=== PATIENT | male | born 1950 | race Two or more races ===

== ENCOUNTER 2017-01-19 00:02 | Emergency (ER) | payer MEDICARE, MEDICAID ==
[~2017-01-19] VITALS: Ht 172.7 cm; Wt 70.3 kg
[~2017-01-19 00:02] MED LIST: ALBUTEROL SULF8.5 GM INH; BUSPIRONE HCL5 M1 ORAL; CALCIUM500 M3 PO; CLONAZEPAM2 M1 PO; COLACE100 MG ORAL; IBUPROFEN200 MG ORAL; KLONOPIN0.5 MG ORAL; NORCO 5-325 TA1 EACH ORAL; PREDNISONE20 MG ORAL; PROAIR HFA8.5 GM INH; SIMVASTATIN10 MG PO; SIMVASTATIN5 MG ORAL; TEGRETOL200 MG PO; ZITHROMAX250 MG ORAL
--- NOTE | 2017-01-19 00:09 | Emergency Room Report ---
History of Present Illness General Chief Complaint: Laceration Source: Patient, Medical Record Present Illness HPI This is a 66-year-old male with a history of seizure and unsteady gait. Patient presents with a fall and head injury. He said he try to walk and tripped and fell backward. He sustained an abrasion/laceration to the scalp. Onset laceration to the forearm. This occurred about 4 hours ago. Pain is 8/ 10. Diffuse in nature. No loss of consciousness. Not on any anticoagulations. Nothing made it better. Nothing made it worse. 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 Hx Cerebrovascular Accident: Yes - 2009 Hx Seizures: Yes Review of Systems Eye: Denies: eye pain, blurred vision ENT: Denies: ear pain, nose congestion, throat swelling Respiratory: Denies: cough, shortness of breath Cardiovascular: Denies: chest pain, palpitations Gastrointestinal: Denies: abdominal pain, diarrhea, nausea, vomiting Musculoskeletal: Denies: back pain, joint pain Skin: Denies: rash Neurological: Denies: headache, numbness Endocrine: Denies: increased thirst, increased urine Hematologic/Lymphatic: Denies: easy bruising All Other Systems: negative except mentioned in HPI Physical Exam Vital Signs Date Time Temp Pulse Resp B/P (MAP) Pulse Ox O2 Delivery O2 Flow Rate FiO2 01/18/17 23:51 93 20 113/72 91 Room Air vitals normal. Repeat oxygenation is 95% room air Sp02 EP Interpretation: reviewed, normal General Appearance: well appearing, no apparent distress, alert Head: normocephalic, other - Abrasion to the occiput. No laceration. Eyes: bilateral eye PERRL, bilateral eye EOMI ENT: hearing grossly normal, normal pharynx Neck: full range of motion, supple, no meningismus Respiratory: chest non-tender, lungs clear, normal breath sounds Cardiovascular #1: regular rate, rhythm, no murmur Gastrointestinal: normal bowel sounds, non tender, no mass, no organomegaly, no bruit, non-distended Musculoskeletal: back normal, normal range of motion, other - Small skin avulsion to right forearm. Nothing to suture. Full range of motion. Neurovascularly intact. Psychiatric: mood/affect normal Skin: warm/dry Medical Decision Making Diagnostic Impression: Primary Impression: Head injury, acute Qualified Codes: S09.90XA - Unspecified injury of head, initial encounter Additional Impression: Avulsion of skin of forearm Qualified Codes: S51.801A - Unspecified open wound of right forearm, initial encounter ER Course Patient with a fall and minor skin injury. No fracture or bleed. [facility]/MRI/US Diagnostic Results CT/MRI/US Diagnostic Results : Imaging Test Ordered: CT head Impression read by radiologist. Negative. Last Vital Signs Date Time Temp Pulse Resp B/P (MAP) Pulse Ox O2 Delivery O2 Flow Rate FiO2 01/18/17 23:51 93 20 113/72 91 Room Air Status: improved Disposition: [facility] Condition: Stable Patient Instructions: Nonsutured Laceration Care Additional Instructions: Keep wound clean. Followup with your Dr. in 7 days. Return if symptom worsen. VILMA BURKS M.D. Jan 19, 2017 00:09
[2017-01-19 00:20] VITALS: BP 125/77
[2017-01-19 01:00] VITALS: BP 125/77
--- NOTE | 2017-01-19 09:26 | Diagnostic Imaging Report ---
Indication: TRAUMA, pain, status post fall, laceration on posterior head Technique: spiral acquisitions obtained through the brain. Angled axial and coronal 5 x 5 mm slices were reconstructed. No IV contrast utilized. Radiation dose was minimized using automated exposure control Total dose length product 1439 mGycm. CTDIvol(s) 70 mGy Comparison: none FINDINGS: No acute hemorrhage or edema. No mass effect or midline shift. There is age-related enlargement of the ventricles and extra axial CSF spaces. There is periventricular deep white matter ischemic change. Normal jimenez-white differentiation. Visualized orbits are unremarkable. Visualized sinuses are unremarkable. Intact calvarium. There is right high parietal scalp soft tissue swelling. The mastoids are clear. IMPRESSION: Chronic and age-related changes. Negative for acute intracranial bleed or mass effect Right high parietal scalp soft tissue swelling This agrees with the preliminary interpretation provided overnight by [facility] teleradiology service. The CT scanner at [facility] is accredited by the [employer] and the scans are performed using protocols designed to limit radiation exposure to as low as reasonably achievable to attain images of sufficient resolution adequate for diagnostic evaluation
== END 2017-01-19 01:01 ==
LOC: EDBD 00:02 → EMR 00:05
DX: S09.90XA Unspecified injury of head, initial encounter (principal); S51.801A Unspecified open wound of right forearm, initial encounter; W01.0XXA Fall on same level from slipping, tripping and stumbling without subsequent striking against object, initial encounter; Y93.9 Activity, unspecified; Y92.9 Unspecified place or not applicable; J44.9 Chronic obstructive pulmonary disease, unspecified; Z85.9 Personal history of malignant neoplasm, unspecified; K21.9 Gastro-esophageal reflux disease without esophagitis; F41.9 Anxiety disorder, unspecified; Z86.73 Personal history of transient ischemic attack (TIA), and cerebral infarction without residual deficits
CPT/HCPCS: 70450; 99284

== ENCOUNTER 2018-03-07 04:46 | Inpatient (IN) | payer MEDICARE, OTHER ==
[~2018-03-07] VITALS: Ht 170.2 cm; Wt 68.7 kg
[2018-03-07] VITALS (7 sets, daily range): BP systolic 101–135; BP diastolic 56–87
[2018-03-07] MEDS ORDERED: PREDNISONE20 MG ORAL (04:58)
--- NOTE | 2018-03-07 04:59 | Emergency Room Report ---
History of Present Illness General Chief Complaint: Dyspnea/Respdistress Source: EMS (Shahid Cordova M.D.) Present Illness HPI 67 WM c/o sob tonight. He has "asthma" and uses inhalers prn, last prednisone he thinks was November, no history of intubation. With this episode no fever, no chest pain, no leg pain/swelling, no recent travel. Just sob, and he has used his inhaler several times without relief. 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 Hx Cerebrovascular Accident: Yes - 2009 Hx Seizures: Yes (Shahid Cordova M.D.) Review of Systems Constitutional: Reports: see HPI Eye: Reports: no symptoms ENT: Reports: no symptoms Respiratory: Reports: shortness of breath, wheezing, HANKS Cardiovascular: Reports: no symptoms Gastrointestinal: Reports: no symptoms Genitourinary: Reports: no symptoms Musculoskeletal: Reports: no symptoms Skin: Reports: no symptoms Psychiatric: Reports: no symptoms Neurological: Reports: no symptoms Endocrine: Reports: no symptoms Hematologic/Lymphatic: Reports: no symptoms Allergic: Reports: no symptoms All Other Systems: negative except mentioned in HPI (Shahid Cordova M.D.) Physical Exam Vital Signs Date Time Temp Pulse Resp B/P (MAP) Pulse Ox O2 Delivery O2 Flow Rate FiO2 03/07/18 04:37 98.4 98 24 160/102 97 Non-Rebreather Sp02 EP Interpretation: reviewed, abnormal General Appearance: alert, GCS 15, moderate distress Head: normocephalic, atraumatic Eyes: bilateral eye normal inspection, bilateral eye PERRL, bilateral eye EOMI ENT: normal ENT inspection, hearing grossly normal, normal pharynx, no angioedema, normal voice, moist mucus membranes Neck: normal inspection, full range of motion, supple, no meningismus, no bony tend Respiratory: no rhonchi, respiratory distress - moderate; I:E 1:3, accessory muscle use, wheezing - prolonged I:E 1:3 Cardiovascular #1: normal inspection, regular rate, rhythm, no edema Gastrointestinal: normal inspection, normal bowel sounds, non tender, soft, no mass, non-distended Musculoskeletal: gait/station normal, normal range of motion Neurologic: normal inspection, alert, oriented x3, responsive, motor strength/ tone normal Psychiatric: normal inspection, judgement/insight normal, memory normal Suicide Risk Assessment: Suicidal Ideation: No Had intent to initiate attempt: No Pt's plan for suicide attempt: No Has means to complete attempt: No Skin: normal inspection, normal color, no rash, warm/dry (Shahid Cordova M.D.) Medical Decision Making Behavioral: Depression (Shahid Cordova M.D.) Diagnostic Impression: Primary Impression: Asthma with status asthmaticus Qualified Codes: J45.52 - Severe persistent asthma with status asthmaticus ER Course moderate resp distress on presentation however there is good air exchange and I think this patient will improve considerably over the next several hours. I have asked next MD to make final disposition, possible admit. (Shahid Cordova M.D.) ER Course Please see above note. States one of worst attacks. Denies intubation. Patient still dyspneic and with wheezing. Further breathing treatments ordered. Admit tele "status asthmaticus" Labs with eosinphilia. Tox + barbs (not seen on med recon) Trop neg. Patient changed into gown. With minimal exertion, in resp distress. Desaturation and worse bronchospasm. Albuterol repeat. Magnesium low. Mag IV ordered. If not better, consider BIPAP. Improved after mag and tx. No resp distress. O2 sat 91% on RA. Admit Telemetry Dr. Medina. Laboratory Tests Test 03/07/18 05:00 03/07/18 06:00 03/07/18 15:45 White Blood Count 6.4 K/UL (4.8-10.8) Red Blood Count 5.07 M/UL (4.70-6.10) Hemoglobin 15.2 G/DL (14.2-18.0) Hematocrit 44.8 % (42.0-52.0) Mean Corpuscular Volume 88 FL (80-99) Mean Corpuscular Hemoglobin 29.9 PG (27.0-31.0) Mean Corpuscular Hemoglobin Concent 33.9 G/DL (32.0-36.0) Red Cell Distribution Width 11.5 % (11.6-14.8) L Platelet Count 164 K/UL (150-450) Mean Platelet Volume 7.2 FL (6.5-10.1) Neutrophils (%) (Auto) 60.1 % (45.0-75.0) Lymphocytes (%) (Auto) 17.8 % (20.0-45.0) L Monocytes (%) (Auto) 10.2 % (1.0-10.0) H Eosinophils (%) (Auto) 10.1 % (0.0-3.0) H Basophils (%) (Auto) 1.8 % (0.0-2.0) Prothrombin Time 10.5 SEC (9.30-11.50) Prothrombin Time INR 1.0 (0.9-1.1) Sodium Level 142 MMOL/L (136-145) 141 MMOL/L (136-145) Potassium Level 3.8 MMOL/L (3.5-5.1) 3.9 MMOL/L (3.5-5.1) Chloride Level 108 MMOL/L (98-107) H 108 MMOL/L (98-107) H Carbon Dioxide Level 27 MMOL/L (21-32) 22 MMOL/L (21-32) Anion Gap 7 mmol/L (5-15) 11 mmol/L (5-15) Blood Urea Nitrogen 17 mg/dL (7-18) 16 mg/dL (7-18) Creatinine 0.9 MG/DL (0.55-1.30) 1.1 MG/DL (0.55-1.30) Estimate Glomerular Filtration Rate > 60 mL/min (>60) > 60 mL/min (>60) Glucose Level 117 MG/DL (74-106) H 118 MG/DL (74-106) H Calcium Level 8.8 MG/DL (8.5-10.1) 8.7 MG/DL (8.5-10.1) Magnesium Level 1.7 MG/DL (1.8-2.4) L 2.2 MG/DL (1.8-2.4) Total Bilirubin 0.2 MG/DL (0.2-1.0) 0.2 MG/DL (0.2-1.0) Aspartate Amino Transferase (AST) 20 U/L (15-37) 16 U/L (15-37) Alanine Aminotransferase (ALT) 19 U/L (12-78) 18 U/L (12-78) Alkaline Phosphatase 97 U/L (46-116) 90 U/L (46-116) Troponin I 0.000 ng/mL (0.000-0.056) 0.000 ng/mL (0.000-0.056) Pro-B-Type Natriuretic Peptide 266 pg/mL (0-125) H Total Protein 7.3 G/DL (6.4-8.2) 6.9 G/DL (6.4-8.2) Albumin 3.8 G/DL (3.4-5.0) 3.4 G/DL (3.4-5.0) Globulin 3.5 g/dL 3.5 g/dL Albumin/Globulin Ratio 1.1 (1.0-2.7) 1.0 (1.0-2.7) Urine Color Yellow Urine Appearance Clear Urine pH 5 (4.5-8.0) Urine Specific Cantril 1.025 (1.005-1.035) Urine Protein 1+ (NEGATIVE) H Urine Glucose (UA) Negative (NEGATIVE) Urine Ketones 1+ (NEGATIVE) H Urine Blood Negative (NEGATIVE) Urine Nitrite Negative (NEGATIVE) Urine Bilirubin Negative (NEGATIVE) Urine Urobilinogen Normal MG/DL (0.0-1.0) Urine Leukocyte Esterase Negative (NEGATIVE) Urine RBC 0 /HPF (0 - 0) Urine WBC 0-2 /HPF (0 - 0) Urine Squamous Epithelial Cells Occasional /LPF Urine Bacteria Occasional /HPF (NONE) Urine Mucus Many /LPF (NONE/OCC) H Urine Opiates Screen Negative (NEGATIVE) Urine Barbiturates Screen Positive (NEGATIVE) H Phencyclidine (PCP) Screen Negative (NEGATIVE) Urine Amphetamines Screen Negative (NEGATIVE) Urine Benzodiazepines Screen Negative (NEGATIVE) Urine Cocaine Screen Negative (NEGATIVE) Urine Marijuana (THC) Screen Negative (NEGATIVE) Phosphorus Level 2.0 MG/DL (2.5-4.9) L (Blake Rollins MD) EKG Diagnostic Results EKG Time: 05:36 Rate: tachycardiac Rhythm: NSR ST Segments: no acute changes Other Impression sinus tachy 103, no elevation/depression (Shahid Cordova M.D.) Rhythm Strip Diag. Results Rhythm Strip Time: 05:36 EP Interpretation: yes Rate: sinus 108 (Shahid Cordova M.D.) EP Interpretation: yes Rhythm: NSR, no PVC's, no ectopy, other (Blake Rollins MD) Chest X-Ray Diagnostic Results Chest X-Ray Diagnostic Results : Chest X-Ray Ordered: Yes Indication: Shortness of Breath EP Interpretation: Yes Interpretation: no consolidation, no effusion, other - copd (Shahid Cordova M.D.) Chest X-Ray Diagnostic Results : Electronically Signed by: Blake Rollins MD - agree with reading by Dr. Cordova (Blake Rollins MD) Last Vital Signs Date Time Temp Pulse Resp B/P (MAP) Pulse Ox O2 Delivery O2 Flow Rate FiO2 03/07/18 04:37 98.4 98 24 160/102 97 Non-Rebreather Status: worsened (Shahid Cordova M.D.) Last Vital Signs Date Time Temp Pulse Resp B/P (MAP) Pulse Ox O2 Delivery O2 Flow Rate FiO2 03/07/18 19:55 75 20 96 Room Air 21 03/07/18 16:00 97.0 103/57 (72) 03/07/18 10:32 2.0 Status: improved (Blake Rollins MD) Disposition: ADMITTED INPATIENT Condition: Serious Scripts Trimethoprim/Sulfamethoxazole (Bactrim Ds Tablet) 1 Each Tablet 1 TAB ORAL TWICE A DAY for 4 Days, TAB Prov: Michele Umaña MD 03/10/18 Theophylline (THEODUR*) 100 Mg Tab.er.12h 100 MG ORAL EVERY 12 HOURS for 30 Days, TAB Prov: Michele Umaña MD 03/10/18 Methylprednisolone (Methylprednisolone*) 4MG Dspk 4 MG ORAL DIRECTED for 6 Days, #21 EA 0 Refills Day 1: Two tablets before breakfast, one after lunch, one after dinner, and two at bedtime. If started late in the day, take all six tablets at once or divide into two or three doses, unless otherwise directed by prescriber. Day 2: One tablet before breakfast, one after lunch, one after dinner, and two at bedtime Day 3: One tablet before breakfast, one after lunch, one after dinner, and one at bedtime Day 4: One tablet before breakfast, one after lunch, and one at bedtime Day 5: One tablet before breakfast and one at bedtime Day 6: One tablet before breakfast Prov: Michele Umaña MD 03/10/18 Patient Instructions: Chronic Obstructive Pulmonary Disease Exacerbation Shahid Cordova M.D. Mar 07, 2018 04:59 Blake Rollins MD Mar 07, 2018 06:28
[2018-03-07] MEDS ORDERED: Solu-MEDROL 125mg Inj IVP ONE (05:00)
[2018-03-07] MEDS ORDERED: Albuterol/Ipratropium 3ml neb HHN ONE (05:00)
[2018-03-07 05:30] LABS: BASOPHILS % (AUTO) 1.8 % (0.0-2.0); EOSINOPHILS % (AUTO) 10.1 % (0.0-3.0); HEMATOCRIT 44.8 % (42.0-52.0); HEMOGLOBIN 15.2 G/DL (14.2-18.0); LYMPHOCYTES % (AUTO) 17.8 % (20.0-45.0); MEAN CORPUSCULAR VOLUME 88 FL (80-99); MONOCYTES % (AUTO) 10.2 % (1.0-10.0); NEUTROPHILS % (AUTO) 60.1 % (45.0-75.0); PLATELET COUNT 164 K/UL (150-450); RED BLOOD COUNT 5.07 M/UL (4.70-6.10); RED CELL DISTRIBUTION WIDTH 11.5 % (11.6-14.8); WHITE BLOOD COUNT 6.4 K/UL (4.8-10.8)
--- NOTE | 2018-03-07 06:15 | Diagnostic Imaging Report ---
EXAM: XR Chest, 1 View CLINICAL HISTORY: CP TECHNIQUE: Frontal view of the chest. COMPARISON: No prior studies available. FINDINGS: Normal heart size. Suspect some chronic interstitial changes. No consolidation, overt edema or other acute cardiopulmonary process. IMPRESSION: No acute cardiopulmonary process
[2018-03-07 06:29] LABS: ALANINE AMINOTRANSFERASE 19 U/L (12-78); ALBUMIN 3.8 G/DL (3.4-5.0); ALBUMIN/GLOBULIN RATIO 1.1 (1.0-2.7); ALKALINE PHOSPHATASE 97 U/L (46-116); ANION GAP 7 mmol/L (5-15); ASPARTATE AMINO TRANSFERASE 20 U/L (15-37); BILIRUBIN,TOTAL 0.2 MG/DL (0.2-1.0); BLOOD UREA NITROGEN 17 mg/dL (7-18); CALCIUM 8.8 MG/DL (8.5-10.1); CARBON DIOXIDE 27 MMOL/L (21-32); CHLORIDE 108 MMOL/L (98-107); CREATININE 0.9 MG/DL (0.55-1.30); POTASSIUM 3.8 MMOL/L (3.5-5.1); SODIUM 142 MMOL/L (136-145)
[2018-03-07 06:30] LABS: APPEARANCE,URINE CLEAR; BILIRUBIN, URINE NEGATIVE (NEGATIVE); GLUCOSE, URINE (UA) NEGATIVE (NEGATIVE); KETONES,URINE 1+ (NEGATIVE); LEUKOCYTE ESTERASE ,URINE NEGATIVE (NEGATIVE); NITRITE,URINE NEGATIVE (NEGATIVE); PH,URINE 5 (4.5-8.0); PROTEIN,URINE 1+ (NEGATIVE); UROBILINOGEN,URINE NORMAL MG/DL (0.0-1.0)
[2018-03-07] MEDS: Albuterol ud Inhalation HHN SCH ×8 (06:38→09:18)
[2018-03-07 06:49] LABS: COLOR,URINE YELLOW
[2018-03-07] MEDS ORDERED: LORazepam 0.5mg tab ORAL PRN (12:00)
[2018-03-07] MEDS ORDERED: carBAMazepine 200mg tab ORAL SCH (13:00)
[2018-03-07] MEDS: Solu-MEDROL 125mg Inj IVP SCH ×2 (13:18→22:13)
[2018-03-07] MEDS: cefTRIAXone 1 GM in D5W 55 ML IVPB SCH (13:19)
[2018-03-07] MEDS: Norco 5mg/325mg tab ORAL PRN ×2 (13:51→22:15)
[2018-03-07] MEDS: Albuterol/Ipratropium 3ml neb HHN SCH ×2 (14:51→19:43)
--- NOTE | 2018-03-07 15:06 | History & Physical ---
History and Physical History & Physicial Dictated for Int Med-dr Medina no. [id number]. Ryan Mckenzie MD Mar 07, 2018 15:06
[2018-03-07] MEDS: NovoLOG Insulin Flexpen SUBQ SCH ×2 (16:21→20:36)
[2018-03-07 16:34] LABS: ALANINE AMINOTRANSFERASE 18 U/L (12-78); ALBUMIN 3.4 G/DL (3.4-5.0); ALKALINE PHOSPHATASE 90 U/L (46-116); ANION GAP 11 mmol/L (5-15); ASPARTATE AMINO TRANSFERASE 16 U/L (15-37); BILIRUBIN,TOTAL 0.2 MG/DL (0.2-1.0); BLOOD UREA NITROGEN 16 mg/dL (7-18); CALCIUM 8.7 MG/DL (8.5-10.1); CARBON DIOXIDE 22 MMOL/L (21-32); CHLORIDE 108 MMOL/L (98-107); CREATININE 1.1 MG/DL (0.55-1.30); POTASSIUM 3.9 MMOL/L (3.5-5.1); SODIUM 141 MMOL/L (136-145)
[2018-03-07] MEDS: BusPIRone 10mg Tab ORAL SCH (17:26)
[2018-03-07] MEDS: Docusate 100mg cap ORAL SCH (17:27)
[2018-03-07] MEDS: Heparin 5000 units/ml inj SUBQ SCH (20:34)
[2018-03-08] VITALS (7 sets, daily range): BP systolic 99–139; BP diastolic 53–81
[2018-03-08] MEDS: Albuterol/Ipratropium 3ml neb HHN PRN ×3 (00:03→10:27)
--- NOTE | 2018-03-08 02:00 | History and Physical Report ---
DATE OF ADMISSION: 03/07/2018 CHIEF COMPLAINT: The patient is a 67-year-old male who presents with chief complaint of shortness of breath and cough. HISTORY OF PRESENT ILLNESS: The patient has a history of asthma. The patient was admitted to the [facility] recently. The patient was discharged to [facility]. The patient states he began to experience shortness of breath on 03/04/2018. The patient states this is increased over the past 3 days. The patient became extremely short of breath today 03/07/2018. A pulse ox at oxygen saturation dropped to 80. The patient was transported to [facility] for dyspnea. The patient was admitted for acute exacerbation of asthma. REVIEW OF SYSTEMS: CONSTITUTIONAL: The patient denies weight loss or gain. The patient denies fevers or chills. HEENT: The patient denies ear or throat pain. The patient denies headache. CARDIOVASCULAR: The patient denies palpitations or chest pain. CHEST: The patient complains of wheezing and shortness of breath as above. The patient complains of nonproductive cough. ABDOMEN: The patient denies nausea, vomiting, diarrhea, or constipation. GENITOURINARY: The patient denies dysuria or increased frequency of urination. NEUROMUSCULAR: The patient denies seizures or generalized weakness. PAST MEDICAL HISTORY: Significant for, 1. Asthma. 2. Ataxia. 3. Posttraumatic stress disorder. 4. Prostate cancer. PAST SURGICAL HISTORY: The patient denies. CURRENT MEDICATIONS: 1. Albuterol nebulized q.4 h. p.r.n. 2. Calcium carbonate 1 tablet p.o. twice daily. 3. Vitamin D 1000 units 2 tablets p.o. daily. 4. Depakote 250 mg 2 tablets p.o. at bedtime. 5. Gabapentin 300 mg p.o. 3 times daily.` 6. Haldol 2 mg p.o. q.8 h. 7. DuoNeb nebulized hours as needed I had. 8. Leuprolide 22.5 mg injected every 3 months. 9. Melatonin 3 mg p.o. at bedtime. 10. Primidone 50 mg 2 tablets p.o. twice daily. 11. Sertraline 150 mg p.o. daily. ALLERGIES: No known drug allergies. SOCIAL HISTORY: The patient is . The patient denies tobacco or alcohol use. PHYSICAL EXAMINATION: VITAL SIGNS: Temperature 98.0, respirations 18, pulse 107, and blood pressure 118/58. GENERAL: The patient is a well-developed and well-nourished white male, in no apparent distress. HEENT: Eyes, pupils equal and responsive to light and accommodation. Extraocular movements are intact. NECK: Supple without lymphadenopathy. CHEST: Diffuse wheezes in bilateral lung baker. Otherwise, without rales. CARDIOVASCULAR: Regular rhythm and rate. S1, S2 normal without murmurs, rubs, or gallops. ABDOMEN: Soft, nontender, nondistended. Positive bowel sounds. No evidence of hepatosplenomegaly. Currently, no rebound or guarding noted. EXTREMITIES: Negative for clubbing, cyanosis, or edema. RECTAL/GENITAL: Refused. NEUROLOGIC: Cranial nerves II through XII are grossly intact without focal deficits. Motor strength is 5/5 bilaterally. Deep tendon reflexes are 2+ plantar. LABORATORY STUDIES: WBC 6.4, hemoglobin 15.2, hematocrit 44.8, and platelets 164,000. Sodium 142, potassium 3.8, chloride 108, CO2 27. BUN 17, creatinine 0.9. Glucose 117. Troponin 0.0. BNP elevated to 166. Chest x-ray was reported as no acute disease. ASSESSMENT: This is a 67-year-old male. 1. Dyspnea. 2. Cough. 3. Acute asthma exacerbation. 4. Hypoxia. 5. Prostate cancer. 6. Bipolar depression. TREATMENT: 1. Dyspnea/exacerbation of asthma. A pulmonary consultation with Dr. Michele Umaña. The patient has been started empirically on DuoNeb nebulized q.8 h. routine. The patient has also been started on intravenous Solu-Medrol. The patient has been started on ceftriaxone intravenously. We will follow recommendation of Pulmonary. 2. Prostate cancer. Continue loperamide as above. 3. Bipolar depression. Continue Depakote as above. Ryan Mckenzie M.D. DR: PRESTON JOB#: [id number] CC:
[2018-03-08] MEDS: Solu-MEDROL 125mg Inj IVP SCH ×2 (05:38→20:21)
[2018-03-08] MEDS: NovoLOG Insulin Flexpen SUBQ SCH ×4 (06:10→20:15)
[2018-03-08] MEDS: Albuterol/Ipratropium 3ml neb HHN SCH ×4 (07:14→23:32)
[2018-03-08] MEDS ORDERED: Tums 500mg ORAL SCH (09:00)
[2018-03-08] MEDS: BusPIRone 10mg Tab ORAL SCH (09:23)
[2018-03-08] MEDS: Docusate 100mg cap ORAL SCH ×2 (09:23→17:51)
[2018-03-08] MEDS: Heparin 5000 units/ml inj SUBQ SCH ×2 (09:32→20:26)
[2018-03-08] MEDS: cefTRIAXone 1 GM in D5W 55 ML IVPB SCH (09:59)
[2018-03-08 11:23] LABS: HEMATOCRIT 36.2 % (42.0-52.0); HEMOGLOBIN 12.8 G/DL (14.2-18.0); MEAN CORPUSCULAR VOLUME 89 FL (80-99); PLATELET COUNT 127 K/UL (150-450); RED BLOOD COUNT 4.06 M/UL (4.70-6.10); RED CELL DISTRIBUTION WIDTH 11.7 % (11.6-14.8); WHITE BLOOD COUNT 8.3 K/UL (4.8-10.8)
--- NOTE | 2018-03-08 11:41 | Consultation ---
History of Present Illness General Date patient seen: Mar 08, 2018 Chief Complaint: Dyspnea/Respdistress Present Illness HPI 67 WM c/o sob tonight. He has "asthma" and uses inhalers prn, last prednisone he thinks was November, no history of intubation. With this episode no fever, no chest pain, no leg pain/swelling, no recent travel. Just sob, and he has used his inhaler several times without relief. Allergies: Coded Allergies: NO KNOWN ALLERGIES (Verified Allergy, Unknown, 03/07/18) Medication History Scheduled Albuterol Sulfate* (Albuterol Sulfate Mdi*), 2 PUFF INH Q4H Albuterol Sulfate* (Proair Hfa*), 1 PUFF INH Q6H, (Reported) Azithromycin* (Zithromax*), 250 MG ORAL DAILY Buspirone Hcl* (Buspirone Hcl*), 5 MG ORAL TWICE A DAY, (Reported) Carbamazepine (Tegretol*), 500 MG PO TID, (Reported) Clonazepam (Clonazepam), 2 MG PO BID, (Reported) Clonazepam* (Klonopin*), 0.5 MG ORAL Q6H, (Reported) Docusate Sodium* (Colace*), 100 MG ORAL TWICE A DAY Ibuprofen (Ibuprofen*), 200 MG ORAL FOUR TIMES A DAY, (Reported) Prednisone* (Prednisone*), 60 MG ORAL DAILY Simvastatin (Zocor), 10 MG PO QHS, (Reported) Simvastatin (Zocor), 5 MG ORAL BEDTIME, (Reported) Scheduled PRN Hydrocodone Bit/Acetaminophen 5-325* ([place] 5-325*), 1 TAB ORAL Q6H PRN for For Pain Miscellaneous Medications Calcium Carbonate (Calcium), 500 MG PO, (Reported) Discontinued Medications Prednisone* (Prednisone*), 40 MG ORAL DAILY Discontinued Reason: MD discontinued med Patient History Healthcare decision maker Resuscitation status Advanced Directive on File Past Medical/Surgical History Past Medical/Surgical History: (1) Hypercholesterolemia (2) Depression (3) Anxiety Review of Systems Constitutional: Reports: no symptoms Eye: Reports: no symptoms Respiratory: Reports: shortness of breath, wheezing Physical Exam General Appearance: WD/WN, no apparent distress Lines, tubes and drains: peripheral HEENT: normocephalic, atraumatic Neck: non-tender, normal alignment Respiratory/Chest: chest wall non-tender, lungs clear Breasts: no masses Cardiovascular/Chest: normal peripheral pulses Abdomen: normal bowel sounds Genitourinary/Rectal: normal genital exam Extremities: normal range of motion Last 24 Hour Vital Signs Date Time Temp Pulse Resp B/P (MAP) Pulse Ox O2 Delivery O2 Flow Rate FiO2 03/08/18 10:38 68 22 97 Room Air 21 03/08/18 10:27 67 26 94 Room Air 21 03/08/18 09:00 Room Air 03/08/18 08:00 98.2 79 20 115/58 (77) 96 03/08/18 07:39 66 03/08/18 07:25 65 17 98 Room Air 21 03/08/18 07:15 62 16 95 Room Air 21 03/08/18 04:54 73 20 94 Room Air 21 03/08/18 04:44 68 18 90 Room Air 21 03/08/18 04:00 65 03/08/18 04:00 98.4 74 20 115/68 (84) 100 03/08/18 00:15 68 18 97 Room Air 21 03/08/18 00:03 68 18 94 Room Air 21 03/08/18 00:03 36 03/08/18 00:00 67 03/08/18 00:00 98.8 74 21 110/65 (80) 98 03/07/18 21:00 Room Air 03/07/18 20:00 74 03/07/18 20:00 97.9 73 20 109/62 (78) 92 03/07/18 19:55 75 20 96 Room Air 03/07/18 19:43 89 18 Room Air 03/07/18 19:43 89 18 95 Room Air 21 03/07/18 16:00 76 03/07/18 16:00 97.0 76 16 103/57 (72) 93 03/07/18 14:52 88 18 100 Room Air 03/07/18 14:42 36 03/07/18 14:42 80 18 95 Room Air 21 03/07/18 12:00 97.2 97 16 102/61 (75) 91 03/07/18 12:00 89 Intake and Output 03/07/18 03/08/18 19:00 07:00 Intake Total 240 ml Output Total 400 ml Balance 240 ml -400 ml Intake Oral 240 ml Output Urine Total 400 ml # Voids 1 Laboratory Tests Test 03/07/18 15:45 03/08/18 10:38 Sodium Level 141 MMOL/L (136-145) Potassium Level 3.9 MMOL/L (3.5-5.1) Chloride Level 108 MMOL/L (98-107) H Carbon Dioxide Level 22 MMOL/L (21-32) Anion Gap 11 mmol/L (5-15) Blood Urea Nitrogen 16 mg/dL (7-18) Creatinine 1.1 MG/DL (0.55-1.30) Estimat Glomerular Filtration Rate > 60 mL/min (>60) Glucose Level 118 MG/DL (74-106) H Calcium Level 8.7 MG/DL (8.5-10.1) Phosphorus Level 2.0 MG/DL (2.5-4.9) L Magnesium Level 2.2 MG/DL (1.8-2.4) Total Bilirubin 0.2 MG/DL (0.2-1.0) Aspartate Amino Transf (AST/SGOT) 16 U/L (15-37) Alanine Aminotransferase (ALT/SGPT) 18 U/L (12-78) Alkaline Phosphatase 90 U/L (46-116) Troponin I 0.000 ng/mL (0.000-0.056) Total Protein 6.9 G/DL (6.4-8.2) Albumin 3.4 G/DL (3.4-5.0) Globulin 3.5 g/dL Albumin/Globulin Ratio 1.0 (1.0-2.7) White Blood Count 8.3 K/UL (4.8-10.8) Red Blood Count 4.06 M/UL (4.70-6.10) L Hemoglobin 12.8 G/DL (14.2-18.0) L Hematocrit 36.2 % (42.0-52.0) L Mean Corpuscular Volume 89 FL (80-99) Mean Corpuscular Hemoglobin 31.7 PG (27.0-31.0) H Mean Corpuscular Hemoglobin Concent 35.4 G/DL (32.0-36.0) Red Cell Distribution Width 11.7 % (11.6-14.8) Platelet Count 127 K/UL (150-450) L Mean Platelet Volume 6.4 FL (6.5-10.1) L Neutrophils (%) (Auto) % (45.0-75.0) Lymphocytes (%) (Auto) % (20.0-45.0) Monocytes (%) (Auto) % (1.0-10.0) Eosinophils (%) (Auto) % (0.0-3.0) Basophils (%) (Auto) % (0.0-2.0) Neutrophils % (Manual) Pending Lymphocytes % (Manual) Pending Platelet Estimate Pending Platelet Morphology Pending Height (Feet): 5 Height (Inches): 7.00 Weight (Pounds): 150 Medications Current Medications Medications (Trade) Dose Ordered Sig/Jeri Route PRN Reason Start Time Stop Time Status Last Admin Dose Admin Acetaminophen (Tylenol) 650 mg Q6H PRN ORAL Mild Pain/Temp > 100.5 03/07/18 12:00 04/06/18 11:59 Acetaminophen/ Hydrocodone Bitart ([place] 5/325) 1 tab Q6H PRN ORAL Moderate Pain (Pain Scale 4-6) 03/07/18 12:29 03/14/18 12:28 03/07/18 22:15 Albuterol/ Ipratropium (Albuterol/ Ipratropium) 3 ml Q4H PRN HHN Shortness of Breath 03/07/18 12:00 03/12/18 11:59 03/08/18 10:27 Albuterol/ Ipratropium (Albuterol/ Ipratropium) 3 ml Q4HRT HHN 03/08/18 15:00 03/13/18 14:59 Buspirone HCl (Buspar) 5 mg BID ORAL 03/07/18 18:00 04/06/18 17:59 03/08/18 09:23 Calcium Carbonate (Tums) 500 mg DAILY ORAL 03/08/18 09:00 04/07/18 08:59 03/08/18 09:23 Ceftriaxone Sodium 1 gm/ Dextrose 55 ml @ 110 mls/hr DAILY IVPB 03/07/18 13:00 03/14/18 12:59 03/08/18 09:59 Dextrose (Dextrose 50%) 25 ml Q30M PRN IV Hypoglycemia 03/07/18 12:00 04/06/18 11:59 Dextrose (Dextrose 50%) 50 ml Q30M PRN IV Hypoglycemia 03/07/18 12:00 04/06/18 11:59 Docusate Sodium (Colace) 100 mg TWICE A DAY ORAL 03/07/18 18:00 04/06/18 17:59 03/08/18 09:23 Heparin Sodium (Porcine) (Heparin 5000 units/ml) 5,000 units EVERY 12 HOURS SUBQ 03/07/18 21:00 04/06/18 20:59 03/08/18 09:32 Insulin Aspart (NovoLOG) BEFORE MEALS AND HS SUBQ 03/07/18 16:30 04/06/18 16:29 03/08/18 06:10 Lorazepam (Ativan) 0.5 mg Q6H PRN ORAL For Anxiety 03/07/18 12:00 03/14/18 11:59 Methylprednisolone Sodium Succinate (Solu-MEDROL) 80 mg EVERY 8 HOURS IVP 03/07/18 14:00 04/06/18 13:59 03/08/18 05:38 Ondansetron HCl (Zofran) 4 mg Q4H PRN IVP Nausea & Vomiting 03/07/18 12:30 04/06/18 12:29 Assessment/Plan Problem List: (1) Asthma exacerbation ICD Codes: J45.901 - Asthma exacerbation SNOMED: 822756398 (2) Depression ICD Codes: F32.9 - Major depressive disorder, single episode, unspecified SNOMED: 66243487 (3) Anxiety ICD Codes: F41.9 - Anxiety disorder, unspecified SNOMED: 36737963 Assessment/Plan check sputum respiratory treatment IV steroids, with fast taper iv abx Add theophylline dvt prophylaxis Michele Umaña MD Mar 08, 2018 11:41
[2018-03-08] MEDS ORDERED: Promethazine/Codeine 5ml UD ORAL PRN (11:45)
[2018-03-08] MEDS ORDERED: Albuterol ud Inhalation HHN SCH (15:00)
[2018-03-08] MEDS ORDERED: Albuterol/Ipratropium 3ml neb HHN SCH (15:00)
[2018-03-08] MEDS ORDERED: Norco 5mg/325mg tab ORAL PRN (17:00)
[2018-03-08] MEDS ORDERED: LORazepam 0.5mg tab ORAL PRN (17:00)
[2018-03-08] MEDS ORDERED: Albuterol/Ipratropium 3ml neb HHN PRN (17:00)
--- NOTE | 2018-03-08 17:51 | Internal Med Progress Note ---
Subjective Date of Service: Mar 08, 2018 Physician Name Mckenzie,Ryan Attending Physician Christopher Medina MD Current Medications Medications (Trade) Dose Ordered Sig/Jeri Route PRN Reason Start Time Stop Time Status Last Admin Dose Admin Acetaminophen (Tylenol) 650 mg Q6H PRN ORAL Mild Pain/Temp > 100.5 03/08/18 17:00 04/06/18 16:59 Acetaminophen/ Hydrocodone Bitart ([place] 5/325) 1 tab Q6H PRN ORAL Moderate Pain (Pain Scale 4-6) 03/08/18 17:00 03/14/18 16:59 Albuterol/ Ipratropium (Albuterol/ Ipratropium) 3 ml Q4H PRN HHN Shortness of Breath 03/08/18 17:00 03/12/18 16:59 Albuterol/ Ipratropium (Albuterol/ Ipratropium) 3 ml Q4HRT HHN 03/08/18 19:00 03/13/18 14:59 Calcium Carbonate (Tums) 500 mg DAILY ORAL 03/09/18 09:00 04/07/18 08:59 Ceftriaxone Sodium 1 gm/ Dextrose 55 ml @ 110 mls/hr DAILY IVPB 03/09/18 09:00 03/14/18 12:59 Clonazepam (KlonoPIN) 1 mg BEDTIME ORAL 03/08/18 21:00 03/15/18 20:59 Dextrose (Dextrose 50%) 25 ml Q30M PRN IV Hypoglycemia 03/08/18 16:30 04/06/18 11:59 Dextrose (Dextrose 50%) 50 ml Q30M PRN IV Hypoglycemia 03/08/18 16:30 04/06/18 11:59 Docusate Sodium (Colace) 100 mg TWICE A DAY ORAL 03/08/18 18:00 04/06/18 17:59 Fluoxetine HCl (PROzac) 20 mg DAILY ORAL 03/09/18 09:00 04/07/18 11:59 Heparin Sodium (Porcine) (Heparin 5000 units/ml) 5,000 units EVERY 12 HOURS SUBQ 03/08/18 21:00 04/06/18 20:59 Insulin Aspart (NovoLOG) BEFORE MEALS AND HS SUBQ 03/08/18 17:30 04/06/18 17:29 Lorazepam (Ativan) 0.5 mg Q6H PRN ORAL For Anxiety 03/08/18 17:00 03/14/18 16:59 Methylprednisolone Sodium Succinate (Solu-MEDROL) 60 mg EVERY 12 HOURS IVP 03/08/18 21:00 04/06/18 13:59 Ondansetron HCl (Zofran) 4 mg Q4H PRN IVP Nausea & Vomiting 03/08/18 16:30 04/06/18 12:29 Promethazine HCl/ Codeine (Phenergan with Codeine) 5 ml Q4H PRN ORAL For Cough 03/08/18 17:00 04/07/18 16:59 Theophylline (Esteban-Dur) 100 mg EVERY 12 HOURS ORAL 03/08/18 21:00 04/07/18 20:59 Allergies: Coded Allergies: NO KNOWN ALLERGIES (Verified Allergy, Unknown, 03/07/18) ROS Limited/Unobtainable: No Constitutional: Reports: no symptoms HEENT: Reports: no symptoms Cardiovascular: Reports: no symptoms Respiratory: Reports: shortness of breath, wheezing Gastrointestinal/Abdominal: Reports: no symptoms Genitourinary: Reports: no symptoms Neurologic/Psychiatric: Reports: no symptoms Subjective 67 YO M admitted with shortness of breath. Now asthma exacerbation. Cover for Int Aryan-Dr Medina Objective Last Vital Signs Date Time Temp Pulse Resp B/P (MAP) Pulse Ox O2 Delivery O2 Flow Rate FiO2 03/08/18 15:45 98.6 77 21 103/67 (79) 94 03/08/18 15:15 Room Air 21 03/07/18 10:32 2.0 Laboratory Tests Test 03/08/18 10:38 White Blood Count 8.3 K/UL (4.8-10.8) Red Blood Count 4.06 M/UL (4.70-6.10) L Hemoglobin 12.8 G/DL (14.2-18.0) L Hematocrit 36.2 % (42.0-52.0) L Mean Corpuscular Volume 89 FL (80-99) Mean Corpuscular Hemoglobin 31.7 PG (27.0-31.0) H Mean Corpuscular Hemoglobin Concent 35.4 G/DL (32.0-36.0) Red Cell Distribution Width 11.7 % (11.6-14.8) Platelet Count 127 K/UL (150-450) L Mean Platelet Volume 6.4 FL (6.5-10.1) L Neutrophils (%) (Auto) % (45.0-75.0) Lymphocytes (%) (Auto) % (20.0-45.0) Monocytes (%) (Auto) % (1.0-10.0) Eosinophils (%) (Auto) % (0.0-3.0) Basophils (%) (Auto) % (0.0-2.0) Differential Total Cells Counted 100 Neutrophils % (Manual) 89 % (45-75) H Lymphocytes % (Manual) 9 % (20-45) L Monocytes % (Manual) 2 % (1-10) Eosinophils % (Manual) 0 % (0-3) Basophils % (Manual) 0 % (0-2) Band Neutrophils 0 % (0-8) Platelet Estimate Decreased L Platelet Morphology Normal Red Blood Cell Morphology Normal Microbiology Date/Time Source Procedure Growth Status 03/07/18 08:45 Rectum VRE Culture Pending Resulted 03/07/18 08:45 Rectum - Preliminary Resulted Intake and Output 03/07/18 03/08/18 18:59 06:59 Intake Total 240 ml Output Total 400 ml Balance 240 ml -400 ml Intake Oral 240 ml Output Urine Total 400 ml # Voids 1 Objective PHYSICAL EXAMINATION: GENERAL: The patient is a well-developed and well-nourished white male, in no apparent distress. HEENT: Eyes, pupils equal and responsive to light and accommodation. Extraocular movements are intact. NECK: Supple without lymphadenopathy. CHEST: Diffuse wheezes in bilateral lung baker. Otherwise, without rales. CARDIOVASCULAR: Regular rhythm and rate. S1, S2 normal without murmurs, rubs, or gallops. ABDOMEN: Soft, nontender, nondistended. Positive bowel sounds. No evidence of hepatosplenomegaly. Currently, no rebound or guarding noted. EXTREMITIES: Negative for clubbing, cyanosis, or edema. RECTAL/GENITAL: Refused. NEUROLOGIC: Cranial nerves II through XII are grossly intact without focal deficits. Motor strength is 5/5 bilaterally. Deep tendon reflexes are 2+ plantar. Assessment/Plan Problem List: (1) Prostate cancer Assessment & Plan: Undergoing outpatient treatment (2) Bipolar depression (3) URI (upper respiratory infection) (4) Asthma exacerbation Assessment & Plan: see pulmonary note. Continue ceftriaxone, IV solumedrol and nebulizer treatment (5) Asthma with status asthmaticus Status: progressing Ryan Mckenzie MD Mar 08, 2018 17:51
[2018-03-08] MEDS: Theophylline ER 100mg ORAL SCH (20:15)
[2018-03-08] MEDS ORDERED: Theophylline ER 100mg ORAL SCH (21:00)
[2018-03-08] MEDS ORDERED: Solu-MEDROL 125mg Inj IVP SCH (21:00)
--- NOTE | 2018-03-08 21:49 | Consultation ---
History of Present Illness General Date patient seen: Mar 07, 2018 Chief Complaint: Dyspnea/Respdistress Present Illness HPI the pt has anxiety and depressed and anhedonia Allergies: Coded Allergies: NO KNOWN ALLERGIES (Verified Allergy, Unknown, 03/07/18) Medication History Scheduled Albuterol Sulfate* (Albuterol Sulfate Mdi*), 2 PUFF INH Q4H Albuterol Sulfate* (Proair Hfa*), 1 PUFF INH Q6H, (Reported) Azithromycin* (Zithromax*), 250 MG ORAL DAILY Buspirone Hcl* (Buspirone Hcl*), 5 MG ORAL TWICE A DAY, (Reported) Carbamazepine (Tegretol*), 500 MG PO TID, (Reported) Clonazepam (Clonazepam), 2 MG PO BID, (Reported) Clonazepam* (Klonopin*), 0.5 MG ORAL Q6H, (Reported) Docusate Sodium* (Colace*), 100 MG ORAL TWICE A DAY Ibuprofen (Ibuprofen*), 200 MG ORAL FOUR TIMES A DAY, (Reported) Prednisone* (Prednisone*), 60 MG ORAL DAILY Simvastatin (Zocor), 10 MG PO QHS, (Reported) Simvastatin (Zocor), 5 MG ORAL BEDTIME, (Reported) Scheduled PRN Hydrocodone Bit/Acetaminophen 5-325* ([place] 5-325*), 1 TAB ORAL Q6H PRN for For Pain Miscellaneous Medications Calcium Carbonate (Calcium), 500 MG PO, (Reported) Discontinued Medications Prednisone* (Prednisone*), 40 MG ORAL DAILY Discontinued Reason: MD discontinued med Patient History History Provided By: Patient, Medical Record, PMD Healthcare decision maker Resuscitation status Advanced Directive on File Past Medical/Surgical History Past Medical/Surgical History: (1) Prostate cancer (2) Bipolar depression (3) Acute bronchitis (4) URI (upper respiratory infection) (5) Fall (6) Closed rib fracture (7) COPD exacerbation (8) Asthma exacerbation (9) Anxiety (10) Depression (11) Hypercholesterolemia (12) Asthma with status asthmaticus Review of Systems Psychiatric: Reports: prior hx, anxiety, depressed feelings Physical Exam General Appearance: alert Neurologic: oriented x 3, responsive, depressed affect Last 24 Hour Vital Signs Date Time Temp Pulse Resp B/P (MAP) Pulse Ox O2 Delivery O2 Flow Rate FiO2 03/08/18 20:45 97.3 64 19 122/69 (86) 97 03/08/18 20:06 82 18 99 Nasal Cannula 2.0 28 03/08/18 19:54 80 16 99 Nasal Cannula 2.0 28 03/08/18 15:45 98.6 77 21 103/67 (79) 94 03/08/18 15:15 69 16 98 Room Air 21 03/08/18 15:05 70 16 96 Room Air 21 03/08/18 12:00 97.4 69 18 99/53 (68) 94 03/08/18 10:38 68 22 97 Room Air 21 03/08/18 10:27 67 26 94 Room Air 21 03/08/18 09:00 Room Air 03/08/18 08:00 98.2 79 20 115/58 (77) 96 03/08/18 07:39 66 03/08/18 07:25 65 17 98 Room Air 21 03/08/18 07:15 62 16 95 Room Air 21 03/08/18 04:54 73 20 94 Room Air 21 03/08/18 04:44 68 18 90 Room Air 21 03/08/18 04:00 65 03/08/18 04:00 98.4 74 20 115/68 (84) 100 03/08/18 00:15 68 18 97 Room Air 21 03/08/18 00:03 68 18 94 Room Air 21 03/08/18 00:03 36 03/08/18 00:00 67 03/08/18 00:00 98.8 74 21 110/65 (80) 98 Intake and Output 03/07/18 03/08/18 19:00 07:00 Intake Total 240 ml Output Total 400 ml Balance 240 ml -400 ml Intake Oral 240 ml Output Urine Total 400 ml # Voids 1 Laboratory Tests Test 03/08/18 10:38 White Blood Count 8.3 K/UL (4.8-10.8) Red Blood Count 4.06 M/UL (4.70-6.10) L Hemoglobin 12.8 G/DL (14.2-18.0) L Hematocrit 36.2 % (42.0-52.0) L Mean Corpuscular Volume 89 FL (80-99) Mean Corpuscular Hemoglobin 31.7 PG (27.0-31.0) H Mean Corpuscular Hemoglobin Concent 35.4 G/DL (32.0-36.0) Red Cell Distribution Width 11.7 % (11.6-14.8) Platelet Count 127 K/UL (150-450) L Mean Platelet Volume 6.4 FL (6.5-10.1) L Neutrophils (%) (Auto) % (45.0-75.0) Lymphocytes (%) (Auto) % (20.0-45.0) Monocytes (%) (Auto) % (1.0-10.0) Eosinophils (%) (Auto) % (0.0-3.0) Basophils (%) (Auto) % (0.0-2.0) Differential Total Cells Counted 100 Neutrophils % (Manual) 89 % (45-75) H Lymphocytes % (Manual) 9 % (20-45) L Monocytes % (Manual) 2 % (1-10) Eosinophils % (Manual) 0 % (0-3) Basophils % (Manual) 0 % (0-2) Band Neutrophils 0 % (0-8) Platelet Estimate Decreased L Platelet Morphology Normal Red Blood Cell Morphology Normal Height (Feet): 5 Height (Inches): 7.00 Weight (Pounds): 150 Medications Current Medications Medications (Trade) Dose Ordered Sig/Jeri Route PRN Reason Start Time Stop Time Status Last Admin Dose Admin Acetaminophen (Tylenol) 650 mg Q6H PRN ORAL Mild Pain/Temp > 100.5 03/08/18 17:00 04/06/18 16:59 Acetaminophen/ Hydrocodone Bitart ([place] 5/325) 1 tab Q6H PRN ORAL Moderate Pain (Pain Scale 4-6) 03/08/18 17:00 03/14/18 16:59 Albuterol/ Ipratropium (Albuterol/ Ipratropium) 3 ml Q4H PRN HHN Shortness of Breath 03/08/18 17:00 03/12/18 16:59 Albuterol/ Ipratropium (Albuterol/ Ipratropium) 3 ml Q4HRT HHN 03/08/18 19:00 03/13/18 14:59 03/08/18 19:54 Calcium Carbonate (Tums) 500 mg DAILY ORAL 03/09/18 09:00 04/07/18 08:59 Ceftriaxone Sodium 1 gm/ Dextrose 55 ml @ 110 mls/hr DAILY IVPB 03/09/18 09:00 03/14/18 12:59 Clonazepam (KlonoPIN) 1 mg BEDTIME ORAL 03/08/18 21:00 03/15/18 20:59 03/08/18 20:15 Dextrose (Dextrose 50%) 25 ml Q30M PRN IV Hypoglycemia 03/08/18 16:30 04/06/18 11:59 Dextrose (Dextrose 50%) 50 ml Q30M PRN IV Hypoglycemia 03/08/18 16:30 04/06/18 11:59 Docusate Sodium (Colace) 100 mg TWICE A DAY ORAL 03/08/18 18:00 04/06/18 17:59 03/08/18 17:51 Fluoxetine HCl (PROzac) 20 mg DAILY ORAL 03/09/18 09:00 04/07/18 11:59 Heparin Sodium (Porcine) (Heparin 5000 units/ml) 5,000 units EVERY 12 HOURS SUBQ 03/08/18 21:00 04/06/18 20:59 03/08/18 20:26 Insulin Aspart (NovoLOG) BEFORE MEALS AND HS SUBQ 03/08/18 17:30 04/06/18 17:29 Lorazepam (Ativan) 0.5 mg Q6H PRN ORAL For Anxiety 03/08/18 17:00 03/14/18 16:59 Methylprednisolone Sodium Succinate (Solu-MEDROL) 60 mg EVERY 12 HOURS IVP 03/08/18 21:00 04/06/18 13:59 03/08/18 20:21 Ondansetron HCl (Zofran) 4 mg Q4H PRN IVP Nausea & Vomiting 03/08/18 16:30 04/06/18 12:29 Promethazine HCl/ Codeine (Phenergan with Codeine) 5 ml Q4H PRN ORAL For Cough 03/08/18 17:00 04/07/18 16:59 Theophylline (Esteban-Dur) 100 mg EVERY 12 HOURS ORAL 03/08/18 21:00 04/07/18 20:59 03/08/18 20:15 Assessment/Plan Problem List: (1) Depression ICD Codes: F32.9 - Major depressive disorder, single episode, unspecified SNOMED: 02982699 (2) Anxiety ICD Codes: F41.9 - Anxiety disorder, unspecified SNOMED: 46576304 Status: stable Assessment/Plan prozac 20mg qam clonopin 1mg qhs dc Ilene Villalobos MD Mar 08, 2018 21:49
--- NOTE | 2018-03-08 21:49 | Consultation ---
History of Present Illness General Date patient seen: Mar 08, 2018 Chief Complaint: Dyspnea/Respdistress Present Illness HPI 67-year-old male who presents with chief complaint of shortness of breath and cough. the pt is suffering from depression and anxiety . the pt has depressed mood, anhedonia, insomnia, anxiety and decrease appetite Allergies: Coded Allergies: NO KNOWN ALLERGIES (Verified Allergy, Unknown, 03/07/18) Medication History Scheduled Albuterol Sulfate* (Albuterol Sulfate Mdi*), 2 PUFF INH Q4H Albuterol Sulfate* (Proair Hfa*), 1 PUFF INH Q6H, (Reported) Azithromycin* (Zithromax*), 250 MG ORAL DAILY Buspirone Hcl* (Buspirone Hcl*), 5 MG ORAL TWICE A DAY, (Reported) Carbamazepine (Tegretol*), 500 MG PO TID, (Reported) Clonazepam (Clonazepam), 2 MG PO BID, (Reported) Clonazepam* (Klonopin*), 0.5 MG ORAL Q6H, (Reported) Docusate Sodium* (Colace*), 100 MG ORAL TWICE A DAY Ibuprofen (Ibuprofen*), 200 MG ORAL FOUR TIMES A DAY, (Reported) Prednisone* (Prednisone*), 60 MG ORAL DAILY Simvastatin (Zocor), 10 MG PO QHS, (Reported) Simvastatin (Zocor), 5 MG ORAL BEDTIME, (Reported) Scheduled PRN Hydrocodone Bit/Acetaminophen 5-325* ([place] 5-325*), 1 TAB ORAL Q6H PRN for For Pain Miscellaneous Medications Calcium Carbonate (Calcium), 500 MG PO, (Reported) Discontinued Medications Prednisone* (Prednisone*), 40 MG ORAL DAILY Discontinued Reason: MD discontinued med Patient History Limited by: medical condition History Provided By: Patient, Medical Record, PMD Healthcare decision maker Resuscitation status Advanced Directive on File Past Medical/Surgical History Past Medical/Surgical History: (1) Prostate cancer (2) Bipolar depression (3) URI (upper respiratory infection) (4) Fall (5) Closed rib fracture (6) COPD exacerbation (7) Asthma exacerbation (8) Anxiety (9) Depression (10) Hypercholesterolemia (11) Asthma with status asthmaticus Review of Systems Psychiatric: Reports: anxiety, depressed feelings, emotional problems Physical Exam General Appearance: no apparent distress, alert Neurologic: oriented x 3, responsive, depressed affect Last 24 Hour Vital Signs Date Time Temp Pulse Resp B/P (MAP) Pulse Ox O2 Delivery O2 Flow Rate FiO2 03/08/18 20:45 97.3 64 19 122/69 (86) 97 03/08/18 20:06 82 18 99 Nasal Cannula 2.0 28 03/08/18 19:54 80 16 99 Nasal Cannula 2.0 28 03/08/18 15:45 98.6 77 21 103/67 (79) 94 03/08/18 15:15 69 16 98 Room Air 21 03/08/18 15:05 70 16 96 Room Air 21 03/08/18 12:00 97.4 69 18 99/53 (68) 94 03/08/18 10:38 68 22 97 Room Air 21 03/08/18 10:27 67 26 94 Room Air 21 03/08/18 09:00 Room Air 03/08/18 08:00 98.2 79 20 115/58 (77) 96 03/08/18 07:39 66 03/08/18 07:25 65 17 98 Room Air 21 03/08/18 07:15 62 16 95 Room Air 21 03/08/18 04:54 73 20 94 Room Air 21 03/08/18 04:44 68 18 90 Room Air 21 03/08/18 04:00 65 03/08/18 04:00 98.4 74 20 115/68 (84) 100 03/08/18 00:15 68 18 97 Room Air 21 03/08/18 00:03 68 18 94 Room Air 21 03/08/18 00:03 36 03/08/18 00:00 67 03/08/18 00:00 98.8 74 21 110/65 (80) 98 Intake and Output 03/07/18 03/08/18 19:00 07:00 Intake Total 240 ml Output Total 400 ml Balance 240 ml -400 ml Intake Oral 240 ml Output Urine Total 400 ml # Voids 1 Laboratory Tests Test 03/08/18 10:38 White Blood Count 8.3 K/UL (4.8-10.8) Red Blood Count 4.06 M/UL (4.70-6.10) L Hemoglobin 12.8 G/DL (14.2-18.0) L Hematocrit 36.2 % (42.0-52.0) L Mean Corpuscular Volume 89 FL (80-99) Mean Corpuscular Hemoglobin 31.7 PG (27.0-31.0) H Mean Corpuscular Hemoglobin Concent 35.4 G/DL (32.0-36.0) Red Cell Distribution Width 11.7 % (11.6-14.8) Platelet Count 127 K/UL (150-450) L Mean Platelet Volume 6.4 FL (6.5-10.1) L Neutrophils (%) (Auto) % (45.0-75.0) Lymphocytes (%) (Auto) % (20.0-45.0) Monocytes (%) (Auto) % (1.0-10.0) Eosinophils (%) (Auto) % (0.0-3.0) Basophils (%) (Auto) % (0.0-2.0) Differential Total Cells Counted 100 Neutrophils % (Manual) 89 % (45-75) H Lymphocytes % (Manual) 9 % (20-45) L Monocytes % (Manual) 2 % (1-10) Eosinophils % (Manual) 0 % (0-3) Basophils % (Manual) 0 % (0-2) Band Neutrophils 0 % (0-8) Platelet Estimate Decreased L Platelet Morphology Normal Red Blood Cell Morphology Normal Height (Feet): 5 Height (Inches): 7.00 Weight (Pounds): 150 Medications Current Medications Medications (Trade) Dose Ordered Sig/Jeri Route PRN Reason Start Time Stop Time Status Last Admin Dose Admin Acetaminophen (Tylenol) 650 mg Q6H PRN ORAL Mild Pain/Temp > 100.5 03/08/18 17:00 04/06/18 16:59 Acetaminophen/ Hydrocodone Bitart ([place] 5/325) 1 tab Q6H PRN ORAL Moderate Pain (Pain Scale 4-6) 03/08/18 17:00 03/14/18 16:59 Albuterol/ Ipratropium (Albuterol/ Ipratropium) 3 ml Q4H PRN HHN Shortness of Breath 03/08/18 17:00 03/12/18 16:59 Albuterol/ Ipratropium (Albuterol/ Ipratropium) 3 ml Q4HRT HHN 03/08/18 19:00 03/13/18 14:59 03/08/18 19:54 Calcium Carbonate (Tums) 500 mg DAILY ORAL 03/09/18 09:00 04/07/18 08:59 Ceftriaxone Sodium 1 gm/ Dextrose 55 ml @ 110 mls/hr DAILY IVPB 03/09/18 09:00 03/14/18 12:59 Clonazepam (KlonoPIN) 1 mg BEDTIME ORAL 03/08/18 21:00 03/15/18 20:59 03/08/18 20:15 Dextrose (Dextrose 50%) 25 ml Q30M PRN IV Hypoglycemia 03/08/18 16:30 04/06/18 11:59 Dextrose (Dextrose 50%) 50 ml Q30M PRN IV Hypoglycemia 03/08/18 16:30 04/06/18 11:59 Docusate Sodium (Colace) 100 mg TWICE A DAY ORAL 03/08/18 18:00 04/06/18 17:59 03/08/18 17:51 Fluoxetine HCl (PROzac) 20 mg DAILY ORAL 03/09/18 09:00 04/07/18 11:59 Heparin Sodium (Porcine) (Heparin 5000 units/ml) 5,000 units EVERY 12 HOURS SUBQ 03/08/18 21:00 04/06/18 20:59 03/08/18 20:26 Insulin Aspart (NovoLOG) BEFORE MEALS AND HS SUBQ 03/08/18 17:30 04/06/18 17:29 Lorazepam (Ativan) 0.5 mg Q6H PRN ORAL For Anxiety 03/08/18 17:00 03/14/18 16:59 Methylprednisolone Sodium Succinate (Solu-MEDROL) 60 mg EVERY 12 HOURS IVP 03/08/18 21:00 04/06/18 13:59 03/08/18 20:21 Ondansetron HCl (Zofran) 4 mg Q4H PRN IVP Nausea & Vomiting 03/08/18 16:30 04/06/18 12:29 Promethazine HCl/ Codeine (Phenergan with Codeine) 5 ml Q4H PRN ORAL For Cough 03/08/18 17:00 04/07/18 16:59 Theophylline (Esteban-Dur) 100 mg EVERY 12 HOURS ORAL 03/08/18 21:00 04/07/18 20:59 03/08/18 20:15 Assessment/Plan Problem List: (1) Depression ICD Codes: F32.9 - Major depressive disorder, single episode, unspecified SNOMED: 99770904 (2) Anxiety ICD Codes: F41.9 - Anxiety disorder, unspecified SNOMED: 86447320 Assessment/Plan prozac 20mg qam clonopin 1mg qhs dc Ilene Villalobos MD Mar 08, 2018 21:49
[2018-03-09] MEDS: Albuterol/Ipratropium 3ml neb HHN SCH ×6 (03:00→23:55)
[2018-03-09 04:43] VITALS: BP 130/70
[2018-03-09] MEDS: NovoLOG Insulin Flexpen SUBQ SCH ×4 (06:24→21:00)
[2018-03-09 08:00] VITALS: BP 113/58
[2018-03-09] MEDS: Solu-MEDROL 125mg Inj IVP SCH ×2 (08:05→21:00)
[2018-03-09] MEDS: Theophylline ER 100mg ORAL SCH ×2 (08:07→21:42)
[2018-03-09] MEDS: Tums 500mg ORAL SCH (08:08)
[2018-03-09] MEDS: Promethazine/Codeine 5ml UD ORAL PRN ×3 (08:08→19:09)
[2018-03-09] MEDS: Docusate 100mg cap ORAL SCH ×2 (08:08→17:17)
[2018-03-09] MEDS: Heparin 5000 units/ml inj SUBQ SCH ×2 (08:10→21:00)
--- NOTE | 2018-03-09 08:26 | Cardiology Report ---
APPROVED REPORT EKG Measurement Heart [id number] Sinus tachycardia Nonspecific ST abnormality Abnormal ECG
[2018-03-09] MEDS: cefTRIAXone 1 GM in D5W 55 ML IVPB SCH (08:39)
[2018-03-09 09:05] LABS: BASOPHILS % (AUTO) 0.9 % (0.0-2.0); EOSINOPHILS % (AUTO) 2.3 % (0.0-3.0); HEMATOCRIT 37.4 % (42.0-52.0); HEMOGLOBIN 12.8 G/DL (14.2-18.0); LYMPHOCYTES % (AUTO) 18.2 % (20.0-45.0); MEAN CORPUSCULAR VOLUME 88 FL (80-99); MONOCYTES % (AUTO) 6.6 % (1.0-10.0); PLATELET COUNT 121 K/UL (150-450); RED BLOOD COUNT 4.23 M/UL (4.70-6.10); RED CELL DISTRIBUTION WIDTH 11.4 % (11.6-14.8); WHITE BLOOD COUNT 5.5 K/UL (4.8-10.8)
[2018-03-09 09:44] LABS: ANION GAP 8 mmol/L (5-15); BLOOD UREA NITROGEN 15 mg/dL (7-18); CALCIUM 8.5 MG/DL (8.5-10.1); CARBON DIOXIDE 24 MMOL/L (21-32); CHLORIDE 108 MMOL/L (98-107); CREATININE 0.8 MG/DL (0.55-1.30); POTASSIUM 3.6 MMOL/L (3.5-5.1); SODIUM 140 MMOL/L (136-145)
--- NOTE | 2018-03-09 10:00 | Pulmonology Progress Note ---
Assessment/Plan Problems: (1) Acute bronchitis (2) COPD exacerbation (3) Asthma exacerbation (4) Depression (5) Anxiety (6) Bipolar depression Assessment/Plan check sputum respiratory treatment IV steroids, with fast taper iv abx on theophylline psych evaluation appreciated dvt prophylaxis Subjective ROS Limited/Unobtainable: No Interval Events: still coughing a lot Allergies: Coded Allergies: NO KNOWN ALLERGIES (Verified Allergy, Unknown, 03/07/18) Objective Last 24 Hour Vital Signs Date Time Temp Pulse Resp B/P (MAP) Pulse Ox O2 Delivery O2 Flow Rate FiO2 03/09/18 08:54 Room Air 03/09/18 08:00 97.2 55 19 113/58 (76) 96 03/09/18 07:58 67 22 98 Nasal Cannula 3.0 32 03/09/18 07:52 60 18 98 Nasal Cannula 2.0 28 03/09/18 04:43 98.0 62 20 130/70 (90) 94 03/09/18 03:00 Nasal Cannula 2.0 28 03/09/18 03:00 Room Air 21 03/09/18 02:28 67 16 98 Nasal Cannula 2.0 28 03/09/18 02:13 57 16 96 Nasal Cannula 2.0 28 03/08/18 23:58 97.9 69 21 128/72 (90) 96 03/08/18 23:45 63 16 98 Nasal Cannula 2.0 28 03/08/18 23:32 61 16 96 Room Air 21 03/08/18 21:30 Nasal Cannula 3.0 03/08/18 20:45 97.3 64 19 122/69 (86) 97 03/08/18 20:06 82 18 99 Nasal Cannula 2.0 28 03/08/18 19:54 80 16 99 Nasal Cannula 2.0 28 03/08/18 15:45 98.6 77 21 103/67 (79) 94 03/08/18 15:15 69 16 98 Room Air 21 03/08/18 15:05 70 16 96 Room Air 21 03/08/18 12:00 97.4 69 18 99/53 (68) 94 03/08/18 10:38 68 22 97 Room Air 21 03/08/18 10:27 67 26 94 Room Air 21 Intake and Output 03/08/18 03/09/18 19:00 07:00 Intake Total 510 ml 880 ml Balance 510 ml 880 ml Intake Oral 510 ml 880 ml # Voids 4 General Appearance: WD/WN HEENT: normocephalic Respiratory/Chest: chest wall non-tender, crackles/rales - loud Cardiovascular: normal peripheral pulses, normal rate Abdomen: normal bowel sounds, soft, non tender Genitourinary: normal external genitalia Extremities: no clubbing Skin: no rash Microbiology Date/Time Source Procedure Growth Status 03/07/18 08:45 Nasal Nares MRSA Culture - Final NO METHICILLIN RESISTANT STAPH AUREUS... Complete 03/07/18 08:45 Rectum VRE Culture - Final NO VANCOMYCIN RESISTANT ENTEROCOCCUS ... Complete 03/07/18 08:45 Rectum - Final NO CARBAPENEM-RESISTANT ENTEROBACTERI... Complete Laboratory Tests 03/08/18 10:38: White Blood Count 8.3, Red Blood Count 4.06L, Hemoglobin 12.8L, Hematocrit 36.2L , Mean Corpuscular Volume 89, Mean Corpuscular Hemoglobin 31.7H, Mean Corpuscular Hemoglobin Concent 35.4, Red Cell Distribution Width 11.7, Platelet Count 127L, Mean Platelet Volume 6.4L, Neutrophils (%) (Auto) , Lymphocytes (%) (Auto) , Monocytes (%) (Auto) , Eosinophils (%) (Auto) , Basophils (%) (Auto) , Differential Total Cells Counted 100, Neutrophils % (Manual) 89H, Lymphocytes % (Manual) 9L, Monocytes % (Manual) 2, Eosinophils % (Manual) 0, Basophils % ( Manual) 0, Band Neutrophils 0, Platelet Estimate DecreasedL, Platelet Morphology Normal, Red Blood Cell Morphology Normal 03/09/18 08:45: White Blood Count 5.5, Red Blood Count 4.23L, Hemoglobin 12.8L, Hematocrit 37.4L , Mean Corpuscular Volume 88, Mean Corpuscular Hemoglobin 30.2, Mean Corpuscular Hemoglobin Concent 34.1, Red Cell Distribution Width 11.4L, Platelet Count 121L, Mean Platelet Volume 6.3L, Neutrophils (%) (Auto) 72.0, Lymphocytes (%) (Auto) 18.2L, Monocytes (%) (Auto) 6.6, Eosinophils (%) (Auto) 2.3, Basophils (%) (Auto) 0.9, Sodium Level 140, Potassium Level 3.6, Chloride Level 108H, Carbon Dioxide Level 24, Anion Gap 8, Blood Urea Nitrogen 15, Creatinine 0.8, Estimat Glomerular Filtration Rate > 60, Glucose Level 113H, Calcium Level 8.5 Current Medications Medications (Trade) Dose Ordered Sig/Jeri Route PRN Reason Start Time Stop Time Status Last Admin Dose Admin Acetaminophen (Tylenol) 650 mg Q6H PRN ORAL Mild Pain/Temp > 100.5 03/08/18 17:00 04/06/18 16:59 Acetaminophen/ Hydrocodone Bitart ([place] 5/325) 1 tab Q6H PRN ORAL Moderate Pain (Pain Scale 4-6) 03/08/18 17:00 03/14/18 16:59 Albuterol/ Ipratropium (Albuterol/ Ipratropium) 3 ml Q4H PRN HHN Shortness of Breath 03/08/18 17:00 03/12/18 16:59 03/09/18 02:13 Albuterol/ Ipratropium (Albuterol/ Ipratropium) 3 ml Q4HRT HHN 03/08/18 19:00 03/13/18 14:59 03/09/18 07:50 Calcium Carbonate (Tums) 500 mg DAILY ORAL 03/09/18 09:00 04/07/18 08:59 03/09/18 08:08 Ceftriaxone Sodium 1 gm/ Dextrose 55 ml @ 110 mls/hr DAILY IVPB 03/09/18 09:00 03/14/18 12:59 03/09/18 08:39 Clonazepam (KlonoPIN) 1 mg BEDTIME ORAL 03/08/18 21:00 03/15/18 20:59 03/08/18 20:15 Dextrose (Dextrose 50%) 25 ml Q30M PRN IV Hypoglycemia 03/08/18 16:30 04/06/18 11:59 Dextrose (Dextrose 50%) 50 ml Q30M PRN IV Hypoglycemia 03/08/18 16:30 04/06/18 11:59 Docusate Sodium (Colace) 100 mg TWICE A DAY ORAL 03/08/18 18:00 04/06/18 17:59 03/09/18 08:08 Fluoxetine HCl (PROzac) 20 mg DAILY ORAL 03/09/18 09:00 04/07/18 11:59 03/09/18 08:07 Heparin Sodium (Porcine) (Heparin 5000 units/ml) 5,000 units EVERY 12 HOURS SUBQ 03/08/18 21:00 04/06/18 20:59 03/08/18 20:26 Insulin Aspart (NovoLOG) BEFORE MEALS AND HS SUBQ 03/08/18 17:30 04/06/18 17:29 Lorazepam (Ativan) 0.5 mg Q6H PRN ORAL For Anxiety 03/08/18 17:00 03/14/18 16:59 Methylprednisolone Sodium Succinate (Solu-MEDROL) 60 mg EVERY 12 HOURS IVP 03/08/18 21:00 04/06/18 13:59 03/09/18 08:05 Ondansetron HCl (Zofran) 4 mg Q4H PRN IVP Nausea & Vomiting 03/08/18 16:30 04/06/18 12:29 Promethazine HCl/ Codeine (Phenergan with Codeine) 5 ml Q4H PRN ORAL For Cough 03/08/18 17:00 04/07/18 16:59 03/09/18 08:08 Theophylline (Esteban-Dur) 100 mg EVERY 12 HOURS ORAL 03/08/18 21:00 04/07/18 20:59 03/09/18 08:07 Michele Umaña MD Mar 09, 2018 10:00
[2018-03-09 11:49] VITALS: BP 101/60
[2018-03-09] MEDS: Lacri-Lube Opth Oint 3.5gm BOTH EYES PRN ×2 (12:59→17:37)
--- NOTE | 2018-03-09 15:33 | General Progress Note ---
Assessment/Plan Problem List: (1) Depression ICD Codes: F32.9 - Major depressive disorder, single episode, unspecified SNOMED: 20937811 (2) Anxiety ICD Codes: F41.9 - Anxiety disorder, unspecified SNOMED: 12952066 Status: stable, progressing Assessment/Plan prozac 20mg qam clonopin 1mg qhs dc buspar Subjective Date patient seen: Mar 09, 2018 Neurologic/Psychiatric: Reports: anxiety, depressed Allergies: Coded Allergies: NO KNOWN ALLERGIES (Verified Allergy, Unknown, 03/07/18) Objective Last 24 Hour Vital Signs Date Time Temp Pulse Resp B/P (MAP) Pulse Ox O2 Delivery O2 Flow Rate FiO2 03/09/18 11:49 97.3 73 19 101/60 (74) 96 03/09/18 11:10 66 20 98 Nasal Cannula 2.0 28 03/09/18 11:03 64 18 97 Nasal Cannula 2.0 28 03/09/18 08:54 Room Air 03/09/18 08:00 97.2 55 19 113/58 (76) 96 03/09/18 07:58 67 22 98 Nasal Cannula 3.0 32 03/09/18 07:52 60 18 98 Nasal Cannula 2.0 28 03/09/18 04:43 98.0 62 20 130/70 (90) 94 03/09/18 03:00 Nasal Cannula 2.0 28 03/09/18 03:00 Room Air 21 03/09/18 02:28 67 16 98 Nasal Cannula 2.0 28 03/09/18 02:13 57 16 96 Nasal Cannula 2.0 28 03/08/18 23:58 97.9 69 21 128/72 (90) 96 03/08/18 23:45 63 16 98 Nasal Cannula 2.0 28 03/08/18 23:32 61 16 96 Room Air 21 03/08/18 21:30 Nasal Cannula 3.0 03/08/18 20:45 97.3 64 19 122/69 (86) 97 03/08/18 20:06 82 18 99 Nasal Cannula 2.0 28 03/08/18 19:54 80 16 99 Nasal Cannula 2.0 28 03/08/18 15:45 98.6 77 21 103/67 (79) 94 Intake and Output 03/08/18 03/09/18 19:00 07:00 Intake Total 510 ml 880 ml Balance 510 ml 880 ml Intake Oral 510 ml 880 ml # Voids 4 Laboratory Tests 03/09/18 08:45: White Blood Count 5.5, Red Blood Count 4.23L, Hemoglobin 12.8L, Hematocrit 37.4L , Mean Corpuscular Volume 88, Mean Corpuscular Hemoglobin 30.2, Mean Corpuscular Hemoglobin Concent 34.1, Red Cell Distribution Width 11.4L, Platelet Count 121L, Mean Platelet Volume 6.3L, Neutrophils (%) (Auto) 72.0, Lymphocytes (%) (Auto) 18.2L, Monocytes (%) (Auto) 6.6, Eosinophils (%) (Auto) 2.3, Basophils (%) (Auto) 0.9, Sodium Level 140, Potassium Level 3.6, Chloride Level 108H, Carbon Dioxide Level 24, Anion Gap 8, Blood Urea Nitrogen 15, Creatinine 0.8, Estimat Glomerular Filtration Rate > 60, Glucose Level 113H, Calcium Level 8.5, Prostate Specific Antigen 0.67 Height (Feet): 5 Height (Inches): 7.00 Weight (Pounds): 150 General Appearance: no apparent distress, alert Neurologic: oriented x 3, responsive, depressed affect Ilene Davenport MD Mar 09, 2018 15:33
[2018-03-09 16:00] VITALS: BP 110/66
--- NOTE | 2018-03-09 17:28 | Internal Med Progress Note ---
Subjective Date of Service: Mar 09, 2018 Physician Name MagalyRyan Attending Physician Christopher Medina MD Current Medications Medications (Trade) Dose Ordered Sig/Jeri Route PRN Reason Start Time Stop Time Status Last Admin Dose Admin Acetaminophen (Tylenol) 650 mg Q6H PRN ORAL Mild Pain/Temp > 100.5 03/08/18 17:00 04/06/18 16:59 Acetaminophen/ Hydrocodone Bitart ([place] 5/325) 1 tab Q6H PRN ORAL Moderate Pain (Pain Scale 4-6) 03/08/18 17:00 03/14/18 16:59 Albuterol/ Ipratropium (Albuterol/ Ipratropium) 3 ml Q4H PRN HHN Shortness of Breath 03/08/18 17:00 03/12/18 16:59 03/09/18 02:13 Albuterol/ Ipratropium (Albuterol/ Ipratropium) 3 ml Q4HRT HHN 03/08/18 19:00 03/13/18 14:59 03/09/18 16:00 Artificial Tears (Lacri-Lube) 1 applic TIDPRN PRN BOTH EYES Dry Eyes 03/09/18 11:45 04/08/18 11:44 03/09/18 12:59 Calcium Carbonate (Tums) 500 mg DAILY ORAL 03/09/18 09:00 04/07/18 08:59 03/09/18 08:08 Ceftriaxone Sodium 1 gm/ Dextrose 55 ml @ 110 mls/hr DAILY IVPB 03/09/18 09:00 03/14/18 12:59 03/09/18 08:39 Clonazepam (KlonoPIN) 1 mg BEDTIME ORAL 03/08/18 21:00 03/15/18 20:59 03/08/18 20:15 Dextrose (Dextrose 50%) 25 ml Q30M PRN IV Hypoglycemia 03/08/18 16:30 04/06/18 11:59 Dextrose (Dextrose 50%) 50 ml Q30M PRN IV Hypoglycemia 03/08/18 16:30 04/06/18 11:59 Docusate Sodium (Colace) 100 mg TWICE A DAY ORAL 03/08/18 18:00 04/06/18 17:59 03/09/18 17:17 Fluoxetine HCl (PROzac) 20 mg DAILY ORAL 03/09/18 09:00 04/07/18 11:59 03/09/18 08:07 Heparin Sodium (Porcine) (Heparin 5000 units/ml) 5,000 units EVERY 12 HOURS SUBQ 03/08/18 21:00 04/06/18 20:59 03/08/18 20:26 Insulin Aspart (NovoLOG) BEFORE MEALS AND HS SUBQ 03/08/18 17:30 04/06/18 17:29 Lorazepam (Ativan) 0.5 mg Q6H PRN ORAL For Anxiety 03/08/18 17:00 03/14/18 16:59 Methylprednisolone Sodium Succinate (Solu-MEDROL) 60 mg EVERY 12 HOURS IVP 03/08/18 21:00 04/06/18 13:59 03/09/18 08:05 Ondansetron HCl (Zofran) 4 mg Q4H PRN IVP Nausea & Vomiting 03/08/18 16:30 04/06/18 12:29 Promethazine HCl/ Codeine (Phenergan with Codeine) 5 ml Q4H PRN ORAL For Cough 03/08/18 17:00 04/07/18 16:59 03/09/18 12:59 Theophylline (Esteban-Dur) 100 mg EVERY 12 HOURS ORAL 03/08/18 21:00 04/07/18 20:59 03/09/18 08:07 Allergies: Coded Allergies: NO KNOWN ALLERGIES (Verified Allergy, Unknown, 03/07/18) ROS Limited/Unobtainable: No Constitutional: Reports: no symptoms HEENT: Reports: no symptoms Cardiovascular: Reports: no symptoms Respiratory: Reports: cough Gastrointestinal/Abdominal: Reports: no symptoms Genitourinary: Reports: no symptoms Neurologic/Psychiatric: Reports: no symptoms Subjective 67 YO M admitted with shortness of breath. Now asthma exacerbation. Cover for Int Aryan-Dr Medina. Still C/O cough Objective Last Vital Signs Date Time Temp Pulse Resp B/P (MAP) Pulse Ox O2 Delivery O2 Flow Rate FiO2 03/09/18 16:07 64 20 98 Nasal Cannula 2.0 28 03/09/18 16:00 97.5 110/66 (81) Laboratory Tests Test 03/09/18 08:45 White Blood Count 5.5 K/UL (4.8-10.8) Red Blood Count 4.23 M/UL (4.70-6.10) L Hemoglobin 12.8 G/DL (14.2-18.0) L Hematocrit 37.4 % (42.0-52.0) L Mean Corpuscular Volume 88 FL (80-99) Mean Corpuscular Hemoglobin 30.2 PG (27.0-31.0) Mean Corpuscular Hemoglobin Concent 34.1 G/DL (32.0-36.0) Red Cell Distribution Width 11.4 % (11.6-14.8) L Platelet Count 121 K/UL (150-450) L Mean Platelet Volume 6.3 FL (6.5-10.1) L Neutrophils (%) (Auto) 72.0 % (45.0-75.0) Lymphocytes (%) (Auto) 18.2 % (20.0-45.0) L Monocytes (%) (Auto) 6.6 % (1.0-10.0) Eosinophils (%) (Auto) 2.3 % (0.0-3.0) Basophils (%) (Auto) 0.9 % (0.0-2.0) Sodium Level 140 MMOL/L (136-145) Potassium Level 3.6 MMOL/L (3.5-5.1) Chloride Level 108 MMOL/L (98-107) H Carbon Dioxide Level 24 MMOL/L (21-32) Anion Gap 8 mmol/L (5-15) Blood Urea Nitrogen 15 mg/dL (7-18) Creatinine 0.8 MG/DL (0.55-1.30) Estimat Glomerular Filtration Rate > 60 mL/min (>60) Glucose Level 113 MG/DL (74-106) H Calcium Level 8.5 MG/DL (8.5-10.1) Prostate Specific Antigen 0.67 ng/mL (0.13-4.0) Microbiology Date/Time Source Procedure Growth Status 03/07/18 08:45 Nasal Nares MRSA Culture - Final NO METHICILLIN RESISTANT STAPH AUREUS... Complete 03/07/18 08:45 Rectum VRE Culture - Final NO VANCOMYCIN RESISTANT ENTEROCOCCUS ... Complete 03/07/18 08:45 Rectum - Final NO CARBAPENEM-RESISTANT ENTEROBACTERI... Complete Intake and Output 03/08/18 03/09/18 18:59 06:59 Intake Total 510 ml 880 ml Balance 510 ml 880 ml Intake Oral 510 ml 880 ml # Voids 4 Objective PHYSICAL EXAMINATION: GENERAL: The patient is a well-developed and well-nourished white male, in no apparent distress. HEENT: Eyes, pupils equal and responsive to light and accommodation. Extraocular movements are intact. NECK: Supple without lymphadenopathy. CHEST: Diffuse wheezes in bilateral lung baker. Otherwise, without rales. CARDIOVASCULAR: Regular rhythm and rate. S1, S2 normal without murmurs, rubs, or gallops. ABDOMEN: Soft, nontender, nondistended. Positive bowel sounds. No evidence of hepatosplenomegaly. Currently, no rebound or guarding noted. EXTREMITIES: Negative for clubbing, cyanosis, or edema. RECTAL/GENITAL: Refused. NEUROLOGIC: Cranial nerves II through XII are grossly intact without focal deficits. Motor strength is 5/5 bilaterally. Deep tendon reflexes are 2+ plantar. Assessment/Plan Problem List: (1) Prostate cancer Assessment & Plan: Undergoing outpatient treatment (2) Bipolar depression (3) URI (upper respiratory infection) (4) Asthma exacerbation Assessment & Plan: see pulmonary note. Continue ceftriaxone, IV solumedrol and nebulizer treatment (5) Asthma with status asthmaticus Ryan Mckenzie MD Mar 09, 2018 17:28
[2018-03-09 19:00] VITALS: BP 114/66
[2018-03-09 20:24] VITALS: BP 104/66
[2018-03-10 00:20] VITALS: BP 107/69
[2018-03-10] MEDS: Albuterol/Ipratropium 3ml neb HHN SCH ×5 (03:39→19:17)
[2018-03-10 04:34] VITALS: BP 102/68
[2018-03-10] MEDS: NovoLOG Insulin Flexpen SUBQ SCH ×3 (06:30→16:30)
[2018-03-10 08:00] VITALS: BP 93/50
[2018-03-10 08:51] LABS: BASOPHILS % (AUTO) 0.7 % (0.0-2.0); EOSINOPHILS % (AUTO) 0.5 % (0.0-3.0); HEMATOCRIT 40.5 % (42.0-52.0); HEMOGLOBIN 14.3 G/DL (14.2-18.0); LYMPHOCYTES % (AUTO) 13.9 % (20.0-45.0); MEAN CORPUSCULAR VOLUME 88 FL (80-99); MONOCYTES % (AUTO) 5.8 % (1.0-10.0); NEUTROPHILS % (AUTO) 79.2 % (45.0-75.0); PLATELET COUNT 156 K/UL (150-450); RED BLOOD COUNT 4.62 M/UL (4.70-6.10); RED CELL DISTRIBUTION WIDTH 11.3 % (11.6-14.8); WHITE BLOOD COUNT 5.5 K/UL (4.8-10.8)
[2018-03-10] MEDS: Theophylline ER 100mg ORAL SCH (09:26)
[2018-03-10] MEDS: Solu-MEDROL 125mg Inj IVP SCH (09:26)
[2018-03-10] MEDS: Tums 500mg ORAL SCH (09:26)
[2018-03-10] MEDS: cefTRIAXone 1 GM in D5W 55 ML IVPB SCH (09:26)
[2018-03-10] MEDS: Docusate 100mg cap ORAL SCH ×2 (09:26→18:00)
[2018-03-10 09:33] LABS: ALANINE AMINOTRANSFERASE 27 U/L (12-78); ALBUMIN 3.6 G/DL (3.4-5.0); ALKALINE PHOSPHATASE 87 U/L (46-116); ANION GAP 12 mmol/L (5-15); ASPARTATE AMINO TRANSFERASE 17 U/L (15-37); BILIRUBIN,TOTAL 0.1 MG/DL (0.2-1.0); BLOOD UREA NITROGEN 19 mg/dL (7-18); CALCIUM 8.9 MG/DL (8.5-10.1); CARBON DIOXIDE 22 MMOL/L (21-32); CHLORIDE 106 MMOL/L (98-107); CREATININE 1.1 MG/DL (0.55-1.30); PHOSPHORUS 4.3 MG/DL (2.5-4.9); POTASSIUM 3.9 MMOL/L (3.5-5.1); SODIUM 140 MMOL/L (136-145)
[2018-03-10] MEDS: Heparin 5000 units/ml inj SUBQ SCH (09:33)
--- NOTE | 2018-03-10 10:50 | Internal Med Progress Note ---
Subjective Date of Service: Mar 10, 2018 Physician Name MagalyRyan Attending Physician Christopher Medina MD Current Medications Medications (Trade) Dose Ordered Sig/Jeri Route PRN Reason Start Time Stop Time Status Last Admin Dose Admin Acetaminophen (Tylenol) 650 mg Q6H PRN ORAL Mild Pain/Temp > 100.5 03/08/18 17:00 04/06/18 16:59 Acetaminophen/ Hydrocodone Bitart ([place] 5/325) 1 tab Q6H PRN ORAL Moderate Pain (Pain Scale 4-6) 03/08/18 17:00 03/14/18 16:59 Albuterol/ Ipratropium (Albuterol/ Ipratropium) 3 ml Q4H PRN HHN Shortness of Breath 03/08/18 17:00 03/12/18 16:59 03/09/18 02:13 Albuterol/ Ipratropium (Albuterol/ Ipratropium) 3 ml Q4HRT HHN 03/08/18 19:00 03/13/18 14:59 03/10/18 07:08 Artificial Tears (Lacri-Lube) 1 applic TIDPRN PRN BOTH EYES Dry Eyes 03/09/18 11:45 04/08/18 11:44 03/09/18 17:37 Calcium Carbonate (Tums) 500 mg DAILY ORAL 03/09/18 09:00 04/07/18 08:59 03/10/18 09:26 Ceftriaxone Sodium 1 gm/ Dextrose 55 ml @ 110 mls/hr DAILY IVPB 03/09/18 09:00 03/14/18 12:59 03/10/18 09:26 Clonazepam (KlonoPIN) 1 mg BEDTIME ORAL 03/08/18 21:00 03/15/18 20:59 03/09/18 21:42 Dextrose (Dextrose 50%) 25 ml Q30M PRN IV Hypoglycemia 03/08/18 16:30 04/06/18 11:59 Dextrose (Dextrose 50%) 50 ml Q30M PRN IV Hypoglycemia 03/08/18 16:30 04/06/18 11:59 Docusate Sodium (Colace) 100 mg TWICE A DAY ORAL 03/08/18 18:00 04/06/18 17:59 03/10/18 09:26 Fluoxetine HCl (PROzac) 20 mg DAILY ORAL 03/09/18 09:00 04/07/18 11:59 03/10/18 09:26 Heparin Sodium (Porcine) (Heparin 5000 units/ml) 5,000 units EVERY 12 HOURS SUBQ 03/08/18 21:00 04/06/18 20:59 03/10/18 09:33 Insulin Aspart (NovoLOG) BEFORE MEALS AND HS SUBQ 03/08/18 17:30 04/06/18 17:29 Lorazepam (Ativan) 0.5 mg Q6H PRN ORAL For Anxiety 03/08/18 17:00 03/14/18 16:59 Methylprednisolone Sodium Succinate (Solu-MEDROL) 60 mg EVERY 12 HOURS IVP 03/08/18 21:00 04/06/18 13:59 03/10/18 09:26 Ondansetron HCl (Zofran) 4 mg Q4H PRN IVP Nausea & Vomiting 03/08/18 16:30 04/06/18 12:29 Promethazine HCl/ Codeine (Phenergan with Codeine) 5 ml Q4H PRN ORAL For Cough 03/08/18 17:00 04/07/18 16:59 03/09/18 19:09 Theophylline (Esteban-Dur) 100 mg EVERY 12 HOURS ORAL 03/08/18 21:00 04/07/18 20:59 03/10/18 09:26 Allergies: Coded Allergies: NO KNOWN ALLERGIES (Verified Allergy, Unknown, 03/07/18) ROS Limited/Unobtainable: No Constitutional: Reports: no symptoms HEENT: Reports: no symptoms Cardiovascular: Reports: no symptoms Respiratory: Reports: shortness of breath, wheezing Gastrointestinal/Abdominal: Reports: no symptoms Genitourinary: Reports: no symptoms Neurologic/Psychiatric: Reports: no symptoms Subjective 67 YO M admitted with shortness of breath. Now asthma exacerbation. Cover for Int Aryan-Dr Medina. Still C/O cough Objective Last Vital Signs Date Time Temp Pulse Resp B/P (MAP) Pulse Ox O2 Delivery O2 Flow Rate FiO2 03/10/18 09:00 Room Air Room Air Room Air 03/10/18 08:00 97.7 80 19 93/50 (64) 95 03/10/18 07:20 21 03/10/18 00:07 2.0 Laboratory Tests Test 03/10/18 08:25 White Blood Count 5.5 K/UL (4.8-10.8) Red Blood Count 4.62 M/UL (4.70-6.10) L Hemoglobin 14.3 G/DL (14.2-18.0) Hematocrit 40.5 % (42.0-52.0) L Mean Corpuscular Volume 88 FL (80-99) Mean Corpuscular Hemoglobin 30.9 PG (27.0-31.0) Mean Corpuscular Hemoglobin Concent 35.3 G/DL (32.0-36.0) Red Cell Distribution Width 11.3 % (11.6-14.8) L Platelet Count 156 K/UL (150-450) Mean Platelet Volume 6.0 FL (6.5-10.1) L Neutrophils (%) (Auto) 79.2 % (45.0-75.0) H Lymphocytes (%) (Auto) 13.9 % (20.0-45.0) L Monocytes (%) (Auto) 5.8 % (1.0-10.0) Eosinophils (%) (Auto) 0.5 % (0.0-3.0) Basophils (%) (Auto) 0.7 % (0.0-2.0) Sodium Level 140 MMOL/L (136-145) Potassium Level 3.9 MMOL/L (3.5-5.1) Chloride Level 106 MMOL/L (98-107) Carbon Dioxide Level 22 MMOL/L (21-32) Anion Gap 12 mmol/L (5-15) Blood Urea Nitrogen 19 mg/dL (7-18) H Creatinine 1.1 MG/DL (0.55-1.30) Estimat Glomerular Filtration Rate > 60 mL/min (>60) Glucose Level 131 MG/DL (74-106) H Calcium Level 8.9 MG/DL (8.5-10.1) Phosphorus Level 4.3 MG/DL (2.5-4.9) Magnesium Level 2.0 MG/DL (1.8-2.4) Total Bilirubin 0.1 MG/DL (0.2-1.0) L Aspartate Amino Transf (AST/SGOT) 17 U/L (15-37) Alanine Aminotransferase (ALT/SGPT) 27 U/L (12-78) Alkaline Phosphatase 87 U/L (46-116) Total Protein 7.2 G/DL (6.4-8.2) Albumin 3.6 G/DL (3.4-5.0) Globulin 3.6 g/dL Albumin/Globulin Ratio 1.0 (1.0-2.7) Microbiology Date/Time Source Procedure Growth Status 03/09/18 14:11 Sputum Gram Stain Pending Resulted 03/09/18 14:11 Sputum Sputum Culture - Preliminary NO GROWTH Resulted Intake and Output 03/09/18 03/10/18 19:00 07:00 Intake Total 780 ml 840 ml Output Total 700 ml Balance 80 ml 840 ml Intake Oral 780 ml 840 ml Output Urine Total 700 ml # Voids 2 4 Objective PHYSICAL EXAMINATION: GENERAL: The patient is a well-developed and well-nourished white male, in no apparent distress. HEENT: Eyes, pupils equal and responsive to light and accommodation. Extraocular movements are intact. NECK: Supple without lymphadenopathy. CHEST: Diffuse wheezes in bilateral lung baker. Otherwise, without rales. CARDIOVASCULAR: Regular rhythm and rate. S1, S2 normal without murmurs, rubs, or gallops. ABDOMEN: Soft, nontender, nondistended. Positive bowel sounds. No evidence of hepatosplenomegaly. Currently, no rebound or guarding noted. EXTREMITIES: Negative for clubbing, cyanosis, or edema. RECTAL/GENITAL: Refused. NEUROLOGIC: Cranial nerves II through XII are grossly intact without focal deficits. Motor strength is 5/5 bilaterally. Deep tendon reflexes are 2+ plantar. Assessment/Plan Problem List: (1) Prostate cancer Assessment & Plan: Undergoing outpatient treatment (2) Bipolar depression (3) URI (upper respiratory infection) (4) Asthma exacerbation Assessment & Plan: see pulmonary note. Continue ceftriaxone, IV solumedrol and nebulizer treatment (5) Asthma with status asthmaticus Ryan Mckenzie MD Mar 10, 2018 10:50
[2018-03-10 12:00] VITALS: BP 112/70
--- NOTE | 2018-03-10 14:53 | Pulmonology Progress Note ---
Assessment/Plan Problems: (1) Acute bronchitis (2) COPD exacerbation (3) Asthma exacerbation (4) Depression (5) Anxiety (6) Bipolar depression Assessment/Plan respiratory treatment taper steroids iv abx on theophylline psych evaluation appreciated dvt prophylaxis Subjective ROS Limited/Unobtainable: No Constitutional: Reports: no symptoms HEENT: Repors: no symptoms, other Allergies: Coded Allergies: NO KNOWN ALLERGIES (Verified Allergy, Unknown, 03/07/18) Objective Last 24 Hour Vital Signs Date Time Temp Pulse Resp B/P (MAP) Pulse Ox O2 Delivery O2 Flow Rate FiO2 03/10/18 14:42 68 20 95 Room Air 21 03/10/18 12:00 97.6 68 20 112/70 (84) 98 03/10/18 11:08 68 20 97 Room Air 21 03/10/18 10:58 82 24 94 Room Air 21 03/10/18 09:00 Room Air Room Air Room Air 03/10/18 08:00 97.7 80 19 93/50 (64) 95 03/10/18 07:20 78 18 97 Room Air 21 03/10/18 07:09 78 16 97 Room Air 21 03/10/18 04:34 98.1 67 20 102/68 (79) 97 03/10/18 03:39 76 18 96 Room Air 21 03/10/18 00:20 97.6 68 20 107/69 (82) 95 03/10/18 00:07 62 18 98 Nasal Cannula 2.0 28 03/09/18 23:55 64 20 95 Room Air 21 03/09/18 21:00 Room Air 03/09/18 20:24 97.3 72 21 104/66 (79) 93 03/09/18 19:32 72 18 97 Nasal Cannula 2.0 28 03/09/18 19:18 61 20 96 Nasal Cannula 2.0 28 03/09/18 19:00 97.5 88 22 114/66 (82) 100 03/09/18 16:07 64 20 98 Nasal Cannula 2.0 28 03/09/18 16:00 97.5 59 20 110/66 (81) 95 03/09/18 16:00 61 20 96 Room Air 21 Intake and Output 03/09/18 03/10/18 19:00 07:00 Intake Total 780 ml 840 ml Output Total 700 ml Balance 80 ml 840 ml Intake Oral 780 ml 840 ml Output Urine Total 700 ml # Voids 2 4 General Appearance: WD/WN HEENT: normocephalic Respiratory/Chest: chest wall non-tender, lungs clear Cardiovascular: normal peripheral pulses, regular rhythm Abdomen: normal bowel sounds, soft, non tender Genitourinary: normal external genitalia Extremities: no cyanosis Skin: no rash Microbiology Date/Time Source Procedure Growth Status 03/09/18 14:11 Sputum Gram Stain - Final Resulted 03/09/18 14:11 Sputum Sputum Culture - Preliminary NO GROWTH Resulted Laboratory Tests 03/10/18 08:25: White Blood Count 5.5, Red Blood Count 4.62L, Hemoglobin 14.3, Hematocrit 40.5L , Mean Corpuscular Volume 88, Mean Corpuscular Hemoglobin 30.9, Mean Corpuscular Hemoglobin Concent 35.3, Red Cell Distribution Width 11.3L, Platelet Count 156, Mean Platelet Volume 6.0L, Neutrophils (%) (Auto) 79.2H, Lymphocytes (%) (Auto) 13.9L, Monocytes (%) (Auto) 5.8, Eosinophils (%) (Auto) 0.5, Basophils (%) (Auto) 0.7, Sodium Level 140, Potassium Level 3.9, Chloride Level 106, Carbon Dioxide Level 22, Anion Gap 12, Blood Urea Nitrogen 19H, Creatinine 1.1, Estimat Glomerular Filtration Rate > 60, Glucose Level 131H, Calcium Level 8.9, Phosphorus Level 4.3, Magnesium Level 2.0, Total Bilirubin 0.1L, Aspartate Amino Transf (AST/SGOT) 17, Alanine Aminotransferase (ALT/SGPT) 27, Alkaline Phosphatase 87, Total Protein 7.2, Albumin 3.6, Globulin 3.6, Albumin/Globulin Ratio 1.0 Current Medications Medications (Trade) Dose Ordered Sig/Jeri Route PRN Reason Start Time Stop Time Status Last Admin Dose Admin Acetaminophen (Tylenol) 650 mg Q6H PRN ORAL Mild Pain/Temp > 100.5 03/08/18 17:00 04/06/18 16:59 Acetaminophen/ Hydrocodone Bitart ([place] 5/325) 1 tab Q6H PRN ORAL Moderate Pain (Pain Scale 4-6) 03/08/18 17:00 03/14/18 16:59 Albuterol/ Ipratropium (Albuterol/ Ipratropium) 3 ml Q4H PRN HHN Shortness of Breath 03/08/18 17:00 03/12/18 16:59 03/09/18 02:13 Albuterol/ Ipratropium (Albuterol/ Ipratropium) 3 ml Q4HRT HHN 03/08/18 19:00 03/13/18 14:59 03/10/18 14:42 Artificial Tears (Lacri-Lube) 1 applic TIDPRN PRN BOTH EYES Dry Eyes 03/09/18 11:45 04/08/18 11:44 03/09/18 17:37 Calcium Carbonate (Tums) 500 mg DAILY ORAL 03/09/18 09:00 04/07/18 08:59 03/10/18 09:26 Ceftriaxone Sodium 1 gm/ Dextrose 55 ml @ 110 mls/hr DAILY IVPB 03/09/18 09:00 03/14/18 12:59 03/10/18 09:26 Clonazepam (KlonoPIN) 1 mg BEDTIME ORAL 03/08/18 21:00 03/15/18 20:59 03/09/18 21:42 Dextrose (Dextrose 50%) 25 ml Q30M PRN IV Hypoglycemia 03/08/18 16:30 04/06/18 11:59 Dextrose (Dextrose 50%) 50 ml Q30M PRN IV Hypoglycemia 03/08/18 16:30 04/06/18 11:59 Docusate Sodium (Colace) 100 mg TWICE A DAY ORAL 03/08/18 18:00 04/06/18 17:59 03/10/18 09:26 Fluoxetine HCl (PROzac) 20 mg DAILY ORAL 03/09/18 09:00 04/07/18 11:59 03/10/18 09:26 Heparin Sodium (Porcine) (Heparin 5000 units/ml) 5,000 units EVERY 12 HOURS SUBQ 03/08/18 21:00 04/06/18 20:59 03/10/18 09:33 Insulin Aspart (NovoLOG) BEFORE MEALS AND HS SUBQ 03/08/18 17:30 04/06/18 17:29 Lorazepam (Ativan) 0.5 mg Q6H PRN ORAL For Anxiety 03/08/18 17:00 03/14/18 16:59 Methylprednisolone Sodium Succinate (Solu-MEDROL) 60 mg EVERY 12 HOURS IVP 03/08/18 21:00 04/06/18 13:59 03/10/18 09:26 Ondansetron HCl (Zofran) 4 mg Q4H PRN IVP Nausea & Vomiting 03/08/18 16:30 04/06/18 12:29 Promethazine HCl/ Codeine (Phenergan with Codeine) 5 ml Q4H PRN ORAL For Cough 03/08/18 17:00 04/07/18 16:59 03/09/18 19:09 Theophylline (Esteban-Dur) 100 mg EVERY 12 HOURS ORAL 03/08/18 21:00 04/07/18 20:59 03/10/18 09:26 Michele Umaña MD Mar 10, 2018 14:53
[2018-03-10] MEDS ORDERED: MEDROL DOSEPAK4 MG ORAL (14:57)
[2018-03-10] MEDS ORDERED: THEOPHYLLINE A100 MG ORAL (14:57)
[2018-03-10] MEDS ORDERED: BACTRIM-DS1 EA ORAL (14:57)
[2018-03-10 16:00] VITALS: BP 127/70
[2018-03-10 20:10] VITALS: BP 122/75
--- NOTE | 2018-03-11 12:36 | Discharge Summary ---
Discharge Summary Discharge Summary _ DATE OF ADMISSION: 03/07/2018 DATE OF DISCHARGE: 03/10/2018 CONSULTANTS: Dr. Michele Davenport BRIEF HOSPITAL COURSE: Patient is a 67-year-old male, who presented with chief complaint of shortness of breath and cough. Patient has history of asthma. The patient was admitted to [facility] recently and was discharged to [facility]. Patient started to experience shortness of breath on 03/04/2018. Symptoms increased over the past 3 days. He became extremely short of breath and on 03/07/2018, pulse ox drop to 80%. He was using his inhalers without relief. He was then transported to emergency room for evaluation of dyspnea. He has medical history significant for asthma, abduction, posttraumatic stress disorder, and prostate CA. On evaluation at ED, blood pressure was elevated to 160/102, heart rate 98, O2 saturation was 97% on nonrebreather mask. Patient with respiratory distress on presentation, he was started on nebulizer treatment. Blood work was without leukocytosis. Hemoglobin and hematocrit were stable. Troponin was negative. BNP was 266. He had EKG done that showed normal sinus tachycardia, rate of [address] elevation or depression. Chest x-ray showed chronic interstitial changes, no consolidation, no acute cardiopulmonary process. Mentation was low , he was given magnesium IV supplement. He had continued respiratory distress with minimal exertion. Patient desaturated and had worse bronchospasms. He improved after magnesia and albuterol treatment. Patient was then admitted for evaluation of status asthmaticus. He was started on ceftriaxone. He was given respiratory treatment/nebulizer treatment. Theophylline was added. He has history of depression and anxiety. He was given Prozac and Klonopin. Buspar was discontinued. Sputum culture showed growth of normal upper respiratory cindy. Steroids were tapered. He was saturating 100% on room air. He was eventually cleared for discharge home. FINAL DIAGNOSES: Acute bronchitis Acute upper respiratory infection Acute COPD exacerbation Acute asthma exacerbation with status asthmaticus Depression Anxiety Bipolar depression Prostate CA DISPOSITION: Patient was discharged to [facility]. DISCHARGE MEDICATIONS: Refer to Discharge Medication List. I have been assigned to dictate discharge summary on this account, and I was not involved in the patient's management. Cary Orozco NP Mar 11, 2018 12:36
== END 2018-03-10 20:30 | DRG 202 ==
LOC: EDBD 04:46 → EMR 05:55 → EDBEDREQ 06:34 → 2E 06:40 → EDBEDREQ 08:24 → 2E 09:12 → 3E 03-08 15:45
DX: J20.9 Acute bronchitis, unspecified (principal); J45.902 Unspecified asthma with status asthmaticus; J44.1 Chronic obstructive pulmonary disease with (acute) exacerbation; J44.0 Chronic obstructive pulmonary disease with (acute) lower respiratory infection; R27.0 Ataxia, unspecified; F43.10 Post-traumatic stress disorder, unspecified; R09.02 Hypoxemia; F31.9 Bipolar disorder, unspecified; G47.00 Insomnia, unspecified; C61 Malignant neoplasm of prostate; F41.9 Anxiety disorder, unspecified
CPT/HCPCS: 36415; 71045; 80048; 80053; 80307; 81001; 82962; 83735; 83880; 84100; 84153; 84484; 85007; 85025; 85610; 87070; 87081; 87205; 93005; 94640; 94664; 96361; 96365; 96375; 99285; J1815; J7620

== ENCOUNTER 2018-03-12 04:51 | Emergency (ER) | payer MEDICARE, OTHER ==
[~2018-03-12] VITALS: Ht 170.2 cm; Wt 68.0 kg
[~2018-03-12 04:51] MED LIST changes: +BACTRIM-DS1 EA ORAL; +MEDROL DOSEPAK4 MG ORAL; +THEOPHYLLINE A100 MG ORAL
[2018-03-12 04:58] VITALS: BP 122/78
[2018-03-12] MEDS ORDERED: DEPAKOTE250 MG PO (05:01)
[2018-03-12] MEDS ORDERED: GABAPENTIN300 MG ORAL (05:01)
[2018-03-12] MEDS ORDERED: HALOPERIDOL1 MG ORAL (05:01)
[2018-03-12] MEDS ORDERED: DUONEB 0.5-3(2.53 ML HHN (05:01)
[2018-03-12] MEDS ORDERED: VITAMIN D1000 UNI2 PO (05:01)
[2018-03-12] MEDS ORDERED: MELATONIN3 MG ORAL (05:03)
[2018-03-12] MEDS ORDERED: PRIMIDONE50 MG PO (05:03)
[2018-03-12] MEDS ORDERED: ELIGARD22.5 MG SQ (05:03)
[2018-03-12] MEDS ORDERED: SERTRALINE HCL100 MG PO (05:03)
[2018-03-12] MEDS ORDERED: Albuterol ud Inhalation HHN ONE (05:15)
[2018-03-12] MEDS ORDERED: Ipratropium 0.02% Inh Soln 2.5ml UD HHN ONE (05:15)
[2018-03-12] MEDS ORDERED: Levalbuterol Inh UD 1.25mg/0.5ml HHN ONE (06:00)
[2018-03-12] MEDS ORDERED: PREDNISONE20 MG ORAL (06:01)
--- NOTE | 2018-03-12 06:12 | Emergency Room Report ---
History of Present Illness General Chief Complaint: Dyspnea/Respdistress Source: Patient, EMS Present Illness HPI Patient presents by paramedics from nursing facility Complaint was regarding shortness of breath and asthma exacerbation Upon arrival the patient is calm, does not complain of any shortness of breath He reports that he feels better after the breathing treatment by paramedics Denies any chest pain Denies any back or flank pain denies any fevers or chills Patient was recently discharged from the hospital with diagnoses of asthma Allergies: Coded Allergies: NO KNOWN ALLERGIES (Verified Allergy, Unknown, 03/07/18) Patient History Past Medical History: see triage record Pertinent Family History: none Reviewed Nursing Documentation: PMH: Agreed; PSxH: Agreed Nursing Documentation-PMH Hx Cardiac Problems: No - hyperlipidemia Hx Asthma: Yes Hx COPD: Yes Hx Diabetes: Yes Hx Cancer: Yes Hx Gastrointestinal Problems: Yes - dysphagia 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 Hx Cerebrovascular Accident: Yes - 2010 Hx Seizures: Yes Review of Systems All Other Systems: negative except mentioned in HPI Physical Exam Vital Signs Date Time Temp Pulse Resp B/P (MAP) Pulse Ox O2 Delivery O2 Flow Rate FiO2 03/12/18 04:50 98.4 94 18 127/91 99 Nasal Cannula 6.0 03/12/18 05:16 21 Sp02 EP Interpretation: reviewed, normal General Appearance: well appearing, no apparent distress Head: normocephalic, atraumatic Eyes: bilateral eye PERRL, bilateral eye EOMI ENT: hearing grossly normal, normal pharynx, TMs + canals normal, uvula midline Neck: full range of motion, supple, no meningismus, no bony tend Respiratory: no rhonchi, no respiratory distress, no retraction, no accessory muscle use, wheezing - Bilaterally, faint Cardiovascular #1: normal peripheral pulses, regular rate, rhythm, no edema, no gallop, no JVD, no murmur Gastrointestinal: normal bowel sounds, non tender, soft, no mass, no organomegaly, non-distended, no guarding, no hernia, no pulsatile mass, no rebound Musculoskeletal: normal inspection Neurologic: oriented x3, responsive, site planner III-XII nml as tested, motor strength/ tone normal, sensory intact Psychiatric: mood/affect normal Skin: normal color, no rash, warm/dry, palpation normal Lymphatic: normal inspection, no adenopathy Medical Decision Making Diagnostic Impression: Primary Impression: Asthma exacerbation ER Course Upon arrival the patient does not appear to be in any acute respiratory distress Review of medical records also reveals previous history of COPD Patient did receive further breathing treatment here including albuterol And later with Xopenex Patient continues to do well Respirations also improved At this time will have further outpatient care EKG Diagnostic Results Rate: normal Rhythm: NSR ST Segments: no acute changes Rhythm Strip Diag. Results EP Interpretation: yes Rate: 77 Rhythm: NSR, no PVC's, no ectopy Last Vital Signs Date Time Temp Pulse Resp B/P (MAP) Pulse Ox O2 Delivery O2 Flow Rate FiO2 03/12/18 05:48 86 20 20 Room Air 21 03/12/18 04:58 98.3 122/78 6.0 Status: improved Disposition: ER [facility] Condition: Improved Scripts Prednisone* (PREDNISONE*) 20 Mg Tablet 20 MG ORAL BID, #8 TAB Prov: Sharonda Montana DO 03/12/18 Referrals: NON PHYSICIAN (PCP) Patient Instructions: Asthma, Adult, [id number] Additional Instructions: Patient is provided with the discharge instructions notified to follow up with primary doctor in the next 2-3 days otherwise return to the er with any worsening symptoms. Please note that this report is being documented using [employer] technology. This can lead to erroneous entry secondary to incorrect interpretation by the dictating instrument. Sharonda Montana DO Mar 12, 2018 06:12
[2018-03-12 06:27] VITALS: BP 118/76
--- NOTE | 2018-03-13 15:14 | Cardiology Report ---
APPROVED REPORT EKG Measurement Heart [id number] Normal sinus rhythm Normal ECG
== END 2018-03-12 06:27 ==
LOC: EDBD 04:51 → EMR 05:14
DX: J45.901 Unspecified asthma with (acute) exacerbation (principal); J44.9 Chronic obstructive pulmonary disease, unspecified; R06.09 Other forms of dyspnea; E11.9 Type 2 diabetes mellitus without complications; Z86.73 Personal history of transient ischemic attack (TIA), and cerebral infarction without residual deficits
CPT/HCPCS: 93005; 94640; 94664; 99284; J7512; J7644

== ENCOUNTER 2018-06-02 14:54 | Inpatient (IN) | payer MEDICARE, OTHER ==
[~2018-06-02] VITALS: Ht 172.7 cm; Wt 71.9 kg
[~2018-06-02 14:54] MED LIST changes: +DEPAKOTE250 MG PO; +DUONEB 0.5-3(2.53 ML HHN; +ELIGARD22.5 MG SQ; +GABAPENTIN300 MG ORAL; +HALOPERIDOL1 MG ORAL; +MELATONIN3 MG ORAL; +PRIMIDONE50 MG PO; +SERTRALINE HCL100 MG PO; +VITAMIN D1000 UNI2 PO
[2018-06-02 15:10] VITALS: BP 131/96
--- NOTE | 2018-06-02 15:10 | NUR ---
ED Nurse Note: pt brought in by ambulance BLS from [facility] c/o possible UTI. Pt states he does not have any problem with urination, denies urgency, retention, burning sensation or pain. pt urine sample obtained, color light keo and clear, pt AA&ox4, gcs=15, skin warm and dry, resp even and unlabored, -n/v/d, will cont monitor. VSS, pt on clinical research monitor, NSR. blanket provided for comfort, bed lowest position w/ siderail x2, pt advised to notify staff if needed assist.
--- NOTE | 2018-06-02 15:12 | Emergency Room Report ---
History of Present Illness General Chief Complaint: Male Urogenital Problems Source: Patient Present Illness HPI Patient is a 67-year-old male presented after increased difficulty with upper back pain. Patient had prior history of ataxia. He reports having some increased generalized weakness. Patient reports having recently been more agitated at his nursing facility. He reports having increased weakness in his upper extremities and states that he follows with a neurologist once a month. Patient denies any recent trauma.He is patient of Dr. 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 Hx Cerebrovascular Accident: Yes - 2010 Hx Seizures: Yes Review of Systems All Other Systems: negative except mentioned in HPI Physical Exam Vital Signs Date Time Temp Pulse Resp B/P (MAP) Pulse Ox O2 Delivery O2 Flow Rate FiO2 06/02/18 14:50 97.9 82 18 93/63 94 Room Air Sp02 EP Interpretation: reviewed, normal General Appearance: normal inspection, well appearing, no apparent distress, alert, GCS 15 Head: atraumatic ENT: normal ENT inspection, hearing grossly normal, normal voice Neck: normal inspection, full range of motion, supple, no bony tend Respiratory: normal inspection, lungs clear, normal breath sounds, no respiratory distress, no retraction, no wheezing Cardiovascular #1: regular rate, rhythm, no edema Gastrointestinal: normal inspection, normal bowel sounds, non tender, soft, no guarding, no hernia Genitourinary: no CVA tenderness Musculoskeletal: normal inspection, back normal, normal range of motion Neurologic: normal inspection, alert, oriented x3, responsive, speech normal Psychiatric: normal inspection, judgement/insight normal, mood/affect normal Skin: normal inspection, normal color, no rash Medical Decision Making Diagnostic Impression: Primary Impression: Dehydration Additional Impression: Bipolar depression ER Course Patient presented for generalized weakness. Differential diagnosis included was not limited to anemia, urinary tract infection, electrolyte abnormality, hypothyroidism, myocardial infarction, myasthenia gravis, dehydration, among others. Because of complexity of patient's case laboratory testing and imaging studies were ordered. Laboratory testing was notable for some evidence of dehydration. Patient was noted to be somewhat agitated and was given Klonopin for agitation.Patient was noted to have some chronic debilitation and had prior history of prostate cancer. Urine analysis showed no evidence of infection.Dr. Christopher Medina was contacted for inpatient management Labs Test 06/02/18 15:27 06/02/18 15:37 Troponin I 0.009 ng/mL (0.000-0.056) White Blood Count 8.0 K/UL (4.8-10.8) Red Blood Count 4.56 M/UL (4.70-6.10) Hemoglobin 14.3 G/DL (14.2-18.0) Hematocrit 41.7 % (42.0-52.0) Mean Corpuscular Volume 91 FL (80-99) Mean Corpuscular Hemoglobin 31.3 PG (27.0-31.0) Mean Corpuscular Hemoglobin Concent 34.2 G/DL (32.0-36.0) Red Cell Distribution Width 12.1 % (11.6-14.8) Platelet Count 150 K/UL (150-450) Mean Platelet Volume 5.6 FL (6.5-10.1) Neutrophils (%) (Auto) % (45.0-75.0) Lymphocytes (%) (Auto) % (20.0-45.0) Monocytes (%) (Auto) % (1.0-10.0) Eosinophils (%) (Auto) % (0.0-3.0) Basophils (%) (Auto) % (0.0-2.0) Differential Total Cells Counted 100 Neutrophils % (Manual) 92 % (45-75) Lymphocytes % (Manual) 1 % (20-45) Monocytes % (Manual) 1 % (1-10) Eosinophils % (Manual) 0 % (0-3) Basophils % (Manual) 0 % (0-2) Band Neutrophils 6 % (0-8) Platelet Estimate Adequate Platelet Morphology Normal Red Blood Cell Morphology Normal Urine Color Yellow Urine Appearance Clear Urine pH 6 (4.5-8.0) Urine Specific [place] 1.025 (1.005-1.035) Urine Protein Negative (NEGATIVE) Urine Glucose (UA) Negative (NEGATIVE) Urine Ketones Negative (NEGATIVE) Urine Blood Negative (NEGATIVE) Urine Nitrite Negative (NEGATIVE) Urine Bilirubin Negative (NEGATIVE) Urine Urobilinogen Normal MG/DL (0.0-1.0) Urine Leukocyte Esterase Negative (NEGATIVE) Sodium Level 140 MMOL/L (136-145) Potassium Level 4.0 MMOL/L (3.5-5.1) Chloride Level 105 MMOL/L (98-107) Carbon Dioxide Level 23 MMOL/L (21-32) Anion Gap 12 mmol/L (5-15) Blood Urea Nitrogen 28 mg/dL (7-18) Creatinine 1.3 MG/DL (0.55-1.30) Estimat Glomerular Filtration Rate 54.7 mL/min (>60) Glucose Level 134 MG/DL (74-106) Lactic Acid Level 1.20 mmol/L (0.4-2.0) Calcium Level 9.1 MG/DL (8.5-10.1) Total Bilirubin 0.4 MG/DL (0.2-1.0) Aspartate Amino Transf (AST/SGOT) 23 U/L (15-37) Alanine Aminotransferase (ALT/SGPT) 36 U/L (12-78) Alkaline Phosphatase 85 U/L (46-116) Total Creatine Kinase 126 U/L (26-308) Creatine Kinase MB 0.6 NG/ML (0.0-3.6) Creatine Kinase MB Relative Index 0.4 Total Protein 6.3 G/DL (6.4-8.2) Albumin 3.4 G/DL (3.4-5.0) Globulin 2.9 g/dL Albumin/Globulin Ratio 1.2 (1.0-2.7) Last Vital Signs Date Time Temp Pulse Resp B/P (MAP) Pulse Ox O2 Delivery O2 Flow Rate FiO2 06/02/18 14:50 97.9 82 18 93/63 94 Room Air Status: unchanged Disposition: ADMITTED INPATIENT Condition: Serious Igor Brown MD Jun 02, 2018 15:12
[2018-06-02 15:59] LABS: APPEARANCE,URINE CLEAR; BILIRUBIN, URINE NEGATIVE (NEGATIVE); GLUCOSE, URINE (UA) NEGATIVE (NEGATIVE); HEMATOCRIT 41.7 % (42.0-52.0); HEMOGLOBIN 14.3 G/DL (14.2-18.0); KETONES,URINE NEGATIVE (NEGATIVE); LEUKOCYTE ESTERASE ,URINE NEGATIVE (NEGATIVE); MEAN CORPUSCULAR VOLUME 91 FL (80-99); NITRITE,URINE NEGATIVE (NEGATIVE); PH,URINE 6 (4.5-8.0); PLATELET COUNT 150 K/UL (150-450); PROTEIN,URINE NEGATIVE (NEGATIVE); RED BLOOD COUNT 4.56 M/UL (4.70-6.10); RED CELL DISTRIBUTION WIDTH 12.1 % (11.6-14.8); UROBILINOGEN,URINE NORMAL MG/DL (0.0-1.0)
--- NOTE | 2018-06-02 16:00 | NUR ---
ED Nurse Note: correction, pt came from [facility] for psych eval not for uti sx, per snf paperwork, pt came from increase agitation and jittery. pt calm and cooperative at this time. no s/s agitation.
[2018-06-02 16:04] LABS: COLOR,URINE YELLOW
[2018-06-02 16:10] VITALS: BP 118/67
[2018-06-02 16:23] LABS: ANION GAP 12 mmol/L (5-15); BLOOD UREA NITROGEN 28 mg/dL (7-18); CALCIUM 9.1 MG/DL (8.5-10.1); CARBON DIOXIDE 23 MMOL/L (21-32); CHLORIDE 105 MMOL/L (98-107); CREATININE 1.3 MG/DL (0.55-1.30); SODIUM 140 MMOL/L (136-145)
--- NOTE | 2018-06-02 16:23 | Diagnostic Imaging Report ---
Indication: Dyspnea Comparison: 03/07/2018 A single view chest radiograph was obtained. Findings: Cardiomediastinal appearance is within normal limits for age. The lungs are clear. Pulmonary vascularity is appropriate. The diaphragmatic contour is smooth and costophrenic angles are sharp. No pleural effusions are identified. The bones are unremarkable. Impression: No acute findings
[2018-06-02 16:25] LABS: ALANINE AMINOTRANSFERASE 36 U/L (12-78); ALBUMIN 3.4 G/DL (3.4-5.0); ALBUMIN/GLOBULIN RATIO 1.2 (1.0-2.7); ALKALINE PHOSPHATASE 85 U/L (46-116); ASPARTATE AMINO TRANSFERASE 23 U/L (15-37); BILIRUBIN,TOTAL 0.4 MG/DL (0.2-1.0); CKMB 0.6 NG/ML (0.0-3.6); CREATINE KINASE 126 U/L (26-308)
[2018-06-02] MEDS ORDERED: VITAMIN B-12100 MC1 PO (17:44)
[2018-06-02] MEDS ORDERED: FOLIC ACID1 MG ORAL (17:44)
[2018-06-02] MEDS ORDERED: LORAZEPAM0.5 MG ORAL (17:44)
[2018-06-02] MEDS ORDERED: BENZTROPINE ME0.5 MG PO (17:44)
[2018-06-02] MEDS ORDERED: ATORVASTATIN CA20 MG ORAL (17:44)
[2018-06-02] MEDS ORDERED: CARAFATE1 G1 ORAL (17:44)
[2018-06-02] MEDS ORDERED: ASCORBIC ACID500 MG ORAL (17:44)
[2018-06-02] MEDS ORDERED: FERROUS SULFAT325 MG ORAL (17:44)
[2018-06-02] MEDS ORDERED: BUDESONIDE0.5 GM MC (17:44)
[2018-06-02] MEDS ORDERED: LANSOPRAZOLE30 MG ORAL (17:44)
[2018-06-02] MEDS ORDERED: MULTIVITAMINS1 EAC2 ORAL (17:44)
[2018-06-02] MEDS ORDERED: FOSAMAX70 MG ORAL (17:44)
[2018-06-02] MEDS ORDERED: PULMICORT0.5 MG/2 M IH (18:02)
[2018-06-02] MEDS ORDERED: ALBUTEROL2.5 MG/3 M INH (18:02)
[2018-06-02] MEDS ORDERED: DOCUSATE SODIU250 MG ORAL (18:07)
[2018-06-02 18:10] VITALS: BP 118/64
[2018-06-02] MEDS ORDERED: IBUPROFEN600 MG ORAL (18:13)
[2018-06-02] MEDS ORDERED: PREDNISONE20 MG ORAL (18:17)
--- NOTE | 2018-06-02 19:32 | Consultation ---
History of Present Illness General Chief Complaint: General Complaint Present Illness HPI 67-year-old male, who presents with a chief complaint of increased agitation and generalized weakness. the pt has been having low blood pressure. the pt was cooperative with exam stated that he has anger issues. the pt stated that he is very labile and has mood swings. the pt denied si/hi Allergies: Coded Allergies: NO KNOWN ALLERGIES (Verified Allergy, Unknown, 03/07/18) Medication History Scheduled Alendronate Sodium* (Fosamax*), 70 MG ORAL ONCE A WEEK, (Reported) Ascorbic Acid* (Ascorbic Acid*), 500 MG ORAL DAILY, (Reported) Atorvastatin Calcium* (Atorvastatin Calcium*), 10 MG ORAL BEDTIME, (Reported) Benztropine Mesylate* (Cogentin*), 2 MG PO BID, (Reported) Budesonide (Pulmicort), 0.5 MG IH Q12HR, (Reported) Calcium Carbonate (Calcium), 500 MG PO DAILY, (Reported) Clonazepam (Clonazepam), 2 MG PO BID, (Reported) Cyanocobalamin (Vitamin B-12) (Vitamin B-12), 100 MCG PO DAILY, (Reported) Docusate Sodium* (Docusate Sodium*), 250 MG ORAL DAILY, (Reported) Ferrous Sulfate* (Ferrous Sulfate*), 325 MG ORAL DAILY, (Reported) Folic Acid* (Folic Acid*), 1 MG ORAL DAILY, (Reported) Ipratropium/Albuterol Sulfate (DuoNeb 0.5-3(2.5)mg/3ml), 3 ML HHN Q6HR, ( Reported) Lansoprazole* (Lansoprazole*), 30 MG ORAL DAILY, (Reported) Multivitamins* (Multivitamins*), 1 TAB ORAL DAILY, (Reported) Prednisone* (Prednisone*), 25 MG ORAL DAILY, (Reported) Primidone* (Mysoline*), 50 MG PO QHS, (Reported) Sucralfate* (Carafate*), 1 GM ORAL ACBREAKFAST, (Reported) Scheduled PRN Albuterol Sulfate* (Albuterol Sulfate Hhn*), 1.25 MG INH Q6H PRN for Shortness of Breath, (Reported) Hydrocodone Bit/Acetaminophen 5-325* ([place] 5-325*), 1 TAB ORAL Q6H PRN for For Pain Ibuprofen* (Motrin*), 600 MG ORAL Q6H PRN for For Pain, (Reported) Lorazepam* (Lorazepam*), 0.5 MG ORAL Q6HR PRN for Agitation, (Reported) Discontinued Medications Azithromycin* (Zithromax*), 250 MG ORAL DAILY Discontinued Reason: Pt stopped taking med Budesonide, Micronized (Budesonide), 0.5 GM MC, (Reported) Discontinued Reason: Prescription changed Buspirone Hcl* (Buspirone Hcl*), 5 MG ORAL TWICE A DAY, (Reported) Discontinued Reason: Pt stopped taking med Carbamazepine (Tegretol*), 500 MG PO TID, (Reported) Discontinued Reason: Pt stopped taking med Cholecalciferol (Vitamin D3) (Vitamin D), 1,000 UNIT PO, (Reported) Discontinued Reason: Pt stopped taking med Clonazepam* (Klonopin*), 0.5 MG ORAL Q6H, (Reported) Discontinued Reason: Pt stopped taking med Divalproex Sodium* (Depakote*), 250 MG PO Q12HR, (Reported) Discontinued Reason: Pt stopped taking med Docusate Sodium* (Colace*), 100 MG ORAL TWICE A DAY Discontinued Reason: Pt stopped taking med Gabapentin* (Gabapentin*), 300 MG ORAL THREE TIMES A DAY, (Reported) Discontinued Reason: Pt stopped taking med Haloperidol* (Haldol*), 2 MG ORAL EVERY 6 HOURS, (Reported) Discontinued Reason: Pt stopped taking med Ibuprofen (Ibuprofen*), 200 MG ORAL FOUR TIMES A DAY, (Reported) Discontinued Reason: Prescription changed Leuprolide Acetate (Eligard), 22.5 MG SQ, (Reported) Discontinued Reason: Pt stopped taking med Melatonin (Melatonin), 3 MG ORAL BEDTIME PRN for Insomnia, (Reported) Discontinued Reason: Pt stopped taking med Methylprednisolone (Methylprednisolone*), 4 MG ORAL DIRECTED Discontinued Reason: Pt stopped taking med Prednisone* (Prednisone*), 60 MG ORAL DAILY Discontinued Reason: Pt stopped taking med Sertraline Hcl* (Zoloft*), 100 MG PO DAILY, (Reported) Discontinued Reason: Pt stopped taking med Simvastatin (Zocor), 10 MG PO QHS, (Reported) Discontinued Reason: Pt stopped taking med Simvastatin (Zocor), 5 MG ORAL BEDTIME, (Reported) Discontinued Reason: Pt stopped taking med Theophylline (Theodur*), 100 MG ORAL EVERY 12 HOURS Discontinued Reason: Pt stopped taking med Trimethoprim/Sulfamethoxazole (Bactrim Ds Tablet), 1 TAB ORAL TWICE A DAY Discontinued Reason: Pt stopped taking med Patient History Limited by: medical condition History Provided By: Patient, Medical Record, PMD Healthcare decision maker N Resuscitation status Advanced Directive on File Past Medical/Surgical History Past Medical/Surgical History: (1) History of asthma (2) Upper extremity weakness (3) Closed rib fracture (4) COPD exacerbation (5) Asthma exacerbation (6) Anxiety (7) Depression (8) Hypercholesterolemia (9) Acute bronchitis (10) Bipolar depression (11) Psychosis (12) Prostate cancer Review of Systems Psychiatric: Reports: prior hx, anxiety, depressed feelings, emotional problems Physical Exam General Appearance: no apparent distress, alert, overweight Neurologic: oriented x 3, responsive, depressed affect Last 24 Hour Vital Signs Date Time Temp Pulse Resp B/P (MAP) Pulse Ox O2 Delivery O2 Flow Rate FiO2 06/02/18 17:25 67 18 Room Air 06/02/18 16:10 97.9 68 18 118/67 100 Room Air 06/02/18 15:10 67 18 Room Air 06/02/18 15:10 97.9 67 18 131/96 97 Room Air 06/02/18 14:50 97.9 82 18 93/63 94 Room Air Laboratory Tests Test 06/02/18 15:27 06/02/18 15:37 Troponin I 0.009 ng/mL (0.000-0.056) White Blood Count 8.0 K/UL (4.8-10.8) Red Blood Count 4.56 M/UL (4.70-6.10) L Hemoglobin 14.3 G/DL (14.2-18.0) Hematocrit 41.7 % (42.0-52.0) L Mean Corpuscular Volume 91 FL (80-99) Mean Corpuscular Hemoglobin 31.3 PG (27.0-31.0) H Mean Corpuscular Hemoglobin Concent 34.2 G/DL (32.0-36.0) Red Cell Distribution Width 12.1 % (11.6-14.8) Platelet Count 150 K/UL (150-450) Mean Platelet Volume 5.6 FL (6.5-10.1) L Neutrophils (%) (Auto) % (45.0-75.0) Lymphocytes (%) (Auto) % (20.0-45.0) Monocytes (%) (Auto) % (1.0-10.0) Eosinophils (%) (Auto) % (0.0-3.0) Basophils (%) (Auto) % (0.0-2.0) Differential Total Cells Counted 100 Neutrophils % (Manual) 92 % (45-75) H Lymphocytes % (Manual) 1 % (20-45) L Monocytes % (Manual) 1 % (1-10) Eosinophils % (Manual) 0 % (0-3) Basophils % (Manual) 0 % (0-2) Band Neutrophils 6 % (0-8) Platelet Estimate Adequate Platelet Morphology Normal Red Blood Cell Morphology Normal Urine Color Yellow Urine Appearance Clear Urine pH 6 (4.5-8.0) Urine Specific [place] 1.025 (1.005-1.035) Urine Protein Negative (NEGATIVE) Urine Glucose (UA) Negative (NEGATIVE) Urine Ketones Negative (NEGATIVE) Urine Blood Negative (NEGATIVE) Urine Nitrite Negative (NEGATIVE) Urine Bilirubin Negative (NEGATIVE) Urine Urobilinogen Normal MG/DL (0.0-1.0) Urine Leukocyte Esterase Negative (NEGATIVE) Sodium Level 140 MMOL/L (136-145) Potassium Level 4.0 MMOL/L (3.5-5.1) Chloride Level 105 MMOL/L (98-107) Carbon Dioxide Level 23 MMOL/L (21-32) Anion Gap 12 mmol/L (5-15) Blood Urea Nitrogen 28 mg/dL (7-18) H Creatinine 1.3 MG/DL (0.55-1.30) Estimat Glomerular Filtration Rate 54.7 mL/min (>60) Glucose Level 134 MG/DL (74-106) H Lactic Acid Level 1.20 mmol/L (0.4-2.0) Calcium Level 9.1 MG/DL (8.5-10.1) Total Bilirubin 0.4 MG/DL (0.2-1.0) Aspartate Amino Transf (AST/SGOT) 23 U/L (15-37) Alanine Aminotransferase (ALT/SGPT) 36 U/L (12-78) Alkaline Phosphatase 85 U/L (46-116) Total Creatine Kinase 126 U/L (26-308) Creatine Kinase MB 0.6 NG/ML (0.0-3.6) Creatine Kinase MB Relative Index 0.4 Total Protein 6.3 G/DL (6.4-8.2) L Albumin 3.4 G/DL (3.4-5.0) Globulin 2.9 g/dL Albumin/Globulin Ratio 1.2 (1.0-2.7) Height (Feet): 5 Height (Inches): 8.00 Weight (Pounds): 170 Assessment/Plan Problem List: (1) Anxiety ICD Codes: F41.9 - Anxiety disorder, unspecified SNOMED: 27790652 (2) Bipolar depression ICD Codes: F31.30 - Bipolar disorder, current episode depressed, mild or moderate severity, unspecified SNOMED: 54415010 Assessment/Plan depakote 500mg po bid provided moris/Ilene Gonzalez MD Jun 02, 2018 19:32
[2018-06-02] MEDS ORDERED: LORazepam 1mg tab ORAL PRN (19:45)
--- NOTE | 2018-06-02 19:48 | NUR ---
ED Nurse Note: gave report to [place] from [place], pt belonging list all complete.
[2018-06-02 20:00] VITALS: BP 117/74
--- NOTE | 2018-06-02 20:00 | NUR ---
ED Nurse Note: pt transferred to [facility], all belongings sent with pt, no neuro changes, resp even and unlabored, iv intact.
[2018-06-02] MEDS ORDERED: Albuterol ud Inhalation HHN PRN (20:30)
[2018-06-02] MEDS ORDERED: Norco 5mg/325mg tab ORAL PRN (20:30)
--- NOTE | 2018-06-02 20:40 | NUR ---
NURSE NOTES: Received phone report from MILKA Ayon. Received patient via tech. Belongings checked and accounted for. Patient A&Ox4, on room air. IV intact, patent, and saline locked. Patient refusing assessment, especially skin assessment. Sitter at bedside. Bed in lowest position with call light in reach. Received MD orders, will implement.
[2018-06-02] MEDS: Budesonide HHN 0.25mg/2ml ud HHN SCH (21:28)
[2018-06-02] MEDS: Albuterol/Ipratropium 3ml neb HHN SCH (23:50)
[2018-06-03] VITALS: BP 113/67
[2018-06-03 04:00] VITALS: BP 117/60
[2018-06-03] MEDS: Sucralfate 1gm tab ORAL SCH (06:14)
--- NOTE | 2018-06-03 07:33 | NUR ---
NURSE NOTES: Received patient from MILKA Portillo. Patient awake, sitting in bed, in room air, not in respiratory distress. Bed in the lowest position,call light within. Will continue to monitor patient.
--- NOTE | 2018-06-03 07:40 | NUR ---
HAND-OFF: Report given to MILKA Henry and MILKA Dixon.
[2018-06-03] MEDS: Albuterol/Ipratropium 3ml neb HHN SCH ×3 (07:48→20:07)
--- NOTE | 2018-06-03 07:50 | NUR ---
NURSE NOTES: Received patient from [place] RN, patient is up in bed, no distress noted, sitter at bedside, bed is locked and in lowest position, no distress noted, call light within reach, will continue to monitor with Destiny JARQUIN.
[2018-06-03 08:00] VITALS: BP 101/50
[2018-06-03 08:33] LABS: BASOPHILS % (AUTO) 0.5 % (0.0-2.0); EOSINOPHILS % (AUTO) 1.1 % (0.0-3.0); HEMATOCRIT 38.5 % (42.0-52.0); HEMOGLOBIN 13.3 G/DL (14.2-18.0); LYMPHOCYTES % (AUTO) 13.9 % (20.0-45.0); MEAN CORPUSCULAR VOLUME 92 FL (80-99); MONOCYTES % (AUTO) 7.6 % (1.0-10.0); NEUTROPHILS % (AUTO) 76.9 % (45.0-75.0); PLATELET COUNT 140 K/UL (150-450); RED BLOOD COUNT 4.17 M/UL (4.70-6.10); RED CELL DISTRIBUTION WIDTH 12.6 % (11.6-14.8); WHITE BLOOD COUNT 5.7 K/UL (4.8-10.8)
[2018-06-03] MEDS: Docusate 250mg cap ORAL SCH (08:43)
[2018-06-03] MEDS: Vitamin B-12 100mcg tab ORAL SCH (08:44)
[2018-06-03] MEDS: Ascorbic Acid 500mg tab ORAL SCH (08:44)
[2018-06-03] MEDS: Budesonide HHN 0.25mg/2ml ud HHN SCH ×2 (09:00→20:09)
[2018-06-03] MEDS ORDERED: Albuterol ud Inhalation HHN PRN (09:17)
[2018-06-03 09:19] LABS: ALANINE AMINOTRANSFERASE 29 U/L (12-78); ALBUMIN 2.9 G/DL (3.4-5.0); ALBUMIN/GLOBULIN RATIO 1.1 (1.0-2.7); ALKALINE PHOSPHATASE 68 U/L (46-116); ANION GAP 10 mmol/L (5-15); ASPARTATE AMINO TRANSFERASE 18 U/L (15-37); BILIRUBIN,TOTAL 0.5 MG/DL (0.2-1.0); BLOOD UREA NITROGEN 19 mg/dL (7-18); CALCIUM 8.5 MG/DL (8.5-10.1); CARBON DIOXIDE 24 MMOL/L (21-32); CHLORIDE 107 MMOL/L (98-107); CREATININE 0.9 MG/DL (0.55-1.30); PHOSPHORUS 2.9 MG/DL (2.5-4.9); POTASSIUM 3.5 MMOL/L (3.5-5.1); SODIUM 141 MMOL/L (136-145)
[2018-06-03] MEDS: Depakote 500mg tab ORAL SCH ×2 (11:00→21:29)
[2018-06-03 12:00] VITALS: BP 101/63
--- NOTE | 2018-06-03 14:22 | Consultation ---
History of Present Illness General Chief Complaint: General Complaint Present Illness HPI 67-year-old male with hx of Asthma DM, HTN, psychosis presented to ER with CC of upper back pain and generalized weakness. Patient reports having recently been more agitated at his nursing facility. He reports having increased weakness in his upper extremities and states that he follows with a neurologist once a month. Allergies: Coded Allergies: NO KNOWN ALLERGIES (Verified Allergy, Unknown, 03/07/18) Medication History Scheduled Alendronate Sodium* (Fosamax*), 70 MG ORAL ONCE A WEEK, (Reported) Ascorbic Acid* (Ascorbic Acid*), 500 MG ORAL DAILY, (Reported) Atorvastatin Calcium* (Atorvastatin Calcium*), 10 MG ORAL BEDTIME, (Reported) Benztropine Mesylate* (Cogentin*), 2 MG PO BID, (Reported) Budesonide (Pulmicort), 0.5 MG IH Q12HR, (Reported) Calcium Carbonate (Calcium), 500 MG PO DAILY, (Reported) Clonazepam (Clonazepam), 2 MG PO BID, (Reported) Cyanocobalamin (Vitamin B-12) (Vitamin B-12), 100 MCG PO DAILY, (Reported) Docusate Sodium* (Docusate Sodium*), 250 MG ORAL DAILY, (Reported) Ferrous Sulfate* (Ferrous Sulfate*), 325 MG ORAL DAILY, (Reported) Folic Acid* (Folic Acid*), 1 MG ORAL DAILY, (Reported) Ipratropium/Albuterol Sulfate (DuoNeb 0.5-3(2.5)mg/3ml), 3 ML HHN Q6HR, ( Reported) Lansoprazole* (Lansoprazole*), 30 MG ORAL DAILY, (Reported) Multivitamins* (Multivitamins*), 1 TAB ORAL DAILY, (Reported) Prednisone* (Prednisone*), 25 MG ORAL DAILY, (Reported) Primidone* (Mysoline*), 50 MG PO QHS, (Reported) Sucralfate* (Carafate*), 1 GM ORAL ACBREAKFAST, (Reported) Scheduled PRN Albuterol Sulfate* (Albuterol Sulfate Hhn*), 1.25 MG INH Q6H PRN for Shortness of Breath, (Reported) Hydrocodone Bit/Acetaminophen 5-325* ([place] 5-325*), 1 TAB ORAL Q6H PRN for For Pain Ibuprofen* (Motrin*), 600 MG ORAL Q6H PRN for For Pain, (Reported) Lorazepam* (Lorazepam*), 0.5 MG ORAL Q6HR PRN for Agitation, (Reported) Discontinued Medications Azithromycin* (Zithromax*), 250 MG ORAL DAILY Discontinued Reason: Pt stopped taking med Budesonide, Micronized (Budesonide), 0.5 GM MC, (Reported) Discontinued Reason: Prescription changed Buspirone Hcl* (Buspirone Hcl*), 5 MG ORAL TWICE A DAY, (Reported) Discontinued Reason: Pt stopped taking med Carbamazepine (Tegretol*), 500 MG PO TID, (Reported) Discontinued Reason: Pt stopped taking med Cholecalciferol (Vitamin D3) (Vitamin D), 1,000 UNIT PO, (Reported) Discontinued Reason: Pt stopped taking med Clonazepam* (Klonopin*), 0.5 MG ORAL Q6H, (Reported) Discontinued Reason: Pt stopped taking med Divalproex Sodium* (Depakote*), 250 MG PO Q12HR, (Reported) Discontinued Reason: Pt stopped taking med Docusate Sodium* (Colace*), 100 MG ORAL TWICE A DAY Discontinued Reason: Pt stopped taking med Gabapentin* (Gabapentin*), 300 MG ORAL THREE TIMES A DAY, (Reported) Discontinued Reason: Pt stopped taking med Haloperidol* (Haldol*), 2 MG ORAL EVERY 6 HOURS, (Reported) Discontinued Reason: Pt stopped taking med Ibuprofen (Ibuprofen*), 200 MG ORAL FOUR TIMES A DAY, (Reported) Discontinued Reason: Prescription changed Leuprolide Acetate (Eligard), 22.5 MG SQ, (Reported) Discontinued Reason: Pt stopped taking med Melatonin (Melatonin), 3 MG ORAL BEDTIME PRN for Insomnia, (Reported) Discontinued Reason: Pt stopped taking med Methylprednisolone (Methylprednisolone*), 4 MG ORAL DIRECTED Discontinued Reason: Pt stopped taking med Prednisone* (Prednisone*), 60 MG ORAL DAILY Discontinued Reason: Pt stopped taking med Sertraline Hcl* (Zoloft*), 100 MG PO DAILY, (Reported) Discontinued Reason: Pt stopped taking med Simvastatin (Zocor), 10 MG PO QHS, (Reported) Discontinued Reason: Pt stopped taking med Simvastatin (Zocor), 5 MG ORAL BEDTIME, (Reported) Discontinued Reason: Pt stopped taking med Theophylline (Theodur*), 100 MG ORAL EVERY 12 HOURS Discontinued Reason: Pt stopped taking med Trimethoprim/Sulfamethoxazole (Bactrim Ds Tablet), 1 TAB ORAL TWICE A DAY Discontinued Reason: Pt stopped taking med Patient History Healthcare decision maker N Resuscitation status Full Code Advanced Directive on File Past Medical/Surgical History Past Medical/Surgical History: (1) Prostate cancer (2) Psychosis (3) Bipolar depression (4) Depression (5) Anxiety Review of Systems All Other Systems: negative except mentioned in HPI Physical Exam General Appearance: WD/WN Lines, tubes and drains: PICC HEENT: normocephalic, atraumatic Respiratory/Chest: chest wall non-tender, lungs clear Breasts: no masses Cardiovascular/Chest: normal rate Abdomen: normal bowel sounds Last 24 Hour Vital Signs Date Time Temp Pulse Resp B/P (MAP) Pulse Ox O2 Delivery O2 Flow Rate FiO2 06/03/18 13:32 58 20 98 Room Air 21 06/03/18 13:27 59 20 97 Room Air 21 06/03/18 13:27 21 06/03/18 12:00 98.6 57 20 101/63 (76) 95 06/03/18 09:25 Room Air 06/03/18 09:25 Room Air 06/03/18 09:00 Room Air 06/03/18 08:00 97.0 82 20 101/50 (67) 95 06/03/18 08:00 85 16 99 Room Air 21 06/03/18 07:49 21 06/03/18 07:49 66 16 96 Room Air 21 06/03/18 04:00 97.0 65 19 117/60 (79) 98 06/03/18 00:00 97.2 55 19 113/67 (82) 98 06/02/18 23:50 Room Air 21 06/02/18 23:50 Room Air 21 06/02/18 22:35 65 16 Room Air 21 06/02/18 22:34 Room Air 21 06/02/18 22:33 Room Air 21 06/02/18 20:48 Room Air 06/02/18 20:00 97.2 61 19 117/74 (88) 98 06/02/18 20:00 98.0 62 18 112/68 100 Room Air 06/02/18 18:10 97.9 62 18 118/64 100 Room Air 06/02/18 17:25 67 18 Room Air 06/02/18 16:10 97.9 68 18 118/67 100 Room Air 06/02/18 15:10 67 18 Room Air 06/02/18 15:10 97.9 67 18 131/96 97 Room Air 06/02/18 14:50 97.9 82 18 93/63 94 Room Air Intake and Output 06/02/18 06/03/18 19:00 07:00 Intake Total 650 ml Output Total 400 ml Balance -400 ml 650 ml Intake Oral 650 ml Output Urine Total 400 ml # Voids 1 Laboratory Tests Test 06/02/18 15:27 06/02/18 15:37 06/03/18 06:58 Troponin I 0.009 ng/mL (0.000-0.056) White Blood Count 8.0 K/UL (4.8-10.8) 5.7 K/UL (4.8-10.8) Red Blood Count 4.56 M/UL (4.70-6.10) L 4.17 M/UL (4.70-6.10) L Hemoglobin 14.3 G/DL (14.2-18.0) 13.3 G/DL (14.2-18.0) L Hematocrit 41.7 % (42.0-52.0) L 38.5 % (42.0-52.0) L Mean Corpuscular Volume 91 FL (80-99) 92 FL (80-99) Mean Corpuscular Hemoglobin 31.3 PG (27.0-31.0) H 32.0 PG (27.0-31.0) H Mean Corpuscular Hemoglobin Concent 34.2 G/DL (32.0-36.0) 34.6 G/DL (32.0-36.0) Red Cell Distribution Width 12.1 % (11.6-14.8) 12.6 % (11.6-14.8) Platelet Count 150 K/UL (150-450) 140 K/UL (150-450) L Mean Platelet Volume 5.6 FL (6.5-10.1) L 5.9 FL (6.5-10.1) L Neutrophils (%) (Auto) % (45.0-75.0) 76.9 % (45.0-75.0) H Lymphocytes (%) (Auto) % (20.0-45.0) 13.9 % (20.0-45.0) L Monocytes (%) (Auto) % (1.0-10.0) 7.6 % (1.0-10.0) Eosinophils (%) (Auto) % (0.0-3.0) 1.1 % (0.0-3.0) Basophils (%) (Auto) % (0.0-2.0) 0.5 % (0.0-2.0) Differential Total Cells Counted 100 Neutrophils % (Manual) 92 % (45-75) H Lymphocytes % (Manual) 1 % (20-45) L Monocytes % (Manual) 1 % (1-10) Eosinophils % (Manual) 0 % (0-3) Basophils % (Manual) 0 % (0-2) Band Neutrophils 6 % (0-8) Platelet Estimate Adequate Platelet Morphology Normal Red Blood Cell Morphology Normal Urine Color Yellow Urine Appearance Clear Urine pH 6 (4.5-8.0) Urine Specific [place] 1.025 (1.005-1.035) Urine Protein Negative (NEGATIVE) Urine Glucose (UA) Negative (NEGATIVE) Urine Ketones Negative (NEGATIVE) Urine Blood Negative (NEGATIVE) Urine Nitrite Negative (NEGATIVE) Urine Bilirubin Negative (NEGATIVE) Urine Urobilinogen Normal MG/DL (0.0-1.0) Urine Leukocyte Esterase Negative (NEGATIVE) Sodium Level 140 MMOL/L (136-145) 141 MMOL/L (136-145) Potassium Level 4.0 MMOL/L (3.5-5.1) 3.5 MMOL/L (3.5-5.1) Chloride Level 105 MMOL/L (98-107) 107 MMOL/L (98-107) Carbon Dioxide Level 23 MMOL/L (21-32) 24 MMOL/L (21-32) Anion Gap 12 mmol/L (5-15) 10 mmol/L (5-15) Blood Urea Nitrogen 28 mg/dL (7-18) H 19 mg/dL (7-18) H Creatinine 1.3 MG/DL (0.55-1.30) 0.9 MG/DL (0.55-1.30) Estimat Glomerular Filtration Rate 54.7 mL/min (>60) > 60 mL/min (>60) Glucose Level 134 MG/DL (74-106) H 96 MG/DL (74-106) Lactic Acid Level 1.20 mmol/L (0.4-2.0) Calcium Level 9.1 MG/DL (8.5-10.1) 8.5 MG/DL (8.5-10.1) Total Bilirubin 0.4 MG/DL (0.2-1.0) 0.5 MG/DL (0.2-1.0) Aspartate Amino Transf (AST/SGOT) 23 U/L (15-37) 18 U/L (15-37) Alanine Aminotransferase (ALT/SGPT) 36 U/L (12-78) 29 U/L (12-78) Alkaline Phosphatase 85 U/L (46-116) 68 U/L (46-116) Total Creatine Kinase 126 U/L (26-308) Creatine Kinase MB 0.6 NG/ML (0.0-3.6) Creatine Kinase MB Relative Index 0.4 Total Protein 6.3 G/DL (6.4-8.2) L 5.5 G/DL (6.4-8.2) L Albumin 3.4 G/DL (3.4-5.0) 2.9 G/DL (3.4-5.0) L Globulin 2.9 g/dL 2.6 g/dL Albumin/Globulin Ratio 1.2 (1.0-2.7) 1.1 (1.0-2.7) Phosphorus Level 2.9 MG/DL (2.5-4.9) Magnesium Level 2.2 MG/DL (1.8-2.4) Height (Feet): 5 Height (Inches): 8.00 Weight (Pounds): 158 Medications Current Medications Medications (Trade) Dose Ordered Sig/Jeri Route PRN Reason Start Time Stop Time Status Last Admin Dose Admin Acetaminophen (Tylenol) 650 mg Q6H PRN ORAL FEVER 06/02/18 20:30 07/02/18 20:29 Acetaminophen/ Hydrocodone Bitart ([place] [employer] 5/325) 1 tab Q6H PRN ORAL For Severe Pain 06/02/18 23:00 06/09/18 20:29 Albuterol Sulfate (Proventil) 1.25 mg Q6H PRN HHN Shortness of Breath 06/03/18 09:17 2/5/19 09:16 Albuterol/ Ipratropium (Albuterol/ Ipratropium) 3 ml Q6HRT N 06/03/18 13:00 06/08/18 00:00 06/03/18 13:26 Alendronate Sodium (Fosamax) 70 mg ONCE A WEEK ORAL 06/05/18 09:00 07/05/18 08:59 Ascorbic Acid (Vitamin C) 500 mg DAILY ORAL 06/03/18 09:00 07/03/18 08:59 06/03/18 08:44 Atorvastatin Calcium (Lipitor) 10 mg BEDTIME ORAL 06/02/18 21:00 07/02/18 20:59 Budesonide (Pulmicort) 0.5 mg Q12HR N 06/02/18 21:00 07/02/18 20:59 Cyanocobalamin (Vitamin B-12 Tab) 100 mcg DAILY ORAL 06/03/18 09:00 07/03/18 08:59 06/03/18 08:44 Divalproex Sodium (Depakote) 500 mg EVERY 12 HOURS ORAL 06/03/18 10:15 07/03/18 10:14 06/03/18 11:00 Docusate Sodium (Colace) 250 mg DAILY ORAL 06/03/18 09:00 07/03/18 08:59 06/03/18 08:43 Escitalopram Oxalate (Lexapro) 10 mg DAILY ORAL 06/03/18 09:00 07/03/18 08:59 06/03/18 08:43 Ferrous Sulfate (Feosol) 325 mg DAILY ORAL 06/03/18 09:00 07/03/18 08:59 06/03/18 08:44 Folic Acid (Folate) 1 mg DAILY ORAL 06/03/18 09:00 07/03/18 08:59 06/03/18 08:45 Ibuprofen (Advil) 600 mg Q6H PRN ORAL For moderate pain 06/02/18 20:30 07/02/18 20:29 Lansoprazole (Prevacid) 30 mg DAILY ORAL 06/03/18 09:00 07/03/18 08:59 06/03/18 08:44 Lorazepam (Ativan) 2 mg Q6H PRN ORAL For Anxiety 06/02/18 19:45 06/09/18 19:44 Mirtazapine (Remeron) 7.5 mg BEDTIME ORAL 06/02/18 21:00 07/02/18 20:59 Multivitamins (Multivitamins) 1 tab DAILY ORAL 06/03/18 09:00 07/03/18 08:59 06/03/18 08:44 Prednisone (predniSONE) 25 mg DAILY ORAL 06/03/18 09:00 07/03/18 08:59 06/03/18 08:45 Primidone (Mysoline) 50 mg QHS ORAL 06/02/18 21:00 07/02/18 20:59 Sucralfate (Carafate) 1 gm ACBREAKFAST ORAL 06/03/18 06:30 07/03/18 06:29 Assessment/Plan Problem List: (1) Psychosis ICD Codes: F29 - Unspecified psychosis not due to a substance or known physiological condition SNOMED: 10144690 (2) History of asthma ICD Codes: Z87.09 - Personal history of other diseases of the respiratory system SNOMED: 506487992 (3) Upper extremity weakness ICD Codes: R29.898 - Other symptoms and signs involving the musculoskeletal system SNOMED: 684281259 (4) Prostate cancer ICD Codes: C61 - Malignant neoplasm of prostate SNOMED: 679557917 (5) Anxiety ICD Codes: F41.9 - Anxiety disorder, unspecified SNOMED: 94771813 (6) Bipolar depression ICD Codes: F31.30 - Bipolar disorder, current episode depressed, mild or moderate severity, unspecified SNOMED: 62110851 Assessment/Plan psych evaluation respiratory treatment check electrolytes, including PSA symptomatic treatment Michele Umaña MD Jun 03, 2018 14:22
--- NOTE | 2018-06-03 15:09 | Cardiology Report ---
APPROVED REPORT EKG Measurement Heart [id number] [id number] Normal sinus rhythm Normal ECG
[2018-06-03 16:00] VITALS: BP 91/55
--- NOTE | 2018-06-03 19:19 | History & Physical ---
History and Physical History & Physicial Dictated for Int Med-Dr Medina no. [id number] Ryan Mckenzie MD Jun 03, 2018 19:19
--- NOTE | 2018-06-03 19:22 | NUR ---
HAND-OFF: Report given to MILKA Jordan..
--- NOTE | 2018-06-03 19:39 | NUR ---
NURSE NOTES: Received report from MILKA Dixon and MILKA Henry. Patient A&Ox4. On room air, no signs of distress or labored breathing. IV intact, patent, and saline locked. Patient still refusing skin assessment and insisting to keep street clothes on, will not wear hospital gown. Bed in lowest position with call light in reach. Will continue to monitor.
--- NOTE | 2018-06-03 19:53 | NUR ---
CASE MANAGEMENT: REVIEW 67/M ASHLY FROM [facility] CC: AGITATION . WEAKNESS SI: DEHYDRATION . PSYCHOSIS T 97.9 HR 82 RR 18 BP 93/63 SAT 94% ROOM AIR BUN 28 TOTAL PROTEIN 6.3 NEUTROPHILS 92 IS: NS IVF BOLUS X1 KLONOPIN PO X1 PATIENT ADMITTED TO MED/SURG UNIT 06/02/2018 DCP: PATIENT IS FROM [facility]
[2018-06-03 20:00] VITALS: BP 103/60
--- NOTE | 2018-06-03 20:39 | General Progress Note ---
Assessment/Plan Problem List: (1) Anxiety ICD Codes: F41.9 - Anxiety disorder, unspecified SNOMED: 89030400 (2) Bipolar depression ICD Codes: F31.30 - Bipolar disorder, current episode depressed, mild or moderate severity, unspecified SNOMED: 44960550 Subjective Neurologic/Psychiatric: Reports: anxiety, depressed, emotional problems Allergies: Coded Allergies: NO KNOWN ALLERGIES (Verified Allergy, Unknown, 03/07/18) Objective Last 24 Hour Vital Signs Date Time Temp Pulse Resp B/P (MAP) Pulse Ox O2 Delivery O2 Flow Rate FiO2 06/03/18 20:12 62 20 100 Room Air 21 06/03/18 20:11 21 06/03/18 20:00 57 20 98 Room Air 21 06/03/18 19:55 59 20 99 Room Air 21 06/03/18 19:45 57 20 98 Room Air 21 06/03/18 16:00 98.1 20 91/55 (67) 92 06/03/18 13:32 58 20 98 Room Air 21 06/03/18 13:27 59 20 97 Room Air 06/03/18 13:27 21 06/03/18 12:00 98.6 57 20 101/63 (76) 95 06/03/18 09:25 Room Air 06/03/18 09:25 Room Air 06/03/18 09:00 Room Air 06/03/18 08:00 97.0 82 20 101/50 (67) 95 06/03/18 08:00 85 16 99 Room Air 06/03/18 07:49 21 06/03/18 07:49 66 16 96 Room Air 06/03/18 04:00 97.0 65 19 117/60 (79) 98 06/03/18 00:00 97.2 55 19 113/67 (82) 98 06/02/18 23:50 Room Air 21 06/02/18 23:50 Room Air 21 06/02/18 22:35 65 16 Room Air 06/02/18 22:34 Room Air 21 06/02/18 22:33 Room Air 06/02/18 20:48 Room Air Intake and Output 06/02/18 06/03/18 19:00 07:00 Intake Total 650 ml Output Total 400 ml Balance -400 ml 650 ml Intake Oral 650 ml Output Urine Total 400 ml # Voids 1 Laboratory Tests 06/03/18 06:58: White Blood Count 5.7, Red Blood Count 4.17L, Hemoglobin 13.3L, Hematocrit 38.5L , Mean Corpuscular Volume 92, Mean Corpuscular Hemoglobin 32.0H, Mean Corpuscular Hemoglobin Concent 34.6, Red Cell Distribution Width 12.6, Platelet Count 140L, Mean Platelet Volume 5.9L, Neutrophils (%) (Auto) 76.9H, Lymphocytes (%) (Auto) 13.9L, Monocytes (%) (Auto) 7.6, Eosinophils (%) (Auto) 1.1, Basophils (%) (Auto) 0.5, Sodium Level 141, Potassium Level 3.5, Chloride Level 107, Carbon Dioxide Level 24, Anion Gap 10, Blood Urea Nitrogen 19H, Creatinine 0.9, Estimat Glomerular Filtration Rate > 60, Glucose Level 96, Calcium Level 8.5, Phosphorus Level 2.9, Magnesium Level 2.2, Total Bilirubin 0.5, Aspartate Amino Transf (AST/SGOT) 18, Alanine Aminotransferase (ALT/SGPT) 29, Alkaline Phosphatase 68, Total Protein 5.5L, Albumin 2.9L, Globulin 2.6, Albumin/Globulin Ratio 1.1, Prostate Specific Antigen < 0.10L, Free Prostate Specific Antigen [Pending], Percent Free Prostate Specific Ag [Pending], Prostate Specific Antigen Total [Pending] Height (Feet): 5 Height (Inches): 8.00 Weight (Pounds): 158 General Appearance: no apparent distress, alert, obese Neurologic: oriented x 3, responsive, depressed affect Ilene Davenport MD Jun 03, 2018 20:39
--- NOTE | 2018-06-03 20:45 | History and Physical Report ---
DATE OF ADMISSION: 06/02/2018 CHIEF COMPLAINT: The patient is a 67-year-old male, who presents with a chief complaint of increased agitation and generalized weakness. HISTORY OF PRESENT ILLNESS: The patient was admitted to [facility] in March of 2018. Please see history and physical and discharge summary dictated at that time. The patient is a resident of [facility]. According to staff at [facility], the patient has had increased agitation. The patient also has increasing generalized weakness. The patient has a history of ataxia and has been more unsteady than normal. The patient presented to [place] emergency room. The patient was admitted for dehydration and agitation. REVIEW OF SYSTEMS: Unable to assess secondary to the patient's mental status. PAST MEDICAL HISTORY: Significant for, 1. Asthma. 2. Ataxia. 3. Posttraumatic stress disorder. 4. History of prostate cancer. PAST SURGICAL HISTORY: The patient denies. CURRENT MEDICATIONS: 1. Albuterol nebulized q.4 hours p.r.n. 2. Fosamax 70 mg p.o. every week. 3. Vitamin C 500 mg p.o. daily. 4. Atorvastatin 20 mg p.o. at bedtime. 5. Benztropine 2 mg p.o. twice daily. 6. Calcium carbonate 500 mg p.o. daily. 7. Klonopin 2 mg p.o. twice daily. 8. Vitamin B12 100 mcg p.o. daily. 9. Iron sulfate 325 mg p.o. daily. 10. Folic acid 1 mg p.o. daily. 11. [place] 5/325 mg one tablet p.o. q.6 h. p.r.n. 12. Ibuprofen 600 mg p.o. q.6 hours p.r.n. 13. Prevacid 30 mg p.o. daily. 14. Multivitamin one tablet p.o. daily. 15. Prednisone 20 mg p.o. daily. 16. Primidone 50 mg p.o. at bedtime. 17. Carafate 1 gram p.o. daily before breakfast. ALLERGIES: No known drug allergies. SOCIAL HISTORY: The patient is . The patient lives at [facility]. The patient denies tobacco or alcohol use. PHYSICAL EXAMINATION: VITAL SIGNS: Temperature 98.6, respirations 20, pulse 67, and blood pressure 101/63. GENERAL: The patient is a well-developed and well-nourished white male, in no apparent distress. HEENT: Eyes, pupils are equal and responsive to light and accommodation. Extraocular movements are intact. NECK: Supple without lymphadenopathy. CHEST: Lungs are clear to auscultation bilaterally without wheezes or rales. CARDIOVASCULAR: Regular rhythm and rate. S1 and S2 are normal without murmurs, rubs, or gallops. ABDOMEN: Soft, nontender, and nondistended. Positive bowel sounds. No evidence of hepatosplenomegaly. Currently, no rebound or guarding noted. EXTREMITIES: Negative for clubbing, cyanosis, or edema. RECTAL/GENITAL: Refused. NEUROLOGICAL: Cranial nerves II through XII are grossly intact without focal deficits. Motor strength is 4/5 bilaterally. Deep tendon reflexes are 2+ plantar. LABORATORY STUDIES: WBC 8.0, hemoglobin 14.2, hematocrit 41.7, and platelets 150,000. Sodium 140, potassium 4.0, chloride 105, CO2 23, BUN 20, creatinine 1.3, and glucose 134. A chest x-ray is reported as no acute disease. ASSESSMENT: This is a 67-year-old male. 1. Increased agitation. 2. Generalized weakness. 3. Ataxia. 4. Asthma. 5. History of posttraumatic stress disorder. 6. Prostate cancer. 7. Hypercholesteremia. TREATMENT: 1. Agitation. This may be underlying bipolar depression versus psychosis. A Psychiatric consultation has been obtained with Dr. Davenport. We will follow recommendations of Psychiatry, Dr. Davenport. 2. Generalized weakness/ataxia. A physical therapy evaluation has been obtained. 3. Asthma. A Pulmonary consultation has been obtained with Dr. Michele Umaña. We will follow recommendations of Pulmonary. 4. Posttraumatic stress disorder. As above, a psychiatric consultation has been obtained with Dr. Davenport. 5. History of prostate cancer. 6. Hypercholesterolemia. Ryan Mckenzie M.D. DR: MORE JOB#: [id number] CC:
--- NOTE | 2018-06-03 21:30 | NUR ---
NURSE NOTES: Patient allowed RN to do skin assessment but still refusing to wear hospital gown. Skin intact. See physical assessment.
[2018-06-04] VITALS: BP 126/77
[2018-06-04] MEDS: Albuterol/Ipratropium 3ml neb HHN SCH ×4 (01:00→19:37)
[2018-06-04 04:00] VITALS: BP 124/65
[2018-06-04] MEDS: Sucralfate 1gm tab ORAL SCH (06:14)
--- NOTE | 2018-06-04 07:09 | NUR ---
HAND-OFF: Report given to MILKA Pina.
--- NOTE | 2018-06-04 07:15 | NUR ---
byron notes Patient AAX4. On room air, no signs of distress,HL intact, patent.on fall precaution observed and maintained ,Bed in lowest position , instructed patient to call for assistance when in need, call light in reach. Will continue to monitor. ginger gold
[2018-06-04 08:00] VITALS: BP 98/61
[2018-06-04] MEDS: Ascorbic Acid 500mg tab ORAL SCH (08:20)
[2018-06-04] MEDS: Docusate 250mg cap ORAL SCH (08:20)
[2018-06-04] MEDS: Depakote 500mg tab ORAL SCH ×2 (08:20→21:40)
[2018-06-04] MEDS: Vitamin B-12 100mcg tab ORAL SCH (08:21)
[2018-06-04] MEDS: Norco 5mg/325mg tab ORAL PRN (08:31)
[2018-06-04 11:50] VITALS: BP 109/63
[2018-06-04] MEDS: Budesonide HHN 0.25mg/2ml ud HHN SCH ×2 (11:52→21:45)
--- NOTE | 2018-06-04 14:26 | Pulmonology Progress Note ---
Assessment/Plan Problems: (1) Psychosis (2) History of asthma (3) Upper extremity weakness (4) Prostate cancer (5) Anxiety (6) Bipolar depression Assessment/Plan more stable less cough respiratory treatment f/u psych recommendations symptomatic treatment dc planning Subjective ROS Limited/Unobtainable: No Constitutional: Reports: no symptoms HEENT: Repors: no symptoms Respiratory: Reports: no symptoms Allergies: Coded Allergies: NO KNOWN ALLERGIES (Verified Allergy, Unknown, 03/07/18) Objective Last 24 Hour Vital Signs Date Time Temp Pulse Resp B/P (MAP) Pulse Ox O2 Delivery O2 Flow Rate FiO2 06/04/18 13:21 Room Air 21 06/04/18 13:21 Room Air 21 06/04/18 11:59 66 18 99 Room Air 21 06/04/18 11:52 21 06/04/18 11:52 60 18 98 Room Air 06/04/18 11:50 98.3 68 20 109/63 (78) 94 06/04/18 08:25 Room Air 06/04/18 08:00 98.2 61 20 98/61 (73) 93 06/04/18 06:54 Room Air 21 06/04/18 06:54 Room Air 21 06/04/18 06:54 Room Air 21 06/04/18 06:54 Room Air 21 06/04/18 04:00 97.7 50 20 124/65 (84) 98 06/04/18 01:46 Room Air 06/04/18 01:45 Room Air 06/04/18 00:00 97.1 51 20 126/77 (93) 90 06/03/18 21:00 Room Air 06/03/18 20:12 62 20 100 Room Air 06/03/18 20:11 21 06/03/18 20:00 97.1 60 17 103/60 (74) 95 06/03/18 20:00 57 20 98 Room Air 06/03/18 19:55 59 20 99 Room Air 06/03/18 19:45 57 20 98 Room Air 06/03/18 16:00 98.1 20 91/55 (67) 92 Intake and Output 06/03/18 06/04/18 19:00 07:00 Intake Total 1200 ml Output Total 700 ml 600 ml Balance 500 ml -600 ml Intake Oral 1200 ml Output Urine Total 700 ml 600 ml General Appearance: WD/WN HEENT: normocephalic, atraumatic Respiratory/Chest: chest wall non-tender, lungs clear Cardiovascular: normal peripheral pulses, normal rate Abdomen: normal bowel sounds, no organomegaly Genitourinary: normal external genitalia Extremities: no cyanosis Neurologic/Psychiatric: care analyst II-XII grossly normal Lymphatic: no neck adenopathy Musculoskeletal: normal muscle bulk Microbiology Date/Time Source Procedure Growth Status 06/02/18 15:37 Blood Blood Culture - Preliminary NO GROWTH AFTER 24 HOURS Resulted 06/02/18 15:37 Blood Blood Culture - Preliminary NO GROWTH AFTER 24 HOURS Resulted 06/02/18 17:45 Nasal Nares MRSA Culture - Final NO METHICILLIN RESISTANT STAPH AUREUS... Complete Current Medications Medications (Trade) Dose Ordered Sig/Jeri Route PRN Reason Start Time Stop Time Status Last Admin Dose Admin Acetaminophen (Tylenol) 650 mg Q6H PRN ORAL FEVER 06/02/18 20:30 07/02/18 20:29 Acetaminophen/ Hydrocodone Bitart ([place] 5/325) 1 tab Q6H PRN ORAL For Severe Pain 06/02/18 23:00 06/09/18 20:29 06/04/18 08:31 Albuterol Sulfate (Proventil) 1.25 mg Q6H PRN HHN Shortness of Breath 06/03/18 09:17 06/08/18 09:16 Albuterol/ Ipratropium (Albuterol/ Ipratropium) 3 ml Q6HRT HHN 06/03/18 13:00 06/08/18 00:00 06/03/18 20:07 Alendronate Sodium (Fosamax) 70 mg ONCE A WEEK ORAL 06/05/18 09:00 07/05/18 08:59 Ascorbic Acid (Vitamin C) 500 mg DAILY ORAL 06/03/18 09:00 07/03/18 08:59 06/04/18 08:20 Atorvastatin Calcium (Lipitor) 10 mg BEDTIME ORAL 06/02/18 21:00 07/02/18 20:59 06/03/18 21:28 Budesonide (Pulmicort) 0.5 mg Q12HR HHN 06/02/18 21:00 07/02/18 20:59 06/04/18 11:52 Cyanocobalamin (Vitamin B-12 Tab) 100 mcg DAILY ORAL 06/03/18 09:00 07/03/18 08:59 06/04/18 08:21 Divalproex Sodium (Depakote) 500 mg EVERY 12 HOURS ORAL 06/03/18 10:15 07/03/18 10:14 06/04/18 08:20 Docusate Sodium (Colace) 250 mg DAILY ORAL 06/03/18 09:00 07/03/18 08:59 06/04/18 08:20 Escitalopram Oxalate (Lexapro) 10 mg DAILY ORAL 06/03/18 09:00 07/03/18 08:59 06/04/18 08:20 Ferrous Sulfate (Feosol) 325 mg DAILY ORAL 06/03/18 09:00 07/03/18 08:59 06/04/18 08:21 Folic Acid (Folate) 1 mg DAILY ORAL 06/03/18 09:00 07/03/18 08:59 06/04/18 08:20 Ibuprofen (Advil) 600 mg Q6H PRN ORAL For moderate pain 06/02/18 20:30 07/02/18 20:29 Lansoprazole (Prevacid) 30 mg DAILY ORAL 06/03/18 09:00 07/03/18 08:59 06/04/18 08:20 Lorazepam (Ativan) 2 mg Q6H PRN ORAL For Anxiety 06/02/18 19:45 06/09/18 19:44 Mirtazapine (Remeron) 7.5 mg BEDTIME ORAL 06/02/18 21:00 07/02/18 20:59 06/03/18 21:28 Multivitamins (Multivitamins) 1 tab DAILY ORAL 06/03/18 09:00 07/03/18 08:59 06/04/18 08:20 Prednisone (predniSONE) 25 mg DAILY ORAL 06/03/18 09:00 07/03/18 08:59 06/04/18 08:19 Primidone (Mysoline) 50 mg QHS ORAL 06/02/18 21:00 07/02/18 20:59 06/03/18 21:28 Sucralfate (Carafate) 1 gm ACBREAKFAST ORAL 06/03/18 06:30 07/03/18 06:29 Michele Umaña MD Jun 04, 2018 14:26
[2018-06-04] MEDS ORDERED: LEXAPRO10 MG ORAL (14:27)
[2018-06-04] MEDS ORDERED: DIVALPROEX SOD500 MG ORAL (14:27)
--- NOTE | 2018-06-04 15:23 | NUR ---
*-* INSURANCE *-* PATIENT HAS BEEN REFERRED BACK TO: [facility] P:[phone] F:[phone] F2:[phone]
[2018-06-04 16:01] VITALS: BP 94/57
--- NOTE | 2018-06-04 16:06 | NUR ---
Social Work Discharge planning: [facility] ([phone]) declined to accept patient back today due to [facility] [employer] declined coverage at this time facility (due to behavioral problems, has been aggressive). This SW left a message with the [facility] director of casework department, Maria Luisa ([phone] (ext. [phone] to request what SNF patient should be transferred to (awaiting call back at this time). [facility] intake explained [facility] has left the office for the day (by 3:30 P.M today).
--- NOTE | 2018-06-04 16:32 | NUR ---
nurse notes [facility] refused [facility] patient , per SNF patient agrressive to other patient, ginger gold
--- NOTE | 2018-06-04 16:36 | NUR ---
nurse notes Dr Umaña and Dr Kingston aware, regarding [facility] refused to [facility] patient [facility] , per Dr Kingston call Dr Issac gold, rn
--- NOTE | 2018-06-04 16:53 | Internal Med Progress Note ---
Subjective Physician Name Christopher Medina Attending Physician Christopher Medina MD Current Medications Medications (Trade) Dose Ordered Sig/Jeri Route PRN Reason Start Time Stop Time Status Last Admin Dose Admin Acetaminophen (Tylenol) 650 mg Q6H PRN ORAL FEVER 06/02/18 20:30 07/02/18 20:29 Acetaminophen/ Hydrocodone Bitart ([place] 5/325) 1 tab Q6H PRN ORAL For Severe Pain 06/02/18 23:00 06/09/18 20:29 06/04/18 08:31 Albuterol Sulfate (Proventil) 1.25 mg Q6H PRN HHN Shortness of Breath 06/03/18 09:17 06/08/18 09:16 Albuterol/ Ipratropium (Albuterol/ Ipratropium) 3 ml Q6HRT HHN 06/03/18 13:00 06/08/18 00:00 06/03/18 20:07 Alendronate Sodium (Fosamax) 70 mg ONCE A WEEK ORAL 06/05/18 09:00 07/05/18 08:59 Ascorbic Acid (Vitamin C) 500 mg DAILY ORAL 06/03/18 09:00 07/03/18 08:59 06/04/18 08:20 Atorvastatin Calcium (Lipitor) 10 mg BEDTIME ORAL 06/02/18 21:00 07/02/18 20:59 06/03/18 21:28 Budesonide (Pulmicort) 0.5 mg Q12HR HHN 06/02/18 21:00 07/02/18 20:59 06/04/18 11:52 Cyanocobalamin (Vitamin B-12 Tab) 100 mcg DAILY ORAL 06/03/18 09:00 07/03/18 08:59 06/04/18 08:21 Divalproex Sodium (Depakote) 500 mg EVERY 12 HOURS ORAL 06/03/18 10:15 07/03/18 10:14 06/04/18 08:20 Docusate Sodium (Colace) 250 mg DAILY ORAL 06/03/18 09:00 07/03/18 08:59 06/04/18 08:20 Escitalopram Oxalate (Lexapro) 10 mg DAILY ORAL 06/03/18 09:00 07/03/18 08:59 06/04/18 08:20 Ferrous Sulfate (Feosol) 325 mg DAILY ORAL 06/03/18 09:00 07/03/18 08:59 06/04/18 08:21 Folic Acid (Folate) 1 mg DAILY ORAL 06/03/18 09:00 07/03/18 08:59 06/04/18 08:20 Ibuprofen (Advil) 600 mg Q6H PRN ORAL For moderate pain 06/02/18 20:30 07/02/18 20:29 Lansoprazole (Prevacid) 30 mg DAILY ORAL 06/03/18 09:00 07/03/18 08:59 06/04/18 08:20 Lorazepam (Ativan) 2 mg Q6H PRN ORAL For Anxiety 06/02/18 19:45 06/09/18 19:44 Mirtazapine (Remeron) 7.5 mg BEDTIME ORAL 06/02/18 21:00 07/02/18 20:59 06/03/18 21:28 Multivitamins (Multivitamins) 1 tab DAILY ORAL 06/03/18 09:00 07/03/18 08:59 06/04/18 08:20 Prednisone (predniSONE) 25 mg DAILY ORAL 06/03/18 09:00 07/03/18 08:59 06/04/18 08:19 Primidone (Mysoline) 50 mg QHS ORAL 06/02/18 21:00 07/02/18 20:59 06/03/18 21:28 Sucralfate (Carafate) 1 gm ACBREAKFAST ORAL 06/03/18 06:30 07/03/18 06:29 Allergies: Coded Allergies: NO KNOWN ALLERGIES (Verified Allergy, Unknown, 03/07/18) Subjective awake, alert, responsive, NAD Objective Last Vital Signs Date Time Temp Pulse Resp B/P (MAP) Pulse Ox O2 Delivery O2 Flow Rate FiO2 06/04/18 16:01 97.8 57 20 94/57 (69) 93 06/04/18 13:21 Room Air 21 Microbiology Date/Time Source Procedure Growth Status 06/02/18 15:37 Blood Blood Culture - Preliminary NO GROWTH AFTER 24 HOURS Resulted 06/02/18 15:37 Blood Blood Culture - Preliminary NO GROWTH AFTER 24 HOURS Resulted 06/02/18 17:45 Nasal Nares MRSA Culture - Final NO METHICILLIN RESISTANT STAPH AUREUS... Complete Intake and Output 06/03/18 06/04/18 19:00 07:00 Intake Total 1200 ml Output Total 700 ml 600 ml Balance 500 ml -600 ml Intake Oral 1200 ml Output Urine Total 700 ml 600 ml Objective General: No acute distress, awake and alert HEENT: NCAT, sclera anicteric, PERRL, EOMI. Neck: Supple, no significant jugular venous distention, Lungs: Good inspiratory effort, clear to auscultation bilaterally, no Wheeze or Rales. Heart: Regular rate and rhythm, normal S1/S2, no murmurs Abdomen: soft, nontender, nondistended. Normoactive bowel sounds. / Rectal: Refused and deferred. Extremities: No Cyanosis , clubbing or edema. Neuro: A&O x 3, Able to move all extremities Skin: warm, no rashes or lesions Psych: Normal mood and affect Assessment/Plan Assessment/Plan 1. Increased agitation. 2. Generalized weakness. 3. Ataxia. 4. Asthma. 5. History of posttraumatic stress disorder. 6. Prostate cancer. 7. Hypercholesteremia. TREATMENT: Psychiatric consultation with Dr. Davenport. Pulmonary consultation with Dr. Michele Umaña. Monitor Labs DC planning to SNF. Christopher Medina MD Jun 04, 2018 16:53
--- NOTE | 2018-06-04 19:23 | NUR ---
NURSE NOTES Dr Davenport called and stated ''Discharge patient to [facility] , patient is on bedhold no reasons not to take him ,back'' asif,
--- NOTE | 2018-06-04 19:26 | NUR ---
HAND-OFF: Report given to Ms Alireza RN. MILKA RICE
[2018-06-04 20:00] VITALS: BP 99/60
--- NOTE | 2018-06-04 20:16 | NUR ---
NURSE NOTES: Pt received awake, alert, watching tv very loudly, asked him to turn it down and he said ok, bed in lowest position, able to make needs known.
--- NOTE | 2018-06-04 20:40 | NUR ---
NURSE NOTES: intermediate facility is refusing to take the patient back. Case management consult in place. will follow up tomorrow
--- NOTE | 2018-06-04 23:45 | General Progress Note ---
Assessment/Plan Problem List: (1) Anxiety ICD Codes: F41.9 - Anxiety disorder, unspecified SNOMED: 78537995 (2) Bipolar depression ICD Codes: F31.30 - Bipolar disorder, current episode depressed, mild or moderate severity, unspecified SNOMED: 76089394 Status: stable Assessment/Plan Depakote 500mg po bid provided ro/st dc back to [place] Subjective Neurologic/Psychiatric: Reports: anxiety, depressed Allergies: Coded Allergies: NO KNOWN ALLERGIES (Verified Allergy, Unknown, 03/07/18) Subjective the pt was dced today and the facility refused to take the pt back. i called the facility 3 times. [address] me on long holds then hung up. last time i was speaking with charge nurse and told her the pt will return due to bed hold. Dr. Echeverria took the phone and started yelling and stated "no the patient will not come back here. I spoke to [facility] and the pt should go to [place]. " Objective Last 24 Hour Vital Signs Date Time Temp Pulse Resp B/P (MAP) Pulse Ox O2 Delivery O2 Flow Rate FiO2 06/04/18 21:56 61 18 100 Room Air 21 06/04/18 21:46 57 18 98 Room Air 21 06/04/18 19:46 61 20 100 Room Air 06/04/18 19:38 62 20 97 Room Air 06/04/18 16:01 97.8 57 20 94/57 (69) 93 06/04/18 13:21 Room Air 21 06/04/18 13:21 Room Air 21 06/04/18 11:59 66 18 99 Room Air 06/04/18 11:52 21 06/04/18 11:52 60 18 98 Room Air 21 06/04/18 11:50 98.3 68 20 109/63 (78) 94 06/04/18 08:25 Room Air 06/04/18 08:00 98.2 61 20 98/61 (73) 93 06/04/18 06:54 Room Air 21 06/04/18 06:54 Room Air 21 06/04/18 06:54 Room Air 21 06/04/18 06:54 Room Air 21 06/04/18 04:00 97.7 50 20 124/65 (84) 98 06/04/18 01:46 Room Air 21 06/04/18 01:45 Room Air 21 06/04/18 00:00 97.1 51 20 126/77 (51) 90 Intake and Output 06/03/18 06/04/18 19:00 07:00 Intake Total 1200 ml Output Total 700 ml 600 ml Balance 500 ml -600 ml Intake Oral 1200 ml Output Urine Total 700 ml 600 ml Height (Feet): 5 Height (Inches): 8.00 Weight (Pounds): 158 General Appearance: no apparent distress, alert, overweight Neurologic: oriented x 3, responsive, normal mood/affect Ilene Davenport MD Jun 04, 2018 23:45
[2018-06-05] MEDS: Albuterol/Ipratropium 3ml neb HHN SCH ×4 (01:41→18:37)
[2018-06-05] MEDS: Sucralfate 1gm tab ORAL SCH (06:34)
--- NOTE | 2018-06-05 07:10 | NUR ---
nurse note received patient sitting on the edge of the bed eating, no signs of distress, denies pain at this time, HL intact, patent.on fall precaution observed and maintained ,Bed in lowest position , instructed patient to call for assistance when in need, call light in reach. Will continue to monitor. ginger gold
--- NOTE | 2018-06-05 07:29 | NUR ---
HAND-OFF: Report given to MILKA Pina.
[2018-06-05 08:00] VITALS: BP 96/58
[2018-06-05] MEDS: Vitamin B-12 100mcg tab ORAL SCH (08:14)
[2018-06-05] MEDS: Ascorbic Acid 500mg tab ORAL SCH (08:18)
[2018-06-05] MEDS: Docusate 250mg cap ORAL SCH (08:18)
[2018-06-05] MEDS: Norco 5mg/325mg tab ORAL PRN (08:19)
[2018-06-05] MEDS: Depakote 500mg tab ORAL SCH ×2 (08:19→20:36)
[2018-06-05] MEDS: Budesonide HHN 0.25mg/2ml ud HHN SCH ×2 (09:00→21:00)
[2018-06-05 11:53] VITALS: BP 104/63
--- NOTE | 2018-06-05 14:42 | Internal Med Progress Note ---
Subjective Date of Service: Jun 05, 2018 Physician Name MckenzieRyan pinedo Attending Physician Christopher Medina MD Current Medications Medications (Trade) Dose Ordered Sig/Jeri Route PRN Reason Start Time Stop Time Status Last Admin Dose Admin Acetaminophen (Tylenol) 650 mg Q6H PRN ORAL FEVER 06/02/18 20:30 07/02/18 20:29 Acetaminophen/ Hydrocodone Bitart ([place] 5/325) 1 tab Q6H PRN ORAL For Severe Pain 06/02/18 23:00 06/09/18 20:29 06/05/18 08:19 Albuterol Sulfate (Proventil) 1.25 mg Q6H PRN HHN Shortness of Breath 06/03/18 09:17 06/08/18 09:16 Albuterol/ Ipratropium (Albuterol/ Ipratropium) 3 ml Q6HRT HHN 06/03/18 13:00 06/08/18 00:00 06/04/18 19:37 Alendronate Sodium (Fosamax) 70 mg ONCE A WEEK ORAL 06/05/18 09:00 07/05/18 08:59 06/05/18 09:39 Ascorbic Acid (Vitamin C) 500 mg DAILY ORAL 06/03/18 09:00 07/03/18 08:59 06/05/18 08:18 Atorvastatin Calcium (Lipitor) 10 mg BEDTIME ORAL 06/02/18 21:00 07/02/18 20:59 06/04/18 21:40 Budesonide (Pulmicort) 0.5 mg Q12HR HHN 06/02/18 21:00 07/02/18 20:59 06/04/18 21:45 Cyanocobalamin (Vitamin B-12 Tab) 100 mcg DAILY ORAL 06/03/18 09:00 07/03/18 08:59 06/05/18 08:14 Divalproex Sodium (Depakote) 500 mg EVERY 12 HOURS ORAL 06/03/18 10:15 07/03/18 10:14 06/05/18 08:19 Docusate Sodium (Colace) 250 mg DAILY ORAL 06/03/18 09:00 07/03/18 08:59 06/05/18 08:18 Escitalopram Oxalate (Lexapro) 10 mg DAILY ORAL 06/03/18 09:00 07/03/18 08:59 06/05/18 08:14 Ferrous Sulfate (Feosol) 325 mg DAILY ORAL 06/03/18 09:00 07/03/18 08:59 06/05/18 08:14 Folic Acid (Folate) 1 mg DAILY ORAL 06/03/18 09:00 07/03/18 08:59 06/05/18 08:19 Ibuprofen (Advil) 600 mg Q6H PRN ORAL For moderate pain 06/02/18 20:30 07/02/18 20:29 Lansoprazole (Prevacid) 30 mg DAILY ORAL 06/03/18 09:00 07/03/18 08:59 06/05/18 08:14 Lorazepam (Ativan) 2 mg Q6H PRN ORAL For Anxiety 06/02/18 19:45 06/09/18 19:44 Mirtazapine (Remeron) 7.5 mg BEDTIME ORAL 06/02/18 21:00 07/02/18 20:59 06/04/18 21:40 Multivitamins (Multivitamins) 1 tab DAILY ORAL 06/03/18 09:00 07/03/18 08:59 06/05/18 08:13 Prednisone (predniSONE) 25 mg DAILY ORAL 06/03/18 09:00 07/03/18 08:59 06/05/18 08:18 Primidone (Mysoline) 50 mg QHS ORAL 06/02/18 21:00 07/02/18 20:59 06/04/18 21:40 Sucralfate (Carafate) 1 gm ACBREAKFAST ORAL 06/03/18 06:30 07/03/18 06:29 06/05/18 06:34 Allergies: Coded Allergies: NO KNOWN ALLERGIES (Verified Allergy, Unknown, 03/07/18) ROS Limited/Unobtainable: Yes Subjective 67 YO M admitted with psychosis and increased agitation. Cover For Int [facility]-Dr Medina. Await SNF placement Objective Last Vital Signs Date Time Temp Pulse Resp B/P (MAP) Pulse Ox O2 Delivery O2 Flow Rate FiO2 06/05/18 12:50 Room Air 21 06/05/18 11:53 98.8 61 17 104/63 (77) 95 General Appearance: WD/WN, no apparent distress, alert EENT: PERRL/EOMI, normal ENT inspection Neck: non-tender, normal alignment, supple, normal inspection Cardiovascular: normal peripheral pulses, normal rate, regular rhythm, no gallop/murmur, no JVD Respiratory/Chest: chest wall non-tender, lungs clear, normal breath sounds, no respiratory distress, no accessory muscle use Abdomen: normal bowel sounds, non tender, soft, no organomegaly, no mass Extremities: normal range of motion, non-tender Neurologic: fur weigher II-XII grossly normal, no motor/sensory deficits Skin: normal pigmentation, warm/dry Microbiology Date/Time Source Procedure Growth Status 06/02/18 15:37 Blood Blood Culture - Preliminary NO GROWTH AFTER 48 HOURS Resulted 06/02/18 15:37 Blood Blood Culture - Preliminary NO GROWTH AFTER 48 HOURS Resulted 06/02/18 17:45 Nasal Nares MRSA Culture - Final NO METHICILLIN RESISTANT STAPH AUREUS... Complete Intake and Output 06/04/18 06/05/18 19:00 07:00 Intake Total 1058 ml 250 ml Balance 1058 ml 250 ml Intake Oral 1058 ml 250 ml # Voids 3 2 Assessment/Plan Problem List: (1) Agitation Assessment & Plan: Continue ativan per psych (2) Generalized weakness (3) Ataxia (4) Asthma (5) PTSD (post-traumatic stress disorder) Assessment & Plan: Continue remeron and lexapro (6) Prostate cancer (7) Psychosis Assessment & Plan: See psych note. (8) Bipolar depression (9) Hypercholesterolemia Status: progressing Assessment/Plan Discharge planning: alf facility when bed available-see case management note. Ryan Mckenzie MD Jun 05, 2018 14:41
--- NOTE | 2018-06-05 15:02 | Pulmonology Progress Note ---
Assessment/Plan Assessment/Plan ASSESSMENT COPD/asthma Dehydration-resolved Bipolar disorder Diabetes mellitus Hyperlipidemia Seizure disorder history of prostate Ca PLAN OF CARE MS floor resp status stable O2 prn to keep sat above 92%, pulm toilet prn continue Pulmicort inhaler unclear while on prednisone, will taper down and dc soon CXR clear s/p IVF renal parameters stable, avoid nephrotoxics, encourage oral hydration seizure precautions, continue Depakote and Mysoline, no evidence of seizure activity while in the hospital BS management with SSI DVT/ GI prophylaxis Bowel regimen Supportive care Psych meds as per psych recs PSA WNL PT eval and Rx case discussed and evaluated by supervising physician Subjective Allergies: Coded Allergies: NO KNOWN ALLERGIES (Verified Allergy, Unknown, 03/07/18) Subjective denies SOB, chest pain pulse ox stable on RA afebrile, no leucocytosis renal parameters stable Objective Last 24 Hour Vital Signs Date Time Temp Pulse Resp B/P (MAP) Pulse Ox O2 Delivery O2 Flow Rate FiO2 06/05/18 12:50 Room Air 06/05/18 12:50 Room Air 06/05/18 11:53 98.8 61 17 104/63 (77) 95 06/05/18 09:34 Room Air 21 06/05/18 09:34 Room Air 06/05/18 08:30 Room Air 06/05/18 08:00 98.8 54 20 96/58 (71) 95 06/05/18 07:03 Room Air 06/05/18 07:03 Room Air 06/05/18 01:42 Room Air 06/05/18 01:42 Room Air 06/04/18 21:56 61 18 100 Room Air 06/04/18 21:46 57 18 98 Room Air 06/04/18 21:00 Room Air 06/04/18 20:00 97.7 54 19 99/60 (73) 97 06/04/18 19:46 61 20 100 Room Air 06/04/18 19:38 62 20 97 Room Air 06/04/18 16:01 97.8 57 20 94/57 (69) 93 Intake and Output 06/04/18 06/05/18 19:00 07:00 Intake Total 1058 ml 250 ml Balance 1058 ml 250 ml Intake Oral 1058 ml 250 ml # Voids 3 2 General Appearance: no acute distress, other - awake, Khmer speaking, calm male HEENT: normocephalic, atraumatic, anicteric, PERRL Respiratory/Chest: lungs clear, no respiratory distress, no accessory muscle use Cardiovascular: normal peripheral pulses, normal rate, no JVD Abdomen: normal bowel sounds, soft, non tender, non distended Extremities: no edema, pedal pulses normal Neurologic/Psychiatric: abnormal gait, alert, responsive Microbiology Date/Time Source Procedure Growth Status 06/02/18 15:37 Blood Blood Culture - Preliminary NO GROWTH AFTER 48 HOURS Resulted 06/02/18 15:37 Blood Blood Culture - Preliminary NO GROWTH AFTER 48 HOURS Resulted 06/02/18 17:45 Nasal Nares MRSA Culture - Final NO METHICILLIN RESISTANT STAPH AUREUS... Complete Current Medications Medications (Trade) Dose Ordered Sig/Jeri Route PRN Reason Start Time Stop Time Status Last Admin Dose Admin Acetaminophen (Tylenol) 650 mg Q6H PRN ORAL FEVER 06/02/18 20:30 07/02/18 20:29 Acetaminophen/ Hydrocodone Bitart ([place] 5/325) 1 tab Q6H PRN ORAL For Severe Pain 06/02/18 23:00 06/09/18 20:29 06/05/18 08:19 Albuterol Sulfate (Proventil) 1.25 mg Q6H PRN HHN Shortness of Breath 06/03/18 09:17 06/08/18 09:16 Albuterol/ Ipratropium (Albuterol/ Ipratropium) 3 ml Q6HRT HHN 06/03/18 13:00 06/08/18 00:00 06/04/18 19:37 Alendronate Sodium (Fosamax) 70 mg ONCE A WEEK ORAL 06/05/18 09:00 07/05/18 08:59 06/05/18 09:39 Ascorbic Acid (Vitamin C) 500 mg DAILY ORAL 06/03/18 09:00 07/03/18 08:59 06/05/18 08:18 Atorvastatin Calcium (Lipitor) 10 mg BEDTIME ORAL 06/02/18 21:00 07/02/18 20:59 06/04/18 21:40 Budesonide (Pulmicort) 0.5 mg Q12HR HHN 06/02/18 21:00 07/02/18 20:59 06/04/18 21:45 Cyanocobalamin (Vitamin B-12 Tab) 100 mcg DAILY ORAL 06/03/18 09:00 07/03/18 08:59 06/05/18 08:14 Divalproex Sodium (Depakote) 500 mg EVERY 12 HOURS ORAL 06/03/18 10:15 07/03/18 10:14 06/05/18 08:19 Docusate Sodium (Colace) 250 mg DAILY ORAL 06/03/18 09:00 07/03/18 08:59 06/05/18 08:18 Escitalopram Oxalate (Lexapro) 10 mg DAILY ORAL 06/03/18 09:00 07/03/18 08:59 06/05/18 08:14 Ferrous Sulfate (Feosol) 325 mg DAILY ORAL 06/03/18 09:00 07/03/18 08:59 06/05/18 08:14 Folic Acid (Folate) 1 mg DAILY ORAL 06/03/18 09:00 07/03/18 08:59 06/05/18 08:19 Ibuprofen (Advil) 600 mg Q6H PRN ORAL For moderate pain 06/02/18 20:30 07/02/18 20:29 Lansoprazole (Prevacid) 30 mg DAILY ORAL 06/03/18 09:00 07/03/18 08:59 06/05/18 08:14 Lorazepam (Ativan) 2 mg Q6H PRN ORAL For Anxiety 06/02/18 19:45 06/09/18 19:44 Mirtazapine (Remeron) 7.5 mg BEDTIME ORAL 06/02/18 21:00 07/02/18 20:59 06/04/18 21:40 Multivitamins (Multivitamins) 1 tab DAILY ORAL 06/03/18 09:00 07/03/18 08:59 06/05/18 08:13 Prednisone (predniSONE) 25 mg DAILY ORAL 06/03/18 09:00 07/03/18 08:59 06/05/18 08:18 Primidone (Mysoline) 50 mg QHS ORAL 06/02/18 21:00 07/02/18 20:59 06/04/18 21:40 Sucralfate (Carafate) 1 gm ACBREAKFAST ORAL 06/03/18 06:30 07/03/18 06:29 06/05/18 06:34 Chelsie Chowdhury NP Jun 05, 2018 15:01
[2018-06-05 16:04] VITALS: BP 110/77
--- NOTE | 2018-06-05 18:59 | NUR ---
HAND-OFF: Report given to Ms. Alireza RN.
--- NOTE | 2018-06-05 19:36 | NUR ---
NURSE NOTES: Pt received awake, alert, talkative and watching tv, bed in lowest position, call light within reach, able to make needs known.
[2018-06-05 20:00] VITALS: BP 91/58
[2018-06-05] MEDS: Heparin 5000 units/ml inj SUBQ SCH (20:38)
--- NOTE | 2018-06-05 22:49 | General Progress Note ---
Assessment/Plan Problem List: (1) Anxiety ICD Codes: F41.9 - Anxiety disorder, unspecified SNOMED: 43562591 (2) Bipolar depression ICD Codes: F31.30 - Bipolar disorder, current episode depressed, mild or moderate severity, unspecified SNOMED: 10254020 Assessment/Plan Depakote 500mg po bid provided ro/st dc back to [place] Subjective Neurologic/Psychiatric: Reports: anxiety, depressed, emotional problems Allergies: Coded Allergies: NO KNOWN ALLERGIES (Verified Allergy, Unknown, 03/07/18) Subjective the pt wants to go back to facility Objective Last 24 Hour Vital Signs Date Time Temp Pulse Resp B/P (MAP) Pulse Ox O2 Delivery O2 Flow Rate FiO2 06/05/18 21:00 Room Air 06/05/18 20:00 98.3 69 18 91/58 (69) 98 06/05/18 18:54 68 20 99 Room Air 21 06/05/18 18:38 64 20 97 Room Air 21 06/05/18 16:04 98.7 81 19 110/77 (88) 95 06/05/18 12:50 Room Air 21 06/05/18 12:50 Room Air 21 06/05/18 11:53 98.8 61 17 104/63 (77) 95 06/05/18 09:34 Room Air 21 06/05/18 09:34 Room Air 21 06/05/18 08:30 Room Air 06/05/18 08:00 98.8 54 20 96/58 (71) 95 06/05/18 07:03 Room Air 21 06/05/18 07:03 Room Air 21 06/05/18 01:42 Room Air 21 06/05/18 01:42 Room Air 21 Intake and Output 06/04/18 06/05/18 19:00 07:00 Intake Total 1058 ml 250 ml Balance 1058 ml 250 ml Intake Oral 1058 ml 250 ml # Voids 3 2 Height (Feet): 5 Height (Inches): 8.00 Weight (Pounds): 158 General Appearance: alert Neurologic: oriented x 3, responsive, depressed affect Ilene Davenport MD Jun 05, 2018 22:49
[2018-06-06] VITALS: BP 93/56
[2018-06-06] MEDS: Albuterol/Ipratropium 3ml neb HHN SCH ×4 (01:00→19:44)
[2018-06-06] MEDS: Sucralfate 1gm tab ORAL SCH (06:11)
--- NOTE | 2018-06-06 07:27 | NUR ---
HAND-OFF: Report given to MILKA Zuniga.
--- NOTE | 2018-06-06 07:39 | NUR ---
NURSE NOTES: Patient alert x3, on room air, no sign of distress and shortness of breath. No sign of chest pain. Urinal at the bed side, and within reach. No sign of chest pain. Skin- intact. IV LAC flushes well. Bed at lowest position, rails up x2, breaks engaged. Call light within reach. Will keep monitoring.
[2018-06-06 08:00] VITALS: BP 111/60
[2018-06-06] MEDS: Vitamin B-12 100mcg tab ORAL SCH (08:16)
[2018-06-06] MEDS: Docusate 250mg cap ORAL SCH (08:16)
[2018-06-06] MEDS: Ascorbic Acid 500mg tab ORAL SCH (08:16)
--- NOTE | 2018-06-06 08:16 | Pulmonology Progress Note ---
Assessment/Plan Assessment/Plan ASSESSMENT COPD/asthma Dehydration-resolved Bipolar disorder Diabetes mellitus Hyperlipidemia Seizure disorder history of prostate Ca PLAN OF CARE MS floor resp status stable O2 prn to keep sat above 92%, pulm toilet prn continue Pulmicort inhaler unclear while on prednisone, will taper down and dc soon CXR clear s/p IVF renal parameters stable, avoid nephrotoxics, encourage oral hydration seizure precautions, continue Depakote and Mysoline, no evidence of seizure activity while in the hospital BS management with SSI DVT/ GI prophylaxis Bowel regimen Supportive care Psych meds as per psych recs PSA WNL PT eval and Rx case discussed and evaluated by supervising physician Subjective Allergies: Coded Allergies: NO KNOWN ALLERGIES (Verified Allergy, Unknown, 03/07/18) Subjective denies SOB, chest pain pulse ox stable on RA afebrile, no leucocytosis renal parameters stable reports difficulties with walking Objective Last 24 Hour Vital Signs Date Time Temp Pulse Resp B/P (MAP) Pulse Ox O2 Delivery O2 Flow Rate FiO2 06/06/18 07:26 64 18 100 Room Air 21 06/06/18 07:18 61 18 96 Room Air 21 06/06/18 00:00 98.5 71 18 93/56 (68) 100 06/05/18 21:00 Room Air 06/05/18 20:00 98.3 69 18 91/58 (69) 98 06/05/18 18:54 68 20 99 Room Air 21 06/05/18 18:38 64 20 97 Room Air 21 06/05/18 16:04 98.7 81 19 110/77 (88) 95 06/05/18 12:50 Room Air 21 06/05/18 12:50 Room Air 21 06/05/18 11:53 98.8 61 17 104/63 (77) 95 06/05/18 09:34 Room Air 21 06/05/18 09:34 Room Air 21 06/05/18 08:30 Room Air Intake and Output 06/05/18 06/06/18 19:00 07:00 Intake Total 480 ml 240 ml Balance 480 ml 240 ml Intake Oral 480 ml 240 ml # Voids 2 2 Objective General Appearance: no acute distress, awake, Dutch speaking, in calm mood male HEENT: normocephalic, atraumatic, anicteric, PERRL Respiratory/Chest: lungs clear, no respiratory distress, no accessory muscle use Cardiovascular: normal peripheral pulses, normal rate, no JVD Abdomen: normal bowel sounds, soft, non tender, non distended Extremities: no edema, pedal pulses normal Neurologic/Psychiatric: abnormal gait, alert, responsive Current Medications Medications (Trade) Dose Ordered Sig/Jeri Route PRN Reason Start Time Stop Time Status Last Admin Dose Admin Acetaminophen (Tylenol) 650 mg Q6H PRN ORAL FEVER 06/02/18 20:30 07/02/18 20:29 Acetaminophen/ Hydrocodone Bitart ([place] 5/325) 1 tab Q6H PRN ORAL For Severe Pain 06/02/18 23:00 06/09/18 20:29 06/05/18 08:19 Albuterol/ Ipratropium (Albuterol/ Ipratropium) 3 ml Q6HRT HHN 06/03/18 13:00 06/08/18 00:00 06/06/18 07:18 Alendronate Sodium (Fosamax) 70 mg ONCE A WEEK ORAL 06/05/18 09:00 07/05/18 08:59 06/05/18 09:39 Ascorbic Acid (Vitamin C) 500 mg DAILY ORAL 06/03/18 09:00 07/03/18 08:59 06/05/18 08:18 Atorvastatin Calcium (Lipitor) 10 mg BEDTIME ORAL 06/02/18 21:00 07/02/18 20:59 06/05/18 20:35 Budesonide (Pulmicort) 0.5 mg Q12HR N 06/02/18 21:00 07/02/18 20:59 06/04/18 21:45 Cyanocobalamin (Vitamin B-12 Tab) 100 mcg DAILY ORAL 06/03/18 09:00 07/03/18 08:59 06/05/18 08:14 Divalproex Sodium (Depakote) 500 mg EVERY 12 HOURS ORAL 06/03/18 10:15 07/03/18 10:14 06/05/18 20:36 Docusate Sodium (Colace) 250 mg DAILY ORAL 06/03/18 09:00 07/03/18 08:59 06/05/18 08:18 Escitalopram Oxalate (Lexapro) 10 mg DAILY ORAL 06/03/18 09:00 07/03/18 08:59 06/05/18 08:14 Ferrous Sulfate (Feosol) 325 mg DAILY ORAL 06/03/18 09:00 07/03/18 08:59 06/05/18 08:14 Folic Acid (Folate) 1 mg DAILY ORAL 06/03/18 09:00 07/03/18 08:59 06/05/18 08:19 Heparin Sodium (Porcine) (Heparin 5000 units/ml) 5,000 units EVERY 12 HOURS SUBQ 06/05/18 21:00 07/05/18 20:59 06/05/18 20:38 Ibuprofen (Advil) 600 mg Q6H PRN ORAL For moderate pain 06/02/18 20:30 07/02/18 20:29 Lansoprazole (Prevacid) 30 mg DAILY ORAL 06/03/18 09:00 07/03/18 08:59 06/05/18 08:14 Lorazepam (Ativan) 2 mg Q6H PRN ORAL For Anxiety 06/02/18 19:45 06/09/18 19:44 Mirtazapine (Remeron) 7.5 mg BEDTIME ORAL 06/02/18 21:00 07/02/18 20:59 06/05/18 20:35 Multivitamins (Multivitamins) 1 tab DAILY ORAL 06/03/18 09:00 07/03/18 08:59 06/05/18 08:13 Prednisone (predniSONE) 10 mg DAILY ORAL 06/06/18 09:00 07/03/18 08:59 Primidone (Mysoline) 50 mg QHS ORAL 06/02/18 21:00 07/02/18 20:59 06/05/18 20:35 Sucralfate (Carafate) 1 gm ACBREAKFAST ORAL 06/03/18 06:30 07/03/18 06:29 06/06/18 06:11 Chelsie Chowdhury NP Jun 06, 2018 08:16
[2018-06-06] MEDS: Depakote 500mg tab ORAL SCH ×2 (08:17→20:41)
[2018-06-06] MEDS: Heparin 5000 units/ml inj SUBQ SCH ×2 (08:23→20:48)
--- NOTE | 2018-06-06 08:23 | NUR ---
NURSE NOTES: Heparin hold, patient's plt 140
[2018-06-06 09:00] LABS: ANION GAP 6 mmol/L (5-15); BLOOD UREA NITROGEN 15 mg/dL (7-18); CALCIUM 8.6 MG/DL (8.5-10.1); CARBON DIOXIDE 31 MMOL/L (21-32); CHLORIDE 105 MMOL/L (98-107); POTASSIUM 3.8 MMOL/L (3.5-5.1); SODIUM 142 MMOL/L (136-145)
[2018-06-06 09:01] LABS: BASOPHILS % (AUTO) 0.4 % (0.0-2.0); EOSINOPHILS % (AUTO) 0.6 % (0.0-3.0); HEMATOCRIT 44.6 % (42.0-52.0); HEMOGLOBIN 15.5 G/DL (14.2-18.0); LYMPHOCYTES % (AUTO) 14.4 % (20.0-45.0); MEAN CORPUSCULAR VOLUME 92 FL (80-99); MONOCYTES % (AUTO) 5.5 % (1.0-10.0); PLATELET COUNT 146 K/UL (150-450); RED BLOOD COUNT 4.87 M/UL (4.70-6.10); RED CELL DISTRIBUTION WIDTH 12.6 % (11.6-14.8); WHITE BLOOD COUNT 5.9 K/UL (4.8-10.8)
[2018-06-06] MEDS: Budesonide HHN 0.25mg/2ml ud HHN SCH ×2 (10:56→21:06)
--- NOTE | 2018-06-06 11:02 | NUR ---
NURSE NOTES: Patient is getting breathing treatment.
[2018-06-06 12:00] VITALS: BP 98/56
--- NOTE | 2018-06-06 15:50 | Internal Med Progress Note ---
Subjective Date of Service: Jun 06, 2018 Physician Name Ryan Mckenzie Attending Physician Christopher Medina MD Current Medications Medications (Trade) Dose Ordered Sig/Jeri Route PRN Reason Start Time Stop Time Status Last Admin Dose Admin Acetaminophen (Tylenol) 650 mg Q6H PRN ORAL FEVER 06/02/18 20:30 07/02/18 20:29 Acetaminophen/ Hydrocodone Bitart ([place] 5/325) 1 tab Q6H PRN ORAL For Severe Pain 06/02/18 23:00 06/09/18 20:29 06/05/18 08:19 Albuterol/ Ipratropium (Albuterol/ Ipratropium) 3 ml Q6HRT HHN 06/03/18 13:00 06/08/18 00:00 06/06/18 11:56 Alendronate Sodium (Fosamax) 70 mg ONCE A WEEK ORAL 06/05/18 09:00 07/05/18 08:59 06/05/18 09:39 Ascorbic Acid (Vitamin C) 500 mg DAILY ORAL 06/03/18 09:00 07/03/18 08:59 06/06/18 08:16 Atorvastatin Calcium (Lipitor) 10 mg BEDTIME ORAL 06/02/18 21:00 07/02/18 20:59 06/05/18 20:35 Budesonide (Pulmicort) 0.5 mg Q12HR HHN 06/02/18 21:00 07/02/18 20:59 06/06/18 10:56 Cyanocobalamin (Vitamin B-12 Tab) 100 mcg DAILY ORAL 06/03/18 09:00 07/03/18 08:59 06/06/18 08:16 Divalproex Sodium (Depakote) 500 mg EVERY 12 HOURS ORAL 06/03/18 10:15 07/03/18 10:14 06/06/18 08:17 Docusate Sodium (Colace) 250 mg DAILY ORAL 06/03/18 09:00 07/03/18 08:59 06/06/18 08:16 Escitalopram Oxalate (Lexapro) 10 mg DAILY ORAL 06/03/18 09:00 07/03/18 08:59 06/06/18 08:16 Ferrous Sulfate (Feosol) 325 mg DAILY ORAL 06/03/18 09:00 07/03/18 08:59 06/06/18 08:17 Folic Acid (Folate) 1 mg DAILY ORAL 06/03/18 09:00 07/03/18 08:59 06/06/18 08:16 Heparin Sodium (Porcine) (Heparin 5000 units/ml) 5,000 units EVERY 12 HOURS SUBQ 06/05/18 21:00 07/05/18 20:59 06/05/18 20:38 Ibuprofen (Advil) 600 mg Q6H PRN ORAL For moderate pain 06/02/18 20:30 07/02/18 20:29 Lansoprazole (Prevacid) 30 mg DAILY ORAL 06/03/18 09:00 07/03/18 08:59 06/06/18 08:16 Lorazepam (Ativan) 2 mg Q6H PRN ORAL For Anxiety 06/02/18 19:45 06/09/18 19:44 Mirtazapine (Remeron) 7.5 mg BEDTIME ORAL 06/02/18 21:00 07/02/18 20:59 06/05/18 20:35 Multivitamins (Multivitamins) 1 tab DAILY ORAL 06/03/18 09:00 07/03/18 08:59 06/06/18 08:17 Prednisone (predniSONE) 10 mg DAILY ORAL 06/06/18 09:00 07/03/18 08:59 06/06/18 08:16 Primidone (Mysoline) 50 mg QHS ORAL 06/02/18 21:00 07/02/18 20:59 06/05/18 20:35 Sucralfate (Carafate) 1 gm ACBREAKFAST ORAL 06/03/18 06:30 07/03/18 06:29 06/06/18 06:11 Allergies: Coded Allergies: NO KNOWN ALLERGIES (Verified Allergy, Unknown, 03/07/18) ROS Limited/Unobtainable: Yes Subjective 67 YO M admitted with psychosis and increased agitation. Cover For Int Med-Dr Medina. Await SNF placement Objective Last Vital Signs Date Time Temp Pulse Resp B/P (MAP) Pulse Ox O2 Delivery O2 Flow Rate FiO2 06/06/18 12:02 61 18 98 Room Air 21 06/06/18 12:00 98.2 98/56 (70) Laboratory Tests Test 06/06/18 07:50 White Blood Count 5.9 K/UL (4.8-10.8) Red Blood Count 4.87 M/UL (4.70-6.10) Hemoglobin 15.5 G/DL (14.2-18.0) Hematocrit 44.6 % (42.0-52.0) Mean Corpuscular Volume 92 FL (80-99) Mean Corpuscular Hemoglobin 31.8 PG (27.0-31.0) H Mean Corpuscular Hemoglobin Concent 34.7 G/DL (32.0-36.0) Red Cell Distribution Width 12.6 % (11.6-14.8) Platelet Count 146 K/UL (150-450) L Mean Platelet Volume 5.8 FL (6.5-10.1) L Neutrophils (%) (Auto) 79.0 % (45.0-75.0) H Lymphocytes (%) (Auto) 14.4 % (20.0-45.0) L Monocytes (%) (Auto) 5.5 % (1.0-10.0) Eosinophils (%) (Auto) 0.6 % (0.0-3.0) Basophils (%) (Auto) 0.4 % (0.0-2.0) Sodium Level 142 MMOL/L (136-145) Potassium Level 3.8 MMOL/L (3.5-5.1) Chloride Level 105 MMOL/L (98-107) Carbon Dioxide Level 31 MMOL/L (21-32) Anion Gap 6 mmol/L (5-15) Blood Urea Nitrogen 15 mg/dL (7-18) Creatinine 1.0 MG/DL (0.55-1.30) Estimat Glomerular Filtration Rate > 60 mL/min (>60) Glucose Level 96 MG/DL (74-106) Calcium Level 8.6 MG/DL (8.5-10.1) Intake and Output 06/05/18 06/06/18 19:00 07:00 Intake Total 480 ml 240 ml Balance 480 ml 240 ml Intake Oral 480 ml 240 ml # Voids 2 2 Objective General Appearance: WD/WN, no apparent distress, alert EENT: PERRL/EOMI, normal ENT inspection Neck: non-tender, normal alignment, supple, normal inspection Cardiovascular: normal peripheral pulses, normal rate, regular rhythm, no gallop/murmur, no JVD Respiratory/Chest: chest wall non-tender, lungs clear, normal breath sounds, no respiratory distress, no accessory muscle use Abdomen: normal bowel sounds, non tender, soft, no organomegaly, no mass Extremities: normal range of motion, non-tender 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 (8) Bipolar depression (9) Hypercholesterolemia Assessment/Plan Discharge planning: halfway facility when bed available-see case management note. Ryan Mckenzie MD Jun 06, 2018 15:49
[2018-06-06 16:00] VITALS: BP 110/70
--- NOTE | 2018-06-06 16:57 | NUR ---
PT Note PT nia completed, treatment initiated. Patient was able to ambulate with a FWW 50 ft x 2 with a staggering and ataxic gait pattern. Patient can benefit from PT services to increase his muscle strength and balance to improve his safety in mobility and gait. Addendum: 06/06/18 at 1657 by DMITRI VEE PT Amended: Links added.
--- NOTE | 2018-06-06 18:58 | NUR ---
NURSE NOTES: Pt received awake, alert in bed at lowest position watching TV, no c/o pain and no signs of distress at the moment. able to make needs known.
--- NOTE | 2018-06-06 19:19 | NUR ---
HAND-OFF: Report given to MILKA Mann.
[2018-06-06 20:00] VITALS: BP 95/62
--- NOTE | 2018-06-06 21:49 | General Progress Note ---
Assessment/Plan Problem List: (1) Anxiety ICD Codes: F41.9 - Anxiety disorder, unspecified SNOMED: 75250983 (2) Bipolar depression ICD Codes: F31.30 - Bipolar disorder, current episode depressed, mild or moderate severity, unspecified SNOMED: 43510462 Assessment/Plan Depakote 500mg po bid provided ro/st dc back to [place] Subjective Neurologic/Psychiatric: Reports: anxiety, depressed, emotional problems Allergies: Coded Allergies: NO KNOWN ALLERGIES (Verified Allergy, Unknown, 03/07/18) Subjective the pt wants to go back to facility Objective Last 24 Hour Vital Signs Date Time Temp Pulse Resp B/P (MAP) Pulse Ox O2 Delivery O2 Flow Rate FiO2 06/06/18 21:08 60 16 96 Room Air 21 06/06/18 21:07 60 16 96 Room Air 06/06/18 21:00 Room Air 06/06/18 20:00 97.7 62 18 95/62 (73) 96 06/06/18 19:54 98 18 97 Room Air 06/06/18 19:44 68 18 98 Room Air 06/06/18 16:00 97.0 66 17 110/70 (83) 98 06/06/18 12:02 61 18 98 Room Air 06/06/18 12:00 98.2 59 17 98/56 (70) 99 06/06/18 11:55 64 18 97 Room Air 06/06/18 11:05 63 18 98 Room Air 06/06/18 10:56 61 18 97 Room Air 06/06/18 09:00 Room Air 06/06/18 08:00 97.3 59 16 111/60 (77) 95 06/06/18 07:26 64 18 100 Room Air 06/06/18 07:18 61 18 96 Room Air 06/06/18 00:00 98.5 71 18 93/56 (68) 100 Intake and Output 06/05/18 06/06/18 19:00 07:00 Intake Total 480 ml 240 ml Balance 480 ml 240 ml Intake Oral 480 ml 240 ml # Voids 2 2 Laboratory Tests 06/06/18 07:50: White Blood Count 5.9, Red Blood Count 4.87, Hemoglobin 15.5, Hematocrit 44.6, Mean Corpuscular Volume 92, Mean Corpuscular Hemoglobin 31.8H, Mean Corpuscular Hemoglobin Concent 34.7, Red Cell Distribution Width 12.6, Platelet Count 146L, Mean Platelet Volume 5.8L, Neutrophils (%) (Auto) 79.0H, Lymphocytes (%) (Auto) 14.4L, Monocytes (%) (Auto) 5.5, Eosinophils (%) (Auto) 0.6, Basophils (%) (Auto ) 0.4, Sodium Level 142, Potassium Level 3.8, Chloride Level 105, Carbon Dioxide Level 31, Anion Gap 6, Blood Urea Nitrogen 15, Creatinine 1.0, Estimat Glomerular Filtration Rate > 60, Glucose Level 96, Calcium Level 8.6 Height (Feet): 5 Height (Inches): 8.00 Weight (Pounds): 158 General Appearance: alert, overweight Neurologic: oriented x 3, responsive, depressed affect Ilene Davenport MD Jun 06, 2018 21:49
[2018-06-07] VITALS: BP 95/61
[2018-06-07] MEDS: Albuterol/Ipratropium 3ml neb HHN SCH ×2 (00:30→07:40)
[2018-06-07] MEDS: Sucralfate 1gm tab ORAL SCH (06:05)
--- NOTE | 2018-06-07 06:11 | NUR ---
NURSE NOTES: Pt was sleeping at 4 am, at 6am vitals 104/65, 57HR, 97.0 T, 96% O2 Room Air.
[2018-06-07 06:40] LABS: BASOPHILS % (AUTO) 0.6 % (0.0-2.0); EOSINOPHILS % (AUTO) 1.5 % (0.0-3.0); HEMATOCRIT 41.5 % (42.0-52.0); HEMOGLOBIN 14.3 G/DL (14.2-18.0); LYMPHOCYTES % (AUTO) 16.3 % (20.0-45.0); MEAN CORPUSCULAR VOLUME 92 FL (80-99); MONOCYTES % (AUTO) 7.5 % (1.0-10.0); NEUTROPHILS % (AUTO) 74.2 % (45.0-75.0); PLATELET COUNT 151 K/UL (150-450); RED CELL DISTRIBUTION WIDTH 12.8 % (11.6-14.8); WHITE BLOOD COUNT 5.5 K/UL (4.8-10.8)
[2018-06-07 07:06] LABS: ANION GAP 8 mmol/L (5-15); BLOOD UREA NITROGEN 18 mg/dL (7-18); CALCIUM 8.6 MG/DL (8.5-10.1); CARBON DIOXIDE 27 MMOL/L (21-32); CHLORIDE 105 MMOL/L (98-107); CREATININE 1.1 MG/DL (0.55-1.30); POTASSIUM 3.8 MMOL/L (3.5-5.1); SODIUM 140 MMOL/L (136-145)
--- NOTE | 2018-06-07 07:49 | NUR ---
HAND-OFF: Report given to MILKA Stanford.
--- NOTE | 2018-06-07 07:56 | NUR ---
NURSE NOTES: Received pt from MILKA CLAY. Pt is alert and orient x4. No SOB or acute respiratory distress noted. pt has intact iv access LAC 20G SL. all needs attended, bed is locked and is in the lowest position. call light within easy reach. will continue to monitor.
[2018-06-07 08:00] VITALS: BP 97/66
[2018-06-07] MEDS: Budesonide HHN 0.25mg/2ml ud HHN SCH (08:38)
[2018-06-07] MEDS: Vitamin B-12 100mcg tab ORAL SCH (09:11)
[2018-06-07] MEDS: Docusate 250mg cap ORAL SCH (09:11)
[2018-06-07] MEDS: Depakote 500mg tab ORAL SCH (09:11)
[2018-06-07] MEDS: Heparin 5000 units/ml inj SUBQ SCH (09:14)
[2018-06-07] MEDS: Ascorbic Acid 500mg tab ORAL SCH (09:17)
--- NOTE | 2018-06-07 10:35 | NUR ---
Social Service Note JAQUELINE spoke with Maria Luisa [phone] x [phone] [place] SN[facility] coordinator and [place] transfer center [phone] call. [place] has determined [place]'t require transfer to [place] and should return to [facility]. Per Maria Luisa she will arrange for other placement options while patient is at [facility]. JAQUELINE explained [facility] is refusing acceptance at this time. Maria Luisa states she will speak with [facility] and contact JAQUELINE with disposition. Will monitor and follow up.
[2018-06-07 12:00] VITALS: BP 96/69
--- NOTE | 2018-06-07 12:29 | NUR ---
NURSE NOTES: Received discharge order, all discharge assessments and instructions done and pt verbally confirmed to understand all. pt is stable, V/S stable. all belongings are with pt. given report to MILKA GÓMEZ in SNF. d/c IV ACCESS. pt left hospital with accompany of ambulance personnel.
--- NOTE | 2018-06-07 13:32 | General Progress Note ---
Assessment/Plan Problem List: (1) Anxiety ICD Codes: F41.9 - Anxiety disorder, unspecified SNOMED: 27705934 (2) Bipolar depression ICD Codes: F31.30 - Bipolar disorder, current episode depressed, mild or moderate severity, unspecified SNOMED: 01877686 Status: stable Assessment/Plan Depakote 500mg po bid provided ro/st dc back to [place] dc with the team and drs Subjective Allergies: Coded Allergies: NO KNOWN ALLERGIES (Verified Allergy, Unknown, 03/07/18) Subjective the pt wants to go back to facility. per charge nurse and rn the facility refusing to take the pt back. I called the windows application administrator of [facility] and he stated that he will research and call me back. I asked the RN to call the facility and give the report as Dr. Adam campbell the pt/ we called together and facility still refused. I spoke with the DON and told them that they must take the pt back. the [facility] charge nurse was very upset and agreed to take the pt back with reluctance. Objective Last 24 Hour Vital Signs Date Time Temp Pulse Resp B/P (MAP) Pulse Ox O2 Delivery O2 Flow Rate FiO2 06/07/18 12:00 98.0 67 18 96/69 (78) 97 06/07/18 09:00 Room Air 06/07/18 08:40 64 16 96 Room Air 06/07/18 08:36 64 16 96 Room Air 06/07/18 08:00 97.7 61 18 97/66 (76) 96 06/07/18 08:00 97.7 61 18 97/66 (76) 96 06/07/18 07:40 Room Air 21 06/07/18 07:40 Room Air 21 06/07/18 00:41 67 18 99 Room Air 21 06/07/18 00:30 60 18 95 Room Air 21 06/07/18 00:00 97.5 59 18 95/61 (72) 95 06/06/18 21:08 60 16 96 Room Air 21 06/06/18 21:07 60 16 96 Room Air 21 06/06/18 21:00 Room Air 06/06/18 20:00 97.7 62 18 95/62 (73) 96 06/06/18 19:54 98 18 97 Room Air 06/06/18 19:44 68 18 98 Room Air 21 06/06/18 16:00 97.0 66 17 110/70 (83) 98 Intake and Output 06/06/18 06/07/18 18:59 06:59 Intake Total 1000 ml 240 ml Output Total 250 ml Balance 1000 ml -10 ml Intake Oral 1000 ml 240 ml Output Urine Total 250 ml # Voids 6 1 # Bowel Movements 1 Laboratory Tests 06/07/18 05:30: White Blood Count 5.5, Red Blood Count 4.50L, Hemoglobin 14.3, Hematocrit 41.5L , Mean Corpuscular Volume 92, Mean Corpuscular Hemoglobin 31.7H, Mean Corpuscular Hemoglobin Concent 34.4, Red Cell Distribution Width 12.8, Platelet Count 151, Mean Platelet Volume 6.0L, Neutrophils (%) (Auto) 74.2, Lymphocytes ( %) (Auto) 16.3L, Monocytes (%) (Auto) 7.5, Eosinophils (%) (Auto) 1.5, Basophils (%) (Auto) 0.6, Sodium Level 140, Potassium Level 3.8, Chloride Level 105, Carbon Dioxide Level 27, Anion Gap 8, Blood Urea Nitrogen 18, Creatinine 1.1, Estimat Glomerular Filtration Rate > 60, Glucose Level 84, Calcium Level 8.6 Height (Feet): 5 Height (Inches): 8.00 Weight (Pounds): 158 General Appearance: no apparent distress, alert, overweight Neurologic: oriented x 3, responsive, depressed affect Ilene Davenport MD Jun 07, 2018 13:32
--- NOTE | 2018-06-08 11:43 | Discharge Summary ---
Discharge Summary Discharge Summary _ DATE OF ADMISSION: 06/02/2018 DATE OF DISCHARGE: 06/07/2018 DISCHARGED BY: Dr. Medina REASON FOR ADMISSION: 67 years old male with past medical history of asthma, diabetes mellitus, hypertension, psychosis, presented to emergency department with chief complaint of generalized weakness and agitation. Patient apparently was more agitated at the nursing facility. Patient reported increased weakness . Patient follow-up with neurologist once a month. Upon evaluation in emergency room vital signs were stable. Troponin was negative. EKG revealed normal sinus rhythm, no acute ischemic changes. No leukocytosis, stable hemoglobin and hematocrit . Urinalysis revealed no evidence of UTI. Stable electrolytes. BUN 28 creatinine 1.3. Lactic acid 1.2 . Stable LFT . Albumin 3.4 Chest x-ray revealed no acute cardiopulmonary pathology. Patient was admitted for dehydration, increased agitation, generalized weakness. CONSULTANTS: pulmonary Dr. Umaña psychiatrist [facility]SE: Patient admitted to medical surgical floor. Pulmonology and psychiatric consults were requested. Supplemental oxygen provided as needed to keep pulse oximetry above 92%. Pulmonary toilet provided as needed. Pulmicort inhaler was continued. Respiratory status was stable. Patient initially was on IV fluids, which were later discontinued. Renal parameters and electrolytes were closely monitor , electrolytes corrected as needed. Nephrotoxins were avoided. Oral hydration was encouraged. Prior to discharge creatinine from 1.3 down to 1.1. Seizure precautions were maintained. No evidence of seizure activity while in the hospital. Depakote and Mysoline were continued. Blood sugar was managed with sliding scale of insulin. DVT and GI prophylaxis provided. Patient had a history of prostate cancer. PSA was within normal limits. Bowel regimen instituted. Supportive care provided. Patient was working with physical therapist. Patient was able to ambulate with front wheel walker 50 feet x2 with a staggering gait and ataxic gait pattern. Per physical therapy recommendation , patient will benefit from physical therapy services [facility] to increase his muscle strength and balance and improve his safety , mobility and gait. Psychiatrist seen and evaluated patient . Psychiatric medication regimen provided as per psychiatrist recommendation . icebox worker spoke with [place] via three-way call, who concluded that patient did not require transfer to [place] facility and can return [facility]. Placement was secured .Ppatient subsequently was transferred to [facility] for [facility] of care. FINAL DIAGNOSES: COPD/asthma Dehydration -resolved Diabetes mellitus Hyperlipidemia Seizure disorder History of prostate cancer Bipolar depression Anxiety History of posttraumatic stress disorder DISCHARGE MEDICATIONS: See Medication Reconciliation list. DISCHARGE INSTRUCTIONS: [facility] was [facility]. Follow up with medical doctor at the facility. Chelsie Chowdhury NP Jun 08, 2018 11:43
== END 2018-06-07 12:20 | DRG 885 ==
LOC: EDBD 14:54 → EMR 15:26 → 4E 17:03 → EDBEDREQ 18:20 → 4E 06-05 16:30
DX: F31.9 Bipolar disorder, unspecified (principal); E86.0 Dehydration; E11.9 Type 2 diabetes mellitus without complications; I10 Essential (primary) hypertension; E78.5 Hyperlipidemia, unspecified; J44.9 Chronic obstructive pulmonary disease, unspecified; F43.10 Post-traumatic stress disorder, unspecified; F41.9 Anxiety disorder, unspecified; G40.909 Epilepsy, unspecified, not intractable, without status epilepticus; R27.0 Ataxia, unspecified; Z85.46 Personal history of malignant neoplasm of prostate
CPT/HCPCS: 36415; 71045; 80048; 80053; 81003; 82550; 82553; 83605; 83735; 84100; 84153; 84154; 84484; 85007; 85025; 87040; 87081; 93005; 94640; 94664; 96360; 99285; J7620

== ENCOUNTER 2018-10-24 03:35 | Inpatient (IN) | payer MEDICARE, OTHER ==
[~2018-10-24] VITALS: Ht 170.2 cm; Wt 79.8 kg
[2018-10-24] VITALS (7 sets, daily range): BP systolic 107–121; BP diastolic 61–80
[~2018-10-24 03:35] MED LIST changes: +ALBUTEROL2.5 MG/3 M INH; +ASCORBIC ACID500 MG ORAL; +ATORVASTATIN CA20 MG ORAL; +BENZTROPINE ME0.5 MG PO; +BUDESONIDE0.5 GM MC; +CARAFATE1 G1 ORAL; +DIVALPROEX SOD500 MG ORAL; +DOCUSATE SODIU250 MG ORAL; +FERROUS SULFAT325 MG ORAL; +FOLIC ACID1 MG ORAL; +FOSAMAX70 MG ORAL; +IBUPROFEN600 MG ORAL; +LANSOPRAZOLE30 MG ORAL; +LEXAPRO10 MG ORAL; +LORAZEPAM0.5 MG ORAL; +MULTIVITAMINS1 EAC2 ORAL; +PULMICORT0.5 MG/2 M IH; +VITAMIN B-12100 MC1 PO
--- NOTE | 2018-10-24 03:45 | NUR ---
ED Nurse Note: IV ACCESS ESTABLISHED. BLOOD COLLECTED; SENT DOWN TO LAB.
--- NOTE | 2018-10-24 03:52 | Emergency Room Report ---
History of Present Illness General Chief Complaint: Dyspnea/Respdistress Source: Patient Present Illness HPI Patient presents with complaints of shortness of breath Worsening symptoms over the past 7 days Patient reports he has a history of asthma on review of medical records also has history of COPD Denies any obvious fevers denies any chest pain Denies any recent travel denies any rash Allergies: Coded Allergies: NO KNOWN ALLERGIES (Verified Allergy, Unknown, 03/07/18) Patient History Past Medical History: see triage record Pertinent Family History: none Reviewed Nursing Documentation: PMH: Agreed; PSxH: Agreed Nursing Documentation-PMH Past Medical History: No History, Except For Hx Asthma: Yes Hx COPD: Yes Hx Diabetes: No Hx Cancer: Yes Hx Gastrointestinal Problems: No Hx Neurological Problems: Yes Hx Cerebrovascular Accident: Yes - 2010 Hx Seizures: Yes - unspecified convulsions Hx Tremors: Yes - hand tremors r/t ataxia Hx Dysphasia: Yes Review of Systems All Other Systems: negative except mentioned in HPI Physical Exam Vital Signs Date Time Temp Pulse Resp B/P (MAP) Pulse Ox O2 Delivery O2 Flow Rate FiO2 10/24/18 03:24 97.5 94 25 117/68 (84) 99 Simple Mask 8.0 Sp02 EP Interpretation: reviewed, normal General Appearance: mild distress - Appears short of breath Head: normocephalic, atraumatic Eyes: bilateral eye PERRL, bilateral eye EOMI ENT: hearing grossly normal, normal pharynx, TMs + canals normal, uvula midline Neck: full range of motion, supple, no meningismus, no bony tend Respiratory: no retraction, no accessory muscle use, other - Tachypneic and wheezing Cardiovascular #1: normal peripheral pulses, regular rate, rhythm, no edema, no gallop, no JVD, no murmur Gastrointestinal: normal bowel sounds, non tender, soft, no mass, no organomegaly, non-distended, no guarding, no hernia, no pulsatile mass, no rebound Genitourinary: no CVA tenderness Musculoskeletal: normal inspection Neurologic: oriented x3, responsive, vp product marketing III-XII nml as tested, motor strength/ tone normal, sensory intact Psychiatric: mood/affect normal Skin: normal color, no rash, warm/dry, palpation normal Lymphatic: normal inspection, no adenopathy Procedures Critical Care Time Critical Care Time 50 minutes for multiple re-evaluations initial clinical presentation concerning findings regarding respiratory pathology not including any procedural time Medical Decision Making Diagnostic Impression: Primary Impression: Respiratory distress Additional Impression: COPD exacerbation ER Course Patient is a fairly complex patient with multiple differential to consideration including but not limited to cardiac cardiopulmonary and vascular emergencies Patient short of breath and tachypneic upon arrival Breathing treatments initiated emergently x-ray imaging does not reveal any obvious acute pathology patient also required steroids and magnesium given his findings And requires further inpatient care Labs Test 10/24/18 03:45 White Blood Count 5.9 K/UL (4.8-10.8) Red Blood Count 5.08 M/UL (4.70-6.10) Hemoglobin 15.9 G/DL (14.2-18.0) Hematocrit 46.0 % (42.0-52.0) Mean Corpuscular Volume 91 FL (80-99) Mean Corpuscular Hemoglobin 31.3 PG (27.0-31.0) Mean Corpuscular Hemoglobin Concent 34.5 G/DL (32.0-36.0) Red Cell Distribution Width 11.8 % (11.6-14.8) Platelet Count 116 K/UL (150-450) Mean Platelet Volume 6.7 FL (6.5-10.1) Neutrophils (%) (Auto) 51.1 % (45.0-75.0) Lymphocytes (%) (Auto) 31.1 % (20.0-45.0) Monocytes (%) (Auto) 10.2 % (1.0-10.0) Eosinophils (%) (Auto) 6.0 % (0.0-3.0) Basophils (%) (Auto) 1.7 % (0.0-2.0) Sodium Level 139 MMOL/L (136-145) Potassium Level 4.5 MMOL/L (3.5-5.1) Chloride Level 103 MMOL/L (98-107) Carbon Dioxide Level 24 MMOL/L (21-32) Anion Gap 13 mmol/L (5-15) Blood Urea Nitrogen 22 mg/dL (7-18) Creatinine 0.9 MG/DL (0.55-1.30) Estimat Glomerular Filtration Rate > 60 mL/min (>60) Glucose Level 117 MG/DL (74-106) Calcium Level 8.8 MG/DL (8.5-10.1) Rhythm Strip Diag. Results EP Interpretation: yes Rate: 88 Rhythm: NSR, no PVC's, no ectopy Chest X-Ray Diagnostic Results Chest X-Ray Diagnostic Results : Chest X-Ray Ordered: Yes # of Views/Limited/Complete: 1 View Indication: Shortness of Breath EP Interpretation: Yes Interpretation: no consolidation, no effusion, no pneumothorax Impression: No acute disease Electronically Signed by: Sharonda Montana DO Last Vital Signs Date Time Temp Pulse Resp B/P (MAP) Pulse Ox O2 Delivery O2 Flow Rate FiO2 10/24/18 03:24 97.5 94 25 117/68 (84) 99 Simple Mask 8.0 Status: improved Disposition: ADMITTED INPATIENT Condition: Serious Referrals: NOT CHOSEN IPA/,REFERRING (PCP) Sharonda Montana DO Oct 24, 2018 03:52
[2018-10-24] MEDS ORDERED: Solu-MEDROL 125mg Inj IVP ONE (04:00)
[2018-10-24] MEDS ORDERED: Albuterol ud Inhalation HHN ONE ×3 (04:00→04:30)
[2018-10-24] MEDS ORDERED: Ipratropium 0.02% Inh Soln 2.5ml UD HHN ONE (04:00)
[2018-10-24 04:01] LABS: BASOPHILS % (AUTO) 1.7 % (0.0-2.0); HEMOGLOBIN 15.9 G/DL (14.2-18.0); LYMPHOCYTES % (AUTO) 31.1 % (20.0-45.0); MEAN CORPUSCULAR VOLUME 91 FL (80-99); MONOCYTES % (AUTO) 10.2 % (1.0-10.0); NEUTROPHILS % (AUTO) 51.1 % (45.0-75.0); PLATELET COUNT 116 K/UL (150-450); RED BLOOD COUNT 5.08 M/UL (4.70-6.10); RED CELL DISTRIBUTION WIDTH 11.8 % (11.6-14.8); WHITE BLOOD COUNT 5.9 K/UL (4.8-10.8)
[2018-10-24 04:11] LABS: ANION GAP 13 mmol/L (5-15); BLOOD UREA NITROGEN 22 mg/dL (7-18); CALCIUM 8.8 MG/DL (8.5-10.1); CARBON DIOXIDE 24 MMOL/L (21-32); CHLORIDE 103 MMOL/L (98-107); CREATININE 0.9 MG/DL (0.55-1.30); POTASSIUM 4.5 MMOL/L (3.5-5.1); SODIUM 139 MMOL/L (136-145)
--- NOTE | 2018-10-24 04:13 | Diagnostic Imaging Report ---
EXAM: XR Chest, 1 View CLINICAL HISTORY: SOB TECHNIQUE: Frontal view of the chest. COMPARISON: Chest x-ray dated 06/02/2018. FINDINGS: Lungs: Unremarkable. The lungs are clear. Pleural space: Unremarkable. No pneumothorax. Heart: Unremarkable. No cardiomegaly. Mediastinum: Unremarkable. Bones/joints: Mild degenerative changes of both shoulder joints. Other findings: Calcification of the aortic arch. IMPRESSION: No acute findings.
[2018-10-24 04:38] LABS: ALANINE AMINOTRANSFERASE 25 U/L (12-78); ALBUMIN 3.9 G/DL (3.4-5.0); ALBUMIN/GLOBULIN RATIO 1.4 (1.0-2.7); ALKALINE PHOSPHATASE 88 U/L (46-116); ASPARTATE AMINO TRANSFERASE 27 U/L (15-37); BILIRUBIN,TOTAL 0.4 MG/DL (0.2-1.0); CKMB 1.2 NG/ML (0.0-3.6); CREATINE KINASE 101 U/L (26-308)
--- NOTE | 2018-10-24 04:40 | NUR ---
NURSE NOTES: Report called via telephone from ER by Ángel Colon. Pending patient arrival to unit.
--- NOTE | 2018-10-24 04:48 | NUR ---
ED Nurse Note: UPON SKIN REASSESSMENT, ABRASION ON RIGHT KNEE NOTED. WOUND PHOTO TAKEN AND UPLOADED.
--- NOTE | 2018-10-24 05:15 | NUR ---
TRANSFER TO FLOOR: Patient transferred to [facility] [id number] as ordered, per MD ABELINO. Report given to MILKA CHOI. PATIENT IN STABLE CONDITION. BELONGINGS LIST COMPLETED WITH RECEIVING RN.
--- NOTE | 2018-10-24 05:30 | NUR ---
NURSE NOTES: Pt transferred from ER via gurney and assisted to [facility] without incidence. cardiac monitor applied. Belongings list checked with transferring RN and patient at bedside. Pt has iphone that is remaining at bedside with patient. Pt is AOx4. Pt is on 2L O2 via nasal cannula. Pt is slightly tachypnic but breathing is otherwise even and unlabored at this time. Expiratory wheezing noted in bilateral lower lobes. Pt IV site is R AC #18g and is asymptomatic, patent, and intact. Bed placed in lowest position with brake engaged, side rails up x3, and bed alarm on. Call light and side table placed within reach. Fall precautions in place. Fall education provided to pt - pt agreeable to calling prior to attempting to get out of bed. Pt has recent hx of fall at home d/t unsteady gait. Denies head trauma. Will request PT eval from MD. Seizure precautions also in place for hx of "convulsions" per patient. Pt is NSR on the monitor. Skin checked - bilateral knee abrasions noted d/t recent fall at home. Skin is otherwise intact. Will contact admitting MD Medina for admission orders. Will continue to monitor patient.
--- NOTE | 2018-10-24 05:58 | NUR ---
NURSE NOTES: Message left for MD Mckenzie, covering for MD Medina, to request admission orders. Awaiting call back for further instructions. Pt is resting comfortably in bed. Will continue to monitor.
--- NOTE | 2018-10-24 06:49 | NUR ---
NURSE NOTES: Second message left for MD Mckenzie, covering for MD Medina, to request admission orders. Awaiting call back. CN aware. Will continue to monitor patient.
--- NOTE | 2018-10-24 07:23 | NUR ---
HAND-OFF: Report given to Karina Gordon RN. Pt is resting in bed in stable condition. No acute distress noted. Endorsed plan of care.
[2018-10-24] MEDS ORDERED: Promethazine/Codeine 5ml UD ORAL PRN (08:15)
[2018-10-24] MEDS: Theophylline ER 100mg ORAL SCH ×2 (09:44→21:02)
[2018-10-24] MEDS: Heparin 5000 units/ml inj SUBQ SCH ×2 (09:47→21:04)
[2018-10-24] MEDS ORDERED: LORazepam 0.5mg tab ORAL PRN (11:30)
[2018-10-24] MEDS ORDERED: HYDROcodone/Acetamin 5/325 tab ORAL PRN (11:30)
[2018-10-24] MEDS: Albuterol/Ipratropium 3ml neb HHN SCH ×4 (11:41→22:59)
--- NOTE | 2018-10-24 12:35 | NUR ---
CASE MANAGEMENT: INITIAL REVIEW 67 YO M ASHLY FROM HOME CC: DYSPNEA PMHx: ASTHMA. COPD. CVA. SI:COPD EXACERBATION T 97.5 HR 94 RR 25 B/P 117/68 SATS 99% ON 8L/SIMPLE MASK BUN 22 GLU 117 IS: DUO NEB HHN X1 NS BOLUS X1 SOLU MEDROL IV X1 MAG SULFATE IV X1 PROVENTIL HHN X1 PATIENT ADMITTED TO [facility] 10/24/2018 @ 0407 DCP: PATIENT TO BE DISCHARGED TO HOME ONCE MEDICALLY CLEARED. Addendum: 10/24/18 at 1859 by Cecile Gohsh CM [employer]
[2018-10-24] MEDS: Solu-MEDROL 125mg Inj IVP SCH ×2 (12:43→17:08)
[2018-10-24] MEDS ORDERED: Albuterol/Ipratropium 3ml neb HHN PRN (12:45)
--- NOTE | 2018-10-24 13:47 | History & Physical ---
History and Physical History & Physicial Dictated for Int Med-Dr Medina no. [id number] Ryan Mckenzie MD Oct 24, 2018 13:47
--- NOTE | 2018-10-24 14:05 | Consultation ---
History of Present Illness General Date patient seen: Oct 24, 2018 Chief Complaint: Dyspnea/Respdistress Present Illness HPI 67 year old male with hx of COPD/asthma, PTSD, seizures, anxiety, prostate cancer, CVA 2010 presented to ER with complaints of shortness of breath, worsening symptoms over the past 7 days Denies any obvious fevers denies any chest pain. Denies any recent travel denies any rash. His CXR was negative for any acute infiltrate. He was diagnosed to have acute exacerbation of COPD and admitted to telemetry for further management. Allergies: Coded Allergies: CASHEW NUT (Verified Allergy, Unknown, 10/24/18) NO KNOWN ALLERGIES (Verified Allergy, Unknown, 03/07/18) [place] Seed (Verified Allergy, Unknown, 10/24/18) Medication History Scheduled Alendronate Sodium* (Fosamax*), 70 MG ORAL ONCE A WEEK, (Reported) Ascorbic Acid* (Ascorbic Acid*), 500 MG ORAL DAILY, (Reported) Atorvastatin Calcium* (Atorvastatin Calcium*), 10 MG ORAL BEDTIME, (Reported) Benztropine Mesylate* (Cogentin*), 2 MG PO BID, (Reported) Budesonide (Pulmicort), 0.5 MG IH Q12HR, (Reported) Calcium Carbonate (Calcium), 500 MG PO DAILY, (Reported) Clonazepam (Clonazepam), 2 MG PO BID, (Reported) Cyanocobalamin (Vitamin B-12) (Vitamin B-12), 100 MCG PO DAILY, (Reported) Divalproex Sodium (Divalproex Sodium), 500 MG ORAL EVERY 12 HOURS Docusate Sodium* (Docusate Sodium*), 250 MG ORAL DAILY, (Reported) Escitalopram Oxalate* (Lexapro*), 10 MG ORAL DAILY Ferrous Sulfate* (Ferrous Sulfate*), 325 MG ORAL DAILY, (Reported) Folic Acid* (Folic Acid*), 1 MG ORAL DAILY, (Reported) Ipratropium/Albuterol Sulfate (DuoNeb 0.5-3(2.5)mg/3ml), 3 ML HHN Q6HR, ( Reported) Lansoprazole* (Lansoprazole*), 30 MG ORAL DAILY, (Reported) Multivitamins* (Multivitamins*), 1 TAB ORAL DAILY, (Reported) Prednisone* (Prednisone*), 25 MG ORAL DAILY, (Reported) Primidone* (Mysoline*), 50 MG PO QHS, (Reported) Sucralfate* (Carafate*), 1 GM ORAL ACBREAKFAST, (Reported) Scheduled PRN Albuterol Sulfate* (Albuterol Sulfate Hhn*), 1.25 MG INH Q6H PRN for Shortness of Breath, (Reported) Hydrocodone Bit/Acetaminophen 5-325* ([place] 5-325*), 1 TAB ORAL Q6H PRN for For Pain Ibuprofen* (Motrin*), 600 MG ORAL Q6H PRN for For Pain, (Reported) Lorazepam* (Lorazepam*), 0.5 MG ORAL Q6HR PRN for Agitation, (Reported) Patient History Healthcare decision maker Resuscitation status Full Code Advanced Directive on File Past Medical/Surgical History Past Medical/Surgical History: (1) Anxiety (2) Bipolar depression (3) Prostate cancer (4) PTSD (post-traumatic stress disorder) Family History Family History: (1) Cerebrovascular accident (CVA) (2) Anxiety (3) Depression (4) Bipolar depression (5) Psychosis (6) Prostate cancer (7) History of asthma (8) PTSD (post-traumatic stress disorder) Physical Exam General Appearance: WD/WN Lines, tubes and drains: peripheral HEENT: normocephalic, atraumatic Neck: non-tender, normal alignment Respiratory/Chest: chest wall non-tender, lungs clear Breasts: no masses Cardiovascular/Chest: normal peripheral pulses, normal rate Abdomen: normal bowel sounds, non tender Genitourinary/Rectal: normal genital exam, normal rectal exam Extremities: normal range of motion, non-tender Skin Exam: normal pigmentation 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 Last 24 Hour Vital Signs Date Time Temp Pulse Resp B/P (MAP) Pulse Ox O2 Delivery O2 Flow Rate FiO2 10/24/18 12:00 97.3 85 18 120/80 (93) 99 10/24/18 11:41 77 20 97 Nasal Cannula 2.0 28 10/24/18 09:00 Nasal Cannula 2.0 10/24/18 08:00 97.6 90 18 107/61 (76) 99 10/24/18 08:00 91 10/24/18 05:54 97.5 88 18 115/74 (88) 98 10/24/18 05:48 88 10/24/18 05:15 97.5 92 12 121/72 92 Nasal Cannula 2.0 10/24/18 04:55 Nasal Cannula 2.0 10/24/18 04:49 97.5 92 12 121/72 92 Nasal Cannula 2.0 10/24/18 04:34 85 16 100 Nasal Cannula 2.0 10/24/18 04:34 88 22 96 Nasal Cannula 2.0 10/24/18 04:24 88 14 95 Nasal Cannula 2.0 10/24/18 04:10 93 20 Room Air 8.0 10/24/18 04:10 97.5 94 20 117/68 91 Nasal Cannula 2.0 10/24/18 04:00 93 20 91 Room Air 10/24/18 04:00 93 20 91 Room Air 10/24/18 03:24 97.5 94 25 117/68 (84) 99 Simple Mask 8.0 Laboratory Tests Test 10/24/18 03:45 White Blood Count 5.9 K/UL (4.8-10.8) Red Blood Count 5.08 M/UL (4.70-6.10) Hemoglobin 15.9 G/DL (14.2-18.0) Hematocrit 46.0 % (42.0-52.0) Mean Corpuscular Volume 91 FL (80-99) Mean Corpuscular Hemoglobin 31.3 PG (27.0-31.0) H Mean Corpuscular Hemoglobin Concent 34.5 G/DL (32.0-36.0) Red Cell Distribution Width 11.8 % (11.6-14.8) Platelet Count 116 K/UL (150-450) L Mean Platelet Volume 6.7 FL (6.5-10.1) Neutrophils (%) (Auto) 51.1 % (45.0-75.0) Lymphocytes (%) (Auto) 31.1 % (20.0-45.0) Monocytes (%) (Auto) 10.2 % (1.0-10.0) H Eosinophils (%) (Auto) 6.0 % (0.0-3.0) H Basophils (%) (Auto) 1.7 % (0.0-2.0) Sodium Level 139 MMOL/L (136-145) Potassium Level 4.5 MMOL/L (3.5-5.1) Chloride Level 103 MMOL/L (98-107) Carbon Dioxide Level 24 MMOL/L (21-32) Anion Gap 13 mmol/L (5-15) Blood Urea Nitrogen 22 mg/dL (7-18) H Creatinine 0.9 MG/DL (0.55-1.30) Estimat Glomerular Filtration Rate > 60 mL/min (>60) Glucose Level 117 MG/DL (74-106) H Calcium Level 8.8 MG/DL (8.5-10.1) Total Bilirubin 0.4 MG/DL (0.2-1.0) Aspartate Amino Transf (AST/SGOT) 27 U/L (15-37) Alanine Aminotransferase (ALT/SGPT) 25 U/L (12-78) Alkaline Phosphatase 88 U/L (46-116) Total Creatine Kinase 101 U/L (26-308) Creatine Kinase MB 1.2 NG/ML (0.0-3.6) Creatine Kinase MB Relative Index 1.1 Troponin I 0.000 ng/mL (0.000-0.056) Pro-B-Type Natriuretic Peptide < 5 pg/mL (0-125) Total Protein 6.7 G/DL (6.4-8.2) Albumin 3.9 G/DL (3.4-5.0) Globulin 2.8 g/dL Albumin/Globulin Ratio 1.4 (1.0-2.7) Lipase 191 U/L (73-393) Height (Feet): 5 Height (Inches): 7.00 Weight (Pounds): 176 Medications Current Medications Medications (Trade) Dose Ordered Sig/Jeri Route PRN Reason Start Time Stop Time Status Last Admin Dose Admin Acetaminophen/ Hydrocodone Bitart ([place] 5/325) 1 tab Q6H PRN ORAL Severe Pain (Pain Scale 7-10) 10/24/18 11:30 10/31/18 11:29 Albuterol/ Ipratropium (Albuterol/ Ipratropium) 3 ml Q4H PRN HHN Shortness of Breath 10/24/18 12:45 10/29/18 12:44 Albuterol/ Ipratropium (Albuterol/ Ipratropium) 3 ml Q4HRT HHN 10/24/18 11:00 10/29/18 10:59 10/24/18 11:41 Alendronate Sodium (Fosamax) 70 mg ONCE A WEEK ORAL 10/24/18 11:30 11/23/18 11:29 UNV Ascorbic Acid (Vitamin C) 500 mg DAILY ORAL 10/25/18 09:00 11/24/18 08:59 Atorvastatin Calcium (Lipitor) 10 mg BEDTIME ORAL 10/24/18 21:00 11/23/18 20:59 Budesonide (Pulmicort) 0.5 mg Q12HRT HHN 10/24/18 22:00 11/23/18 21:59 Divalproex Sodium (Depakote) 500 mg EVERY 12 HOURS ORAL 10/24/18 21:00 11/23/18 20:59 Docusate Sodium (Colace) 250 mg DAILY ORAL 10/25/18 09:00 11/24/18 08:59 Escitalopram Oxalate (Lexapro) 10 mg DAILY ORAL 10/25/18 09:00 11/24/18 08:59 Ferrous Sulfate (Feosol) 325 mg DAILY ORAL 10/25/18 09:00 11/24/18 08:59 Folic Acid (Folate) 1 mg DAILY ORAL 10/25/18 09:00 11/24/18 08:59 Heparin Sodium (Porcine) (Heparin 5000 units/ml) 5,000 units EVERY 12 HOURS SUBQ 10/24/18 09:00 11/23/18 08:59 10/24/18 09:47 Ibuprofen (Motrin) 600 mg Q6H PRN ORAL Moderate Pain (Pain Scale 4-6) 10/24/18 11:30 11/23/18 11:29 Levofloxacin 100 ml @ 100 mls/hr Q24H IVPB 10/24/18 09:00 10/31/18 08:59 10/24/18 09:46 Lorazepam (Ativan) 0.5 mg Q6H PRN ORAL Agitation 10/24/18 11:30 10/31/18 11:29 Methylprednisolone Sodium Succinate (Solu-MEDROL) 60 mg EVERY 6 HOURS IVP 10/24/18 12:00 11/23/18 11:59 10/24/18 12:43 Multivitamins (Multivitamins) 1 tab DAILY ORAL 10/25/18 09:00 11/24/18 08:59 Pantoprazole (Protonix) 40 mg ACBREAKFAST ORAL 10/25/18 06:30 11/24/18 06:29 Primidone (Mysoline) 50 mg QHS ORAL 10/24/18 21:00 11/23/18 20:59 Promethazine HCl/ Codeine (Phenergan with Codeine) 5 ml Q4H PRN ORAL For Cough 10/24/18 08:15 11/23/18 08:14 Sucralfate (Carafate) 1 gm ACBREAKFAST ORAL 10/25/18 06:30 11/24/18 06:29 Theophylline (Esteban-Dur) 100 mg EVERY 12 HOURS ORAL 10/24/18 09:00 11/23/18 08:59 10/24/18 09:44 Assessment/Plan Problem List: (1) COPD exacerbation ICD Codes: J44.1 - Chronic obstructive pulmonary disease with (acute) exacerbation SNOMED: 171733984 (2) Acute bronchitis ICD Codes: J20.9 - Acute bronchitis, unspecified SNOMED: 34106490 (3) Bipolar depression ICD Codes: F31.30 - Bipolar disorder, current episode depressed, mild or moderate severity, unspecified SNOMED: 35430605 (4) Prostate cancer ICD Codes: C61 - Malignant neoplasm of prostate SNOMED: 585100721 (5) PTSD (post-traumatic stress disorder) ICD Codes: F43.10 - Post-traumatic stress disorder, unspecified SNOMED: 83959311 (6) Cerebrovascular accident (CVA) ICD Codes: I63.9 - Cerebral infarction, unspecified SNOMED: 350861518 Assessment/Plan: respiratory treatment titrate fio2 to sat of 92% check sputum iv abx iv steroids symptomatic treatment dvt prophylaxis Michele Umaña MD Oct 24, 2018 14:05
--- NOTE | 2018-10-24 15:30 | History and Physical Report ---
DATE OF ADMISSION: 10/24/2018 CHIEF COMPLAINT: The patient is a 67-year-old male, who presents with a chief complaint of shortness of breath. HISTORY OF PRESENT ILLNESS: Began approximately 4 or 5 days prior to admission. The patient became increasingly short of breath. The patient was using his albuterol nebulizer machine at home. The patient lives at [facility]. Paramedics were called to the assisted living. The patient was found to be short of breath. The patient also had decreased oxygen saturation. The patient was transferred to [facility] emergency room. The patient is admitted with respiratory failure and acute exacerbation of chronic obstructive pulmonary disease. PAST MEDICAL HISTORY: Significant for, 1. Asthma/chronic obstructive pulmonary disease. 2. Posttraumatic stress disorder. 3. Ataxia. 4. History of prostate cancer, currently undergoing chemotherapy at the [facility]. 5. Bipolar depression. PAST SURGICAL HISTORY: The patient denies. CURRENT MEDICATIONS: The patient did not bring in his medications, however, during the previous admission current medications were, 1. Albuterol 2.5 mg nebulized q.4 hours p.r.n. 2. Fosamax 70 mg p.o. weekly. 3. Vitamin C 500 mg p.o. daily. 4. Atorvastatin 20 mg p.o. at bedtime. 5. Benztropine 2 mg p.o. twice daily. 6. Calcium carbonate 500 mg p.o. daily. 7. Klonopin 2 mg p.o. twice daily. 8. Vitamin B12 100 mcg p.o. daily. 9. Iron sulfate 325 mg p.o. daily. 10. Folic acid 1 mg p.o. daily. 11. [place] 5/325 mg one tablet p.o. q.6 h. p.r.n. 12. Ibuprofen 600 mg p.o. q.6 hours p.r.n. 13. Prevacid 30 mg p.o. daily. 14. Multivitamin one tablet p.o. daily. 15. Prednisone 20 mg p.o. daily. 16. Primidone 50 mg p.o. at bedtime. 17. Carafate 1 g p.o. 4 times daily. ALLERGIES: No known drug allergies. SOCIAL HISTORY: The patient is . The patient lives at [facility]. The patient admits to occasional cigar use. The patient denies alcohol use. REVIEW OF SYSTEMS: CONSTITUTIONAL: The patient denies weight loss or weight gain. The patient denies fevers or chills. HEENT: The patient denies ear or throat pain. The patient denies headache. CARDIOVASCULAR: The patient denies palpitations or chest pain. CHEST: The patient complains of wheezes. The patient denies purulent cough. ABDOMEN: The patient denies nausea, vomiting, diarrhea, or constipation. NEUROMUSCULAR: The patient denies seizures or generalized weakness. PHYSICAL EXAMINATION: VITAL SIGNS: Temperature 97.5, respirations 18, pulse 88, blood pressure 115/74, and pulse ox 98% on 2 L nasal cannula. GENERAL: The patient is a well-developed and well-nourished male, in no apparent distress. HEENT: Eyes, pupils are equal responsive to light and accommodation. Extraocular movements are intact. NECK: Supple without lymphadenopathy. CHEST: Diffuse wheezes in bilateral lung baker. Otherwise, clear to auscultation without rales. CARDIOVASCULAR: Regular rhythm and rate. S1 and S2 are normal without murmurs, rubs, or gallops. ABDOMEN: Soft, nontender, and nondistended. Positive bowel sounds. No evidence of hepatosplenomegaly. Currently, no rebound or guarding noted. RECTAL/GENITAL: Refused. NEUROLOGIC: Cranial nerves II through XII are grossly intact without focal deficits. Motor strength is 5/5 bilaterally. Deep tendon reflexes are 2+ plantar. LABORATORY STUDIES: WBC 5.9, hemoglobin 15.9, hematocrit 46.0, and platelets 116,000. Sodium 139, potassium 4.5, chloride 103, CO2 24, BUN 22, creatinine 0.9, and glucose 117. Troponin 0.0. Chest x-ray was reported as no acute disease. ASSESSMENT: This is a 67-year-old male. 1. Respiratory distress. 2. Chronic obstructive pulmonary disease, acute exacerbation. 3. Posttraumatic stress disorder. 4. Prostate cancer. 5. History of ataxia. TREATMENT: 1. Chronic obstructive pulmonary disease/respiratory distress. A Pulmonary consultation has been obtained with Dr. Michele Umaña. The patient has been started on intravenous Solu-Medrol. The patient has also been started on Levaquin. We will follow recommendation of Pulmonary. 2. Posttraumatic stress disorder. 3. Ataxia. 4. History of prostate cancer, currently on chemotherapy. 5. Bipolar depression. Ryan Mckenzie M.D. DR: MORE JOB#: [id number] CC:
--- NOTE | 2018-10-24 18:56 | NUR ---
HAND-OFF: Report given to Nia JARQUIN. Pt remains stable.
--- NOTE | 2018-10-24 19:13 | NUR ---
NURSE NOTES: Report received from Karina Gordon RN. Pt is independently ambulatory around the unit. Pt is AOx4. Pt is on room air and breathing is even and unlabored. No acute distress noted. IV site is R AC #18g asymptomatic, patent, and intact. Bed is in lowest position with brake engaged, side rails up x2. Call light and side table placed within reach. Will continue to monitor.
[2018-10-24] MEDS: Depakote 500mg tab ORAL SCH (21:02)
[2018-10-24] MEDS: Budesonide HHN 0.25mg/2ml ud HHN SCH (22:45)
[2018-10-25] VITALS: BP 108/74
[2018-10-25] MEDS: Solu-MEDROL 125mg Inj IVP SCH ×2 (00:49→06:14)
[2018-10-25] MEDS: Albuterol/Ipratropium 3ml neb HHN SCH ×6 (03:36→23:47)
[2018-10-25 04:00] VITALS: BP 114/69
[2018-10-25] MEDS ORDERED: Sucralfate 1gm tab ORAL SCH (06:30)
[2018-10-25 06:33] LABS: HEMATOCRIT 40.5 % (42.0-52.0); HEMOGLOBIN 14.1 G/DL (14.2-18.0); MEAN CORPUSCULAR VOLUME 91 FL (80-99); PLATELET COUNT 133 K/UL (150-450); RED BLOOD COUNT 4.43 M/UL (4.70-6.10); RED CELL DISTRIBUTION WIDTH 11.9 % (11.6-14.8); WHITE BLOOD COUNT 11.8 K/UL (4.8-10.8)
[2018-10-25 06:56] LABS: ANION GAP 13 mmol/L (5-15); BLOOD UREA NITROGEN 22 mg/dL (7-18); CALCIUM 8.8 MG/DL (8.5-10.1); CARBON DIOXIDE 23 MMOL/L (21-32); CHLORIDE 103 MMOL/L (98-107); CREATININE 1.1 MG/DL (0.55-1.30); POTASSIUM 3.7 MMOL/L (3.5-5.1); SODIUM 139 MMOL/L (136-145)
--- NOTE | 2018-10-25 07:35 | NUR ---
HAND-OFF: Report given to Lizzeth Gordon RN. Pt is resting in bed in stable condition. Endorsed plan of care.
--- NOTE | 2018-10-25 07:36 | NUR ---
NURSE NOTES: Received report from MILKA Kramer. The patient is resting on the bed without acute distress or shortness of breath. The patient's bed in the lowest position, call light in reach, and fall and aspiration precaution reinforced. IV site is intact and patent. Will continue plan of care.
[2018-10-25 08:00] VITALS: BP 131/75
[2018-10-25] MEDS: Theophylline ER 100mg ORAL SCH ×2 (08:53→20:38)
[2018-10-25] MEDS: Depakote 500mg tab ORAL SCH ×2 (08:53→20:38)
[2018-10-25] MEDS: Heparin 5000 units/ml inj SUBQ SCH ×2 (08:54→20:57)
[2018-10-25] MEDS ORDERED: Ascorbic Acid 500mg tab ORAL SCH (09:00)
[2018-10-25] MEDS ORDERED: Docusate 250mg cap ORAL SCH (09:00)
--- NOTE | 2018-10-25 10:22 | NUR ---
NURSE NOTES: Reported to Dr. Umaña regarding WBC trend of 5.9 to 11.8 in a day. Will carry out the order as soon as receives it. Will continue to monitor the patient.
[2018-10-25] MEDS: Budesonide HHN 0.25mg/2ml ud HHN SCH ×2 (10:27→23:21)
--- NOTE | 2018-10-25 11:10 | Pulmonology Progress Note ---
Assessment/Plan Problems: (1) COPD exacerbation (2) Acute bronchitis (3) Bipolar depression (4) Prostate cancer (5) PTSD (post-traumatic stress disorder) (6) Cerebrovascular accident (CVA) Assessment/Plan improving respiratory treatment titrate fio2 to sat of 92% check sputum iv abx taper iv steroids symptomatic treatment dvt prophylaxis Subjective ROS Limited/Unobtainable: No Constitutional: Reports: no symptoms Respiratory: Reports: no symptoms Allergies: Coded Allergies: CASHEW NUT (Verified Allergy, Unknown, 10/24/18) NO KNOWN ALLERGIES (Verified Allergy, Unknown, 03/07/18) [place] Seed (Verified Allergy, Unknown, 10/24/18) Objective Last 24 Hour Vital Signs Date Time Temp Pulse Resp B/P (MAP) Pulse Ox O2 Delivery O2 Flow Rate FiO2 10/25/18 10:28 79 20 98 Nasal Cannula 2.0 28 10/25/18 09:00 Nasal Cannula 2.0 10/25/18 08:01 77 18 96 Nasal Cannula 2.0 28 10/25/18 08:00 97.8 83 20 131/75 (93) 95 10/25/18 07:50 83 18 95 Nasal Cannula 2.0 28 10/25/18 04:00 97.7 75 20 114/69 (84) 98 10/25/18 04:00 76 10/25/18 03:46 79 18 98 Nasal Cannula 2.0 10/25/18 03:36 74 18 94 Room Air 21 10/25/18 00:00 97.6 71 18 108/74 (85) 97 10/25/18 00:00 98 10/24/18 23:09 84 18 98 Nasal Cannula 2.0 10/24/18 22:59 81 18 98 Room Air 21 10/24/18 22:55 81 20 98 Room Air 21 10/24/18 22:45 79 20 97 Room Air 21 10/24/18 21:00 Nasal Cannula 2.0 10/24/18 20:04 78 18 98 Nasal Cannula 2.0 10/24/18 20:00 80 10/24/18 20:00 97.5 78 20 110/72 (85) 97 10/24/18 19:54 81 18 97 Room Air 21 10/24/18 16:00 97.9 82 18 115/77 (90) 100 10/24/18 16:00 84 10/24/18 15:02 77 18 99 Nasal Cannula 2.0 10/24/18 14:52 73 20 97 Nasal Cannula 2.0 28 10/24/18 12:00 97.3 85 18 120/80 (93) 99 10/24/18 12:00 89 10/24/18 11:51 79 20 99 Nasal Cannula 2.0 10/24/18 11:41 77 20 97 Nasal Cannula 2.0 28 10/24/18 11:38 77 20 97 Nasal Cannula 2.0 28 Intake and Output 10/24/18 10/25/18 19:00 07:00 Intake Total 1080 ml 480 ml Output Total 1000 ml Balance 80 ml 480 ml Intake Oral 1080 ml 480 ml Output Urine Total 1000 ml # Voids 1 3 # Bowel Movements 1 1 General Appearance: WD/WN Respiratory/Chest: chest wall non-tender, lungs clear Cardiovascular: normal peripheral pulses, normal rate Abdomen: normal bowel sounds, soft, non tender, no mass Genitourinary: normal external genitalia Skin: no rash 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 Microbiology Date/Time Source Procedure Growth Status 10/24/18 15:00 Sputum Gram Stain - Final Resulted 10/24/18 15:00 Sputum Sputum Culture Pending Resulted Laboratory Tests 10/25/18 05:20: White Blood Count 11.8#H, Red Blood Count 4.43L, Hemoglobin 14.1L, Hematocrit 40.5L, Mean Corpuscular Volume 91, Mean Corpuscular Hemoglobin 31.9H, Mean Corpuscular Hemoglobin Concent 34.9, Red Cell Distribution Width 11.9, Platelet Count 133L, Mean Platelet Volume 5.9L, Neutrophils (%) (Auto) , Lymphocytes (%) (Auto) , Monocytes (%) (Auto) , Eosinophils (%) (Auto) , Basophils (%) (Auto) , Sodium Level 139, Potassium Level 3.7, Chloride Level 103, Carbon Dioxide Level 23, Anion Gap 13, Blood Urea Nitrogen 22H, Creatinine 1.1, Estimat Glomerular Filtration Rate > 60, Glucose Level 140H, Calcium Level 8.8 Current Medications Medications (Trade) Dose Ordered Sig/Jeri Route PRN Reason Start Time Stop Time Status Last Admin Dose Admin Acetaminophen/ Hydrocodone Bitart ([place] 5/325) 1 tab Q6H PRN ORAL Severe Pain (Pain Scale 7-10) 10/24/18 11:30 10/31/18 11:29 Albuterol/ Ipratropium (Albuterol/ Ipratropium) 3 ml Q4H PRN HHN Shortness of Breath 10/24/18 12:45 10/29/18 12:44 Albuterol/ Ipratropium (Albuterol/ Ipratropium) 3 ml Q4HRT HHN 10/24/18 11:00 10/29/18 10:59 10/25/18 07:50 Alendronate Sodium (Fosamax) 70 mg ONCE A WEEK ORAL 10/25/18 06:30 11/24/18 06:29 10/25/18 06:14 Ascorbic Acid (Vitamin C) 500 mg DAILY ORAL 10/25/18 09:00 11/24/18 08:59 10/25/18 08:54 Atorvastatin Calcium (Lipitor) 10 mg BEDTIME ORAL 10/24/18 21:00 11/23/18 20:59 10/24/18 21:02 Budesonide (Pulmicort) 0.5 mg Q12HRT HHN 10/24/18 22:00 11/23/18 21:59 10/25/18 10:27 Divalproex Sodium (Depakote) 500 mg EVERY 12 HOURS ORAL 10/24/18 21:00 11/23/18 20:59 10/25/18 08:53 Docusate Sodium (Colace) 250 mg DAILY ORAL 10/25/18 09:00 11/24/18 08:59 Escitalopram Oxalate (Lexapro) 10 mg DAILY ORAL 10/25/18 09:00 11/24/18 08:59 10/25/18 08:53 Ferrous Sulfate (Feosol) 325 mg DAILY ORAL 10/25/18 09:00 11/24/18 08:59 10/25/18 08:53 Folic Acid (Folate) 1 mg DAILY ORAL 10/25/18 09:00 11/24/18 08:59 10/25/18 08:53 Heparin Sodium (Porcine) (Heparin 5000 units/ml) 5,000 units EVERY 12 HOURS SUBQ 10/24/18 09:00 11/23/18 08:59 10/24/18 21:04 Ibuprofen (Motrin) 600 mg Q6H PRN ORAL Moderate Pain (Pain Scale 4-6) 10/24/18 11:30 11/23/18 11:29 Levofloxacin 100 ml @ 100 mls/hr Q24H IVPB 10/24/18 09:00 10/31/18 08:59 10/25/18 08:52 Lorazepam (Ativan) 0.5 mg Q6H PRN ORAL Agitation 10/24/18 11:30 10/31/18 11:29 Methylprednisolone Sodium Succinate (Solu-MEDROL) 60 mg EVERY 6 HOURS IVP 10/24/18 12:00 11/23/18 11:59 10/25/18 06:14 Multivitamins (Multivitamins) 1 tab DAILY ORAL 10/25/18 09:00 11/24/18 08:59 10/25/18 08:53 Pantoprazole (Protonix) 40 mg ACBREAKFAST ORAL 10/25/18 06:30 11/24/18 06:29 10/25/18 06:14 Primidone (Mysoline) 50 mg QHS ORAL 10/24/18 21:00 11/23/18 20:59 10/24/18 21:02 Promethazine HCl/ Codeine (Phenergan with Codeine) 5 ml Q4H PRN ORAL For Cough 10/24/18 08:15 11/23/18 08:14 Sucralfate (Carafate) 1 gm ACBREAKFAST ORAL 10/25/18 06:30 11/24/18 06:29 10/25/18 06:14 Theophylline (Esteban-Dur) 100 mg EVERY 12 HOURS ORAL 10/24/18 09:00 11/23/18 08:59 10/25/18 08:53 Michele Umaña MD Oct 25, 2018 11:10
[2018-10-25 12:00] VITALS: BP 103/75
--- NOTE | 2018-10-25 12:00 | NUR ---
NURSE NOTES: Reported to Dr. Umaña and Dr. Mckenzie regarding gram positive cocci in clusters in [address] Umaña also notified regarding WBC elevation. Per Dr. Umaña, the patient will go to med/surg.
--- NOTE | 2018-10-25 12:50 | NUR ---
NURSE NOTES: Notified Dr. Mendez regarding intermediate probability for pulmonary embolus. Will continue to monitor the patient closely. Addendum: 10/25/18 at 1257 by Ken Gordon RN Will carry out the order as soon as receives it. Addendum: 10/25/18 at 1338 by Ken Gordon RN Charted on wrong patient. please disregard this note.
--- NOTE | 2018-10-25 13:30 | NUR ---
NURSE NOTES: Per Javed De La Cruz per pharmacy dosage and ID consult for gram positive cocci in cluster in one bottle. Carried out the order. Will continue to monitor the patient.
--- NOTE | 2018-10-25 14:10 | Consultation ---
History of Present Illness General Date patient seen: Oct 25, 2018 Chief Complaint: Dyspnea/Respdistress Present Illness HPI 67 y/o M with hx of COPD/asthma, PTSD, ataxia, Prostate CA s/p chemo, Bipolar dz , seizure disorder, anxiety, prostate cancer, CVA 2010 presents to ED on 10/24 with worsening SOB and desaturation. CXR neg for infiltrate Denied f/c, CP, recent travel, rash. Allergies: Coded Allergies: CASHEW NUT (Verified Allergy, Unknown, 10/24/18) NO KNOWN ALLERGIES (Verified Allergy, Unknown, 03/07/18) [place] Seed (Verified Allergy, Unknown, 10/24/18) Medication History Scheduled Alendronate Sodium* (Fosamax*), 70 MG ORAL ONCE A WEEK, (Reported) Ascorbic Acid* (Ascorbic Acid*), 500 MG ORAL DAILY, (Reported) Atorvastatin Calcium* (Atorvastatin Calcium*), 10 MG ORAL BEDTIME, (Reported) Benztropine Mesylate* (Cogentin*), 2 MG PO BID, (Reported) Budesonide (Pulmicort), 0.5 MG IH Q12HR, (Reported) Calcium Carbonate (Calcium), 500 MG PO DAILY, (Reported) Clonazepam (Clonazepam), 2 MG PO BID, (Reported) Cyanocobalamin (Vitamin B-12) (Vitamin B-12), 100 MCG PO DAILY, (Reported) Divalproex Sodium (Divalproex Sodium), 500 MG ORAL EVERY 12 HOURS Docusate Sodium* (Docusate Sodium*), 250 MG ORAL DAILY, (Reported) Escitalopram Oxalate* (Lexapro*), 10 MG ORAL DAILY Ferrous Sulfate* (Ferrous Sulfate*), 325 MG ORAL DAILY, (Reported) Folic Acid* (Folic Acid*), 1 MG ORAL DAILY, (Reported) Ipratropium/Albuterol Sulfate (DuoNeb 0.5-3(2.5)mg/3ml), 3 ML HHN Q6HR, ( Reported) Lansoprazole* (Lansoprazole*), 30 MG ORAL DAILY, (Reported) Multivitamins* (Multivitamins*), 1 TAB ORAL DAILY, (Reported) Prednisone* (Prednisone*), 25 MG ORAL DAILY, (Reported) Primidone* (Mysoline*), 50 MG PO QHS, (Reported) Sucralfate* (Carafate*), 1 GM ORAL ACBREAKFAST, (Reported) Scheduled PRN Albuterol Sulfate* (Albuterol Sulfate Hhn*), 1.25 MG INH Q6H PRN for Shortness of Breath, (Reported) Hydrocodone Bit/Acetaminophen 5-325* ([place] 5-325*), 1 TAB ORAL Q6H PRN for For Pain Ibuprofen* (Motrin*), 600 MG ORAL Q6H PRN for For Pain, (Reported) Lorazepam* (Lorazepam*), 0.5 MG ORAL Q6HR PRN for Agitation, (Reported) Patient History Healthcare decision maker Resuscitation status Full Code Advanced Directive on File Patient History Narrative Pmhx: as above Shx: The patient is . The patient lives at [facility]. The patient admits to occasional cigar use. The patient denies alcohol use. Fhx: non contributory Physical Exam Physical Exam Narrative GENERAL: The patient is a well-developed and well-nourished male, in no apparent distress. HEENT: Eyes, pupils are equal responsive to light and accommodation. Extraocular movements are intact. NECK: Supple without lymphadenopathy. CHEST: Diffuse wheezes in bilateral lung baker. Otherwise, clear to auscultation without rales. CARDIOVASCULAR: Regular rhythm and rate. S1 and S2 are normal without murmurs, rubs, or gallops. ABDOMEN: Soft, nontender, and nondistended. Positive bowel sounds. No evidence of hepatosplenomegaly. Currently, no rebound or guarding noted. Last 24 Hour Vital Signs Date Time Temp Pulse Resp B/P (MAP) Pulse Ox O2 Delivery O2 Flow Rate FiO2 10/25/18 12:05 90 18 97 Room Air 21 10/25/18 12:00 97.5 82 20 103/75 (84) 96 10/25/18 12:00 76 10/25/18 11:56 88 18 95 Room Air 21 10/25/18 10:38 82 20 100 Nasal Cannula 2.0 28 10/25/18 10:28 79 20 98 Nasal Cannula 2.0 28 10/25/18 09:00 Nasal Cannula 2.0 10/25/18 08:01 77 18 96 Nasal Cannula 2.0 28 10/25/18 08:00 97.8 83 20 131/75 (93) 95 10/25/18 08:00 83 10/25/18 07:50 83 18 95 Nasal Cannula 2.0 28 10/25/18 04:00 97.7 75 20 114/69 (84) 98 10/25/18 04:00 76 10/25/18 03:46 79 18 98 Nasal Cannula 2.0 10/25/18 03:36 74 18 94 Room Air 21 10/25/18 00:00 97.6 71 18 108/74 (85) 97 10/25/18 00:00 98 10/24/18 23:09 84 18 98 Nasal Cannula 2.0 10/24/18 22:59 81 18 98 Room Air 21 10/24/18 22:55 81 20 98 Room Air 21 10/24/18 22:45 79 20 97 Room Air 21 10/24/18 21:00 Nasal Cannula 2.0 10/24/18 20:04 78 18 98 Nasal Cannula 2.0 10/24/18 20:00 80 10/24/18 20:00 97.5 78 20 110/72 (85) 97 10/24/18 19:54 81 18 97 Room Air 21 10/24/18 16:00 97.9 82 18 115/77 (90) 100 10/24/18 16:00 84 10/24/18 15:02 77 18 99 Nasal Cannula 2.0 10/24/18 14:52 73 20 97 Nasal Cannula 2.0 28 Intake and Output 10/24/18 10/25/18 19:00 07:00 Intake Total 1080 ml 480 ml Output Total 1000 ml Balance 80 ml 480 ml Intake Oral 1080 ml 480 ml Output Urine Total 1000 ml # Voids 1 3 # Bowel Movements 1 1 Laboratory Tests Test 10/25/18 05:20 White Blood Count 11.8 K/UL (4.8-10.8) #H Red Blood Count 4.43 M/UL (4.70-6.10) L Hemoglobin 14.1 G/DL (14.2-18.0) L Hematocrit 40.5 % (42.0-52.0) L Mean Corpuscular Volume 91 FL (80-99) Mean Corpuscular Hemoglobin 31.9 PG (27.0-31.0) H Mean Corpuscular Hemoglobin Concent 34.9 G/DL (32.0-36.0) Red Cell Distribution Width 11.9 % (11.6-14.8) Platelet Count 133 K/UL (150-450) L Mean Platelet Volume 5.9 FL (6.5-10.1) L Neutrophils (%) (Auto) % (45.0-75.0) Lymphocytes (%) (Auto) % (20.0-45.0) Monocytes (%) (Auto) % (1.0-10.0) Eosinophils (%) (Auto) % (0.0-3.0) Basophils (%) (Auto) % (0.0-2.0) Sodium Level 139 MMOL/L (136-145) Potassium Level 3.7 MMOL/L (3.5-5.1) Chloride Level 103 MMOL/L (98-107) Carbon Dioxide Level 23 MMOL/L (21-32) Anion Gap 13 mmol/L (5-15) Blood Urea Nitrogen 22 mg/dL (7-18) H Creatinine 1.1 MG/DL (0.55-1.30) Estimat Glomerular Filtration Rate > 60 mL/min (>60) Glucose Level 140 MG/DL (74-106) H Calcium Level 8.8 MG/DL (8.5-10.1) Microbiology Date/Time Source Procedure Growth Status 10/24/18 15:00 Sputum Gram Stain - Final Resulted 10/24/18 15:00 Sputum Sputum Culture Pending Resulted Height (Feet): 5 Height (Inches): 7.00 Weight (Pounds): 176 Medications Current Medications Medications (Trade) Dose Ordered Sig/Jeri Route PRN Reason Start Time Stop Time Status Last Admin Dose Admin Acetaminophen/ Hydrocodone Bitart ([place] 5/325) 1 tab Q6H PRN ORAL Severe Pain (Pain Scale 7-10) 10/24/18 11:30 10/31/18 11:29 Albuterol/ Ipratropium (Albuterol/ Ipratropium) 3 ml Q4H PRN HHN Shortness of Breath 10/24/18 12:45 10/29/18 12:44 Albuterol/ Ipratropium (Albuterol/ Ipratropium) 3 ml Q4HRT HHN 10/24/18 11:00 10/29/18 10:59 10/25/18 11:56 Alendronate Sodium (Fosamax) 70 mg ONCE A WEEK ORAL 10/25/18 06:30 11/24/18 06:29 10/25/18 06:14 Ascorbic Acid (Vitamin C) 500 mg DAILY ORAL 10/25/18 09:00 11/24/18 08:59 10/25/18 08:54 Atorvastatin Calcium (Lipitor) 10 mg BEDTIME ORAL 10/24/18 21:00 11/23/18 20:59 10/24/18 21:02 Budesonide (Pulmicort) 0.5 mg Q12HRT HHN 10/24/18 22:00 11/23/18 21:59 10/25/18 10:27 Divalproex Sodium (Depakote) 500 mg EVERY 12 HOURS ORAL 10/24/18 21:00 11/23/18 20:59 10/25/18 08:53 Docusate Sodium (Colace) 250 mg DAILY ORAL 10/25/18 09:00 11/24/18 08:59 Escitalopram Oxalate (Lexapro) 10 mg DAILY ORAL 10/25/18 09:00 11/24/18 08:59 10/25/18 08:53 Ferrous Sulfate (Feosol) 325 mg DAILY ORAL 10/25/18 09:00 11/24/18 08:59 10/25/18 08:53 Folic Acid (Folate) 1 mg DAILY ORAL 10/25/18 09:00 11/24/18 08:59 10/25/18 08:53 Heparin Sodium (Porcine) (Heparin 5000 units/ml) 5,000 units EVERY 12 HOURS SUBQ 10/24/18 09:00 11/23/18 08:59 10/24/18 21:04 Ibuprofen (Motrin) 600 mg Q6H PRN ORAL Moderate Pain (Pain Scale 4-6) 10/24/18 11:30 11/23/18 11:29 Levofloxacin 100 ml @ 100 mls/hr Q24H IVPB 10/24/18 09:00 10/31/18 08:59 10/25/18 08:52 Lorazepam (Ativan) 0.5 mg Q6H PRN ORAL Agitation 10/24/18 11:30 10/31/18 11:29 Methylprednisolone Sodium Succinate (Solu-MEDROL) 60 mg EVERY 12 HOURS IVP 10/25/18 21:00 11/23/18 11:59 Multivitamins (Multivitamins) 1 tab DAILY ORAL 10/25/18 09:00 11/24/18 08:59 10/25/18 08:53 Pantoprazole (Protonix) 40 mg ACBREAKFAST ORAL 10/25/18 06:30 11/24/18 06:29 10/25/18 06:14 Primidone (Mysoline) 50 mg QHS ORAL 10/24/18 21:00 11/23/18 20:59 10/24/18 21:02 Promethazine HCl/ Codeine (Phenergan with Codeine) 5 ml Q4H PRN ORAL For Cough 10/24/18 08:15 11/23/18 08:14 Sucralfate (Carafate) 1 gm ACBREAKFAST ORAL 10/25/18 06:30 11/24/18 06:29 10/25/18 06:14 Theophylline (Esteban-Dur) 100 mg EVERY 12 HOURS ORAL 10/24/18 09:00 11/23/18 08:59 10/25/18 08:53 Vancomycin HCl (Vanco rx to dose) 1 ea DAILY PRN MISC Per rx protocol 10/25/18 13:45 11/24/18 13:44 Vancomycin HCl 1 gm/Dextrose 275 ml @ 183.708 mls/hr Q12H IVPB 10/26/18 02:00 10/31/18 01:59 Vancomycin HCl/ Dextrose 275 ml @ 137.5 mls/ hr ONCE ONCE IVPB 10/25/18 14:30 10/25/18 16:29 Assessment/Plan Assessment/Plan: Abx: Levaquin 10/24- IV Vancomycin 10/25- Assessment: COPD exacerbation -CXR: no acute disease -sp cx Afebrile Leukocytosis (on steroids) GPC bacteremia- real vs contaminant -10/24 Bcx 1.2 GPC clusters COPD/asthma PTSD ataxia Prostate CA s/p chemo Bipolar dz seizure disorder anxiety prostate cancer CVA 2010 Plan: -Cont empiric IV Vancomycin #1 pending Bcx -Continue Levaquin #2/5 for COPD exacerbation -f/u cx -Monitor CBC/CMP, temperatures Thank you for this consultation. Will continue to follow along with you. Discussed with Rupali Templeton M.D. Oct 25, 2018 14:10
[2018-10-25] MEDS ORDERED: Vancomycin 1.5gm Premix IVPB ONE (14:30)
--- NOTE | 2018-10-25 15:00 | NUR ---
CASE MANAGEMENT:REVIEW 10/25/18 SI: COPD EXACERBATION ACUTE BRONCHITIS 97.5 82 20 103/75 96% ON RA WBC+11.8 PLT-133 IS: IV VANCOMYCIN Q12 IV LEVAQUIN Q24 IV SOLUMEDROL 60MG Q12 PULMICORT HHN Q12 DUONEB HHN Q4HRS RTC THEOPHYLLINE HEPARIN SQ Q12 : TELEMETRY STATUS DCP: FROM HOME PLAN: BLOOD CULTURE
[2018-10-25 16:00] VITALS: BP 101/66
[2018-10-25] MEDS ORDERED: PREDNISONE10 MG ORAL (18:01)
[2018-10-25] MEDS ORDERED: VENTOLIN HFA18 GM INH (18:01)
[2018-10-25] MEDS ORDERED: ACETAMINOPHEN325 M1 ORAL (18:01)
[2018-10-25] MEDS ORDERED: FLOVENT2 PUFF1 INH (18:01)
[2018-10-25] MEDS ORDERED: TRAMADOL HCL50 MG ORAL (18:01)
--- NOTE | 2018-10-25 19:06 | Internal Med Progress Note ---
Subjective Date of Service: Oct 25, 2018 Physician Name Ryan Mckenzie Attending Physician Christopher Medina MD Current Medications Medications (Trade) Dose Ordered Sig/Jeri Route PRN Reason Start Time Stop Time Status Last Admin Dose Admin Acetaminophen/ Hydrocodone Bitart ([place] 5/325) 1 tab Q6H PRN ORAL Severe Pain (Pain Scale 7-10) 10/24/18 11:30 10/31/18 11:29 Albuterol/ Ipratropium (Albuterol/ Ipratropium) 3 ml Q4H PRN HHN Shortness of Breath 10/24/18 12:45 10/29/18 12:44 Albuterol/ Ipratropium (Albuterol/ Ipratropium) 3 ml Q4HRT N 10/24/18 11:00 10/29/18 10:59 10/25/18 15:26 Alendronate Sodium (Fosamax) 70 mg ONCE A WEEK ORAL 10/25/18 06:30 11/24/18 06:29 10/25/18 06:14 Ascorbic Acid (Vitamin C) 500 mg DAILY ORAL 10/25/18 09:00 11/24/18 08:59 10/25/18 08:54 Atorvastatin Calcium (Lipitor) 10 mg BEDTIME ORAL 10/24/18 21:00 11/23/18 20:59 10/24/18 21:02 Budesonide (Pulmicort) 0.5 mg Q12HRT N 10/24/18 22:00 11/23/18 21:59 10/25/18 10:27 Divalproex Sodium (Depakote) 500 mg EVERY 12 HOURS ORAL 10/24/18 21:00 11/23/18 20:59 10/25/18 08:53 Docusate Sodium (Colace) 250 mg DAILY ORAL 10/25/18 09:00 11/24/18 08:59 Escitalopram Oxalate (Lexapro) 10 mg DAILY ORAL 10/25/18 09:00 11/24/18 08:59 10/25/18 08:53 Ferrous Sulfate (Feosol) 325 mg DAILY ORAL 10/25/18 09:00 11/24/18 08:59 10/25/18 08:53 Folic Acid (Folate) 1 mg DAILY ORAL 10/25/18 09:00 11/24/18 08:59 10/25/18 08:53 Heparin Sodium (Porcine) (Heparin 5000 units/ml) 5,000 units EVERY 12 HOURS SUBQ 10/24/18 09:00 11/23/18 08:59 10/24/18 21:04 Ibuprofen (Motrin) 600 mg Q6H PRN ORAL Moderate Pain (Pain Scale 4-6) 10/24/18 11:30 11/23/18 11:29 Levofloxacin 100 ml @ 100 mls/hr Q24H IVPB 10/24/18 09:00 10/31/18 08:59 10/25/18 08:52 Lorazepam (Ativan) 0.5 mg Q6H PRN ORAL Agitation 10/24/18 11:30 10/31/18 11:29 Methylprednisolone Sodium Succinate (Solu-MEDROL) 60 mg EVERY 12 HOURS IVP 10/25/18 21:00 11/23/18 11:59 Multivitamins (Multivitamins) 1 tab DAILY ORAL 10/25/18 09:00 11/24/18 08:59 10/25/18 08:53 Pantoprazole (Protonix) 40 mg ACBREAKFAST ORAL 10/25/18 06:30 11/24/18 06:29 10/25/18 06:14 Primidone (Mysoline) 50 mg QHS ORAL 10/24/18 21:00 11/23/18 20:59 10/24/18 21:02 Promethazine HCl/ Codeine (Phenergan with Codeine) 5 ml Q4H PRN ORAL For Cough 10/24/18 08:15 11/23/18 08:14 Sucralfate (Carafate) 1 gm ACBREAKFAST ORAL 10/25/18 06:30 11/24/18 06:29 10/25/18 06:14 Theophylline (Esteban-Dur) 100 mg EVERY 12 HOURS ORAL 10/24/18 09:00 11/23/18 08:59 10/25/18 08:53 Vancomycin HCl (Vanco rx to dose) 1 ea DAILY PRN MISC Per rx protocol 10/25/18 13:45 11/24/18 13:44 Vancomycin HCl 1 gm/Dextrose 275 ml @ 183.708 mls/hr Q12H IVPB 10/26/18 02:00 10/31/18 01:59 Allergies: Coded Allergies: CASHEW NUT (Verified Allergy, Unknown, 10/24/18) NO KNOWN ALLERGIES (Verified Allergy, Unknown, 03/07/18) [place] Seed (Verified Allergy, Unknown, 10/24/18) ROS Limited/Unobtainable: No Constitutional: Reports: no symptoms HEENT: Reports: no symptoms Cardiovascular: Reports: no symptoms Respiratory: Reports: shortness of breath Gastrointestinal/Abdominal: Reports: no symptoms Genitourinary: Reports: no symptoms Neurologic/Psychiatric: Reports: no symptoms Subjective 67 YO M admitted with shortness of breath. Now exacerbation of COPD. Cover for Int andrzej-DR Medina Objective Last Vital Signs Date Time Temp Pulse Resp B/P (MAP) Pulse Ox O2 Delivery O2 Flow Rate FiO2 10/25/18 16:00 76 10/25/18 16:00 97.7 20 101/66 (78) 95 10/25/18 15:36 Room Air 21 10/25/18 10:38 2.0 Laboratory Tests Test 10/25/18 05:20 White Blood Count 11.8 K/UL (4.8-10.8) #H Red Blood Count 4.43 M/UL (4.70-6.10) L Hemoglobin 14.1 G/DL (14.2-18.0) L Hematocrit 40.5 % (42.0-52.0) L Mean Corpuscular Volume 91 FL (80-99) Mean Corpuscular Hemoglobin 31.9 PG (27.0-31.0) H Mean Corpuscular Hemoglobin Concent 34.9 G/DL (32.0-36.0) Red Cell Distribution Width 11.9 % (11.6-14.8) Platelet Count 133 K/UL (150-450) L Mean Platelet Volume 5.9 FL (6.5-10.1) L Neutrophils (%) (Auto) % (45.0-75.0) Lymphocytes (%) (Auto) % (20.0-45.0) Monocytes (%) (Auto) % (1.0-10.0) Eosinophils (%) (Auto) % (0.0-3.0) Basophils (%) (Auto) % (0.0-2.0) Sodium Level 139 MMOL/L (136-145) Potassium Level 3.7 MMOL/L (3.5-5.1) Chloride Level 103 MMOL/L (98-107) Carbon Dioxide Level 23 MMOL/L (21-32) Anion Gap 13 mmol/L (5-15) Blood Urea Nitrogen 22 mg/dL (7-18) H Creatinine 1.1 MG/DL (0.55-1.30) Estimat Glomerular Filtration Rate > 60 mL/min (>60) Glucose Level 140 MG/DL (74-106) H Calcium Level 8.8 MG/DL (8.5-10.1) Microbiology Date/Time Source Procedure Growth Status 10/24/18 04:00 Blood Blood Culture - Preliminary Resulted 10/24/18 15:00 Sputum Gram Stain - Final Resulted 10/24/18 15:00 Sputum Sputum Culture Pending Resulted Intake and Output 10/24/18 10/25/18 19:00 07:00 Intake Total 1080 ml 480 ml Output Total 1000 ml Balance 80 ml 480 ml Intake Oral 1080 ml 480 ml Output Urine Total 1000 ml # Voids 1 3 # Bowel Movements 1 1 Objective PHYSICAL EXAMINATION: GENERAL: The patient is a well-developed and well-nourished male, in no apparent distress. HEENT: Eyes, pupils are equal responsive to light and accommodation. Extraocular movements are intact. NECK: Supple without lymphadenopathy. CHEST: Diffuse wheezes in bilateral lung baker. Otherwise, clear to auscultation without rales. CARDIOVASCULAR: Regular rhythm and rate. S1 and S2 are normal without murmurs, rubs, or gallops. ABDOMEN: Soft, nontender, and nondistended. Positive bowel sounds. No evidence of hepatosplenomegaly. Currently, no rebound or guarding noted. RECTAL/GENITAL: Refused. NEUROLOGIC: Cranial nerves II through XII are grossly intact without focal deficits. Motor strength is 5/5 bilaterally. Deep tendon reflexes are 2+ plantar. Assessment/Plan Assessment/Plan ASSESSMENT: This is a 67-year-old male. 1. Respiratory distress. 2. Chronic obstructive pulmonary disease, acute exacerbation. 3. Posttraumatic stress disorder. 4. Prostate cancer. 5. History of ataxia. 6. Purulent bronchitis TREATMENT: 1. Chronic obstructive pulmonary disease/respiratory distress. A Pulmonary consultation has been obtained with Dr. Michele Umaña. The patient has been started on intravenous Solu-Medrol. The patient has also been started on Levaquin. We will follow recommendation of Pulmonary. 2. Posttraumatic stress disorder. 3. Ataxia. 4. History of prostate cancer, currently on chemotherapy. 5. Bipolar depression. Ryan Mckenzie MD Oct 25, 2018 19:06
--- NOTE | 2018-10-25 19:24 | NUR ---
HAND-OFF: Report given to MILKA Duron. The patient is resting on the bed without acute distress or shortness of breath. The patient's bed in the lowest position, call light in reach, and fall precaution reinforced. Endoresed plan of care.
--- NOTE | 2018-10-25 19:25 | NUR ---
NURSE NOTES: Received report from Lizzeth Gordon RN. Patient in bed AAO X4 with no complaints of acute pain or discomfort noted at this time. Kept clean, dry, and comfortable in bed; IV line intact and patent SL and placed on continuous cardiac monitoring per protocol. On 2L NC, saturating at 95-96% with no S/S of SOB or resp distress noted. Patient ambulates with minimal assistance and offered urinal at bedisde PRN. Safety and seizure precaution in place; siderails X2 up and padded, call light within reach, bed in lowest position, brakes and alarm on at all times, and suction equipment at bedside with no clutter in bed or surrounding area. Needs and wants anticipated and attended. Will continue plan of care and monitor for any changes noted. Transfer order to [facility] active; awaiting availability from [facility]. Will continue to monitor
[2018-10-25 20:00] VITALS: BP 146/75
[2018-10-25] MEDS ORDERED: Solu-MEDROL 125mg Inj IVP SCH (21:00)
[2018-10-26] VITALS: BP 101/56
[2018-10-26] MEDS ORDERED: Vancomycin 1gm/D5W 275ml IVPB SCH ×2 (02:00)
--- NOTE | 2018-10-26 02:00 | NUR ---
NURSE NOTES: Patient refuses IV reinsertion. Explained risks and benefits but still refuses. Held ABX until new IV established. Will continue to monitor
--- NOTE | 2018-10-26 02:49 | NUR ---
HAND-OFF: Report given to Foreign Horvath RN. Patient in stable condition, endorsed plan of care.
--- NOTE | 2018-10-26 02:50 | NUR ---
NURSE NOTES: received pt from Oliverio Rosenthal, pt in bed. no acute distress noted. will continue to monitor for any change in condition.
[2018-10-26] MEDS: Albuterol/Ipratropium 3ml neb HHN SCH ×6 (03:44→22:41)
--- NOTE | 2018-10-26 03:52 | NUR ---
HAND-OFF: Report given to Ariadna Milligan. pt in bed. no acute distress, no change in condition.
[2018-10-26 04:00] VITALS: BP 129/82
--- NOTE | 2018-10-26 04:15 | NUR ---
NURSE NOTES: Pt report received from Leandra JARQUIN TELE. pt is alert and oriented times 4, able to follow commands. pt is on 2L NC and is saturating at 100% no signs/ symptoms of acute resp distress. pt has clinical research monitor on is is displaying SN, no signs/ symptoms of acute cardiac distress noted. all safety precautions active, bed locked and low, call light within reach, bed rails up times 3. will continue plan of care.
--- NOTE | 2018-10-26 05:30 | NUR ---
HAND-OFF: Report given to Ken in 4th floor. pt brought up with all belongings. pt in stable condition.
--- NOTE | 2018-10-26 05:45 | NUR ---
NURSE NOTES: Got report from Nieves Milligan. Pt transferred from Tele 2E. Pt in stable condition. Denies any pain. No s/s of distress or discomfort noted. Pt resting in bed comfortably. Bed in low and locked position, call light within reach, bedside table within reach. Continue to monitor.
[2018-10-26] MEDS: Sucralfate 1gm tab ORAL SCH (06:35)
--- NOTE | 2018-10-26 07:11 | NUR ---
HAND-OFF: Report given to Oc JARQUNI. Endorsed plan of care.
[2018-10-26 07:25] LABS: HEMATOCRIT 38.6 % (42.0-52.0); HEMOGLOBIN 13.6 G/DL (14.2-18.0); MEAN CORPUSCULAR VOLUME 90 FL (80-99); PLATELET COUNT 129 K/UL (150-450); RED BLOOD COUNT 4.29 M/UL (4.70-6.10); RED CELL DISTRIBUTION WIDTH 11.7 % (11.6-14.8); WHITE BLOOD COUNT 10.8 K/UL (4.8-10.8)
[2018-10-26 08:00] VITALS: BP 111/67
[2018-10-26 08:02] LABS: ANION GAP 14 mmol/L (5-15); BLOOD UREA NITROGEN 27 mg/dL (7-18); CALCIUM 8.7 MG/DL (8.5-10.1); CARBON DIOXIDE 21 MMOL/L (21-32); CHLORIDE 106 MMOL/L (98-107); CREATININE 1.2 MG/DL (0.55-1.30); SODIUM 141 MMOL/L (136-145)
[2018-10-26] MEDS ORDERED: Promethazine/Codeine 5ml UD ORAL PRN (08:15)
[2018-10-26] MEDS: Solu-MEDROL 125mg Inj IVP SCH ×2 (08:34→20:42)
[2018-10-26] MEDS: Theophylline ER 100mg ORAL SCH ×2 (08:34→20:41)
[2018-10-26] MEDS: Depakote 500mg tab ORAL SCH ×2 (08:35→20:41)
[2018-10-26] MEDS: Ascorbic Acid 500mg tab ORAL SCH (08:35)
[2018-10-26] MEDS: Docusate 250mg cap ORAL SCH (08:36)
[2018-10-26] MEDS ORDERED: Albuterol/Ipratropium 3ml neb HHN PRN (08:45)
[2018-10-26] MEDS: Heparin 5000 units/ml inj SUBQ SCH ×2 (08:46→20:42)
[2018-10-26] MEDS: Budesonide HHN 0.25mg/2ml ud HHN SCH ×2 (09:29→22:17)
--- NOTE | 2018-10-26 10:07 | NUR ---
NURSE NOTES: pt in bed with no sob nor in any form of distress noted. all due meds given as ordered. denies any pain at this time. bed in lowest position. iv intact. call light within reach at all time. will continue to monitor
[2018-10-26] MEDS ORDERED: LORazepam 0.5mg tab ORAL PRN (11:30)
[2018-10-26] MEDS ORDERED: HYDROcodone/Acetamin 5/325 tab ORAL PRN (11:30)
[2018-10-26 12:00] VITALS: BP 123/80
[2018-10-26] MEDS: Vancomycin 1 GM in D5W 275 ML IVPB SCH (13:14)
--- NOTE | 2018-10-26 13:41 | Infectious Diseases Prog Note ---
Assessment/Plan Assessment/Plan Abx: Levaquin 10/24- IV Vancomycin 10/25- Assessment: COPD exacerbation -CXR: no acute disease -sp cx normal cindy Afebrile Leukocytosis (on steroids), resolved GPC bacteremia- likely contaminant -10/24 Bcx / CONSl 10/25 Bcx p COPD/asthma PTSD ataxia Prostate CA s/p chemo Bipolar dz seizure disorder anxiety prostate cancer CVA 2010 Plan: -Cont empiric IV Vancomycin #2 pending repeat Bcx -if neg in 24hrs, will d/c -Continue Levaquin #3/5 for COPD exacerbation -f/u cx -Monitor CBC/CMP, temperatures Thank you for this consultation. Will continue to follow along with you. Discussed with RN Subjective Allergies: Coded Allergies: CASHEW NUT (Verified Allergy, Unknown, 10/24/18) NO KNOWN ALLERGIES (Verified Allergy, Unknown, 03/07/18) [place] Seed (Verified Allergy, Unknown, 10/24/18) Subjective afebrile leukocytosis resolved repeat Bcx p Objective Vital Signs Last 24 Hour Vital Signs Date Time Temp Pulse Resp B/P (MAP) Pulse Ox O2 Delivery O2 Flow Rate FiO2 10/26/18 12:00 98.3 73 19 123/80 (94) 95 10/26/18 11:12 91 20 99 Room Air 21 10/26/18 11:05 89 20 94 Room Air 21 10/26/18 09:55 Nasal Cannula 2.0 10/26/18 09:30 Nasal Cannula 2.0 28 10/26/18 09:30 Nasal Cannula 2.0 28 10/26/18 08:00 97.3 76 19 111/67 (82) 98 10/26/18 07:50 97 20 99 Room Air 21 10/26/18 07:46 92 20 96 Room Air 21 10/26/18 04:00 98.0 110 19 129/82 (98) 98 10/26/18 04:00 73 10/26/18 03:50 70 18 98 Room Air 21 10/26/18 03:40 77 20 94 Room Air 21 10/26/18 00:00 98.2 88 19 101/56 (71) 94 10/26/18 00:00 81 10/25/18 23:50 84 18 98 Room Air 21 10/25/18 23:47 84 18 98 Room Air 21 10/25/18 23:31 84 18 99 Nasal Cannula 2.0 28 10/25/18 23:21 82 20 94 Room Air 21 10/25/18 21:00 Nasal Cannula 2.0 10/25/18 20:01 92 18 98 Room Air 21 10/25/18 20:00 77 10/25/18 20:00 97.1 77 19 146/75 (98) 97 10/25/18 19:47 89 20 96 Room Air 21 10/25/18 16:00 76 10/25/18 16:00 97.7 78 20 101/66 (78) 95 10/25/18 15:36 84 18 95 Room Air 21 10/25/18 15:26 82 18 95 Room Air 21 Height (Feet): 5 Height (Inches): 7.00 Weight (Pounds): 176 Objective GENERAL: The patient is a well-developed and well-nourished male, in no apparent distress. HEENT: Eyes, pupils are equal responsive to light and accommodation. Extraocular movements are intact. NECK: Supple without lymphadenopathy. CHEST: Diffuse wheezes in bilateral lung baker. Otherwise, clear to auscultation without rales. CARDIOVASCULAR: Regular rhythm and rate. S1 and S2 are normal without murmurs, rubs, or gallops. ABDOMEN: Soft, nontender, and nondistended. Positive bowel sounds. No evidence of hepatosplenomegaly. Currently, no rebound or guarding noted. Microbiology Date/Time Source Procedure Growth Status 10/24/18 04:00 Blood Blood Culture - Preliminary Staphylococcus Sp Coag Neg Resulted 10/24/18 03:45 Blood Blood Culture - Preliminary NO GROWTH AFTER 24 HOURS Resulted 10/24/18 15:00 Sputum Gram Stain - Final Complete 10/24/18 15:00 Sputum Sputum Culture - Final NORMAL UPPER RESPIRATORY CINDY PRESENT Complete 10/24/18 14:10 Nasal Nares MRSA Culture - Final NO METHICILLIN RESISTANT STAPH AUREUS... Complete 10/24/18 14:10 Rectum VRE Culture - Final NO VANCOMYCIN RESISTANT ENTEROCOCCUS ... Complete 10/24/18 14:10 Rectum - Final NO CARBAPENEM-RESISTANT ENTEROBACTERI... Complete Laboratory Tests Test 10/26/18 07:00 White Blood Count 10.8 K/UL (4.8-10.8) Red Blood Count 4.29 M/UL (4.70-6.10) L Hemoglobin 13.6 G/DL (14.2-18.0) L Hematocrit 38.6 % (42.0-52.0) L Mean Corpuscular Volume 90 FL (80-99) Mean Corpuscular Hemoglobin 31.7 PG (27.0-31.0) H Mean Corpuscular Hemoglobin Concent 35.2 G/DL (32.0-36.0) Red Cell Distribution Width 11.7 % (11.6-14.8) Platelet Count 129 K/UL (150-450) L Mean Platelet Volume 6.1 FL (6.5-10.1) L Neutrophils (%) (Auto) % (45.0-75.0) Lymphocytes (%) (Auto) % (20.0-45.0) Monocytes (%) (Auto) % (1.0-10.0) Eosinophils (%) (Auto) % (0.0-3.0) Basophils (%) (Auto) % (0.0-2.0) Differential Total Cells Counted 100 Neutrophils % (Manual) 88 % (45-75) H Lymphocytes % (Manual) 5 % (20-45) L Monocytes % (Manual) 7 % (1-10) Eosinophils % (Manual) 0 % (0-3) Basophils % (Manual) 0 % (0-2) Band Neutrophils 0 % (0-8) Platelet Estimate Decreased L Platelet Morphology Normal Sodium Level 141 MMOL/L (136-145) Potassium Level 4.0 MMOL/L (3.5-5.1) Chloride Level 106 MMOL/L (98-107) Carbon Dioxide Level 21 MMOL/L (21-32) Anion Gap 14 mmol/L (5-15) Blood Urea Nitrogen 27 mg/dL (7-18) H Creatinine 1.2 MG/DL (0.55-1.30) Estimat Glomerular Filtration Rate > 60 mL/min (>60) Glucose Level 127 MG/DL (74-106) H Calcium Level 8.7 MG/DL (8.5-10.1) Current Medications Medications (Trade) Dose Ordered Sig/Jeri Route PRN Reason Start Time Stop Time Status Last Admin Dose Admin Acetaminophen/ Hydrocodone Bitart ([place] 5/325) 1 tab Q6H PRN ORAL Severe Pain (Pain Scale 7-10) 10/26/18 11:30 10/31/18 11:29 Albuterol/ Ipratropium (Albuterol/ Ipratropium) 3 ml Q4H PRN HHN Shortness of Breath 10/26/18 08:45 10/29/18 12:44 Albuterol/ Ipratropium (Albuterol/ Ipratropium) 3 ml Q4HRT HHN 10/26/18 07:00 10/29/18 10:59 10/26/18 11:05 Alendronate Sodium (Fosamax) 70 mg ONCE A WEEK ORAL 11/01/18 06:30 11/24/18 06:29 Ascorbic Acid (Vitamin C) 500 mg DAILY ORAL 10/26/18 09:00 11/24/18 08:59 10/26/18 08:35 Atorvastatin Calcium (Lipitor) 10 mg BEDTIME ORAL 10/26/18 21:00 11/23/18 20:59 Budesonide (Pulmicort) 0.5 mg Q12HRT HHN 10/26/18 10:00 11/23/18 21:59 Divalproex Sodium (Depakote) 500 mg EVERY 12 HOURS ORAL 10/26/18 09:00 11/23/18 20:59 10/26/18 08:35 Docusate Sodium (Colace) 250 mg DAILY ORAL 10/26/18 09:00 11/24/18 08:59 Escitalopram Oxalate (Lexapro) 10 mg DAILY ORAL 10/26/18 09:00 11/24/18 08:59 10/26/18 08:35 Ferrous Sulfate (Feosol) 325 mg DAILY ORAL 10/26/18 09:00 11/24/18 08:59 10/26/18 08:34 Folic Acid (Folate) 1 mg DAILY ORAL 10/26/18 09:00 11/24/18 08:59 10/26/18 08:35 Heparin Sodium (Porcine) (Heparin 5000 units/ml) 5,000 units EVERY 12 HOURS SUBQ 10/26/18 09:00 11/23/18 08:59 10/26/18 08:46 Ibuprofen (Motrin) 600 mg Q6H PRN ORAL Moderate Pain (Pain Scale 4-6) 10/26/18 11:30 11/23/18 11:29 Levofloxacin 100 ml @ 100 mls/hr Q24H IVPB 10/26/18 09:00 10/31/18 08:59 10/26/18 08:36 Lorazepam (Ativan) 0.5 mg Q6H PRN ORAL Agitation 10/26/18 11:30 10/31/18 11:29 Methylprednisolone Sodium Succinate (Solu-MEDROL) 60 mg EVERY 12 HOURS IVP 10/26/18 09:00 11/23/18 11:59 10/26/18 08:34 Multivitamins (Multivitamins) 1 tab DAILY ORAL 10/26/18 09:00 11/24/18 08:59 10/26/18 08:35 Pantoprazole (Protonix) 40 mg ACBREAKFAST ORAL 10/26/18 06:30 11/24/18 06:29 10/26/18 06:35 Primidone (Mysoline) 50 mg QHS ORAL 10/26/18 21:00 11/23/18 20:59 Promethazine HCl/ Codeine (Phenergan with Codeine) 5 ml Q4H PRN ORAL For Cough 10/26/18 08:15 11/23/18 08:14 Sucralfate (Carafate) 1 gm ACBREAKFAST ORAL 10/26/18 06:30 11/24/18 06:29 10/26/18 06:35 Theophylline ([place]eban-Dur) 100 mg EVERY 12 HOURS ORAL 10/26/18 09:00 11/23/18 08:59 10/26/18 08:34 Vancomycin HCl (Vanco rx to dose) 1 ea DAILY PRN MISC Per rx protocol 10/26/18 09:00 11/24/18 13:44 Vancomycin HCl 1 gm/Dextrose 275 ml @ 183.708 mls/hr Q12H IVPB 10/26/18 14:00 10/31/18 01:59 10/26/18 13:14 Rupali Dixon M.D. Oct 26, 2018 13:41
--- NOTE | 2018-10-26 13:42 | Pulmonology Progress Note ---
Assessment/Plan Problems: (1) COPD exacerbation (2) Acute bronchitis (3) Bipolar depression (4) Prostate cancer (5) PTSD (post-traumatic stress disorder) (6) Cerebrovascular accident (CVA) Assessment/Plan improving respiratory treatment titrate fio2 to sat of 92% check sputum iv abx taper iv steroids, keep solumedrol at q12 for one more day symptomatic treatment dvt prophylaxis Subjective ROS Limited/Unobtainable: No Constitutional: Reports: no symptoms HEENT: Repors: no symptoms Respiratory: Reports: no symptoms Allergies: Coded Allergies: CASHEW NUT (Verified Allergy, Unknown, 10/24/18) NO KNOWN ALLERGIES (Verified Allergy, Unknown, 03/07/18) [place] Seed (Verified Allergy, Unknown, 10/24/18) Objective Last 24 Hour Vital Signs Date Time Temp Pulse Resp B/P (MAP) Pulse Ox O2 Delivery O2 Flow Rate FiO2 10/26/18 12:00 98.3 73 19 123/80 (94) 95 10/26/18 11:12 91 20 99 Room Air 10/26/18 11:05 89 20 94 Room Air 10/26/18 09:55 Nasal Cannula 2.0 10/26/18 09:30 Nasal Cannula 2.0 28 10/26/18 09:30 Nasal Cannula 2.0 28 10/26/18 08:00 97.3 76 19 111/67 (82) 98 10/26/18 07:50 97 20 99 Room Air 10/26/18 07:46 92 20 96 Room Air 10/26/18 04:00 98.0 110 19 129/82 (98) 98 10/26/18 04:00 73 10/26/18 03:50 70 18 98 Room Air 21 10/26/18 03:40 77 20 94 Room Air 21 10/26/18 00:00 98.2 88 19 101/56 (71) 94 10/26/18 00:00 81 10/25/18 23:50 84 18 98 Room Air 21 10/25/18 23:47 84 18 98 Room Air 10/25/18 23:31 84 18 99 Nasal Cannula 2.0 28 10/25/18 23:21 82 20 94 Room Air 10/25/18 21:00 Nasal Cannula 2.0 10/25/18 20:01 92 18 98 Room Air 21 10/25/18 20:00 77 10/25/18 20:00 97.1 77 19 146/75 (98) 97 10/25/18 19:47 89 20 96 Room Air 21 10/25/18 16:00 76 10/25/18 16:00 97.7 78 20 101/66 (78) 95 10/25/18 15:36 84 18 95 Room Air 21 10/25/18 15:26 82 18 95 Room Air 21 Intake and Output 10/25/18 10/26/18 19:00 07:00 Intake Total 500 ml Balance 500 ml Intake Oral 500 ml # Voids 4 1 General Appearance: WD/WN HEENT: normocephalic, atraumatic, anicteric Respiratory/Chest: chest wall non-tender, lungs clear Cardiovascular: normal peripheral pulses, normal rate Abdomen: normal bowel sounds, soft, non tender Genitourinary: normal external genitalia Skin: no rash Neurologic/Psychiatric: head of precision targeting II-XII grossly normal Microbiology Date/Time Source Procedure Growth Status 10/24/18 04:00 Blood Blood Culture - Preliminary Staphylococcus Sp Coag Neg Resulted 10/24/18 03:45 Blood Blood Culture - Preliminary NO GROWTH AFTER 24 HOURS Resulted 10/24/18 15:00 Sputum Gram Stain - Final Complete 10/24/18 15:00 Sputum Sputum Culture - Final NORMAL UPPER RESPIRATORY ADA PRESENT Complete 10/24/18 14:10 Nasal Nares MRSA Culture - Final NO METHICILLIN RESISTANT STAPH AUREUS... Complete 10/24/18 14:10 Rectum VRE Culture - Final NO VANCOMYCIN RESISTANT ENTEROCOCCUS ... Complete 10/24/18 14:10 Rectum - Final NO CARBAPENEM-RESISTANT ENTEROBACTERI... Complete Laboratory Tests 10/26/18 07:00: White Blood Count 10.8, Red Blood Count 4.29L, Hemoglobin 13.6L, Hematocrit 38.6L, Mean Corpuscular Volume 90, Mean Corpuscular Hemoglobin 31.7H, Mean Corpuscular Hemoglobin Concent 35.2, Red Cell Distribution Width 11.7, Platelet Count 129L, Mean Platelet Volume 6.1L, Neutrophils (%) (Auto) , Lymphocytes (%) (Auto) , Monocytes (%) (Auto) , Eosinophils (%) (Auto) , Basophils (%) (Auto) , Differential Total Cells Counted 100, Neutrophils % (Manual) 88H, Lymphocytes % (Manual) 5L, Monocytes % (Manual) 7, Eosinophils % (Manual) 0, Basophils % ( Manual) 0, Band Neutrophils 0, Platelet Estimate DecreasedL, Platelet Morphology Normal, Sodium Level 141, Potassium Level 4.0, Chloride Level 106, Carbon Dioxide Level 21, Anion Gap 14, Blood Urea Nitrogen 27H, Creatinine 1.2, Estimat Glomerular Filtration Rate > 60, Glucose Level 127H, Calcium Level 8.7 Current Medications Medications (Trade) Dose Ordered Sig/Jeri Route PRN Reason Start Time Stop Time Status Last Admin Dose Admin Acetaminophen/ Hydrocodone Bitart ([place] 5/325) 1 tab Q6H PRN ORAL Severe Pain (Pain Scale 7-10) 10/26/18 11:30 10/31/18 11:29 Albuterol/ Ipratropium (Albuterol/ Ipratropium) 3 ml Q4H PRN N Shortness of Breath 10/26/18 08:45 10/29/18 12:44 Albuterol/ Ipratropium (Albuterol/ Ipratropium) 3 ml Q4HRT N 10/26/18 07:00 10/29/18 10:59 10/26/18 11:05 Alendronate Sodium (Fosamax) 70 mg ONCE A WEEK ORAL 11/01/18 06:30 11/24/18 06:29 Ascorbic Acid (Vitamin C) 500 mg DAILY ORAL 10/26/18 09:00 11/24/18 08:59 10/26/18 08:35 Atorvastatin Calcium (Lipitor) 10 mg BEDTIME ORAL 10/26/18 21:00 11/23/18 20:59 Budesonide (Pulmicort) 0.5 mg Q12HRT N 10/26/18 10:00 11/23/18 21:59 Divalproex Sodium (Depakote) 500 mg EVERY 12 HOURS ORAL 10/26/18 09:00 11/23/18 20:59 10/26/18 08:35 Docusate Sodium (Colace) 250 mg DAILY ORAL 10/26/18 09:00 11/24/18 08:59 Escitalopram Oxalate (Lexapro) 10 mg DAILY ORAL 10/26/18 09:00 11/24/18 08:59 10/26/18 08:35 Ferrous Sulfate (Feosol) 325 mg DAILY ORAL 10/26/18 09:00 11/24/18 08:59 10/26/18 08:34 Folic Acid (Folate) 1 mg DAILY ORAL 10/26/18 09:00 11/24/18 08:59 10/26/18 08:35 Heparin Sodium (Porcine) (Heparin 5000 units/ml) 5,000 units EVERY 12 HOURS SUBQ 10/26/18 09:00 11/23/18 08:59 10/26/18 08:46 Ibuprofen (Motrin) 600 mg Q6H PRN ORAL Moderate Pain (Pain Scale 4-6) 10/26/18 11:30 11/23/18 11:29 Levofloxacin 100 ml @ 100 mls/hr Q24H IVPB 10/26/18 09:00 10/31/18 08:59 10/26/18 08:36 Lorazepam (Ativan) 0.5 mg Q6H PRN ORAL Agitation 10/26/18 11:30 10/31/18 11:29 Methylprednisolone Sodium Succinate (Solu-MEDROL) 60 mg EVERY 12 HOURS IVP 10/26/18 09:00 11/23/18 11:59 10/26/18 08:34 Multivitamins (Multivitamins) 1 tab DAILY ORAL 10/26/18 09:00 11/24/18 08:59 10/26/18 08:35 Pantoprazole (Protonix) 40 mg ACBREAKFAST ORAL 10/26/18 06:30 11/24/18 06:29 10/26/18 06:35 Primidone (Mysoline) 50 mg QHS ORAL 10/26/18 21:00 11/23/18 20:59 Promethazine HCl/ Codeine (Phenergan with Codeine) 5 ml Q4H PRN ORAL For Cough 10/26/18 08:15 11/23/18 08:14 Sucralfate (Carafate) 1 gm ACBREAKFAST ORAL 10/26/18 06:30 11/24/18 06:29 10/26/18 06:35 Theophylline (Esteban-Dur) 100 mg EVERY 12 HOURS ORAL 10/26/18 09:00 11/23/18 08:59 10/26/18 08:34 Vancomycin HCl (Vanco rx to dose) 1 ea DAILY PRN MISC Per rx protocol 10/26/18 09:00 11/24/18 13:44 Vancomycin HCl 1 gm/Dextrose 275 ml @ 183.708 mls/hr Q12H IVPB 10/26/18 14:00 10/31/18 01:59 10/26/18 13:14 Michele Umaña MD Oct 26, 2018 13:42
[2018-10-26 16:00] VITALS: BP 112/71
--- NOTE | 2018-10-26 17:21 | Internal Med Progress Note ---
Subjective Date of Service: Oct 26, 2018 Physician Name Ryan Mckenzie Attending Physician Christopher Medina MD Current Medications Medications (Trade) Dose Ordered Sig/Jeri Route PRN Reason Start Time Stop Time Status Last Admin Dose Admin Acetaminophen/ Hydrocodone Bitart ([place] 5/325) 1 tab Q6H PRN ORAL Severe Pain (Pain Scale 7-10) 10/26/18 11:30 10/31/18 11:29 Albuterol/ Ipratropium (Albuterol/ Ipratropium) 3 ml Q4H PRN HHN Shortness of Breath 10/26/18 08:45 10/29/18 12:44 Albuterol/ Ipratropium (Albuterol/ Ipratropium) 3 ml Q4HRT HHN 10/26/18 07:00 10/29/18 10:59 10/26/18 15:12 Alendronate Sodium (Fosamax) 70 mg ONCE A WEEK ORAL 11/01/18 06:30 11/24/18 06:29 Ascorbic Acid (Vitamin C) 500 mg DAILY ORAL 10/26/18 09:00 11/24/18 08:59 10/26/18 08:35 Atorvastatin Calcium (Lipitor) 10 mg BEDTIME ORAL 10/26/18 21:00 11/23/18 20:59 Budesonide (Pulmicort) 0.5 mg Q12HRT N 10/26/18 10:00 11/23/18 21:59 Divalproex Sodium (Depakote) 500 mg EVERY 12 HOURS ORAL 10/26/18 09:00 11/23/18 20:59 10/26/18 08:35 Docusate Sodium (Colace) 250 mg DAILY ORAL 10/26/18 09:00 11/24/18 08:59 Escitalopram Oxalate (Lexapro) 10 mg DAILY ORAL 10/26/18 09:00 11/24/18 08:59 10/26/18 08:35 Ferrous Sulfate (Feosol) 325 mg DAILY ORAL 10/26/18 09:00 11/24/18 08:59 10/26/18 08:34 Folic Acid (Folate) 1 mg DAILY ORAL 10/26/18 09:00 11/24/18 08:59 10/26/18 08:35 Heparin Sodium (Porcine) (Heparin 5000 units/ml) 5,000 units EVERY 12 HOURS SUBQ 10/26/18 09:00 11/23/18 08:59 10/26/18 08:46 Ibuprofen (Motrin) 600 mg Q6H PRN ORAL Moderate Pain (Pain Scale 4-6) 10/26/18 11:30 11/23/18 11:29 Levofloxacin (Levaquin) 500 mg DAILY ORAL 10/27/18 09:00 10/28/18 23:59 Lorazepam (Ativan) 0.5 mg Q6H PRN ORAL Agitation 10/26/18 11:30 10/31/18 11:29 Methylprednisolone Sodium Succinate (Solu-MEDROL) 60 mg EVERY 12 HOURS IVP 10/26/18 09:00 11/23/18 11:59 10/26/18 08:34 Multivitamins (Multivitamins) 1 tab DAILY ORAL 10/26/18 09:00 11/24/18 08:59 10/26/18 08:35 Pantoprazole (Protonix) 40 mg ACBREAKFAST ORAL 10/26/18 06:30 11/24/18 06:29 10/26/18 06:35 Primidone (Mysoline) 50 mg QHS ORAL 10/26/18 21:00 11/23/18 20:59 Promethazine HCl/ Codeine (Phenergan with Codeine) 5 ml Q4H PRN ORAL For Cough 10/26/18 08:15 11/23/18 08:14 Sucralfate (Carafate) 1 gm ACBREAKFAST ORAL 10/26/18 06:30 11/24/18 06:29 10/26/18 06:35 Theophylline (Esteban-Dur) 100 mg EVERY 12 HOURS ORAL 10/26/18 09:00 11/23/18 08:59 10/26/18 08:34 Vancomycin HCl (Vanco rx to dose) 1 ea DAILY PRN MISC Per rx protocol 10/26/18 09:00 11/24/18 13:44 Vancomycin HCl 1 gm/Dextrose 275 ml @ 183.708 mls/hr Q12H IVPB 10/26/18 14:00 10/31/18 01:59 10/26/18 13:14 Allergies: Coded Allergies: CASHEW NUT (Verified Allergy, Unknown, 10/24/18) NO KNOWN ALLERGIES (Verified Allergy, Unknown, 03/07/18) [place] Seed (Verified Allergy, Unknown, 10/24/18) ROS Limited/Unobtainable: No Constitutional: Reports: no symptoms HEENT: Reports: no symptoms Cardiovascular: Reports: no symptoms Respiratory: Reports: shortness of breath Gastrointestinal/Abdominal: Reports: no symptoms Genitourinary: Reports: no symptoms Neurologic/Psychiatric: Reports: no symptoms Subjective 67 YO M admitted with shortness of breath. Now exacerbation of COPD. Cover for Int andrzej-DR Medina Objective Last Vital Signs Date Time Temp Pulse Resp B/P (MAP) Pulse Ox O2 Delivery O2 Flow Rate FiO2 10/26/18 16:00 97.9 68 18 112/71 (85) 94 10/26/18 15:19 Room Air 21 10/26/18 09:55 2.0 Laboratory Tests Test 10/26/18 07:00 White Blood Count 10.8 K/UL (4.8-10.8) Red Blood Count 4.29 M/UL (4.70-6.10) L Hemoglobin 13.6 G/DL (14.2-18.0) L Hematocrit 38.6 % (42.0-52.0) L Mean Corpuscular Volume 90 FL (80-99) Mean Corpuscular Hemoglobin 31.7 PG (27.0-31.0) H Mean Corpuscular Hemoglobin Concent 35.2 G/DL (32.0-36.0) Red Cell Distribution Width 11.7 % (11.6-14.8) Platelet Count 129 K/UL (150-450) L Mean Platelet Volume 6.1 FL (6.5-10.1) L Neutrophils (%) (Auto) % (45.0-75.0) Lymphocytes (%) (Auto) % (20.0-45.0) Monocytes (%) (Auto) % (1.0-10.0) Eosinophils (%) (Auto) % (0.0-3.0) Basophils (%) (Auto) % (0.0-2.0) Differential Total Cells Counted 100 Neutrophils % (Manual) 88 % (45-75) H Lymphocytes % (Manual) 5 % (20-45) L Monocytes % (Manual) 7 % (1-10) Eosinophils % (Manual) 0 % (0-3) Basophils % (Manual) 0 % (0-2) Band Neutrophils 0 % (0-8) Platelet Estimate Decreased L Platelet Morphology Normal Sodium Level 141 MMOL/L (136-145) Potassium Level 4.0 MMOL/L (3.5-5.1) Chloride Level 106 MMOL/L (98-107) Carbon Dioxide Level 21 MMOL/L (21-32) Anion Gap 14 mmol/L (5-15) Blood Urea Nitrogen 27 mg/dL (7-18) H Creatinine 1.2 MG/DL (0.55-1.30) Estimat Glomerular Filtration Rate > 60 mL/min (>60) Glucose Level 127 MG/DL (74-106) H Calcium Level 8.7 MG/DL (8.5-10.1) Microbiology Date/Time Source Procedure Growth Status 10/24/18 04:00 Blood Blood Culture - Preliminary Staphylococcus Sp Coag Neg Resulted 10/24/18 03:45 Blood Blood Culture - Preliminary NO GROWTH AFTER 24 HOURS Resulted 10/24/18 15:00 Sputum Gram Stain - Final Complete 10/24/18 15:00 Sputum Sputum Culture - Final NORMAL UPPER RESPIRATORY ADA PRESENT Complete 10/24/18 14:10 Nasal Nares MRSA Culture - Final NO METHICILLIN RESISTANT STAPH AUREUS... Complete 10/24/18 14:10 Rectum VRE Culture - Final NO VANCOMYCIN RESISTANT ENTEROCOCCUS ... Complete 10/24/18 14:10 Rectum - Final NO CARBAPENEM-RESISTANT ENTEROBACTERI... Complete Intake and Output 10/25/18 10/26/18 19:00 07:00 Intake Total 500 ml Balance 500 ml Intake Oral 500 ml # Voids 4 1 Objective PHYSICAL EXAMINATION: GENERAL: The patient is a well-developed and well-nourished male, in no apparent distress. HEENT: Eyes, pupils are equal responsive to light and accommodation. Extraocular movements are intact. NECK: Supple without lymphadenopathy. CHEST: Diffuse wheezes in bilateral lung baker. Otherwise, clear to auscultation without rales. CARDIOVASCULAR: Regular rhythm and rate. S1 and S2 are normal without murmurs, rubs, or gallops. ABDOMEN: Soft, nontender, and nondistended. Positive bowel sounds. No evidence of hepatosplenomegaly. Currently, no rebound or guarding noted. RECTAL/GENITAL: Refused. NEUROLOGIC: Cranial nerves II through XII are grossly intact without focal deficits. Motor strength is 5/5 bilaterally. Deep tendon reflexes are 2+ plantar. Assessment/Plan Assessment/Plan ASSESSMENT: This is a 67-year-old male. 1. Respiratory distress. 2. Chronic obstructive pulmonary disease, acute exacerbation. 3. Posttraumatic stress disorder. 4. Prostate cancer. 5. History of ataxia. 6. Purulent bronchitis TREATMENT: 1. Chronic obstructive pulmonary disease/respiratory distress. A Pulmonary consultation has been obtained with Dr. Michele Umaña. The patient has been started on intravenous Solu-Medrol. The patient has also been started on Levaquin. We will follow recommendation of Pulmonary. 2. Posttraumatic stress disorder. 3. Ataxia. 4. History of prostate cancer, currently on chemotherapy. 5. Bipolar depression. Ryan Mckenzie MD Oct 26, 2018 17:21
--- NOTE | 2018-10-26 19:05 | NUR ---
HAND-OFF: Report given to MILKA Kelly.
--- NOTE | 2018-10-26 19:29 | NUR ---
NURSE NOTES: Received patient in bed, awake, alert, oriented, able to make his needs known, no acute distress noted, VSS, afebrile. Call light is within reach, bed is in low position, locked and alarm is on. Will continue to monitor for safety and comfort.
[2018-10-26 20:00] VITALS: BP 114/69
[2018-10-27 00:36] VITALS: BP 101/57
[2018-10-27] MEDS: Vancomycin 1 GM in D5W 275 ML IVPB SCH (02:24)
[2018-10-27] MEDS: Albuterol/Ipratropium 3ml neb HHN SCH ×6 (02:41→23:34)
[2018-10-27 04:39] VITALS: BP 101/69
[2018-10-27 05:37] LABS: HEMATOCRIT 41.3 % (42.0-52.0); HEMOGLOBIN 14.5 G/DL (14.2-18.0); MEAN CORPUSCULAR VOLUME 91 FL (80-99); PLATELET COUNT 124 K/UL (150-450); RED BLOOD COUNT 4.53 M/UL (4.70-6.10); RED CELL DISTRIBUTION WIDTH 12.1 % (11.6-14.8); WHITE BLOOD COUNT 8.8 K/UL (4.8-10.8)
[2018-10-27 05:43] LABS: ANION GAP 11 mmol/L (5-15); BLOOD UREA NITROGEN 28 mg/dL (7-18); CALCIUM 8.8 MG/DL (8.5-10.1); CARBON DIOXIDE 24 MMOL/L (21-32); CHLORIDE 103 MMOL/L (98-107); CREATININE 1.4 MG/DL (0.55-1.30); POTASSIUM 4.2 MMOL/L (3.5-5.1); SODIUM 138 MMOL/L (136-145)
[2018-10-27] MEDS: Sucralfate 1gm tab ORAL SCH (06:17)
--- NOTE | 2018-10-27 07:33 | NUR ---
HAND-OFF: Report given to Selvin JARQUIN.
--- NOTE | 2018-10-27 07:59 | NUR ---
NURSE NOTES: Received report from MILKA Kelly. Patient in bed resting, no active s/s cardiac, respiratory distress noticed at this time. Patient AOx4, denies pain at this time. IV on left FA, 20G, asymptomatic, patent, intact. Bed in lowest position, side rails upx2, padded, call light within reach. Will continue to monitor.
[2018-10-27 08:00] VITALS: BP 107/70
[2018-10-27] MEDS: Docusate 250mg cap ORAL SCH (09:00)
[2018-10-27] MEDS: Solu-MEDROL 125mg Inj IVP SCH (09:06)
[2018-10-27] MEDS: Levofloxacin 500mg tab ORAL SCH (09:06)
[2018-10-27] MEDS: Theophylline ER 100mg ORAL SCH ×2 (09:06→20:38)
[2018-10-27] MEDS: Ascorbic Acid 500mg tab ORAL SCH (09:06)
[2018-10-27] MEDS: Depakote 500mg tab ORAL SCH ×2 (09:06→20:39)
[2018-10-27] MEDS: Heparin 5000 units/ml inj SUBQ SCH ×2 (09:08→20:51)
[2018-10-27] MEDS: Budesonide HHN 0.25mg/2ml ud HHN SCH ×2 (09:33→21:56)
--- NOTE | 2018-10-27 10:49 | Pulmonology Progress Note ---
Assessment/Plan Problems: (1) COPD exacerbation (2) Acute bronchitis (3) Bipolar depression (4) Prostate cancer (5) PTSD (post-traumatic stress disorder) (6) Cerebrovascular accident (CVA) Assessment/Plan improving, still lots of cough respiratory treatment titrate fio2 to sat of 92% sputum has been negative iv abx taper iv steroids, decrease solumedrol to q12 symptomatic treatment dvt prophylaxis Subjective ROS Limited/Unobtainable: No Constitutional: Reports: no symptoms HEENT: Repors: no symptoms Allergies: Coded Allergies: CASHEW NUT (Verified Allergy, Unknown, 10/24/18) NO KNOWN ALLERGIES (Verified Allergy, Unknown, 03/07/18) [place] Seed (Verified Allergy, Unknown, 10/24/18) Objective Last 24 Hour Vital Signs Date Time Temp Pulse Resp B/P (MAP) Pulse Ox O2 Delivery O2 Flow Rate FiO2 10/27/18 09:37 82 20 98 Nasal Cannula 2.0 28 10/27/18 09:33 84 20 95 Room Air 21 10/27/18 09:00 Nasal Cannula 2.0 10/27/18 08:11 84 20 99 Room Air 21 10/27/18 08:06 98 Nasal Cannula 2.0 28 10/27/18 08:04 81 20 96 Room Air 21 10/27/18 08:00 97.0 67 18 107/70 (82) 94 10/27/18 04:39 97.6 65 18 101/69 (80) 10/27/18 02:42 Room Air 21 10/27/18 02:42 Room Air 21 10/27/18 00:36 97.8 74 18 101/57 (72) 10/26/18 22:50 77 20 99 Room Air 21 10/26/18 22:41 81 20 96 Room Air 21 10/26/18 22:25 80 18 99 Nasal Cannula 2.0 28 10/26/18 22:18 79 20 96 Room Air 21 10/26/18 21:00 Nasal Cannula 2.0 10/26/18 20:00 97.5 81 18 114/69 (84) 10/26/18 19:36 79 20 100 Room Air 21 10/26/18 19:26 89 20 97 Room Air 21 10/26/18 16:00 97.9 68 18 112/71 (85) 94 10/26/18 15:19 67 20 99 Room Air 21 10/26/18 15:13 64 20 94 Room Air 21 10/26/18 12:00 98.3 73 19 123/80 (94) 95 10/26/18 11:12 91 20 99 Room Air 21 10/26/18 11:05 89 20 94 Room Air 21 Intake and Output 10/26/18 10/27/18 18:59 06:59 Intake Total 1095.000 ml Output Total 1402 ml Balance -307.000 ml Intake Oral 720 ml IV Total 375.000 ml Output Urine Total 1402 ml # Voids 2 General Appearance: WD/WN HEENT: normocephalic, atraumatic Respiratory/Chest: chest wall non-tender, lungs clear Cardiovascular: normal peripheral pulses, regular rhythm Abdomen: normal bowel sounds, no organomegaly Extremities: no cyanosis Skin: no lesions, no ulcers Microbiology Date/Time Source Procedure Growth Status 10/25/18 14:40 Blood Blood Culture - Preliminary NO GROWTH AFTER 24 HOURS Resulted 10/25/18 14:30 Blood Blood Culture - Preliminary NO GROWTH AFTER 24 HOURS Resulted 10/24/18 15:00 Sputum Gram Stain - Final Complete 10/24/18 15:00 Sputum Sputum Culture - Final NORMAL UPPER RESPIRATORY ADA PRESENT Complete 10/24/18 14:10 Nasal Nares MRSA Culture - Final NO METHICILLIN RESISTANT STAPH AUREUS... Complete 10/24/18 14:10 Rectum VRE Culture - Final NO VANCOMYCIN RESISTANT ENTEROCOCCUS ... Complete 10/24/18 14:10 Rectum - Final NO CARBAPENEM-RESISTANT ENTEROBACTERI... Complete Laboratory Tests 10/27/18 01:10: Vancomycin Level Trough 11.2 10/27/18 04:30: White Blood Count 8.8, Red Blood Count 4.53L, Hemoglobin 14.5, Hematocrit 41.3L , Mean Corpuscular Volume 91, Mean Corpuscular Hemoglobin 32.0H, Mean Corpuscular Hemoglobin Concent 35.0, Red Cell Distribution Width 12.1, Platelet Count 124L, Mean Platelet Volume 6.2L, Neutrophils (%) (Auto) , Lymphocytes (%) (Auto) , Monocytes (%) (Auto) , Eosinophils (%) (Auto) , Basophils (%) (Auto) , Sodium Level 138, Potassium Level 4.2, Chloride Level 103, Carbon Dioxide Level 24, Anion Gap 11, Blood Urea Nitrogen 28H, Creatinine 1.4H, Estimat Glomerular Filtration Rate 50.2, Glucose Level 151H, Calcium Level 8.8 Current Medications Medications (Trade) Dose Ordered Sig/Jeri Route PRN Reason Start Time Stop Time Status Last Admin Dose Admin Acetaminophen/ Hydrocodone Bitart ([place] 5/325) 1 tab Q6H PRN ORAL Severe Pain (Pain Scale 7-10) 10/26/18 11:30 10/31/18 11:29 Albuterol/ Ipratropium (Albuterol/ Ipratropium) 3 ml Q4H PRN N Shortness of Breath 10/26/18 08:45 10/29/18 12:44 Albuterol/ Ipratropium (Albuterol/ Ipratropium) 3 ml Q4HRT N 10/26/18 07:00 10/29/18 10:59 10/27/18 08:02 Alendronate Sodium (Fosamax) 70 mg ONCE A WEEK ORAL 11/01/18 06:30 11/24/18 06:29 Ascorbic Acid (Vitamin C) 500 mg DAILY ORAL 10/26/18 09:00 11/24/18 08:59 10/27/18 09:06 Atorvastatin Calcium (Lipitor) 10 mg BEDTIME ORAL 10/26/18 21:00 11/23/18 20:59 10/26/18 20:41 Budesonide (Pulmicort) 0.5 mg Q12HRT [facility] 10/26/18 10:00 11/23/18 21:59 10/27/18 09:33 Divalproex Sodium (Depakote) 500 mg EVERY 12 HOURS ORAL 10/26/18 09:00 11/23/18 20:59 10/27/18 09:06 Docusate Sodium (Colace) 250 mg DAILY ORAL 10/26/18 09:00 11/24/18 08:59 Escitalopram Oxalate (Lexapro) 10 mg DAILY ORAL 10/26/18 09:00 11/24/18 08:59 10/27/18 09:06 Ferrous Sulfate (Feosol) 325 mg DAILY ORAL 10/26/18 09:00 11/24/18 08:59 10/27/18 09:06 Folic Acid (Folate) 1 mg DAILY ORAL 10/26/18 09:00 11/24/18 08:59 10/27/18 09:07 Heparin Sodium (Porcine) (Heparin 5000 units/ml) 5,000 units EVERY 12 HOURS SUBQ 10/26/18 09:00 11/23/18 08:59 10/27/18 09:08 Ibuprofen (Motrin) 600 mg Q6H PRN ORAL Moderate Pain (Pain Scale 4-6) 10/26/18 11:30 11/23/18 11:29 Levofloxacin (Levaquin) 500 mg DAILY ORAL 10/27/18 09:00 10/28/18 23:59 10/27/18 09:06 Lorazepam (Ativan) 0.5 mg Q6H PRN ORAL Agitation 10/26/18 11:30 10/31/18 11:29 Methylprednisolone Sodium Succinate (Solu-MEDROL) 60 mg EVERY 12 HOURS IVP 10/26/18 09:00 11/23/18 11:59 10/27/18 09:06 Multivitamins (Multivitamins) 1 tab DAILY ORAL 10/26/18 09:00 11/24/18 08:59 10/27/18 09:06 Pantoprazole (Protonix) 40 mg ACBREAKFAST ORAL 10/26/18 06:30 11/24/18 06:29 10/27/18 06:16 Primidone (Mysoline) 50 mg QHS ORAL 10/26/18 21:00 11/23/18 20:59 10/26/18 20:41 Promethazine HCl/ Codeine (Phenergan with Codeine) 5 ml Q4H PRN ORAL For Cough 10/26/18 08:15 11/23/18 08:14 Sucralfate (Carafate) 1 gm ACBREAKFAST ORAL 10/26/18 06:30 11/24/18 06:29 10/27/18 06:17 Theophylline ([place]eb[place]-Dur) 100 mg EVERY 12 HOURS ORAL 10/26/18 09:00 11/23/18 08:59 10/27/18 09:06 Vancomycin HCl (Vanco rx to dose) 1 ea DAILY PRN MISC Per rx protocol 10/26/18 09:00 11/24/18 13:44 Vancomycin HCl/ Dextrose 275 ml @ 183.333 mls/hr Q12HR@0000,1200 IVPB 10/27/18 12:00 11/01/18 11:59 Michele Umaña MD Oct 27, 2018 10:49
[2018-10-27 12:00] VITALS: BP 113/68
[2018-10-27] MEDS ORDERED: Vancomycin 1.25gm Premix IVPB SCH (12:00)
--- NOTE | 2018-10-27 12:44 | Internal Med Progress Note ---
Subjective Date of Service: Oct 27, 2018 Physician Name Ryan Mckenzie Attending Physician Christopher Medina MD Current Medications Medications (Trade) Dose Ordered Sig/Jeri Route PRN Reason Start Time Stop Time Status Last Admin Dose Admin Acetaminophen/ Hydrocodone Bitart ([place] 5/325) 1 tab Q6H PRN ORAL Severe Pain (Pain Scale 7-10) 10/26/18 11:30 10/31/18 11:29 Albuterol/ Ipratropium (Albuterol/ Ipratropium) 3 ml Q4H PRN HHN Shortness of Breath 10/26/18 08:45 10/29/18 12:44 Albuterol/ Ipratropium (Albuterol/ Ipratropium) 3 ml Q4HRT N 10/26/18 07:00 10/29/18 10:59 10/27/18 11:10 Alendronate Sodium (Fosamax) 70 mg ONCE A WEEK ORAL 11/01/18 06:30 11/24/18 06:29 Ascorbic Acid (Vitamin C) 500 mg DAILY ORAL 10/26/18 09:00 11/24/18 08:59 10/27/18 09:06 Atorvastatin Calcium (Lipitor) 10 mg BEDTIME ORAL 10/26/18 21:00 11/23/18 20:59 10/26/18 20:41 Budesonide (Pulmicort) 0.5 mg Q12HRT [facility] 10/26/18 10:00 11/23/18 21:59 10/27/18 09:33 Divalproex Sodium (Depakote) 500 mg EVERY 12 HOURS ORAL 10/26/18 09:00 11/23/18 20:59 10/27/18 09:06 Docusate Sodium (Colace) 250 mg DAILY ORAL 10/26/18 09:00 11/24/18 08:59 Escitalopram Oxalate (Lexapro) 10 mg DAILY ORAL 10/26/18 09:00 11/24/18 08:59 10/27/18 09:06 Ferrous Sulfate (Feosol) 325 mg DAILY ORAL 10/26/18 09:00 11/24/18 08:59 10/27/18 09:06 Folic Acid (Folate) 1 mg DAILY ORAL 10/26/18 09:00 11/24/18 08:59 10/27/18 09:07 Heparin Sodium (Porcine) (Heparin 5000 units/ml) 5,000 units EVERY 12 HOURS SUBQ 10/26/18 09:00 11/23/18 08:59 10/27/18 09:08 Ibuprofen (Motrin) 600 mg Q6H PRN ORAL Moderate Pain (Pain Scale 4-6) 10/26/18 11:30 11/23/18 11:29 Levofloxacin (Levaquin) 500 mg DAILY ORAL 10/27/18 09:00 10/28/18 23:59 10/27/18 09:06 Lorazepam (Ativan) 0.5 mg Q6H PRN ORAL Agitation 10/26/18 11:30 10/31/18 11:29 Methylprednisolone Sodium Succinate (Solu-MEDROL) 60 mg DAILY IVP 10/28/18 09:00 11/23/18 11:59 Multivitamins (Multivitamins) 1 tab DAILY ORAL 10/26/18 09:00 11/24/18 08:59 10/27/18 09:06 Pantoprazole (Protonix) 40 mg ACBREAKFAST ORAL 10/26/18 06:30 11/24/18 06:29 10/27/18 06:16 Primidone (Mysoline) 50 mg QHS ORAL 10/26/18 21:00 11/23/18 20:59 10/26/18 20:41 Promethazine HCl/ Codeine (Phenergan with Codeine) 5 ml Q4H PRN ORAL For Cough 10/26/18 08:15 11/23/18 08:14 Sucralfate (Carafate) 1 gm ACBREAKFAST ORAL 10/26/18 06:30 11/24/18 06:29 10/27/18 06:17 Theophylline ([place]-Dur) 100 mg EVERY 12 HOURS ORAL 10/26/18 09:00 11/23/18 08:59 10/27/18 09:06 Vancomycin HCl (Vanco rx to dose) 1 ea DAILY PRN MISC Per rx protocol 10/26/18 09:00 11/24/18 13:44 Vancomycin HCl/ Dextrose 275 ml @ 183.333 mls/hr Q12HR@0000,1200 IVPB 10/27/18 12:00 11/01/18 11:59 10/27/18 12:10 Allergies: Coded Allergies: CASHEW NUT (Verified Allergy, Unknown, 10/24/18) NO KNOWN ALLERGIES (Verified Allergy, Unknown, 03/07/18) [place] Seed (Verified Allergy, Unknown, 10/24/18) ROS Limited/Unobtainable: No Constitutional: Reports: no symptoms HEENT: Reports: no symptoms Cardiovascular: Reports: no symptoms Respiratory: Reports: shortness of breath Gastrointestinal/Abdominal: Reports: no symptoms Genitourinary: Reports: no symptoms Subjective 67 YO M admitted with shortness of breath. Now exacerbation of COPD. Cover for Int med-DR Medina Objective Last Vital Signs Date Time Temp Pulse Resp B/P (MAP) Pulse Ox O2 Delivery O2 Flow Rate FiO2 10/27/18 12:00 97.7 60 18 113/68 (83) 93 10/27/18 11:18 Room Air 21 10/27/18 09:37 2.0 Laboratory Tests Test 10/27/18 01:10 10/27/18 04:30 Vancomycin Level Trough 11.2 ug/mL (5.0-12.0) White Blood Count 8.8 K/UL (4.8-10.8) Red Blood Count 4.53 M/UL (4.70-6.10) L Hemoglobin 14.5 G/DL (14.2-18.0) Hematocrit 41.3 % (42.0-52.0) L Mean Corpuscular Volume 91 FL (80-99) Mean Corpuscular Hemoglobin 32.0 PG (27.0-31.0) H Mean Corpuscular Hemoglobin Concent 35.0 G/DL (32.0-36.0) Red Cell Distribution Width 12.1 % (11.6-14.8) Platelet Count 124 K/UL (150-450) L Mean Platelet Volume 6.2 FL (6.5-10.1) L Neutrophils (%) (Auto) % (45.0-75.0) Lymphocytes (%) (Auto) % (20.0-45.0) Monocytes (%) (Auto) % (1.0-10.0) Eosinophils (%) (Auto) % (0.0-3.0) Basophils (%) (Auto) % (0.0-2.0) Sodium Level 138 MMOL/L (136-145) Potassium Level 4.2 MMOL/L (3.5-5.1) Chloride Level 103 MMOL/L (98-107) Carbon Dioxide Level 24 MMOL/L (21-32) Anion Gap 11 mmol/L (5-15) Blood Urea Nitrogen 28 mg/dL (7-18) H Creatinine 1.4 MG/DL (0.55-1.30) H Estimat Glomerular Filtration Rate 50.2 mL/min (>60) Glucose Level 151 MG/DL (74-106) H Calcium Level 8.8 MG/DL (8.5-10.1) Microbiology Date/Time Source Procedure Growth Status 10/25/18 14:40 Blood Blood Culture - Preliminary NO GROWTH AFTER 24 HOURS Resulted 10/25/18 14:30 Blood Blood Culture - Preliminary NO GROWTH AFTER 24 HOURS Resulted 10/24/18 15:00 Sputum Gram Stain - Final Complete 10/24/18 15:00 Sputum Sputum Culture - Final NORMAL UPPER RESPIRATORY ADA PRESENT Complete 10/24/18 14:10 Nasal Nares MRSA Culture - Final NO METHICILLIN RESISTANT STAPH AUREUS... Complete 10/24/18 14:10 Rectum VRE Culture - Final NO VANCOMYCIN RESISTANT ENTEROCOCCUS ... Complete 10/24/18 14:10 Rectum - Final NO CARBAPENEM-RESISTANT ENTEROBACTERI... Complete Intake and Output 10/26/18 10/27/18 19:00 07:00 Intake Total 1095.000 ml Output Total 1402 ml Balance -307.000 ml Intake Oral 720 ml IV Total 375.000 ml Output Urine Total 1402 ml # Voids 2 Objective PHYSICAL EXAMINATION: GENERAL: The patient is a well-developed and well-nourished male, in no apparent distress. HEENT: Eyes, pupils are equal responsive to light and accommodation. Extraocular movements are intact. NECK: Supple without lymphadenopathy. CHEST: Diffuse wheezes in bilateral lung baker. Otherwise, clear to auscultation without rales. CARDIOVASCULAR: Regular rhythm and rate. S1 and S2 are normal without murmurs, rubs, or gallops. ABDOMEN: Soft, nontender, and nondistended. Positive bowel sounds. No evidence of hepatosplenomegaly. Currently, no rebound or guarding noted. RECTAL/GENITAL: Refused. NEUROLOGIC: Cranial nerves II through XII are grossly intact without focal deficits. Motor strength is 5/5 bilaterally. Deep tendon reflexes are 2+ plantar. Assessment/Plan Assessment/Plan ASSESSMENT: This is a 67-year-old male. 1. Respiratory distress. 2. Chronic obstructive pulmonary disease, acute exacerbation. 3. Posttraumatic stress disorder. 4. Prostate cancer. 5. History of ataxia. 6. Purulent bronchitis 7. positive blood culture=coag neg staph TREATMENT: 1. Chronic obstructive pulmonary disease/respiratory distress. A Pulmonary consultation has been obtained with Dr. Michele Umaña. The patient has been started on intravenous Solu-Medrol. The patient has also been started on Levaquin. We will follow recommendation of Pulmonary. 2. Posttraumatic stress disorder. 3. Ataxia. 4. History of prostate cancer, currently on chemotherapy. 5. Bipolar depression. 6. abx=levaquin and vanco per ID; await repeat cultures Ryan Mckenzie MD Oct 27, 2018 12:44
[2018-10-27 16:00] VITALS: BP 117/70
--- NOTE | 2018-10-27 16:45 | Infectious Diseases Prog Note ---
Assessment/Plan Assessment/Plan Abx: Levaquin 10/24- IV Vancomycin 10/25- Assessment: COPD exacerbation -CXR: no acute disease -sp cx normal cindy Afebrile Leukocytosis (on steroids), resolved GPC bacteremia- likely contaminant -10/24 Bcx / CONSl 10/25 Bcx NTD COPD/asthma PTSD ataxia Prostate CA s/p chemo Bipolar dz seizure disorder anxiety prostate cancer CVA 2010 Plan: -D/c empiric IV Vancomycin #3 as likely contaminant -if neg in 24hrs, will d/c -Continue Levaquin #4/5 for COPD exacerbation -f/u cx -Monitor CBC/CMP, temperatures Thank you for this consultation. Will continue to follow along with you. Discussed with RN Subjective Allergies: Coded Allergies: CASHEW NUT (Verified Allergy, Unknown, 10/24/18) NO KNOWN ALLERGIES (Verified Allergy, Unknown, 03/07/18) [place] Seed (Verified Allergy, Unknown, 10/24/18) Subjective afebrile leukocytosis resolved repeat Bcx p Objective Vital Signs Last 24 Hour Vital Signs Date Time Temp Pulse Resp B/P (MAP) Pulse Ox O2 Delivery O2 Flow Rate FiO2 10/27/18 16:00 98.0 74 18 117/70 (86) 95 10/27/18 15:24 79 20 99 Room Air 21 10/27/18 15:17 74 20 95 Room Air 10/27/18 12:00 97.7 60 18 113/68 (83) 93 10/27/18 11:18 67 20 98 Room Air 21 10/27/18 11:11 69 20 95 Room Air 10/27/18 09:37 82 20 98 Nasal Cannula 2.0 28 10/27/18 09:33 84 20 95 Room Air 21 10/27/18 09:00 Nasal Cannula 2.0 10/27/18 08:11 84 20 99 Room Air 21 10/27/18 08:06 98 Nasal Cannula 2.0 28 10/27/18 08:04 81 20 96 Room Air 10/27/18 08:00 97.0 67 18 107/70 (82) 94 10/27/18 04:39 97.6 65 18 101/69 (80) 10/27/18 02:42 Room Air 21 10/27/18 02:42 Room Air 21 6/26/19 00:36 97.8 74 18 101/57 (72) 10/26/18 22:50 77 20 99 Room Air 21 10/26/18 22:41 81 20 96 Room Air 21 10/26/18 22:25 80 18 99 Nasal Cannula 2.0 28 10/26/18 22:18 79 20 96 Room Air 21 10/26/18 21:00 Nasal Cannula 2.0 10/26/18 20:00 97.5 81 18 114/69 (84) 10/26/18 19:36 79 20 100 Room Air 21 10/26/18 19:26 89 20 97 Room Air 21 Height (Feet): 5 Height (Inches): 7.00 Weight (Pounds): 176 Objective GENERAL: The patient is a well-developed and well-nourished male, in no apparent distress. HEENT: Eyes, pupils are equal responsive to light and accommodation. Extraocular movements are intact. NECK: Supple without lymphadenopathy. CHEST: Diffuse wheezes in bilateral lung baker. Otherwise, clear to auscultation without rales. CARDIOVASCULAR: Regular rhythm and rate. S1 and S2 are normal without murmurs, rubs, or gallops. ABDOMEN: Soft, nontender, and nondistended. Positive bowel sounds. No evidence of hepatosplenomegaly. Currently, no rebound or guarding noted. Microbiology Date/Time Source Procedure Growth Status 10/25/18 14:40 Blood Blood Culture - Preliminary NO GROWTH AFTER 24 HOURS Resulted 10/25/18 14:30 Blood Blood Culture - Preliminary NO GROWTH AFTER 24 HOURS Resulted Laboratory Tests Test 10/27/18 01:10 10/27/18 04:30 Vancomycin Level Trough 11.2 ug/mL (5.0-12.0) White Blood Count 8.8 K/UL (4.8-10.8) Red Blood Count 4.53 M/UL (4.70-6.10) L Hemoglobin 14.5 G/DL (14.2-18.0) Hematocrit 41.3 % (42.0-52.0) L Mean Corpuscular Volume 91 FL (80-99) Mean Corpuscular Hemoglobin 32.0 PG (27.0-31.0) H Mean Corpuscular Hemoglobin Concent 35.0 G/DL (32.0-36.0) Red Cell Distribution Width 12.1 % (11.6-14.8) Platelet Count 124 K/UL (150-450) L Mean Platelet Volume 6.2 FL (6.5-10.1) L Neutrophils (%) (Auto) % (45.0-75.0) Lymphocytes (%) (Auto) % (20.0-45.0) Monocytes (%) (Auto) % (1.0-10.0) Eosinophils (%) (Auto) % (0.0-3.0) Basophils (%) (Auto) % (0.0-2.0) Sodium Level 138 MMOL/L (136-145) Potassium Level 4.2 MMOL/L (3.5-5.1) Chloride Level 103 MMOL/L (98-107) Carbon Dioxide Level 24 MMOL/L (21-32) Anion Gap 11 mmol/L (5-15) Blood Urea Nitrogen 28 mg/dL (7-18) H Creatinine 1.4 MG/DL (0.55-1.30) H Estimat Glomerular Filtration Rate 50.2 mL/min (>60) Glucose Level 151 MG/DL (74-106) H Calcium Level 8.8 MG/DL (8.5-10.1) Current Medications Medications (Trade) Dose Ordered Sig/Jeri Route PRN Reason Start Time Stop Time Status Last Admin Dose Admin Acetaminophen/ Hydrocodone Bitart ([place] 5/325) 1 tab Q6H PRN ORAL Severe Pain (Pain Scale 7-10) 10/26/18 11:30 10/31/18 11:29 Albuterol/ Ipratropium (Albuterol/ Ipratropium) 3 ml Q4H PRN HHN Shortness of Breath 10/26/18 08:45 10/29/18 12:44 Albuterol/ Ipratropium (Albuterol/ Ipratropium) 3 ml Q4HRT HHN 10/26/18 07:00 10/29/18 10:59 10/27/18 15:16 Alendronate Sodium (Fosamax) 70 mg ONCE A WEEK ORAL 11/01/18 06:30 11/24/18 06:29 Ascorbic Acid (Vitamin C) 500 mg DAILY ORAL 10/26/18 09:00 11/24/18 08:59 10/27/18 09:06 Atorvastatin Calcium (Lipitor) 10 mg BEDTIME ORAL 10/26/18 21:00 11/23/18 20:59 10/26/18 20:41 Budesonide (Pulmicort) 0.5 mg Q12HRT HHN 10/26/18 10:00 11/23/18 21:59 10/27/18 09:33 Divalproex Sodium (Depakote) 500 mg EVERY 12 HOURS ORAL 10/26/18 09:00 11/23/18 20:59 10/27/18 09:06 Docusate Sodium (Colace) 250 mg DAILY ORAL 10/26/18 09:00 11/24/18 08:59 Escitalopram Oxalate (Lexapro) 10 mg DAILY ORAL 10/26/18 09:00 11/24/18 08:59 10/27/18 09:06 Ferrous Sulfate (Feosol) 325 mg DAILY ORAL 10/26/18 09:00 11/24/18 08:59 10/27/18 09:06 Folic Acid (Folate) 1 mg DAILY ORAL 10/26/18 09:00 11/24/18 08:59 10/27/18 09:07 Heparin Sodium (Porcine) (Heparin 5000 units/ml) 5,000 units EVERY 12 HOURS SUBQ 10/26/18 09:00 11/23/18 08:59 10/27/18 09:08 Ibuprofen (Motrin) 600 mg Q6H PRN ORAL Moderate Pain (Pain Scale 4-6) 10/26/18 11:30 11/23/18 11:29 Levofloxacin (Levaquin) 500 mg DAILY ORAL 10/27/18 09:00 10/28/18 23:59 10/27/18 09:06 Lorazepam (Ativan) 0.5 mg Q6H PRN ORAL Agitation 10/26/18 11:30 10/31/18 11:29 Methylprednisolone Sodium Succinate (Solu-MEDROL) 60 mg DAILY IVP 10/28/18 09:00 11/23/18 11:59 Multivitamins (Multivitamins) 1 tab DAILY ORAL 10/26/18 09:00 11/24/18 08:59 10/27/18 09:06 Pantoprazole (Protonix) 40 mg ACBREAKFAST ORAL 10/26/18 06:30 11/24/18 06:29 10/27/18 06:16 Primidone (Mysoline) 50 mg QHS ORAL 10/26/18 21:00 11/23/18 20:59 10/26/18 20:41 Promethazine HCl/ Codeine (Phenergan with Codeine) 5 ml Q4H PRN ORAL For Cough 10/26/18 08:15 11/23/18 08:14 Sucralfate (Carafate) 1 gm ACBREAKFAST ORAL 10/26/18 06:30 11/24/18 06:29 10/27/18 06:17 Theophylline (Esteban-Dur) 100 mg EVERY 12 HOURS ORAL 10/26/18 09:00 11/23/18 08:59 10/27/18 09:06 Vancomycin HCl (Vanco rx to dose) 1 ea DAILY PRN MISC Per rx protocol 10/26/18 09:00 11/24/18 13:44 Vancomycin HCl/ Dextrose 275 ml @ 183.333 mls/hr Q12HR@0000,1200 IVPB 10/27/18 12:00 11/01/18 11:59 10/27/18 12:10 Rupali Dixon M.D. Oct 27, 2018 16:45
--- NOTE | 2018-10-27 19:25 | NUR ---
HAND-OFF: Report given to MILKA Rincon.
--- NOTE | 2018-10-27 19:35 | NUR ---
NURSE NOTES: Received report from MILKA Gasca. Patient is in bed, awake, alert x4. Left hand IV is intact. Bed in lowest position with 2 bed rails up and call light within easy reach. Patient is requesting breathing treatment. Called RT and they came to the patient's room. Addendum: 10/27/18 at 2000 by RICH SARMIENTO RN Correction - Received report from MILKA Rueda. Addendum: 10/27/18 at 2004 by RICH SARMIENTO RN Right fore arm IV is intact
[2018-10-27 20:00] VITALS: BP 128/66
--- NOTE | 2018-10-27 20:11 | NUR ---
CASE MANAGEMENT: REVIEW SI: COPD EXACERBATION T 98.0 HR 74 RR 18 BP 117/70 SAT 95% NC/2L BUN 28 CR 1.4 IS: SOLU MEDROL IV QD THEOPHYLLINE PO Q12HR ALBUTEROL HHN Q4HR PROMETHAZINE PO Q4HR PRN PULMICORT HHN Q12HR NORCO PO 5/325 Q6HR PRN MED/SURG STATUS DCP: PATIENT IS FROM HOME
[2018-10-28] VITALS: BP 117/66
[2018-10-28] MEDS: Albuterol/Ipratropium 3ml neb HHN SCH ×3 (03:05→11:52)
[2018-10-28 04:00] VITALS: BP 106/64
[2018-10-28] MEDS: Sucralfate 1gm tab ORAL SCH (05:31)
--- NOTE | 2018-10-28 07:11 | NUR ---
HAND-OFF: Report given to MILKA Gonzales.
--- NOTE | 2018-10-28 07:27 | NUR ---
NURSE NOTES: Patient received sleeping in bed, Breathing unlabored on room air. No signs of SOB or pain observed. IV site on right arm intact, saline locked. Bed locked in low position, call light placed within reach. Will continue to monitor.
[2018-10-28 07:39] LABS: BASOPHILS % (AUTO) 0.7 % (0.0-2.0); EOSINOPHILS % (AUTO) 0.2 % (0.0-3.0); HEMATOCRIT 39.6 % (42.0-52.0); HEMOGLOBIN 13.9 G/DL (14.2-18.0); LYMPHOCYTES % (AUTO) 20.9 % (20.0-45.0); MEAN CORPUSCULAR VOLUME 90 FL (80-99); MONOCYTES % (AUTO) 9.8 % (1.0-10.0); NEUTROPHILS % (AUTO) 68.5 % (45.0-75.0); PLATELET COUNT 125 K/UL (150-450); RED BLOOD COUNT 4.39 M/UL (4.70-6.10); RED CELL DISTRIBUTION WIDTH 11.5 % (11.6-14.8); WHITE BLOOD COUNT 7.7 K/UL (4.8-10.8)
[2018-10-28 08:00] VITALS: BP 116/52
[2018-10-28 08:04] LABS: ALANINE AMINOTRANSFERASE 16 U/L (12-78); ALBUMIN 3.1 G/DL (3.4-5.0); ALBUMIN/GLOBULIN RATIO 1.3 (1.0-2.7); ALKALINE PHOSPHATASE 56 U/L (46-116); ANION GAP 11 mmol/L (5-15); ASPARTATE AMINO TRANSFERASE 10 U/L (15-37); BILIRUBIN,TOTAL 0.2 MG/DL (0.2-1.0); BLOOD UREA NITROGEN 28 mg/dL (7-18); CALCIUM 8.3 MG/DL (8.5-10.1); CARBON DIOXIDE 25 MMOL/L (21-32); CHLORIDE 103 MMOL/L (98-107); CREATININE 1.2 MG/DL (0.55-1.30); PHOSPHORUS 3.2 MG/DL (2.5-4.9); POTASSIUM 3.4 MMOL/L (3.5-5.1); SODIUM 139 MMOL/L (136-145)
[2018-10-28] MEDS: Theophylline ER 100mg ORAL SCH (08:55)
[2018-10-28] MEDS: Depakote 500mg tab ORAL SCH (08:55)
[2018-10-28] MEDS: Ascorbic Acid 500mg tab ORAL SCH (08:55)
[2018-10-28] MEDS: Levofloxacin 500mg tab ORAL SCH (08:55)
[2018-10-28] MEDS: Heparin 5000 units/ml inj SUBQ SCH (08:58)
[2018-10-28] MEDS ORDERED: Solu-MEDROL 125mg Inj IVP SCH (09:00)
[2018-10-28] MEDS: Docusate 250mg cap ORAL SCH (09:00)
[2018-10-28] MEDS: Budesonide HHN 0.25mg/2ml ud HHN SCH (09:52)
--- NOTE | 2018-10-28 10:35 | Infectious Diseases Prog Note ---
Assessment/Plan Assessment/Plan Assessment: COPD exacerbation -CXR: no acute disease -sp cx normal cindy Afebrile Leukocytosis (on steroids), resolved GPC bacteremia- likely contaminant -10/24 Bcx 1/ CONS 10/25 Bcx NTD COPD/asthma PTSD ataxia Prostate CA s/p chemo Bipolar dz seizure disorder anxiety prostate cancer CVA 2010 Plan: -Continue Levaquin #5/5 for COPD exacerbation -10/27 SP IV Vancomycin #3 -f/u cx -Monitor CBC/CMP, temperatures Thank you for this consultation. Will continue to follow along with you. Discussed with RN Subjective Allergies: Coded Allergies: CASHEW NUT (Verified Allergy, Unknown, 10/24/18) NO KNOWN ALLERGIES (Verified Allergy, Unknown, 03/07/18) [place] Seed (Verified Allergy, Unknown, 10/24/18) Subjective afebrile no leukocytosis repeat Bcx NTD Objective Vital Signs Last 24 Hour Vital Signs Date Time Temp Pulse Resp B/P (MAP) Pulse Ox O2 Delivery O2 Flow Rate FiO2 10/28/18 09:59 76 20 98 Room Air 10/28/18 09:52 77 20 96 Room Air 21 10/28/18 09:00 Nasal Cannula 2.0 10/28/18 08:56 81 20 98 Nasal Cannula 2.0 28 10/28/18 08:48 85 20 98 Room Air 21 10/28/18 08:48 95 Room Air 10/28/18 08:00 96.8 79 24 116/52 (73) 94 10/28/18 04:00 97.0 71 18 106/64 (78) 95 10/28/18 03:15 72 20 96 Nasal Cannula 2.0 28 10/28/18 03:05 51 20 94 Room Air 21 10/28/18 00:23 95 10/28/18 00:00 97.7 74 16 117/66 (83) 91 10/27/18 23:57 76 20 95 Nasal Cannula 2.0 28 10/27/18 23:34 74 20 92 Room Air 21 10/27/18 22:29 74 20 96 Room Air 21 10/27/18 21:57 72 20 95 Room Air 21 10/27/18 21:00 Nasal Cannula 2.0 10/27/18 20:00 97.6 71 20 128/66 (86) 93 10/27/18 19:50 63 20 98 Nasal Cannula 2.0 28 10/27/18 19:43 96 Nasal Cannula 2.0 28 10/27/18 19:40 62 20 96 Nasal Cannula 2.0 10/27/18 16:00 98.0 74 18 117/70 (86) 95 10/27/18 15:24 79 20 99 Room Air 21 10/27/18 15:17 74 20 95 Room Air 21 10/27/18 12:00 97.7 60 18 113/68 (83) 93 10/27/18 11:18 67 20 98 Room Air 21 10/27/18 11:11 69 20 95 Room Air 21 Height (Feet): 5 Height (Inches): 7.00 Weight (Pounds): 176 Objective GENERAL: The patient is a well-developed and well-nourished male, in no apparent distress. HEENT: Eyes, pupils are equal responsive to light and accommodation. Extraocular movements are intact. NECK: Supple without lymphadenopathy. CHEST: Diffuse wheezes in bilateral lung baker. Otherwise, clear to auscultation without rales. CARDIOVASCULAR: Regular rhythm and rate. S1 and S2 are normal without murmurs, rubs, or gallops. ABDOMEN: Soft, nontender, and nondistended. Positive bowel sounds. No evidence of hepatosplenomegaly. Currently, no rebound or guarding noted. Microbiology Date/Time Source Procedure Growth Status 10/25/18 14:40 Blood Blood Culture - Preliminary NO GROWTH AFTER 48 HOURS Resulted 10/25/18 14:30 Blood Blood Culture - Preliminary NO GROWTH AFTER 48 HOURS Resulted Laboratory Tests Test 10/28/18 05:40 White Blood Count 7.7 K/UL (4.8-10.8) Red Blood Count 4.39 M/UL (4.70-6.10) L Hemoglobin 13.9 G/DL (14.2-18.0) L Hematocrit 39.6 % (42.0-52.0) L Mean Corpuscular Volume 90 FL (80-99) Mean Corpuscular Hemoglobin 31.7 PG (27.0-31.0) H Mean Corpuscular Hemoglobin Concent 35.2 G/DL (32.0-36.0) Red Cell Distribution Width 11.5 % (11.6-14.8) L Platelet Count 125 K/UL (150-450) L Mean Platelet Volume 6.3 FL (6.5-10.1) L Neutrophils (%) (Auto) 68.5 % (45.0-75.0) Lymphocytes (%) (Auto) 20.9 % (20.0-45.0) Monocytes (%) (Auto) 9.8 % (1.0-10.0) Eosinophils (%) (Auto) 0.2 % (0.0-3.0) Basophils (%) (Auto) 0.7 % (0.0-2.0) Erythrocyte Sedimentation Rate 2 MM/HR (0-20) Sodium Level 139 MMOL/L (136-145) Potassium Level 3.4 MMOL/L (3.5-5.1) L Chloride Level 103 MMOL/L (98-107) Carbon Dioxide Level 25 MMOL/L (21-32) Anion Gap 11 mmol/L (5-15) Blood Urea Nitrogen 28 mg/dL (7-18) H Creatinine 1.2 MG/DL (0.55-1.30) Estimat Glomerular Filtration Rate > 60 mL/min (>60) Glucose Level 89 MG/DL (74-106) Calcium Level 8.3 MG/DL (8.5-10.1) L Phosphorus Level 3.2 MG/DL (2.5-4.9) Magnesium Level 2.0 MG/DL (1.8-2.4) Total Bilirubin 0.2 MG/DL (0.2-1.0) Aspartate Amino Transf (AST/SGOT) 10 U/L (15-37) L Alanine Aminotransferase (ALT/SGPT) 16 U/L (12-78) Alkaline Phosphatase 56 U/L (46-116) C-Reactive Protein, Quantitative < 0.4 mg/dL (0.00-0.90) Total Protein 5.5 G/DL (6.4-8.2) L Albumin 3.1 G/DL (3.4-5.0) L Globulin 2.4 g/dL Albumin/Globulin Ratio 1.3 (1.0-2.7) Current Medications Medications (Trade) Dose Ordered Sig/Jeri Route PRN Reason Start Time Stop Time Status Last Admin Dose Admin Acetaminophen/ Hydrocodone Bitart ([place] 5/325) 1 tab Q6H PRN ORAL Severe Pain (Pain Scale 7-10) 10/26/18 11:30 6/30/19 11:29 10/27/18 20:41 Albuterol/ Ipratropium (Albuterol/ Ipratropium) 3 ml Q4H PRN HHN Shortness of Breath 10/26/18 08:45 10/29/18 12:44 Albuterol/ Ipratropium (Albuterol/ Ipratropium) 3 ml Q4HRT HHN 10/26/18 07:00 10/29/18 10:59 10/28/18 08:48 Alendronate Sodium (Fosamax) 70 mg ONCE A WEEK ORAL 11/01/18 06:30 11/24/18 06:29 Ascorbic Acid (Vitamin C) 500 mg DAILY ORAL 10/26/18 09:00 11/24/18 08:59 10/28/18 08:55 Atorvastatin Calcium (Lipitor) 10 mg BEDTIME ORAL 10/26/18 21:00 11/23/18 20:59 10/27/18 20:39 Budesonide (Pulmicort) 0.5 mg Q12HRT N 10/26/18 10:00 11/23/18 21:59 10/28/18 09:52 Divalproex Sodium (Depakote) 500 mg EVERY 12 HOURS ORAL 10/26/18 09:00 11/23/18 20:59 10/28/18 08:55 Docusate Sodium (Colace) 250 mg DAILY ORAL 10/26/18 09:00 11/24/18 08:59 Escitalopram Oxalate (Lexapro) 10 mg DAILY ORAL 10/26/18 09:00 11/24/18 08:59 10/28/18 08:55 Ferrous Sulfate (Feosol) 325 mg DAILY ORAL 10/26/18 09:00 11/24/18 08:59 10/28/18 08:55 Folic Acid (Folate) 1 mg DAILY ORAL 10/26/18 09:00 11/24/18 08:59 10/28/18 08:55 Heparin Sodium (Porcine) (Heparin 5000 units/ml) 5,000 units EVERY 12 HOURS SUBQ 10/26/18 09:00 11/23/18 08:59 10/28/18 08:58 Ibuprofen (Motrin) 600 mg Q6H PRN ORAL Moderate Pain (Pain Scale 4-6) 10/26/18 11:30 11/23/18 11:29 Levofloxacin (Levaquin) 500 mg DAILY ORAL 10/27/18 09:00 10/28/18 23:59 10/28/18 08:55 Lorazepam (Ativan) 0.5 mg Q6H PRN ORAL Agitation 10/26/18 11:30 10/31/18 11:29 Methylprednisolone Sodium Succinate (Solu-MEDROL) 60 mg DAILY IVP 10/28/18 09:00 11/23/18 11:59 10/28/18 08:55 Multivitamins (Multivitamins) 1 tab DAILY ORAL 10/26/18 09:00 11/24/18 08:59 10/28/18 08:54 Pantoprazole (Protonix) 40 mg ACBREAKFAST ORAL 10/26/18 06:30 11/24/18 06:29 10/28/18 05:31 Primidone (Mysoline) 50 mg QHS ORAL 10/26/18 21:00 11/23/18 20:59 10/27/18 20:39 Promethazine HCl/ Codeine (Phenergan with Codeine) 5 ml Q4H PRN ORAL For Cough 10/26/18 08:15 11/23/18 08:14 Sucralfate (Carafate) 1 gm ACBREAKFAST ORAL 10/26/18 06:30 11/24/18 06:29 10/28/18 05:31 Theophylline (Esteban-Dur) 100 mg EVERY 12 HOURS ORAL 10/26/18 09:00 11/23/18 08:59 10/28/18 08:55 Rupali Dixon M.D. Oct 28, 2018 10:35
[2018-10-28 12:00] VITALS: BP 106/60
[2018-10-28] MEDS ORDERED: MEDROL DOSEPAK4 MG ORAL (13:33)
--- NOTE | 2018-10-28 13:34 | Pulmonology Progress Note ---
Assessment/Plan Problems: (1) COPD exacerbation (2) Acute bronchitis (3) Bipolar depression (4) Prostate cancer (5) PTSD (post-traumatic stress disorder) (6) Cerebrovascular accident (CVA) Assessment/Plan improving, still lots of cough respiratory treatment titrate fio2 to sat of 92% sputum has been negative iv abx taper iv steroids, decrease dc home with Medrol pack symptomatic treatment dvt prophylaxis Subjective ROS Limited/Unobtainable: No Constitutional: Reports: no symptoms HEENT: Repors: no symptoms Respiratory: Reports: no symptoms Allergies: Coded Allergies: CASHEW NUT (Verified Allergy, Unknown, 10/24/18) NO KNOWN ALLERGIES (Verified Allergy, Unknown, 03/07/18) [place] Seed (Verified Allergy, Unknown, 10/24/18) Objective Last 24 Hour Vital Signs Date Time Temp Pulse Resp B/P (MAP) Pulse Ox O2 Delivery O2 Flow Rate FiO2 10/28/18 12:00 97.0 70 23 106/60 (75) 96 10/28/18 11:40 86 20 99 Room Air 10/28/18 11:30 87 18 98 Room Air 10/28/18 09:59 76 20 98 Room Air 10/28/18 09:52 77 20 96 Room Air 10/28/18 09:00 Nasal Cannula 2.0 10/28/18 08:56 81 20 98 Nasal Cannula 2.0 10/28/18 08:48 85 20 98 Room Air 10/28/18 08:48 95 Room Air 10/28/18 08:00 96.8 79 24 116/52 (73) 94 10/28/18 04:00 97.0 71 18 106/64 (78) 95 10/28/18 03:15 72 20 96 Nasal Cannula 2.0 10/28/18 03:05 51 20 94 Room Air 10/28/18 00:23 95 10/28/18 00:00 97.7 74 16 117/66 (83) 91 10/27/18 23:57 76 20 95 Nasal Cannula 2.0 28 10/27/18 23:34 74 20 92 Room Air 21 10/27/18 22:29 74 20 96 Room Air 21 10/27/18 21:57 72 20 95 Room Air 21 10/27/18 21:00 Nasal Cannula 2.0 10/27/18 20:00 97.6 71 20 128/66 (86) 93 10/27/18 19:50 63 20 98 Nasal Cannula 2.0 28 10/27/18 19:43 96 Nasal Cannula 2.0 28 10/27/18 19:40 62 20 96 Nasal Cannula 2.0 28 10/27/18 16:00 98.0 74 18 117/70 (86) 95 10/27/18 15:24 79 20 99 Room Air 21 10/27/18 15:17 74 20 95 Room Air 21 Intake and Output 10/27/18 10/28/18 18:59 06:59 Intake Total 400 ml Output Total 1000 ml 300 ml Balance -600 ml -300 ml Intake Oral 400 ml Output Urine Total 1000 ml 300 ml General Appearance: WD/WN HEENT: normocephalic, atraumatic Respiratory/Chest: chest wall non-tender, normal breath sounds Cardiovascular: normal rate, regular rhythm Abdomen: soft, non tender, no organomegaly Genitourinary: normal external genitalia Skin: no rash Microbiology Date/Time Source Procedure Growth Status 10/25/18 14:40 Blood Blood Culture - Preliminary NO GROWTH AFTER 48 HOURS Resulted 10/25/18 14:30 Blood Blood Culture - Preliminary NO GROWTH AFTER 48 HOURS Resulted Laboratory Tests 10/28/18 05:40: White Blood Count 7.7, Red Blood Count 4.39L, Hemoglobin 13.9L, Hematocrit 39.6L , Mean Corpuscular Volume 90, Mean Corpuscular Hemoglobin 31.7H, Mean Corpuscular Hemoglobin Concent 35.2, Red Cell Distribution Width 11.5L, Platelet Count 125L, Mean Platelet Volume 6.3L, Neutrophils (%) (Auto) 68.5, Lymphocytes (%) (Auto) 20.9, Monocytes (%) (Auto) 9.8, Eosinophils (%) (Auto) 0.2, Basophils (%) (Auto) 0.7, Erythrocyte Sedimentation Rate 2, Sodium Level 139, Potassium Level 3.4L, Chloride Level 103, Carbon Dioxide Level 25, Anion Gap 11, Blood Urea Nitrogen 28H, Creatinine 1.2, Estimat Glomerular Filtration Rate > 60, Glucose Level 89, Calcium Level 8.3L, Phosphorus Level 3.2, Magnesium Level 2.0, Total Bilirubin 0.2, Aspartate Amino Transf (AST/SGOT) 10L , Alanine Aminotransferase (ALT/SGPT) 16, Alkaline Phosphatase 56, C-Reactive Protein, Quantitative < 0.4, Total Protein 5.5L, Albumin 3.1L, Globulin 2.4, Albumin/Globulin Ratio 1.3 Current Medications Medications (Trade) Dose Ordered Sig/Jeri Route PRN Reason Start Time Stop Time Status Last Admin Dose Admin Acetaminophen/ Hydrocodone Bitart ([place] 5/325) 1 tab Q6H PRN ORAL Severe Pain (Pain Scale 7-10) 10/26/18 11:30 10/31/18 11:29 10/27/18 20:41 Albuterol/ Ipratropium (Albuterol/ Ipratropium) 3 ml Q4H PRN N Shortness of Breath 10/26/18 08:45 10/29/18 12:44 Albuterol/ Ipratropium (Albuterol/ Ipratropium) 3 ml Q4HRT N 10/26/18 07:00 10/29/18 10:59 10/28/18 11:52 Alendronate Sodium (Fosamax) 70 mg ONCE A WEEK ORAL 11/01/18 06:30 11/24/18 06:29 Ascorbic Acid (Vitamin C) 500 mg DAILY ORAL 10/26/18 09:00 11/24/18 08:59 10/28/18 08:55 Atorvastatin Calcium (Lipitor) 10 mg BEDTIME ORAL 10/26/18 21:00 11/23/18 20:59 10/27/18 20:39 Budesonide (Pulmicort) 0.5 mg Q12HRT N 10/26/18 10:00 11/23/18 21:59 10/28/18 09:52 Divalproex Sodium (Depakote) 500 mg EVERY 12 HOURS ORAL 10/26/18 09:00 11/23/18 20:59 10/28/18 08:55 Docusate Sodium (Colace) 250 mg DAILY ORAL 10/26/18 09:00 11/24/18 08:59 Escitalopram Oxalate (Lexapro) 10 mg DAILY ORAL 10/26/18 09:00 11/24/18 08:59 10/28/18 08:55 Ferrous Sulfate (Feosol) 325 mg DAILY ORAL 10/26/18 09:00 11/24/18 08:59 10/28/18 08:55 Folic Acid (Folate) 1 mg DAILY ORAL 10/26/18 09:00 11/24/18 08:59 10/28/18 08:55 Heparin Sodium (Porcine) (Heparin 5000 units/ml) 5,000 units EVERY 12 HOURS SUBQ 10/26/18 09:00 11/23/18 08:59 10/28/18 08:58 Ibuprofen (Motrin) 600 mg Q6H PRN ORAL Moderate Pain (Pain Scale 4-6) 10/26/18 11:30 11/23/18 11:29 Lorazepam (Ativan) 0.5 mg Q6H PRN ORAL Agitation 10/26/18 11:30 10/31/18 11:29 Methylprednisolone Sodium Succinate (Solu-MEDROL) 60 mg DAILY IVP 10/28/18 09:00 11/23/18 11:59 10/28/18 08:55 Multivitamins (Multivitamins) 1 tab DAILY ORAL 10/26/18 09:00 11/24/18 08:59 10/28/18 08:54 Pantoprazole (Protonix) 40 mg ACBREAKFAST ORAL 10/26/18 06:30 11/24/18 06:29 10/28/18 05:31 Primidone (Mysoline) 50 mg QHS ORAL 10/26/18 21:00 11/23/18 20:59 10/27/18 20:39 Promethazine HCl/ Codeine (Phenergan with Codeine) 5 ml Q4H PRN ORAL For Cough 10/26/18 08:15 11/23/18 08:14 Sucralfate (Carafate) 1 gm ACBREAKFAST ORAL 10/26/18 06:30 11/24/18 06:29 10/28/18 05:31 Theophylline (Esteban-Dur) 100 mg EVERY 12 HOURS ORAL 10/26/18 09:00 11/23/18 08:59 10/28/18 08:55 Michele Umaña MD Oct 28, 2018 13:34
--- NOTE | 2018-10-28 15:15 | NUR ---
NURSE NOTES: Patient discharged back to [facility] accompanied by daughter. Transportation provided by [employer] services. Medication filled by [facility] and given to patient along with his discharge packet. Patient denied SOB and verbalized readiness for discharge. IV safely removed, covered with gauze and tape. Instructions given on how to take prednisone discharge medications. RN emphasized importance of following specific instructions. Patient verbalized understanding.
--- NOTE | 2018-10-29 09:38 | Discharge Summary ---
Discharge Summary Discharge Summary _ DATE OF ADMISSION: 10/24/2018 DATE OF DISCHARGE: 10/28/2018 ADMITTING MD: Dr. Christopher Medina DISCHARGED BY: Dr. Michele Umaña CONSULTANTS: Dr. Michele Dixon [facility] HOSPITAL COURSE: Patient is a 67-year-old male, who presented with chief complaint of shortness of breath. Symptoms started 4 to 5 days prior to admission. The patient became increasingly short of breath. He uses albuterol nebulizer machine at home. Patient lives at an assisted living facility. Paramedics were called as patient was found to be short of breath. The patient had decreased oxygen saturation. He has medical history significant for asthma, chronic pulmonary disease, posttraumatic stress disorder, ataxia, history of prostate CA, currently undergoing chemotherapy at [facility] and bipolar depression. On evaluation, patient was short of breath upon arrival. Tachypneic and was wheezing. He was given breathing treatment. Blood work did not show any leukocytosis. Hemoglobin stable. Electrolytes were normal. Chest x-ray did not show any acute findings. He was then admitted for acute exacerbation of COPD. He was given nebulized treatment. He was continued on IV steroids and IV antibiotics. He was given antitussives. He was placed on heparin for DVT prophylaxis. He was continued on home medications. ID was consulted. Blood culture showed growth of gram-positive cocci in clusters. He was started empirically on IV vancomycin. He was continued on Levaquin for COPD. Repeat blood culture did not isolate any growth. Sputum culture showed normal upper respiratory cindy. Vancomycin was discontinued. IV steroid was tapered. Patient was improving, although still with lots of cough. He was eventually discharged home to continue Medrol Dosepak upon discharge. FINAL DIAGNOSES: Acute COPD exacerbation Acute bronchitis Gram-positive cocci bacteremia, likely contaminant Bipolar depression Prostate cancer status post chemotherapy Posttraumatic stress disorder Old CVA Seizure disorder Anxiety DISPOSITION: Patient was discharged home. DISCHARGE MEDICATIONS: Refer to Discharge Medication List. DISCHARGE INSTRUCTIONS: Follow-up in a week. I have been assigned to complete a discharge summary on this account, I was not involved with the patient's management.--ROGER Boswell Jacqueline Robles NP Oct 29, 2018 09:38
--- NOTE | 2018-10-29 16:14 | Cardiology Report ---
APPROVED REPORT EKG Measurement Heart [id number] Normal sinus rhythm Nonspecific ST abnormality Abnormal ECG
== END 2018-10-28 15:15 | disposition home or self-care (01) | DRG 192 ==
LOC: EDBD 03:35 → EMR 03:50 → 2E 04:07 → EDBEDREQ 04:35 → 4E 10-26 05:29
DX: J44.1 Chronic obstructive pulmonary disease with (acute) exacerbation (principal); F43.10 Post-traumatic stress disorder, unspecified; F31.9 Bipolar disorder, unspecified; J20.9 Acute bronchitis, unspecified; Z85.46 Personal history of malignant neoplasm of prostate; Z86.73 Personal history of transient ischemic attack (TIA), and cerebral infarction without residual deficits; F41.9 Anxiety disorder, unspecified; G40.909 Epilepsy, unspecified, not intractable, without status epilepticus
CPT/HCPCS: 36415; 71045; 80048; 80053; 80202; 82550; 82553; 83690; 83735; 83880; 84100; 84153; 84154; 84484; 85007; 85025; 85651; 86140; 87040; 87070; 87081; 87181; 87205; 93005; 94640; 94664; 96365; 96375; 99291; J7620

== ENCOUNTER 2019-04-11 10:41 | Inpatient (IN) | payer MEDICARE, OTHER ==
[~2019-04-11] VITALS: Ht 170.2 cm; Wt 89.5 kg
[~2019-04-11 10:41] MED LIST changes: +ACETAMINOPHEN325 M1 ORAL; +FLOVENT2 PUFF1 INH; +PREDNISONE10 MG ORAL; +TRAMADOL HCL50 MG ORAL; +VENTOLIN HFA18 GM INH
[2019-04-11 10:55] VITALS: BP 104/71
--- NOTE | 2019-04-11 10:55 | NUR ---
ED Nurse Note: pt walked into ER c/o shortness of breath onset one week ago. pt notes sob has become worse. pt has hx of asthma and states he normally uses an inhaler and nebulizer at home. pt used inhaler and nebulizer at home multiple times since last night every two hours with no relief in sob. Pt oxygen sat 97% at this time, speaking in full sentences, breathing normal and unlabored. pt connected to monitor and placed in gown. Will continue to monitor.
[2019-04-11] MEDS ORDERED: Ipratropium 0.02% Inh Soln 2.5ml UD HHN ONE (11:15)
[2019-04-11] MEDS ORDERED: Solu-MEDROL 125mg Inj IVP ONE (11:15)
--- NOTE | 2019-04-11 11:15 | Emergency Room Report ---
History of Present Illness General Chief Complaint: Asthma Source: Patient, Medical Record Present Illness HPI Patient presents with dyspnea and wheezing that is been worsening over the last week. Has a nebulizer at home that is been using every 2 hours. He is also on a steroid inhaler and uses albuterol inhaler 2. He denies any fevers or productive cough. He saw his doctor earlier this week. Had flu vaccination this year. The patient is not taking prednisone at this time. H/O seizures. On valproic acid and primidone. No recent seizure activity. The patient has bipolar disorder and suffers from anxiety and depression. No sore throat, chest pain, palpitations, nausea, vomiting, diarrhea, dysuria, abdominal pain, joint pain, rashes, visual changes, dizziness, headache. Admitted October this year: Acute COPD exacerbation Acute bronchitis Gram-positive cocci bacteremia, likely contaminant Bipolar depression Prostate cancer status post chemotherapy Posttraumatic stress disorder Old CVA - 2010 Seizure disorder Anxiety Allergies: Coded Allergies: CASHEW NUT (Verified Allergy, Unknown, 10/24/18) NO KNOWN ALLERGIES (Verified Allergy, Unknown, 03/07/18) [place] Seed (Verified Allergy, Unknown, 10/24/18) Patient History Past Medical History: see triage record, old chart reviewed Social History: Denies: smoking, alcohol use, drug use Social History Narrative From home Reviewed Nursing Documentation: PMH: Agreed; PSxH: Agreed Nursing Documentation-PMH Past Medical History: No History, Except For Hx Cardiac Problems: Yes - prostate CA, Dizziness Hx Asthma: Yes Hx COPD: Yes Hx Diabetes: No Hx Cancer: Yes Hx Gastrointestinal Problems: No Hx Neurological Problems: Yes - ataxia Hx Cerebrovascular Accident: Yes - 2010 Hx Seizures: Yes - convulsions Hx Tremors: Yes Hx Dizziness: Yes Hx Dysphasia: Yes Review of Systems All Other Systems: negative except mentioned in HPI Physical Exam Vital Signs Date Time Temp Pulse Resp B/P (MAP) Pulse Ox O2 Delivery O2 Flow Rate FiO2 04/11/19 10:44 97.2 82 22 104/71 (82) 95 Room Air Sp02 EP Interpretation: reviewed, abnormal - interpreted as low by me General Appearance: alert, GCS 15, non-toxic, mild distress Head: normocephalic Eyes: right eye other - melanotic spot; bilateral eye normal inspection, bilateral eye PERRL ENT: normal pharynx, moist mucus membranes Neck: full range of motion, supple, no bony tend Respiratory: chest non-tender, respiratory distress - minimal, wheezing, expiration Cardiovascular #1: regular rate, rhythm, no edema Cardiovascular #2: 2+ radial (L) Gastrointestinal: normal bowel sounds, non tender, soft Genitourinary: no CVA tenderness Musculoskeletal: back normal, no calf tenderness, non-tender Neurologic: alert, oriented x3, grossly normal Psychiatric: mood/affect normal Skin: no rash, warm/dry Medical Decision Making Diagnostic Impression: Primary Impression: Sepsis Qualified Codes: A41.9 - Sepsis, unspecified organism Additional Impressions: COPD exacerbation Elevated lactic acid level Eosinophilia ER Course Patient presents with worsening wheezing with aggressive treatment at home over the course of a week. Differential includes acute myocardial infarction, exacerbation COPD, bronchitis, pneumonia, pulmonary illness amongst others. Patient the patient's history of COPD exacerbation is most likely. The fascia evaluation with EKG, chest x-ray and labs. The patient will be treated with Solu-Medrol and breathing treatments. EKG no injury. CXR clear. WBC normal with eosinophilia. SEPSIS RE-EVALUATION: I, Blake Rollins MD, Performed the Sepsis Re-evaluation at 14:45. Repeat lactic acid more elevated. Rest of 30 ml/kg bolus given. Antibiotics ordered. Cap fill good, mentation good, some renal insufficiency. Not tachycardic and BP stable. Improved with treatment, but dyspnic. This before repeat lactate. Improved after fluid bolus. Discussed with Dr. Umaña who accepts for Dr. Medina. Laboratory Tests Test 04/11/19 12:10 04/11/19 13:00 White Blood Count 7.4 K/UL (4.8-10.8) Red Blood Count 4.62 M/UL (4.70-6.10) L Hemoglobin 14.7 G/DL (14.2-18.0) Hematocrit 42.0 % (42.0-52.0) Mean Corpuscular Volume 91 FL (80-99) Mean Corpuscular Hemoglobin 31.9 PG (27.0-31.0) H Mean Corpuscular Hemoglobin Concent 35.1 G/DL (32.0-36.0) Red Cell Distribution Width 10.9 % (11.6-14.8) L Platelet Count 132 K/UL (150-450) L Mean Platelet Volume 5.6 FL (6.5-10.1) L Neutrophils (%) (Auto) 63.8 % (45.0-75.0) Lymphocytes (%) (Auto) 13.9 % (20.0-45.0) L Monocytes (%) (Auto) 10.3 % (1.0-10.0) H Eosinophils (%) (Auto) 10.4 % (0.0-3.0) H Basophils (%) (Auto) 1.6 % (0.0-2.0) Prothrombin Time 10.6 SEC (9.30-11.50) Prothrombin Time INR 1.0 (0.9-1.1) PTT 24 SEC (23-33) Sodium Level 139 MMOL/L (136-145) Potassium Level 3.7 MMOL/L (3.5-5.1) Chloride Level 105 MMOL/L (98-107) Carbon Dioxide Level 23 MMOL/L (21-32) Anion Gap 12 mmol/L (5-15) Blood Urea Nitrogen 12 mg/dL (7-18) Creatinine 1.1 MG/DL (0.55-1.30) Estimate Glomerular Filtration Rate > 60 mL/min (>60) Glucose Level 105 MG/DL (74-106) Lactic Acid Level 2.40 mmol/L (0.4-2.0) H 4.10 mmol/L (0.66-2.22) H Calcium Level 8.7 MG/DL (8.5-10.1) Magnesium Level 2.0 MG/DL (1.8-2.4) Total Bilirubin 0.2 MG/DL (0.2-1.0) Aspartate Amino Transferase (AST) 13 U/L (15-37) L Alanine Aminotransferase (ALT) 19 U/L (12-78) Alkaline Phosphatase 65 U/L (46-116) Total Creatine Kinase 58 U/L (26-308) Troponin I 0.000 ng/mL (0.000-0.056) Pro-B-Type Natriuretic Peptide 59 pg/mL (0-125) Total Protein 5.8 G/DL (6.4-8.2) L Albumin 3.2 G/DL (3.4-5.0) L Globulin 2.6 g/dL Albumin/Globulin Ratio 1.2 (1.0-2.7) Microbiology Date/Time Source Procedure Growth Status 04/11/19 11:10 Nasal Nares - Final Complete 04/11/19 11:10 Nasal Nares - Final Complete EKG Diagnostic Results Rate: normal Rhythm: NSR ST Segments: no acute changes Rhythm Strip Diag. Results EP Interpretation: yes Rhythm: NSR, no PVC's, no ectopy Chest X-Ray Diagnostic Results Chest X-Ray Diagnostic Results : Chest X-Ray Ordered: Yes # of Views/Limited/Complete: 1 View Indication: Shortness of Breath EP Interpretation: Yes Interpretation: no consolidation, no effusion, no pneumothorax Impression: No acute disease Electronically Signed by: Electronically signed by Blake Rollins MD Last Vital Signs Date Time Temp Pulse Resp B/P (MAP) Pulse Ox O2 Delivery O2 Flow Rate FiO2 04/11/19 20:21 83 20 100 Room Air 21 80 20 98 04/11/19 16:06 98.7 131/98 Status: improved Disposition: ADMITTED INPATIENT Condition: Serious Blake Rollins MD Apr 11, 2019 11:15
--- NOTE | 2019-04-11 11:37 | Diagnostic Imaging Report ---
Indication: Dyspnea Technique: One view of the chest Comparison: 10/24/2018 Findings: Lungs and pleural spaces are clear. Heart size is normal. No significant interim change Impression: No acute process
[2019-04-11 12:21] LABS: BASOPHILS % (AUTO) 1.6 % (0.0-2.0); EOSINOPHILS % (AUTO) 10.4 % (0.0-3.0); HEMOGLOBIN 14.7 G/DL (14.2-18.0); LYMPHOCYTES % (AUTO) 13.9 % (20.0-45.0); MEAN CORPUSCULAR VOLUME 91 FL (80-99); MONOCYTES % (AUTO) 10.3 % (1.0-10.0); NEUTROPHILS % (AUTO) 63.8 % (45.0-75.0); PLATELET COUNT 132 K/UL (150-450); RED BLOOD COUNT 4.62 M/UL (4.70-6.10); RED CELL DISTRIBUTION WIDTH 10.9 % (11.6-14.8); WHITE BLOOD COUNT 7.4 K/UL (4.8-10.8)
[2019-04-11] MEDS: Albuterol ud Inhalation HHN SCH ×2 (12:35→12:36)
[2019-04-11 12:41] LABS: ANION GAP 12 mmol/L (5-15); BLOOD UREA NITROGEN 12 mg/dL (7-18); CALCIUM 8.7 MG/DL (8.5-10.1); CARBON DIOXIDE 23 MMOL/L (21-32); CHLORIDE 105 MMOL/L (98-107); CREATININE 1.1 MG/DL (0.55-1.30); POTASSIUM 3.7 MMOL/L (3.5-5.1); SODIUM 139 MMOL/L (136-145)
[2019-04-11 12:44] VITALS: BP 120/73
[2019-04-11 12:52] LABS: ALANINE AMINOTRANSFERASE 19 U/L (12-78); ALBUMIN 3.2 G/DL (3.4-5.0); ALBUMIN/GLOBULIN RATIO 1.2 (1.0-2.7); ALKALINE PHOSPHATASE 65 U/L (46-116); ASPARTATE AMINO TRANSFERASE 13 U/L (15-37); BILIRUBIN,TOTAL 0.2 MG/DL (0.2-1.0); CREATINE KINASE 58 U/L (26-308)
--- NOTE | 2019-04-11 13:52 | NUR ---
ED Nurse Note: Repeat lactic lab drawn and sent to lab.
[2019-04-11] MEDS ORDERED: Vancomycin 1 GM in NS 275 ML IVPB ONE (14:45)
[2019-04-11] MEDS ORDERED: Sodium Chloride 2,200 ML IVLG ONE (14:45)
[2019-04-11] MEDS ORDERED: Piperacillin/Tazobactam 3.375 GM in NS 110 ML IVPB ONE (14:45)
[2019-04-11 15:10] VITALS: BP 111/71
--- NOTE | 2019-04-11 15:43 | NUR ---
ED Nurse Note: Report given to MILKA Saenz for inpatient continuation of care.
--- NOTE | 2019-04-11 16:06 | NUR ---
TRANSFER TO FLOOR: Patient transferred to med surg floor as ordered, per Dr. Medina. Report given to MILKA Saenz. Belongings and medications given to patient.
--- NOTE | 2019-04-11 16:30 | NUR ---
NURSE NOTES: Pt arrived from ER states he has been having shortness of breathe since . Per pt he called 911 and refused to go to the hospital. Has hx of Asthma and COPD denies smoking. Belongings are at bedside. Bed alarm on due to statement that he had a recent fall. Dr Medina phoned for orders gave orders for regular diet, full code status , and duoneb breathing treatment prn q6. Awaiting further orders. Pt moved closer to nurses station due to report of recent fall at home. Reminded to press call light for bathroom assistance.
--- NOTE | 2019-04-11 18:38 | NUR ---
NURSE NOTES: Ate well for dinner call light is in reach, bed is in safe position
[2019-04-11] MEDS ORDERED: Albuterol/Ipratropium 3ml neb HHN SCH ×2 (19:00→23:00)
--- NOTE | 2019-04-11 19:10 | NUR ---
NURSE NOTES: Received report from MILKA Olivares, patient is A/Ox4, breaths even regular and unlabored and no SOB, I.V site on Left lower arm 18g no i.v fluids. Patient denies any pain, will continue to Monitor
--- NOTE | 2019-04-11 19:18 | NUR ---
HAND-OFF: Report given to Anne JARQUIN made aware that admission orders have not been recieved , requires follow up. Addendum: 04/11/19 at 1923 by Elise Bender RN Nicol JARQUIN
--- NOTE | 2019-04-11 19:26 | History & Physical ---
History and Physical History & Physicial Dictated for Int Med-Dr Medina no. [id number] Ryan Mckenzie MD Apr 11, 2019 19:26
[2019-04-11 20:00] VITALS: BP 123/65
[2019-04-11] MEDS ORDERED: Albuterol/Ipratropium 3ml neb HHN PRN (21:00)
[2019-04-11] MEDS ORDERED: traMADol 50mg tab ORAL PRN (21:00)
--- NOTE | 2019-04-11 21:00 | NUR ---
patients home meds reviewed with MD New medication orders received and carried
[2019-04-11] MEDS: Depakote 500mg tab ORAL SCH (22:22)
[2019-04-11] MEDS: Solu-MEDROL 40mg Inj IVP SCH (22:22)
[2019-04-11] MEDS: Heparin 5000 units/ml inj SUBQ SCH (22:53)
[2019-04-11] MEDS ORDERED: cefTRIAXone 1gm/D5W 55ml IVPB SCH ×2 (23:00)
--- NOTE | 2019-04-11 23:15 | History and Physical Report ---
DATE OF ADMISSION: 04/11/2019 CHIEF COMPLAINT: The patient is a 68-year-old male, who presents with chief complaint of shortness of breath and wheezing. HISTORY OF PRESENT ILLNESS: The patient was admitted to [facility] in October 2018 with similar symptoms. Please see history and physical and discharge summary dictated at that time. The patient presented to [facility] emergency room complaining of a 1-week history of shortness of breath and wheezing. The patient has tried using his nebulizer home without relief. The patient is also on a steroid inhaler and albuterol inhaler. The patient presented to [facility] emergency room. The patient was admitted with shortness of breath and wheezing with probable chronic obstructive pulmonary disease acute exacerbation. REVIEW OF SYSTEMS: CONSTITUTIONAL: The patient denies weight loss or weight gain. The patient denies fever or chills. HEENT: The patient denies ear or throat pain. The patient denies headache. CARDIOVASCULAR: The patient denies palpitations or chest pain. CHEST: The patient complains of shortness of breath and wheezing as above. ABDOMINAL: The patient denies nausea, vomiting, diarrhea, or constipation. GENITOURINARY: The patient denies dysuria or increased frequency of urination. NEUROMUSCULAR: The patient denies seizures or generalized weakness. PAST MEDICAL HISTORY: Significant for: 1. Chronic obstructive pulmonary disease. 2. Posttraumatic stress disorder. 3. History of ataxia. 4. Prostate cancer, currently undergoing chemotherapy at the [facility]. 5. Bipolar depression. PAST SURGICAL HISTORY: The patient denies. CURRENT MEDICATIONS: 1. Albuterol metered-dose inhaler two puffs p.o. q.i.d. p.r.n. 2. Albuterol 2.5 mg nebulized q.4 hours p.r.n. 3. Atorvastatin 20 mg p.o. at bedtime. 4. Depakote 500 mg p.o. twice daily. 5. Lexapro 10 mg p.o. daily. 6. Flovent 2 puffs p.o. twice daily. 7. Prednisone 10 mg p.o. daily. 8. Tramadol 50 mg p.o. q.4 hours p.r.n. ALLERGIES: No known drug allergies. However patient is allergic to cashew nuts and SOCIAL HISTORY: The patient is . The [facility]. The patient admits to occasional cigar use. The patient denies alcohol use. PHYSICAL EXAMINATION: VITAL SIGNS: Temperature 97.2, respirations 22, pulse 82, blood pressure 104/81, pulse ox 95% on room air. GENERAL: The patient is well-developed and well-nourished male, in no apparent distress. HEENT: Eyes, pupils are equal and responsive to light and accommodation. Extraocular movements are intact. NECK: Supple. No lymphadenopathy. CHEST: Few wheezes at bilateral bases with few crackles in bilateral bases. Otherwise, without wheezes or rales. CARDIOVASCULAR: Regular rate. S1 and S2 are normal without murmurs, rubs, or gallops. ABDOMEN: Soft, nontender, and nondistended. Positive bowel sounds. No hepatosplenomegaly. Currently no rebound or guarding noted. EXTREMITIES: Negative for clubbing, cyanosis, or edema. RECTAL/GENITAL: Not performed. NEUROLOGIC: Cranial nerves II through XII are grossly intact without focal deficits. Motor strength is 5/5 bilaterally. Deep tendon reflexes are 2+ plantar. LABORATORY STUDIES: WBC 7.4, hemoglobin 14.7, hematocrit 42.0, platelets . Sodium 139, potassium 3.7 chloride 105, CO2 23, BUN 12, creatinine 1.1, glucose 105. Lactic acid 4.10. Chest x-ray was reported as no acute disease. ASSESSMENT: This is a 68-year-old male. 1. Shortness of breath. 2. Wheezing. 3. Probable chronic obstructive pulmonary disease acute exacerbation. 4. Hypercholesterolemia. 5. Posttraumatic stress disorder. 6. Prostate cancer. 7. Bipolar depression. TREATMENT: 1. Shortness of breath/wheezing/chronic obstructive pulmonary disease exacerbation. A Pulmonary consultation has been obtained with Dr. Michele Umaña. The patient has been started empirically on Zosyn and vancomycin. The patient has been started on IV Solu-Medrol. We will follow recommendations of Pulmonary. 2. Hypercholesterolemia. Continue atorvastatin as above. 3. Posttraumatic stress disorder/bipolar depression. Continue Lexapro and Depakote as above. 4. Prostate cancer. The patient is undergoing chemotherapy at the [facility]. Ryan Mckenzie M.D. DR: Pavel JOB#: [id number] CC:
[2019-04-12] VITALS: BP 115/70
[2019-04-12] MEDS: Albuterol/Ipratropium 3ml neb HHN SCH ×6 (01:37→21:16)
[2019-04-12 04:00] VITALS: BP 113/70
--- NOTE | 2019-04-12 04:21 | NUR ---
Responded to patient while coughing, in distress, patient remained awake and alert , his o2sat was between 83 and 87, Pt put on 2 L via NC ,RT notified stayed by the bed side , breathing treatment was given and patient responded and o2sat remains at <93 and VSS WNL.
--- NOTE | 2019-04-12 05:00 | NUR ---
Responded to patient, in distress, patient remained awake and alert , his o2sat was between 84 and 90, Pt put on 2 L via NC ,RT notified stayed by the bed side , breathing treatment was given and patient responded and o2sat remains at <93 and VSS WNL.
[2019-04-12 05:29] LABS: HEMATOCRIT 39.5 % (42.0-52.0); HEMOGLOBIN 14.1 G/DL (14.2-18.0); MEAN CORPUSCULAR VOLUME 91 FL (80-99); PLATELET COUNT 136 K/UL (150-450); RED BLOOD COUNT 4.34 M/UL (4.70-6.10)
[2019-04-12 05:52] LABS: ALANINE AMINOTRANSFERASE 22 U/L (12-78); ALBUMIN 3.2 G/DL (3.4-5.0); ALBUMIN/GLOBULIN RATIO 1.2 (1.0-2.7); ALKALINE PHOSPHATASE 66 U/L (46-116); ANION GAP 12 mmol/L (5-15); ASPARTATE AMINO TRANSFERASE 14 U/L (15-37); BILIRUBIN,TOTAL 0.3 MG/DL (0.2-1.0); BLOOD UREA NITROGEN 20 mg/dL (7-18); CALCIUM 8.5 MG/DL (8.5-10.1); CARBON DIOXIDE 21 MMOL/L (21-32); CHLORIDE 107 MMOL/L (98-107); CREATININE 1.1 MG/DL (0.55-1.30); PHOSPHORUS 3.4 MG/DL (2.5-4.9); POTASSIUM 4.6 MMOL/L (3.5-5.1); SODIUM 140 MMOL/L (136-145)
[2019-04-12] MEDS: Heparin 5000 units/ml inj SUBQ SCH ×4 (06:00→21:18)
[2019-04-12] MEDS: Solu-MEDROL 40mg Inj IVP SCH ×3 (06:17→21:07)
[2019-04-12] MEDS ORDERED: NovoLOG Insulin Flexpen SUBQ SCH (06:30)
--- NOTE | 2019-04-12 07:27 | NUR ---
NURSE NOTES: New orders to transfer to tele received and carried,
--- NOTE | 2019-04-12 07:30 | NUR ---
NURSE NOTES: Patient is in bed awake and able to verbalize needs. Stable. Denies pain. Breathing is even and unlabored. Periods of coughing noted, discussed with Respiratory therapist and will continue to monitor respirations and breathing. RT will offer breathing tx as needed and as scheduled. Patient made aware. Patient encouraged to use call light for assistance, verbalized understanding. Patient is in bed in locked and lowest position with call light within reach and bed alarm on. WIll continue to monitor.
[2019-04-12 08:00] VITALS: BP 116/74
--- NOTE | 2019-04-12 08:07 | NUR ---
HAND-OFF: Report given to MILKA Roque.
[2019-04-12] MEDS: Depakote 500mg tab ORAL SCH ×2 (08:35→21:05)
[2019-04-12] MEDS ORDERED: Albuterol/Ipratropium 3ml neb HHN SCH (10:00)
--- NOTE | 2019-04-12 10:15 | NUR ---
NURSE NOTES: Patient transferred to tele as ordered via hospital bed with 2 RN assist. Report given to Geraldine JARQUIN. Stable. Breathing is even. Skin is clean, dry, and intact. All belongings accounted for. Bed in locked and lowest position with call light within reach.
[2019-04-12] MEDS ORDERED: traMADol 50mg tab ORAL PRN (10:23)
[2019-04-12] MEDS ORDERED: Albuterol/Ipratropium 3ml neb HHN PRN (11:00)
--- NOTE | 2019-04-12 11:44 | Consultation ---
History of Present Illness General Date patient seen: Apr 12, 2019 Chief Complaint: Asthma Present Illness HPI 68 year old male with hx of COPD/asthma, PTSD, seizures, anxiety, prostate cancer, CVA presented to ER with complaints of shortness of breath, worsening symptoms over the past few days Denies any obvious fevers denies any chest pain. Denies any recent travel denies any rash. His CXR was negative for any acute infiltrate. He was diagnosed to have acute exacerbation of COPD and admitted to telemetry for further management. Allergies: Coded Allergies: CASHEW NUT (Verified Allergy, Unknown, 10/24/18) NO KNOWN ALLERGIES (Verified Allergy, Unknown, 03/07/18) [place] Seed (Verified Allergy, Unknown, 10/24/18) Medication History Scheduled Acetaminophen* (Acetaminophen 325MG Tablet*), 650 MG ORAL Q6H, (Reported) Atorvastatin Calcium* (Atorvastatin Calcium*), 10 MG ORAL BEDTIME, (Reported) Divalproex Sodium (Divalproex Sodium), 500 MG ORAL EVERY 12 HOURS Escitalopram Oxalate* (Lexapro*), 10 MG ORAL DAILY Fluticasone Propionate (Flovent Hfa), 2 PUFFS INH BID, (Reported) Methylprednisolone (Methylprednisolone*), 4 MG ORAL DIRECTED Prednisone* (Prednisone*), 10 MG ORAL DAILY, (Reported) Primidone* (Mysoline*), 50 MG PO QHS, (Reported) Scheduled PRN Albuterol Sulfate (Ventolin Hfa), 2 PUFFS INH TID PRN for Shortness of Breath, ( Reported) Tramadol Hcl* (Ultram*), 50 MG ORAL Q6H PRN for For Pain, (Reported) Patient History Healthcare decision maker Resuscitation status Advanced Directive on File No Past Medical/Surgical History Past Medical/Surgical History: (1) Cerebrovascular accident (CVA) (2) PTSD (post-traumatic stress disorder) (3) History of asthma (4) Prostate cancer (5) Psychosis (6) Bipolar depression Review of Systems Hematologic/Lymphatic: Reports: no symptoms All Other Systems: negative except mentioned in HPI Physical Exam General Appearance: WD/WN, no apparent distress Lines, tubes and drains: peripheral HEENT: normocephalic, atraumatic, PERRL Neck: non-tender Respiratory/Chest: rhonchi - left, rhonchi - right, expiratory wheezing Cardiovascular/Chest: normal peripheral pulses, normal rate Abdomen: normal bowel sounds, non tender, no organomegaly Extremities: normal range of motion, non-tender, normal inspection Last 24 Hour Vital Signs Date Time Temp Pulse Resp B/P (MAP) Pulse Ox O2 Delivery O2 Flow Rate FiO2 04/12/19 09:21 72 19 98 Room Air 21 93 18 95 04/12/19 09:00 Nasal Cannula 2.0 04/12/19 08:00 97.5 78 18 116/74 (88) 97 04/12/19 06:49 72 19 98 Nasal Cannula 2.0 28 68 18 95 04/12/19 06:39 95 Nasal Cannula 2.0 28 04/12/19 05:13 89 20 100 Nasal Cannula 3.0 32 86 20 99 04/12/19 04:00 98.1 17 113/70 (84) 98 04/12/19 01:37 87 20 100 Room Air 21 84 20 99 04/12/19 00:00 98.1 77 17 115/70 (85) 98 77 04/11/19 21:00 Nasal Cannula 3.0 04/11/19 20:21 83 20 100 Room Air 21 80 20 98 04/11/19 20:00 97.8 76 18 123/65 (84) 97 76 04/11/19 16:50 Room Air 04/11/19 16:06 98.7 74 16 131/98 97 Room Air 04/11/19 15:10 97.1 87 20 111/71 97 Room Air 04/11/19 12:44 78 12 120/73 100 Room Air 04/11/19 12:40 80 20 100 Room Air 21 84 20 97 04/11/19 12:40 84 20 97 Room Air 21 Intake and Output 04/11/19 04/12/19 19:00 07:00 Output Total 500 ml Balance -500 ml Output Urine Total 500 ml # Voids 1 Laboratory Tests Test 04/11/19 12:10 04/11/19 13:00 04/12/19 05:00 White Blood Count 7.4 K/UL (4.8-10.8) 7.0 K/UL (4.8-10.8) Red Blood Count 4.62 M/UL (4.70-6.10) L 4.34 M/UL (4.70-6.10) L Hemoglobin 14.7 G/DL (14.2-18.0) 14.1 G/DL (14.2-18.0) L Hematocrit 42.0 % (42.0-52.0) 39.5 % (42.0-52.0) L Mean Corpuscular Volume 91 FL (80-99) 91 FL (80-99) Mean Corpuscular Hemoglobin 31.9 PG (27.0-31.0) H 32.5 PG (27.0-31.0) H Mean Corpuscular Hemoglobin Concent 35.1 G/DL (32.0-36.0) 35.7 G/DL (32.0-36.0) Red Cell Distribution Width 10.9 % (11.6-14.8) L 11.0 % (11.6-14.8) L Platelet Count 132 K/UL (150-450) L 136 K/UL (150-450) L Mean Platelet Volume 5.6 FL (6.5-10.1) L 6.2 FL (6.5-10.1) L Neutrophils (%) (Auto) 63.8 % (45.0-75.0) % (45.0-75.0) Lymphocytes (%) (Auto) 13.9 % (20.0-45.0) L % (20.0-45.0) Monocytes (%) (Auto) 10.3 % (1.0-10.0) H % (1.0-10.0) Eosinophils (%) (Auto) 10.4 % (0.0-3.0) H % (0.0-3.0) Basophils (%) (Auto) 1.6 % (0.0-2.0) % (0.0-2.0) Prothrombin Time 10.6 SEC (9.30-11.50) Prothromb Time International Ratio 1.0 (0.9-1.1) Activated Partial Thromboplast Time 24 SEC (23-33) Sodium Level 139 MMOL/L (136-145) 140 MMOL/L (136-145) Potassium Level 3.7 MMOL/L (3.5-5.1) 4.6 MMOL/L (3.5-5.1) Chloride Level 105 MMOL/L (98-107) 107 MMOL/L (98-107) Carbon Dioxide Level 23 MMOL/L (21-32) 21 MMOL/L (21-32) Anion Gap 12 mmol/L (5-15) 12 mmol/L (5-15) Blood Urea Nitrogen 12 mg/dL (7-18) 20 mg/dL (7-18) H Creatinine 1.1 MG/DL (0.55-1.30) 1.1 MG/DL (0.55-1.30) Estimat Glomerular Filtration Rate > 60 mL/min (>60) > 60 mL/min (>60) Glucose Level 105 MG/DL (74-106) 150 MG/DL (74-106) H Lactic Acid Level 2.40 mmol/L (0.4-2.0) H 4.10 mmol/L (0.66-2.22) H Calcium Level 8.7 MG/DL (8.5-10.1) 8.5 MG/DL (8.5-10.1) Magnesium Level 2.0 MG/DL (1.8-2.4) Total Bilirubin 0.2 MG/DL (0.2-1.0) 0.3 MG/DL (0.2-1.0) Aspartate Amino Transf (AST/SGOT) 13 U/L (15-37) L 14 U/L (15-37) L Alanine Aminotransferase (ALT/SGPT) 19 U/L (12-78) 22 U/L (12-78) Alkaline Phosphatase 65 U/L (46-116) 66 U/L (46-116) Total Creatine Kinase 58 U/L (26-308) Troponin I 0.000 ng/mL (0.000-0.056) Pro-B-Type Natriuretic Peptide 59 pg/mL (0-125) Total Protein 5.8 G/DL (6.4-8.2) L 5.9 G/DL (6.4-8.2) L Albumin 3.2 G/DL (3.4-5.0) L 3.2 G/DL (3.4-5.0) L Globulin 2.6 g/dL 2.7 g/dL Albumin/Globulin Ratio 1.2 (1.0-2.7) 1.2 (1.0-2.7) Phenobarbital Level 4.2 ug/mL (15-40) L Hemoglobin A1c 5.6 % (4.3-6.0) Phosphorus Level 3.4 MG/DL (2.5-4.9) Height (Feet): 5 Height (Inches): 7.00 Weight (Pounds): 160 Medications Current Medications Medications (Trade) Dose Ordered Sig/Jeri Route PRN Reason Start Time Stop Time Status Last Admin Dose Admin Acetaminophen (Tylenol) 650 mg Q6H PRN ORAL Mild Pain/Temp > 100.5 04/12/19 10:22 05/12/19 10:21 Albuterol/ Ipratropium (Albuterol/ Ipratropium) 3 ml Q3HRT HHN 04/12/19 13:00 04/17/19 09:59 Albuterol/ Ipratropium (Albuterol/ Ipratropium) 3 ml Q4HRT PRN HHN Shortness of Breath 04/12/19 11:00 04/16/19 20:59 Atorvastatin Calcium (Lipitor) 20 mg BEDTIME ORAL 04/12/19 21:00 05/11/19 22:29 Ceftriaxone Sodium 1 gm/ Dextrose 55 ml @ 110 mls/hr Q24H IVPB 04/13/19 06:00 04/20/19 05:59 Dextrose (Dextrose 50%) 25 ml Q30M PRN IV Hypoglycemia 04/12/19 10:30 05/11/19 21:29 Dextrose (Dextrose 50%) 50 ml Q30M PRN IV Hypoglycemia 04/12/19 10:30 05/11/19 21:29 Divalproex Sodium (Depakote) 500 mg EVERY 12 HOURS ORAL 04/12/19 21:00 05/11/19 20:59 Escitalopram Oxalate (Lexapro) 10 mg DAILY ORAL 04/13/19 09:00 05/12/19 08:59 Heparin Sodium (Porcine) (Heparin 5000 units/ml) 5,000 units EVERY 8 HOURS SUBQ 04/12/19 14:00 05/11/19 21:59 Insulin Aspart (NovoLOG) BEFORE MEALS AND HS SUBQ 04/12/19 11:30 05/12/19 06:29 Methylprednisolone Sodium Succinate (Solu-MEDROL) 80 mg EVERY 8 HOURS IVP 04/12/19 14:00 05/11/19 21:59 Primidone (Mysoline) 50 mg QHS ORAL 04/12/19 21:00 05/11/19 20:59 Assessment/Plan Problem List: (1) Acute bronchitis ICD Codes: J20.9 - Acute bronchitis, unspecified SNOMED: 99844528 (2) COPD exacerbation ICD Codes: J44.1 - Chronic obstructive pulmonary disease with (acute) exacerbation SNOMED: 644782309 (3) Prostate cancer ICD Codes: C61 - Malignant neoplasm of prostate SNOMED: 206184396 (4) PTSD (post-traumatic stress disorder) ICD Codes: F43.10 - Post-traumatic stress disorder, unspecified SNOMED: 91870078 (5) Cerebrovascular accident (CVA) ICD Codes: I63.9 - Cerebral infarction, unspecified SNOMED: 042390874 (6) Bipolar depression ICD Codes: F31.30 - Bipolar disorder, current episode depressed, mild or moderate severity, unspecified SNOMED: 68708347 Assessment/Plan: respiratory treatment check sputum IV stroids iv abx chest PT titrate fio2 to sat of 92% antitussives dvt prophylaxis. Michele Umaña MD Apr 12, 2019 11:44
[2019-04-12] MEDS: NovoLOG Insulin Flexpen SUBQ SCH ×3 (11:55→21:07)
[2019-04-12 11:59] VITALS: BP 102/66
[2019-04-12 16:00] VITALS: BP 106/69
--- NOTE | 2019-04-12 16:11 | NUR ---
CASE MANAGEMENT:INITIAL REVIEW 68YR OLD MALE FROM HOME CC: ASTHMA SI: SEPSIS . COPD EXACERBATION . ELEVATED LACTIC ACID 97.1 82 22 104/71 95% ON RA LA 4.10 PHENOBARBITAL 4.2 IS: IVF NS BOLUS X2 PROVENTIL HHN X1 ATROVENT HHN X1 IV SOLU-MEDROL X1 CXR \2E TELE UNIT DCP: HOME WHEN MEDICALLY STABLE
--- NOTE | 2019-04-12 18:44 | Internal Med Progress Note ---
Subjective Date of Service: Apr 12, 2019 Physician Name Ryan Mckenzie Attending Physician Christopher Medina MD Current Medications Medications (Trade) Dose Ordered Sig/Jeri Route PRN Reason Start Time Stop Time Status Last Admin Dose Admin Acetaminophen (Tylenol) 650 mg Q6H PRN ORAL Mild Pain/Temp > 100.5 04/12/19 10:22 05/12/19 10:21 Albuterol/ Ipratropium (Albuterol/ Ipratropium) 3 ml Q3HRT HHN 04/12/19 13:00 04/17/19 09:59 04/12/19 15:43 Albuterol/ Ipratropium (Albuterol/ Ipratropium) 3 ml Q4HRT PRN HHN Shortness of Breath 04/12/19 11:00 04/16/19 20:59 Atorvastatin Calcium (Lipitor) 20 mg BEDTIME ORAL 04/12/19 21:00 05/11/19 22:29 Ceftriaxone Sodium 1 gm/ Dextrose 55 ml @ 110 mls/hr Q24H IVPB 04/13/19 06:00 04/20/19 05:59 Dextrose (Dextrose 50%) 25 ml Q30M PRN IV Hypoglycemia 04/12/19 10:30 05/11/19 21:29 Dextrose (Dextrose 50%) 50 ml Q30M PRN IV Hypoglycemia 04/12/19 10:30 05/11/19 21:29 Divalproex Sodium (Depakote) 500 mg EVERY 12 HOURS ORAL 04/12/19 21:00 05/11/19 20:59 Escitalopram Oxalate (Lexapro) 10 mg DAILY ORAL 04/13/19 09:00 05/12/19 08:59 Heparin Sodium (Porcine) (Heparin 5000 units/ml) 5,000 units EVERY 8 HOURS SUBQ 04/12/19 14:00 05/11/19 21:59 Insulin Aspart (NovoLOG) BEFORE MEALS AND HS SUBQ 04/12/19 11:30 05/12/19 06:29 04/12/19 16:30 Methylprednisolone Sodium Succinate (Solu-MEDROL) 80 mg EVERY 8 HOURS IVP 04/12/19 14:00 05/11/19 21:59 04/12/19 13:49 Primidone (Mysoline) 50 mg QHS ORAL 04/12/19 21:00 05/11/19 20:59 Allergies: Coded Allergies: CASHEW NUT (Verified Allergy, Unknown, 10/24/18) NO KNOWN ALLERGIES (Verified Allergy, Unknown, 03/07/18) [place] Seed (Verified Allergy, Unknown, 10/24/18) ROS Limited/Unobtainable: No Constitutional: Reports: no symptoms HEENT: Reports: no symptoms Cardiovascular: Reports: no symptoms Respiratory: Reports: cough, shortness of breath, wheezing Gastrointestinal/Abdominal: Reports: no symptoms Genitourinary: Reports: no symptoms Neurologic/Psychiatric: Reports: no symptoms Subjective 68 YO M admitted with shortness of breath. Now COPD exacerbation. Cover for Int Med-DR Medina Objective Last Vital Signs Date Time Temp Pulse Resp B/P (MAP) Pulse Ox O2 Delivery O2 Flow Rate FiO2 04/12/19 16:00 97.6 73 18 106/69 (81) 96 04/12/19 15:53 Room Air 21 04/12/19 12:24 2.0 General Appearance: WD/WN, alert, mild distress EENT: PERRL/EOMI, normal ENT inspection Neck: non-tender, normal alignment, supple, normal inspection Cardiovascular: normal peripheral pulses, normal rate, regular rhythm, no gallop/murmur, no JVD Respiratory/Chest: chest wall non-tender, respiratory distress, crackles/rales , rhonchi - bilaterally, expiratory wheezing Abdomen: normal bowel sounds, non tender, soft, no organomegaly, no mass Extremities: normal range of motion, non-tender 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, no motor/sensory deficits Skin: normal pigmentation, warm/dry Laboratory Tests Test 04/12/19 05:00 White Blood Count 7.0 K/UL (4.8-10.8) Red Blood Count 4.34 M/UL (4.70-6.10) L Hemoglobin 14.1 G/DL (14.2-18.0) L Hematocrit 39.5 % (42.0-52.0) L Mean Corpuscular Volume 91 FL (80-99) Mean Corpuscular Hemoglobin 32.5 PG (27.0-31.0) H Mean Corpuscular Hemoglobin Concent 35.7 G/DL (32.0-36.0) Red Cell Distribution Width 11.0 % (11.6-14.8) L Platelet Count 136 K/UL (150-450) L Mean Platelet Volume 6.2 FL (6.5-10.1) L Neutrophils (%) (Auto) % (45.0-75.0) Lymphocytes (%) (Auto) % (20.0-45.0) Monocytes (%) (Auto) % (1.0-10.0) Eosinophils (%) (Auto) % (0.0-3.0) Basophils (%) (Auto) % (0.0-2.0) Sodium Level 140 MMOL/L (136-145) Potassium Level 4.6 MMOL/L (3.5-5.1) Chloride Level 107 MMOL/L (98-107) Carbon Dioxide Level 21 MMOL/L (21-32) Anion Gap 12 mmol/L (5-15) Blood Urea Nitrogen 20 mg/dL (7-18) H Creatinine 1.1 MG/DL (0.55-1.30) Estimat Glomerular Filtration Rate > 60 mL/min (>60) Glucose Level 150 MG/DL (74-106) H Hemoglobin A1c 5.6 % (4.3-6.0) Calcium Level 8.5 MG/DL (8.5-10.1) Phosphorus Level 3.4 MG/DL (2.5-4.9) Total Bilirubin 0.3 MG/DL (0.2-1.0) Aspartate Amino Transf (AST/SGOT) 14 U/L (15-37) L Alanine Aminotransferase (ALT/SGPT) 22 U/L (12-78) Alkaline Phosphatase 66 U/L (46-116) Total Protein 5.9 G/DL (6.4-8.2) L Albumin 3.2 G/DL (3.4-5.0) L Globulin 2.7 g/dL Albumin/Globulin Ratio 1.2 (1.0-2.7) Microbiology Date/Time Source Procedure Growth Status 04/11/19 11:10 Nasal Nares - Final Complete 04/11/19 11:10 Nasal Nares - Final Complete Intake and Output 04/11/19 04/12/19 19:00 07:00 Output Total 500 ml Balance -500 ml Output Urine Total 500 ml # Voids 1 Assessment/Plan Assessment/Plan ASSESSMENT: This is a 68-year-old male. 1. Shortness of breath. 2. Wheezing. 3. Probable chronic obstructive pulmonary disease acute exacerbation. 4. Hypercholesterolemia. 5. Posttraumatic stress disorder. 6. Prostate cancer. 7. Bipolar depression. TREATMENT: 1. Shortness of breath/wheezing/chronic obstructive pulmonary disease exacerbation. A Pulmonary consultation has been obtained with Dr. Michele Umaña. The patient has been started empirically on Zosyn and vancomycin. The patient has been started on IV Solu-Medrol. Duoneb q 3hr routine. We will follow recommendations of Pulmonary. 2. Hypercholesterolemia. Continue atorvastatin as above. 3. Posttraumatic stress disorder/bipolar depression. Continue Lexapro and Depakote as above. 4. Prostate cancer. The patient is undergoing chemotherapy at the [facility]. Ryan Mckenzie MD Apr 12, 2019 18:44
--- NOTE | 2019-04-12 19:23 | NUR ---
HAND-OFF: Report given to MILKA Landis. Pt stable.
--- NOTE | 2019-04-12 19:54 | NUR ---
NURSE NOTES: Received pt and report from MILKA Chandler. Observed pt resting in bed with both eyes open and watching television. Pt is A/Ox4. security monitor is in placed, IV site intact, asymptomatic and patent. Bed is in the lowest position and locked. Call light and bedside table within reach. No signs/symptoms of acute distress noted at this time. Will continue plan of care.
[2019-04-12 20:00] VITALS: BP 125/69
[2019-04-12] MEDS: Atorvastatin 20mg tab ORAL SCH (21:05)
[2019-04-13] VITALS: BP 117/70
[2019-04-13] MEDS: Albuterol/Ipratropium 3ml neb HHN SCH ×8 (00:54→22:01)
[2019-04-13 04:00] VITALS: BP 112/61
[2019-04-13] MEDS: Solu-MEDROL 40mg Inj IVP SCH ×3 (05:35→22:20)
[2019-04-13] MEDS: cefTRIAXone 1 GM in D5W 55 ML IVPB SCH (05:35)
[2019-04-13] MEDS: Heparin 5000 units/ml inj SUBQ SCH ×3 (05:36→22:00)
[2019-04-13] MEDS ORDERED: cefTRIAXone 1gm/D5W 55ml IVPB SCH ×2 (06:00)
[2019-04-13] MEDS: NovoLOG Insulin Flexpen SUBQ SCH ×4 (06:11→22:22)
--- NOTE | 2019-04-13 07:00 | NUR ---
NURSE NOTES: Received report from MILKA Landis. Pt in bed, in need of respiratory therapy, SOB, place pt on 2L NC as pt removes NC, RN call RT 2x, stayed with pt until RR reduced to 20bpm, bed in lowest position, call light within reach, will continue to monitor pt
[2019-04-13 07:12] LABS: ANION GAP 11 mmol/L (5-15); BLOOD UREA NITROGEN 20 mg/dL (7-18); CALCIUM 8.6 MG/DL (8.5-10.1); CARBON DIOXIDE 20 MMOL/L (21-32); CHLORIDE 107 MMOL/L (98-107); POTASSIUM 4.1 MMOL/L (3.5-5.1); SODIUM 138 MMOL/L (136-145)
--- NOTE | 2019-04-13 07:20 | NUR ---
NURSE NOTES: RT with pt giving breathing treatment, pt no longer in distress
--- NOTE | 2019-04-13 07:48 | NUR ---
HAND-OFF: Report given to MILKA Chandler. Plan of care endorsed.
[2019-04-13 08:00] VITALS: BP 137/84
[2019-04-13] MEDS: Depakote 500mg tab ORAL SCH ×2 (08:51→21:00)
[2019-04-13 10:03] LABS: HEMATOCRIT 37.6 % (42.0-52.0); HEMOGLOBIN 13.9 G/DL (14.2-18.0); MEAN CORPUSCULAR VOLUME 88 FL (80-99); PLATELET COUNT 139 K/UL (150-450); RED BLOOD COUNT 4.28 M/UL (4.70-6.10); RED CELL DISTRIBUTION WIDTH 9.8 % (11.6-14.8); WHITE BLOOD COUNT 10.6 K/UL (4.8-10.8)
--- NOTE | 2019-04-13 10:59 | NUR ---
NURSE NOTES: Discussed increased WBC 10.6 with MD Umaña, pt is on Steroids
--- NOTE | 2019-04-13 11:35 | Pulmonology Progress Note ---
Assessment/Plan Problems: (1) Acute bronchitis (2) COPD exacerbation (3) Prostate cancer (4) PTSD (post-traumatic stress disorder) (5) Cerebrovascular accident (CVA) (6) Bipolar depression Assessment/Plan still coughing no phlegmn yet respiratory treatment check sputum IV stroids iv abx chest PT titrate fio2 to sat of 92% antitussives dvt prophylaxis. Subjective ROS Limited/Unobtainable: No Interval Events: still dyspnic Allergies: Coded Allergies: CASHEW NUT (Verified Allergy, Unknown, 10/24/18) NO KNOWN ALLERGIES (Verified Allergy, Unknown, 03/07/18) [place] Seed (Verified Allergy, Unknown, 10/24/18) Objective Last 24 Hour Vital Signs Date Time Temp Pulse Resp B/P (MAP) Pulse Ox O2 Delivery O2 Flow Rate FiO2 04/13/19 09:47 90 20 97 Nasal Cannula 2.0 28 100 20 94 04/13/19 09:00 Nasal Cannula 2.0 04/13/19 08:00 97.0 89 16 137/84 (101) 96 04/13/19 07:33 95 04/13/19 07:28 88 20 96 04/13/19 07:23 97 Nasal Cannula 2.0 28 04/13/19 07:18 74 24 97 Nasal Cannula 2.0 28 04/13/19 04:13 70 20 98 Room Air 21 04/13/19 04:03 73 20 93 Room Air 21 04/13/19 04:00 98.6 79 22 112/61 (78) 97 04/13/19 04:00 74 04/13/19 01:04 73 20 99 Nasal Cannula 2.0 28 04/13/19 00:54 72 20 96 Nasal Cannula 2.0 28 04/13/19 00:00 98.4 77 20 117/70 (86) 97 04/13/19 00:00 79 04/12/19 21:26 85 22 98 Nasal Cannula 2.0 28 04/12/19 21:16 84 24 93 Nasal Cannula 2.0 28 04/12/19 21:00 Nasal Cannula 2.0 04/12/19 20:00 98.0 74 22 125/69 (87) 99 04/12/19 20:00 78 04/12/19 19:47 81 20 99 Room Air 21 04/12/19 19:36 73 20 98 Room Air 21 04/12/19 19:36 98 Nasal Cannula 2.0 28 04/12/19 16:00 97.6 73 18 106/69 (81) 96 04/12/19 15:53 83 18 99 Room Air 21 81 21 97 04/12/19 15:26 74 04/12/19 12:24 81 18 98 Nasal Cannula 2.0 28 82 18 97 04/12/19 11:59 97.9 78 18 102/66 (78) 95 Intake and Output 04/12/19 04/13/19 18:59 06:59 Intake Total 480 ml Balance 480 ml Intake Oral 480 ml General Appearance: WD/WN HEENT: normocephalic, atraumatic Respiratory/Chest: chest wall non-tender, lungs clear Cardiovascular: normal peripheral pulses, normal rate Abdomen: normal bowel sounds, soft, non tender Genitourinary: normal external genitalia Extremities: no cyanosis Neurologic/Psychiatric: passenger relations representative II-XII grossly normal Lymphatic: no neck adenopathy Microbiology Date/Time Source Procedure Growth Status 04/11/19 11:10 Nasal Nares - Final Complete 04/11/19 11:10 Nasal Nares - Final Complete Laboratory Tests 04/13/19 06:32: White Blood Count 10.6#, Red Blood Count 4.28L, Hemoglobin 13.9L, Hematocrit 37.6L, Mean Corpuscular Volume 88, Mean Corpuscular Hemoglobin 32.5H, Mean Corpuscular Hemoglobin Concent 37.0H, Red Cell Distribution Width 9.8L, Platelet Count 139L, Mean Platelet Volume 6.3L, Neutrophils (%) (Auto) , Lymphocytes (%) (Auto) , Monocytes (%) (Auto) , Eosinophils (%) (Auto) , Basophils (%) (Auto) , Differential Total Cells Counted 100, Neutrophils % ( Manual) 89H, Lymphocytes % (Manual) 8L, Monocytes % (Manual) 3, Platelet Estimate [Pending], Platelet Morphology Normal, Red Blood Cell Morphology , Anisocytosis 1+, Spherocytes 2+, Sodium Level 138, Potassium Level 4.1, Chloride Level 107, Carbon Dioxide Level 20L, Anion Gap 11, Blood Urea Nitrogen 20H, Creatinine 1.0, Estimat Glomerular Filtration Rate > 60, Glucose Level 130H , Calcium Level 8.6 Current Medications Medications (Trade) Dose Ordered Sig/Jeri Route PRN Reason Start Time Stop Time Status Last Admin Dose Admin Acetaminophen (Tylenol) 650 mg Q6H PRN ORAL Mild Pain/Temp > 100.5 04/12/19 10:22 05/12/19 10:21 Albuterol/ Ipratropium (Albuterol/ Ipratropium) 3 ml Q3HRT HHN 04/12/19 13:00 04/17/19 09:59 04/13/19 09:37 Albuterol/ Ipratropium (Albuterol/ Ipratropium) 3 ml Q4HRT PRN HHN Shortness of Breath 04/12/19 11:00 04/16/19 20:59 Atorvastatin Calcium (Lipitor) 20 mg BEDTIME ORAL 04/12/19 21:00 05/11/19 22:29 04/12/19 21:05 Ceftriaxone Sodium 1 gm/ Dextrose 55 ml @ 110 mls/hr Q24H IVPB 04/13/19 06:00 04/20/19 05:59 04/13/19 05:35 Dextrose (Dextrose 50%) 25 ml Q30M PRN IV Hypoglycemia 04/12/19 10:30 05/11/19 21:29 Dextrose (Dextrose 50%) 50 ml Q30M PRN IV Hypoglycemia 04/12/19 10:30 05/11/19 21:29 Divalproex Sodium (Depakote) 500 mg EVERY 12 HOURS ORAL 04/12/19 21:00 05/11/19 20:59 04/13/19 08:51 Escitalopram Oxalate (Lexapro) 10 mg DAILY ORAL 04/13/19 09:00 05/12/19 08:59 04/13/19 08:51 Heparin Sodium (Porcine) (Heparin 5000 units/ml) 5,000 units EVERY 8 HOURS SUBQ 04/12/19 14:00 05/11/19 21:59 Insulin Aspart (NovoLOG) BEFORE MEALS AND HS SUBQ 04/12/19 11:30 05/12/19 06:29 04/13/19 11:24 Methylprednisolone Sodium Succinate (Solu-MEDROL) 80 mg EVERY 8 HOURS IVP 04/12/19 14:00 05/11/19 21:59 04/13/19 05:35 Primidone (Mysoline) 50 mg QHS ORAL 04/12/19 21:00 05/11/19 20:59 04/12/19 21:05 Michele Umaña MD Apr 13, 2019 11:35
[2019-04-13 12:00] VITALS: BP 121/75
--- NOTE | 2019-04-13 12:08 | Internal Med Progress Note ---
Subjective Date of Service: Apr 13, 2019 Physician Name Ryan Mckenzie Attending Physician Christopher Medina MD Current Medications Medications (Trade) Dose Ordered Sig/Jeri Route PRN Reason Start Time Stop Time Status Last Admin Dose Admin Acetaminophen (Tylenol) 650 mg Q6H PRN ORAL Mild Pain/Temp > 100.5 04/12/19 10:22 05/12/19 10:21 Albuterol/ Ipratropium (Albuterol/ Ipratropium) 3 ml Q3HRT HHN 04/12/19 13:00 04/17/19 09:59 04/13/19 09:37 Albuterol/ Ipratropium (Albuterol/ Ipratropium) 3 ml Q4HRT PRN HHN Shortness of Breath 04/12/19 11:00 04/16/19 20:59 Atorvastatin Calcium (Lipitor) 20 mg BEDTIME ORAL 04/12/19 21:00 05/11/19 22:29 04/12/19 21:05 Ceftriaxone Sodium 1 gm/ Dextrose 55 ml @ 110 mls/hr Q24H IVPB 04/13/19 06:00 04/20/19 05:59 04/13/19 05:35 Dextrose (Dextrose 50%) 25 ml Q30M PRN IV Hypoglycemia 04/12/19 10:30 05/11/19 21:29 Dextrose (Dextrose 50%) 50 ml Q30M PRN IV Hypoglycemia 04/12/19 10:30 05/11/19 21:29 Divalproex Sodium (Depakote) 500 mg EVERY 12 HOURS ORAL 04/12/19 21:00 05/11/19 20:59 04/13/19 08:51 Escitalopram Oxalate (Lexapro) 10 mg DAILY ORAL 04/13/19 09:00 05/12/19 08:59 04/13/19 08:51 Heparin Sodium (Porcine) (Heparin 5000 units/ml) 5,000 units EVERY 8 HOURS SUBQ 04/12/19 14:00 05/11/19 21:59 Insulin Aspart (NovoLOG) BEFORE MEALS AND HS SUBQ 04/12/19 11:30 05/12/19 06:29 04/13/19 11:24 Methylprednisolone Sodium Succinate (Solu-MEDROL) 80 mg EVERY 8 HOURS IVP 04/12/19 14:00 1/8/20 21:59 04/13/19 05:35 Primidone (Mysoline) 50 mg QHS ORAL 04/12/19 21:00 05/11/19 20:59 04/12/19 21:05 Allergies: Coded Allergies: CASHEW NUT (Verified Allergy, Unknown, 10/24/18) NO KNOWN ALLERGIES (Verified Allergy, Unknown, 03/07/18) [place] Seed (Verified Allergy, Unknown, 10/24/18) ROS Limited/Unobtainable: No Constitutional: Reports: no symptoms HEENT: Reports: no symptoms Cardiovascular: Reports: no symptoms Respiratory: Reports: cough, shortness of breath, wheezing Gastrointestinal/Abdominal: Reports: no symptoms Genitourinary: Reports: no symptoms Neurologic/Psychiatric: Reports: no symptoms Subjective 68 YO M admitted with shortness of breath. Now COPD exacerbation. Cover for Int Med-DR Medina Objective Last Vital Signs Date Time Temp Pulse Resp B/P (MAP) Pulse Ox O2 Delivery O2 Flow Rate FiO2 04/13/19 09:47 90 20 97 Nasal Cannula 2.0 28 100 20 94 04/13/19 08:00 97.0 137/84 (101) Laboratory Tests Test 04/13/19 06:32 White Blood Count 10.6 K/UL (4.8-10.8) # Red Blood Count 4.28 M/UL (4.70-6.10) L Hemoglobin 13.9 G/DL (14.2-18.0) L Hematocrit 37.6 % (42.0-52.0) L Mean Corpuscular Volume 88 FL (80-99) Mean Corpuscular Hemoglobin 32.5 PG (27.0-31.0) H Mean Corpuscular Hemoglobin Concent 37.0 G/DL (32.0-36.0) H Red Cell Distribution Width 9.8 % (11.6-14.8) L Platelet Count 139 K/UL (150-450) L Mean Platelet Volume 6.3 FL (6.5-10.1) L Neutrophils (%) (Auto) % (45.0-75.0) Lymphocytes (%) (Auto) % (20.0-45.0) Monocytes (%) (Auto) % (1.0-10.0) Eosinophils (%) (Auto) % (0.0-3.0) Basophils (%) (Auto) % (0.0-2.0) Differential Total Cells Counted 100 Neutrophils % (Manual) 89 % (45-75) H Lymphocytes % (Manual) 8 % (20-45) L Monocytes % (Manual) 3 % (1-10) Eosinophils % (Manual) 0 % (0-3) Basophils % (Manual) 0 % (0-2) Band Neutrophils 0 % (0-8) Platelet Estimate Decreased L Platelet Morphology Normal Red Blood Cell Morphology Anisocytosis 1+ Spherocytes 2+ Sodium Level 138 MMOL/L (136-145) Potassium Level 4.1 MMOL/L (3.5-5.1) Chloride Level 107 MMOL/L (98-107) Carbon Dioxide Level 20 MMOL/L (21-32) L Anion Gap 11 mmol/L (5-15) Blood Urea Nitrogen 20 mg/dL (7-18) H Creatinine 1.0 MG/DL (0.55-1.30) Estimat Glomerular Filtration Rate > 60 mL/min (>60) Glucose Level 130 MG/DL (74-106) H Calcium Level 8.6 MG/DL (8.5-10.1) Microbiology Date/Time Source Procedure Growth Status 04/11/19 11:10 Nasal Nares - Final Complete 04/11/19 11:10 Nasal Nares - Final Complete Intake and Output 04/12/19 04/13/19 18:59 06:59 Intake Total 480 ml Balance 480 ml Intake Oral 480 ml Assessment/Plan Assessment/Plan ASSESSMENT: This is a 68-year-old male. 1. Shortness of breath. 2. Wheezing. 3. Probable chronic obstructive pulmonary disease acute exacerbation. 4. Hypercholesterolemia. 5. Posttraumatic stress disorder. 6. Prostate cancer. 7. Bipolar depression. TREATMENT: 1. Shortness of breath/wheezing/chronic obstructive pulmonary disease exacerbation. A Pulmonary consultation has been obtained with Dr. Michele Umaña. ABX=Ceftriaxone. The patient has been started on IV Solu-Medrol. Duoneb q 3hr routine. We will follow recommendations of Pulmonary. 2. Hypercholesterolemia. Continue atorvastatin as above. 3. Posttraumatic stress disorder/bipolar depression. Continue Lexapro and Depakote as above. 4. Prostate cancer. The patient is undergoing chemotherapy at the [facility]. Ryan Mckenzie MD Apr 13, 2019 12:08
--- NOTE | 2019-04-13 13:06 | NUR ---
CASE MANAGEMENT:REVIEW 04/13/19 SI: COPD EXACERBATION. ACUTE BRONCHITIS 98.3 81 16 121/75 98% ON 2L/NC H/H-13.9/37.6 PLT-139 IS: IV SOLUMEDROL Q8HR IV ROCEPHIN Q24 DUONEB HHN Q3HRS RTC : TELEMETRY STATUS DCP: FROM HOME
[2019-04-13 16:00] VITALS: BP 121/75
--- NOTE | 2019-04-13 17:31 | NUR ---
NURSE NOTES: Left message for pt[facility] Rosio Colon to call [facility] to provide information on pt's pharmacy
[2019-04-13] MEDS ORDERED: ARTIFICIAL TEAR15 ML BOTH EYES (19:11)
[2019-04-13] MEDS ORDERED: VITAMIN D31000 UNI1 PO (19:11)
[2019-04-13] MEDS ORDERED: SYMBICORT 80-10.2 G1 IH (19:11)
[2019-04-13] MEDS ORDERED: TUMS DUAL ACTI1 EACH PO (19:11)
--- NOTE | 2019-04-13 19:35 | NUR ---
HAND-OFF: Report given to Ariadna Rogers..
--- NOTE | 2019-04-13 19:36 | NUR ---
NURSE NOTES: Got report from Geraldine JARQUIN. Pt in stable condition. Denies any pain. No s/s of distress or discomfort noted. Pt resting in bed comfortably. Bed in low and locked position, call light within reach, bedside table within reach. Continue to monitor.
[2019-04-13 20:00] VITALS: BP 133/75
[2019-04-13] MEDS: Atorvastatin 20mg tab ORAL SCH (22:19)
[2019-04-14] VITALS: BP 136/72
[2019-04-14] MEDS: Albuterol/Ipratropium 3ml neb HHN SCH ×8 (00:46→23:16)
[2019-04-14 04:00] VITALS: BP 119/60
[2019-04-14] MEDS: Heparin 5000 units/ml inj SUBQ SCH ×3 (06:00→21:30)
[2019-04-14] MEDS: cefTRIAXone 1 GM in D5W 55 ML IVPB SCH (06:06)
[2019-04-14] MEDS: Solu-MEDROL 40mg Inj IVP SCH ×3 (06:07→21:19)
[2019-04-14] MEDS: NovoLOG Insulin Flexpen SUBQ SCH ×4 (06:08→21:21)
--- NOTE | 2019-04-14 07:00 | NUR ---
HAND-OFF: Report given to Miriam JARQUIN.
--- NOTE | 2019-04-14 07:28 | NUR ---
NURSE NOTES: Report received from Ariadna Jurado . Patient is awake in bed. oxygen at 2L/min via NC. Denies pain or discomfort at this time. Refuses bed to be padded for seizure precautions. reminded re: safety/fall precautions. call ivy within patients reach. will follow.
[2019-04-14 08:00] VITALS: BP 116/72
[2019-04-14] MEDS: Depakote 500mg tab ORAL SCH ×2 (08:26→21:19)
[2019-04-14 08:44] LABS: HEMATOCRIT 42.1 % (42.0-52.0); HEMOGLOBIN 14.8 G/DL (14.2-18.0); MEAN CORPUSCULAR VOLUME 92 FL (80-99); PLATELET COUNT 159 K/UL (150-450); RED BLOOD COUNT 4.58 M/UL (4.70-6.10); RED CELL DISTRIBUTION WIDTH 10.8 % (11.6-14.8)
[2019-04-14 09:01] LABS: ANION GAP 12 mmol/L (5-15); BLOOD UREA NITROGEN 28 mg/dL (7-18); CALCIUM 8.6 MG/DL (8.5-10.1); CARBON DIOXIDE 22 MMOL/L (21-32); CHLORIDE 108 MMOL/L (98-107); SODIUM 142 MMOL/L (136-145)
[2019-04-14 12:00] VITALS: BP 122/68
--- NOTE | 2019-04-14 12:08 | Pulmonology Progress Note ---
Assessment/Plan Problems: (1) Acute bronchitis (2) COPD exacerbation (3) Prostate cancer (4) PTSD (post-traumatic stress disorder) (5) Cerebrovascular accident (CVA) (6) Bipolar depression Assessment/Plan slightly better still coughing no phlegmn yet respiratory treatment sputum still pending IV stroids iv abx chest PT titrate fio2 to sat of 92% antitussives dvt prophylaxis. Subjective ROS Limited/Unobtainable: No Constitutional: Reports: no symptoms HEENT: Repors: no symptoms Respiratory: Reports: no symptoms Allergies: Coded Allergies: CASHEW NUT (Verified Allergy, Unknown, 10/24/18) NO KNOWN ALLERGIES (Verified Allergy, Unknown, 03/07/18) [place] Seed (Verified Allergy, Unknown, 10/24/18) Objective Last 24 Hour Vital Signs Date Time Temp Pulse Resp B/P (MAP) Pulse Ox O2 Delivery O2 Flow Rate FiO2 04/14/19 09:57 89 24 98 Nasal Cannula 2.0 109 27 96 04/14/19 08:00 97.7 70 18 116/72 (87) 97 04/14/19 08:00 80 04/14/19 07:39 76 18 97 Nasal Cannula 2.0 28 74 18 96 04/14/19 07:30 95 Nasal Cannula 2.0 28 04/14/19 04:00 98.0 68 16 119/60 (79) 97 04/14/19 04:00 70 04/14/19 00:46 80 20 98 Nasal Cannula 2.0 28 77 20 96 04/14/19 00:00 97.9 77 16 136/72 (93) 98 04/14/19 00:00 77 04/13/19 22:01 81 20 99 Nasal Cannula 2.0 28 83 20 94 04/13/19 21:00 Nasal Cannula 2.0 04/13/19 20:00 83 04/13/19 20:00 97.7 75 16 133/75 (94) 97 04/13/19 19:49 98 Nasal Cannula 2.0 28 04/13/19 18:15 86 20 96 04/13/19 16:09 79 20 98 Nasal Cannula 2.0 28 75 20 96 04/13/19 16:00 98.3 81 16 121/75 (90) 96 04/13/19 15:10 88 04/13/19 13:11 78 20 96 Nasal Cannula 2.0 28 78 20 97 Intake and Output 04/13/19 04/14/19 18:59 06:59 # Voids 2 General Appearance: WD/WN, no acute distress HEENT: normocephalic Respiratory/Chest: chest wall non-tender, lungs clear Cardiovascular: normal peripheral pulses, normal rate Abdomen: normal bowel sounds, soft, non tender Genitourinary: normal external genitalia Skin: no rash Neurologic/Psychiatric: mandarin tutor II-XII grossly normal Laboratory Tests 04/14/19 07:22: White Blood Count 11.0H, Red Blood Count 4.58L, Hemoglobin 14.8, Hematocrit 42.1 , Mean Corpuscular Volume 92, Mean Corpuscular Hemoglobin 32.3H, Mean Corpuscular Hemoglobin Concent 35.1, Red Cell Distribution Width 10.8L, Platelet Count 159, Mean Platelet Volume 6.0L, Neutrophils (%) (Auto) , Lymphocytes (%) (Auto) , Monocytes (%) (Auto) , Eosinophils (%) (Auto) , Basophils (%) (Auto) , Differential Total Cells Counted 100, Neutrophils % ( Manual) 85H, Lymphocytes % (Manual) 10L, Monocytes % (Manual) 5, Eosinophils % ( Manual) 0, Basophils % (Manual) 0, Band Neutrophils 0, Platelet Estimate Adequate, Platelet Morphology Normal, Sodium Level 142, Potassium Level 4.0, Chloride Level 108H, Carbon Dioxide Level 22, Anion Gap 12, Blood Urea Nitrogen 28H, Creatinine 1.0, Estimat Glomerular Filtration Rate > 60, Glucose Level 103 , Calcium Level 8.6 Current Medications Medications (Trade) Dose Ordered Sig/Jeri Route PRN Reason Start Time Stop Time Status Last Admin Dose Admin Acetaminophen (Tylenol) 650 mg Q6H PRN ORAL Mild Pain/Temp > 100.5 04/12/19 10:22 05/12/19 10:21 Albuterol/ Ipratropium (Albuterol/ Ipratropium) 3 ml Q3HRT HHN 04/12/19 13:00 04/17/19 09:59 04/14/19 09:47 Albuterol/ Ipratropium (Albuterol/ Ipratropium) 3 ml Q4HRT PRN HHN Shortness of Breath 04/12/19 11:00 04/16/19 20:59 04/13/19 18:14 Atorvastatin Calcium (Lipitor) 20 mg BEDTIME ORAL 04/12/19 21:00 05/11/19 22:29 04/13/19 22:19 Ceftriaxone Sodium 1 gm/ Dextrose 55 ml @ 110 mls/hr Q24H IVPB 04/13/19 06:00 04/20/19 05:59 04/14/19 06:06 Dextrose (Dextrose 50%) 25 ml Q30M PRN IV Hypoglycemia 04/12/19 10:30 05/11/19 21:29 Dextrose (Dextrose 50%) 50 ml Q30M PRN IV Hypoglycemia 04/12/19 10:30 05/11/19 21:29 Divalproex Sodium (Depakote) 500 mg EVERY 12 HOURS ORAL 04/12/19 21:00 05/11/19 20:59 04/14/19 08:26 Escitalopram Oxalate (Lexapro) 10 mg DAILY ORAL 04/13/19 09:00 05/12/19 08:59 04/14/19 08:26 Heparin Sodium (Porcine) (Heparin 5000 units/ml) 5,000 units EVERY 8 HOURS SUBQ 04/12/19 14:00 05/11/19 21:59 Insulin Aspart (NovoLOG) BEFORE MEALS AND HS SUBQ 04/12/19 11:30 05/12/19 06:29 04/14/19 12:01 Methylprednisolone Sodium Succinate (Solu-MEDROL) 80 mg EVERY 8 HOURS IVP 04/12/19 14:00 05/11/19 21:59 04/14/19 06:07 Primidone (Mysoline) 50 mg QHS ORAL 04/12/19 21:00 05/11/19 20:59 04/13/19 22:19 Michele Umaña MD Apr 14, 2019 12:08
[2019-04-14 16:00] VITALS: BP 126/75
--- NOTE | 2019-04-14 17:13 | Internal Med Progress Note ---
Subjective Date of Service: Apr 14, 2019 Physician Name Ryan Mckenzie Attending Physician Christopher Medina MD Current Medications Medications (Trade) Dose Ordered Sig/Jeri Route PRN Reason Start Time Stop Time Status Last Admin Dose Admin Acetaminophen (Tylenol) 650 mg Q6H PRN ORAL Mild Pain/Temp > 100.5 04/12/19 10:22 05/12/19 10:21 Albuterol/ Ipratropium (Albuterol/ Ipratropium) 3 ml Q3HRT HHN 04/12/19 13:00 04/17/19 09:59 04/14/19 16:25 Albuterol/ Ipratropium (Albuterol/ Ipratropium) 3 ml Q4HRT PRN HHN Shortness of Breath 04/12/19 11:00 04/16/19 20:59 04/13/19 18:14 Atorvastatin Calcium (Lipitor) 20 mg BEDTIME ORAL 04/12/19 21:00 05/11/19 22:29 04/13/19 22:19 Ceftriaxone Sodium 1 gm/ Dextrose 55 ml @ 110 mls/hr Q24H IVPB 04/13/19 06:00 04/20/19 05:59 04/14/19 06:06 Dextrose (Dextrose 50%) 25 ml Q30M PRN IV Hypoglycemia 04/12/19 10:30 05/11/19 21:29 Dextrose (Dextrose 50%) 50 ml Q30M PRN IV Hypoglycemia 04/12/19 10:30 05/11/19 21:29 Divalproex Sodium (Depakote) 500 mg EVERY 12 HOURS ORAL 04/12/19 21:00 05/11/19 20:59 04/14/19 08:26 Escitalopram Oxalate (Lexapro) 10 mg DAILY ORAL 04/13/19 09:00 05/12/19 08:59 04/14/19 08:26 Heparin Sodium (Porcine) (Heparin 5000 units/ml) 5,000 units EVERY 8 HOURS SUBQ 04/12/19 14:00 05/11/19 21:59 Insulin Aspart (NovoLOG) BEFORE MEALS AND HS SUBQ 04/12/19 11:30 05/12/19 06:29 04/14/19 17:07 Methylprednisolone Sodium Succinate (Solu-MEDROL) 80 mg EVERY 8 HOURS IVP 04/12/19 14:00 05/11/19 21:59 04/14/19 14:36 Primidone (Mysoline) 50 mg QHS ORAL 04/12/19 21:00 05/11/19 20:59 04/13/19 22:19 Allergies: Coded Allergies: CASHEW NUT (Verified Allergy, Unknown, 10/24/18) NO KNOWN ALLERGIES (Verified Allergy, Unknown, 03/07/18) [place] Seed (Verified Allergy, Unknown, 10/24/18) ROS Limited/Unobtainable: No Constitutional: Reports: no symptoms HEENT: Reports: no symptoms Cardiovascular: Reports: no symptoms Respiratory: Reports: cough, shortness of breath, wheezing Gastrointestinal/Abdominal: Reports: no symptoms Genitourinary: Reports: no symptoms Neurologic/Psychiatric: Reports: no symptoms Subjective 68 YO M admitted with shortness of breath. Now COPD exacerbation. Cover for Int Aryan-DR Medina Objective Last Vital Signs Date Time Temp Pulse Resp B/P (MAP) Pulse Ox O2 Delivery O2 Flow Rate FiO2 04/14/19 16:28 71 18 97 Nasal Cannula 2.0 28 97 18 69 04/14/19 16:00 97.3 126/75 (92) Laboratory Tests Test 04/14/19 07:22 White Blood Count 11.0 K/UL (4.8-10.8) H Red Blood Count 4.58 M/UL (4.70-6.10) L Hemoglobin 14.8 G/DL (14.2-18.0) Hematocrit 42.1 % (42.0-52.0) Mean Corpuscular Volume 92 FL (80-99) Mean Corpuscular Hemoglobin 32.3 PG (27.0-31.0) H Mean Corpuscular Hemoglobin Concent 35.1 G/DL (32.0-36.0) Red Cell Distribution Width 10.8 % (11.6-14.8) L Platelet Count 159 K/UL (150-450) Mean Platelet Volume 6.0 FL (6.5-10.1) L Neutrophils (%) (Auto) % (45.0-75.0) Lymphocytes (%) (Auto) % (20.0-45.0) Monocytes (%) (Auto) % (1.0-10.0) Eosinophils (%) (Auto) % (0.0-3.0) Basophils (%) (Auto) % (0.0-2.0) Differential Total Cells Counted 100 Neutrophils % (Manual) 85 % (45-75) H Lymphocytes % (Manual) 10 % (20-45) L Monocytes % (Manual) 5 % (1-10) Eosinophils % (Manual) 0 % (0-3) Basophils % (Manual) 0 % (0-2) Band Neutrophils 0 % (0-8) Platelet Estimate Adequate Platelet Morphology Normal Sodium Level 142 MMOL/L (136-145) Potassium Level 4.0 MMOL/L (3.5-5.1) Chloride Level 108 MMOL/L (98-107) H Carbon Dioxide Level 22 MMOL/L (21-32) Anion Gap 12 mmol/L (5-15) Blood Urea Nitrogen 28 mg/dL (7-18) H Creatinine 1.0 MG/DL (0.55-1.30) Estimat Glomerular Filtration Rate > 60 mL/min (>60) Glucose Level 103 MG/DL (74-106) Calcium Level 8.6 MG/DL (8.5-10.1) Intake and Output 04/13/19 04/14/19 18:59 06:59 # Voids 2 Objective General Appearance: WD/WN, alert, mild distress EENT: PERRL/EOMI, normal ENT inspection Neck: non-tender, normal alignment, supple, normal inspection Cardiovascular: normal peripheral pulses, normal rate, regular rhythm, no gallop/murmur, no JVD Respiratory/Chest: chest wall non-tender, respiratory distress, crackles/rales , rhonchi - bilaterally, expiratory wheezing Abdomen: normal bowel sounds, non tender, soft, no organomegaly, no mass Extremities: normal range of motion, non-tender Neurologic: residential appraiser 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 1. Shortness of breath. 2. Wheezing. 3. Probable chronic obstructive pulmonary disease acute exacerbation. 4. Hypercholesterolemia. 5. Posttraumatic stress disorder. 6. Prostate cancer. 7. Bipolar depression. TREATMENT: 1. Shortness of breath/wheezing/chronic obstructive pulmonary disease exacerbation. A Pulmonary consultation has been obtained with Dr. Michele Umaña. ABX=Ceftriaxone. The patient has been started on IV Solu-Medrol. Duoneb q 3hr routine. We will follow recommendations of Pulmonary. 2. Hypercholesterolemia. Continue atorvastatin as above. 3. Posttraumatic stress disorder/bipolar depression. Continue Lexapro and Depakote as above. 4. Prostate cancer. The patient is undergoing chemotherapy at the [facility]. Ryan Mckenzie MD Apr 14, 2019 17:13
--- NOTE | 2019-04-14 19:51 | NUR ---
HAND-OFF: Report given to Ariadna Fontaine. Plan of care endorsed.
--- NOTE | 2019-04-14 19:57 | NUR ---
NURSE NOTES: RECEIVED PATIENT RESTING IN BED, NO COMPLAINTS OF PAIN AT THIS TIME. PATIENT ALERT AND ORIENTED X4. PATIENT HAS SHOES ON AND REFUSED TO HAVE YELLOW SOCKS AND TO HAVE ALARM ON. EXPLAINED TO PATIENT FALL PRECAUTIONS, PATIENT STILL REFUSING BED ALARM AND YELLOW SOCKS. CALL LIGHT AND WALKER WITHIN REACH, BED IN LOW POSITION. PLAN OF CARE REVIEWED.
[2019-04-14 20:00] VITALS: BP 120/76
--- NOTE | 2019-04-14 20:01 | NUR ---
NURSE NOTES: INSTRUCTED PATIENT TO CALL FOR ASSISTANCE AND NOT TO GET OUT OF BED WITHOUT CALLING FOR HELP. PATIENT VERBALIZED UNDERSTANDING. PLACE URINAL AT BEDSIDE.
[2019-04-14] MEDS: Atorvastatin 20mg tab ORAL SCH (21:19)
[2019-04-15] VITALS: BP 107/63
[2019-04-15] MEDS: Albuterol/Ipratropium 3ml neb HHN SCH ×8 (02:01→22:58)
[2019-04-15 04:00] VITALS: BP 119/72
[2019-04-15] MEDS: cefTRIAXone 1 GM in D5W 55 ML IVPB SCH (05:19)
[2019-04-15] MEDS: Solu-MEDROL 40mg Inj IVP SCH (05:20)
[2019-04-15] MEDS: Heparin 5000 units/ml inj SUBQ SCH ×3 (06:00→21:14)
[2019-04-15] MEDS: NovoLOG Insulin Flexpen SUBQ SCH ×4 (06:30→21:15)
--- NOTE | 2019-04-15 07:31 | NUR ---
HAND-OFF: Report given to Lizzeth HUNT RN. PATIENT SITTING IN BED, NO SIGNS OF DISTRESS NOTED..
[2019-04-15 08:00] VITALS: BP 113/79
--- NOTE | 2019-04-15 08:55 | NUR ---
NURSE NOTES: Pt sitting on the side of the bed, recvng breathing treatment, pt restless but cooperative, Ox4 denies pain, pt is able to ambulated to restroom steadily, no s/s of distress, IV intact and patent.
[2019-04-15] MEDS: Depakote 500mg tab ORAL SCH ×2 (09:45→21:12)
[2019-04-15 12:00] VITALS: BP 122/68
--- NOTE | 2019-04-15 12:30 | Pulmonology Progress Note ---
Assessment/Plan Problems: (1) Acute bronchitis (2) COPD exacerbation (3) Prostate cancer (4) PTSD (post-traumatic stress disorder) (5) Cerebrovascular accident (CVA) (6) Bipolar depression Assessment/Plan slightly better still wheezing and coughing no phlegmn yet respiratory treatment sputum still pending IV stroids iv abx chest PT titrate fio2 to sat of 92% antitussives dvt prophylaxis. Subjective ROS Limited/Unobtainable: No Constitutional: Reports: no symptoms HEENT: Repors: no symptoms Respiratory: Reports: no symptoms Allergies: Coded Allergies: CASHEW NUT (Verified Allergy, Unknown, 10/24/18) NO KNOWN ALLERGIES (Verified Allergy, Unknown, 03/07/18) [place] Seed (Verified Allergy, Unknown, 10/24/18) Objective Last 24 Hour Vital Signs Date Time Temp Pulse Resp B/P (MAP) Pulse Ox O2 Delivery O2 Flow Rate FiO2 04/15/19 10:34 70 18 100 Nasal Cannula 4.0 36 67 18 98 04/15/19 09:16 Nasal Cannula 2.0 04/15/19 08:08 75 04/15/19 08:00 97.9 69 20 113/79 (90) 96 04/15/19 07:11 68 18 99 Nasal Cannula 4.0 36 66 20 98 04/15/19 07:10 98 Nasal Cannula 4.0 36 04/15/19 04:51 66 18 99 Nasal Cannula 2.0 28 68 18 97 04/15/19 04:00 97.0 67 20 119/72 (88) 96 04/15/19 04:00 67 04/15/19 01:59 69 18 98 Nasal Cannula 2.0 28 74 18 97 04/15/19 00:00 98.2 62 20 107/63 (78) 95 04/15/19 00:00 68 04/14/19 23:16 70 18 99 Nasal Cannula 2.0 28 69 18 99 04/14/19 21:00 Nasal Cannula 2.0 04/14/19 20:00 97.9 70 20 120/76 (91) 96 04/14/19 20:00 68 04/14/19 19:52 97 Nasal Cannula 2.0 28 04/14/19 19:42 71 18 97 Nasal Cannula 2.0 28 66 18 97 04/14/19 16:28 71 18 97 Nasal Cannula 2.0 28 97 18 69 12/12/19 16:00 67 04/14/19 16:00 97.3 75 20 126/75 (92) 97 04/14/19 12:56 67 19 97 Nasal Cannula 2.0 28 70 16 97 Intake and Output 04/14/19 04/15/19 19:00 07:00 Intake Total 730 ml 175 ml Balance 730 ml 175 ml Intake Oral 730 ml 120 ml IV Total 55 ml # Voids 3 2 Objective General Appearance: WD/WN, no acute distress HEENT: normocephalic, atraumatic Respiratory/Chest: chest wall non-tender, lungs clear Breasts: no masses Cardiovascular: normal rate Abdomen: normal bowel sounds, soft, non tender Genitourinary: normal external genitalia Extremities: no cyanosis Current Medications Medications (Trade) Dose Ordered Sig/Jeri Route PRN Reason Start Time Stop Time Status Last Admin Dose Admin Acetaminophen (Tylenol) 650 mg Q6H PRN ORAL Mild Pain/Temp > 100.5 04/12/19 10:22 05/12/19 10:21 Albuterol/ Ipratropium (Albuterol/ Ipratropium) 3 ml Q3HRT HHN 04/12/19 13:00 04/17/19 09:59 04/15/19 10:32 Albuterol/ Ipratropium (Albuterol/ Ipratropium) 3 ml Q4HRT PRN HHN Shortness of Breath 04/12/19 11:00 04/16/19 20:59 04/13/19 18:14 Atorvastatin Calcium (Lipitor) 20 mg BEDTIME ORAL 04/12/19 21:00 05/11/19 22:29 04/14/19 21:19 Ceftriaxone Sodium 1 gm/ Dextrose 55 ml @ 110 mls/hr Q24H IVPB 04/13/19 06:00 04/20/19 05:59 04/15/19 05:19 Dextrose (Dextrose 50%) 25 ml Q30M PRN IV Hypoglycemia 04/12/19 10:30 05/11/19 21:29 Dextrose (Dextrose 50%) 50 ml Q30M PRN IV Hypoglycemia 04/12/19 10:30 05/11/19 21:29 Divalproex Sodium (Depakote) 500 mg EVERY 12 HOURS ORAL 04/12/19 21:00 05/11/19 20:59 04/15/19 09:45 Escitalopram Oxalate (Lexapro) 10 mg DAILY ORAL 04/13/19 09:00 05/12/19 08:59 04/15/19 09:45 Heparin Sodium (Porcine) (Heparin 5000 units/ml) 5,000 units EVERY 8 HOURS SUBQ 04/12/19 14:00 05/11/19 21:59 04/14/19 21:30 Insulin Aspart (NovoLOG) BEFORE MEALS AND HS SUBQ 04/12/19 11:30 05/12/19 06:29 04/14/19 21:21 Methylprednisolone Sodium Succinate (Solu-MEDROL) 80 mg EVERY 8 HOURS IVP 04/12/19 14:00 05/11/19 21:59 04/15/19 05:20 Primidone (Mysoline) 50 mg QHS ORAL 04/12/19 21:00 05/11/19 20:59 04/14/19 21:19 Michele Umaña MD Apr 15, 2019 12:30
--- NOTE | 2019-04-15 14:56 | NUR ---
CASE MANAGEMENT:REVIEW 04/15/19 SI: COPD EXACERBATION. ACUTE BRONCHITIS 96.8 83 18 122/68 97% ON 4L/NC IS: IV ROCEPHIN Q24 HEPARIN SQ Q8HR DUONEB HHN Q3H DEPAKOTE PO BID MYSOLINE PO QHS NOVOLOG SQ AC&HS : TELEMETRY STATUS DCP: FROM HOME PLAN: RT TREATMENT Addendum: 04/15/19 at 1510 by LAURENT EDWARDS LVN PATIENT HAS AN ORDER TO DOWNGRADE TO MED SURG
--- NOTE | 2019-04-15 15:09 | Internal Med Progress Note ---
Subjective Physician Name Christopher Medina Attending Physician Christopher Medina MD Current Medications Medications (Trade) Dose Ordered Sig/Jeri Route PRN Reason Start Time Stop Time Status Last Admin Dose Admin Acetaminophen (Tylenol) 650 mg Q6H PRN ORAL Mild Pain/Temp > 100.5 04/12/19 10:22 05/12/19 10:21 Albuterol/ Ipratropium (Albuterol/ Ipratropium) 3 ml Q3HRT HHN 04/12/19 13:00 04/17/19 09:59 04/15/19 13:12 Albuterol/ Ipratropium (Albuterol/ Ipratropium) 3 ml Q4HRT PRN HHN Shortness of Breath 04/12/19 11:00 04/16/19 20:59 04/13/19 18:14 Atorvastatin Calcium (Lipitor) 20 mg BEDTIME ORAL 04/12/19 21:00 05/11/19 22:29 04/14/19 21:19 Ceftriaxone Sodium 1 gm/ Dextrose 55 ml @ 110 mls/hr Q24H IVPB 04/13/19 06:00 04/20/19 05:59 04/15/19 05:19 Dextrose (Dextrose 50%) 25 ml Q30M PRN IV Hypoglycemia 04/12/19 10:30 05/11/19 21:29 Dextrose (Dextrose 50%) 50 ml Q30M PRN IV Hypoglycemia 04/12/19 10:30 05/11/19 21:29 Divalproex Sodium (Depakote) 500 mg EVERY 12 HOURS ORAL 04/12/19 21:00 05/11/19 20:59 04/15/19 09:45 Escitalopram Oxalate (Lexapro) 10 mg DAILY ORAL 04/13/19 09:00 05/12/19 08:59 04/15/19 09:45 Heparin Sodium (Porcine) (Heparin 5000 units/ml) 5,000 units EVERY 8 HOURS SUBQ 04/12/19 14:00 05/11/19 21:59 04/14/19 21:30 Insulin Aspart (NovoLOG) BEFORE MEALS AND HS SUBQ 04/12/19 11:30 05/12/19 06:29 04/14/19 21:21 Methylprednisolone Sodium Succinate (Solu-MEDROL) 80 mg DAILY IVP 04/16/19 09:00 05/11/19 21:59 Primidone (Mysoline) 50 mg QHS ORAL 04/12/19 21:00 05/11/19 20:59 04/14/19 21:19 Allergies: Coded Allergies: CASHEW NUT (Verified Allergy, Unknown, 10/24/18) NO KNOWN ALLERGIES (Verified Allergy, Unknown, 03/07/18) [place] Seed (Verified Allergy, Unknown, 10/24/18) Subjective awake, alert, responsive, less SOB, No CP. Objective Last Vital Signs Date Time Temp Pulse Resp B/P (MAP) Pulse Ox O2 Delivery O2 Flow Rate FiO2 04/15/19 13:12 88 20 99 Nasal Cannula 4.0 36 86 20 97 04/15/19 12:00 96.8 122/68 (86) Intake and Output 04/14/19 04/15/19 18:59 06:59 Intake Total 730 ml 175 ml Balance 730 ml 175 ml Intake Oral 730 ml 120 ml IV Total 55 ml # Voids 3 2 Objective General: No acute distress, awake and alert HEENT: NCAT, sclera anicteric, PERRL, EOMI. Neck: Supple, no significant jugular venous distention, Lungs: Good inspiratory effort, clear to auscultation bilaterally, + expiratory Wheeze, No Rales. Heart: Regular rate and rhythm, normal S1/S2, no murmur. Abdomen: soft, nontender, nondistended. Normoactive bowel sounds, Obesity. / Rectal: Refused and deferred. Extremities: No Cyanosis , clubbing or edema. Neuro: A&O x 3, Able to move all extremities Skin: warm, no rashes or lesions Psych: Normal mood and affect Assessment/Plan Assessment/Plan ASSESSMENT: This is a 68-year-old male. 1. Acute Bronchitis 2. Acute on chronic obstructive pulmonary disease acute exacerbation. 3. Morbid Obesity. 4. Hypercholesterolemia. 5. Posttraumatic stress disorder. 6. Prostate cancer. 7. Bipolar depression. TREATMENT: 1. Shortness of breath/wheezing/chronic obstructive pulmonary disease exacerbation. A Pulmonary consultation has been obtained with Dr. Michele Umaña. ABX=Ceftriaxone. On Solu-Medrol 80mg IV Daily Duoneb q 3hr routine. We will follow recommendations of Pulmonary. 2. Hypercholesterolemia. Continue atorvastatin as above. 3. Posttraumatic stress disorder/bipolar depression. Continue Lexapro and Depakote as above. 4. Prostate cancer. The patient is undergoing chemotherapy at [facility]. Christopher Medina MD Apr 15, 2019 15:09
--- NOTE | 2019-04-15 15:41 | NUR ---
NURSE NOTES: Patient transferred from Tele, I received report from MILKA Archer; patient alert x4; on Nasal cannula 4 Liter, no sing of distress and shortness of breath; no sing of chest pain; IV Left For-Arm 22G flushes well; skin intact; patient ambulatory; patient refused side rails to be padded for seizure percussion; side rails up x2, breaks engaged, bed at lowest position; call light within reach; will keep monitoring.
--- NOTE | 2019-04-15 15:45 | NUR ---
NURSE NOTES: Belonging list signed by transferring and receiving nurse; patient had $69 with him, patient refused the money to be kept on safe;
--- NOTE | 2019-04-15 15:51 | NUR ---
HAND-OFF: Report given to Richie Rosenthal.
--- NOTE | 2019-04-15 15:52 | Cardiology Report ---
APPROVED REPORT EKG Measurement Heart [id number] Normal sinus rhythm Normal ECG
[2019-04-15 16:00] VITALS: BP 112/64
[2019-04-15] MEDS: Albuterol/Ipratropium 3ml neb HHN PRN (17:49)
--- NOTE | 2019-04-15 19:35 | NUR ---
HAND-OFF: Report given to MILKA Alas.
--- NOTE | 2019-04-15 19:40 | NUR ---
NURSE NOTES: Received report from MILKA Zuniga patient in bed, awake and alert and verbally responsive. Breathing on NC 2l/min. No respiratory distress noted. IV intact and asymptomatic. Bed in the lowest position and locked. call light within reach. will continue to provide plan of care.
[2019-04-15 20:00] VITALS: BP 112/66
[2019-04-15] MEDS ORDERED: Atorvastatin 20mg tab ORAL SCH (21:00)
[2019-04-16] VITALS: BP 108/71
[2019-04-16] MEDS: Albuterol/Ipratropium 3ml neb HHN SCH ×7 (01:09→19:00)
[2019-04-16] MEDS: Albuterol/Ipratropium 3ml neb HHN PRN (03:07)
[2019-04-16 04:00] VITALS: BP 111/68
[2019-04-16] MEDS ORDERED: D5W 55 ML IV ONE (04:50)
[2019-04-16] MEDS: Heparin 5000 units/ml inj SUBQ SCH ×3 (05:30→21:12)
[2019-04-16] MEDS ORDERED: cefTRIAXone 1 GM in D5W 55 ML IVPB SCH (06:00)
[2019-04-16] MEDS: NovoLOG Insulin Flexpen SUBQ SCH ×4 (06:30→21:11)
--- NOTE | 2019-04-16 07:35 | NUR ---
HAND-OFF: Report given to Gabriella livingston RN.
--- NOTE | 2019-04-16 07:36 | NUR ---
NURSE NOTES: Received report from MILKA Golden. Pt is sleeping in bed. On 2LNC, no complaints of pain or apparent distress noted. Bed locked in lowest position, side rails up, call light within reach. Will continue to monitor.
[2019-04-16 08:00] VITALS: BP 113/73
--- NOTE | 2019-04-16 08:00 | NUR ---
NURSE NOTES: Pt wheezing with SOB. Called RT for breathing tx. Stayed with pt at bedside, monitored SpO2, went from 70's to 90's. Per Dr. Umaña, Pt will be transferred to [facility].
--- NOTE | 2019-04-16 08:17 | Pulmonology Progress Note ---
Assessment/Plan Problems: (1) COPD exacerbation (2) Acute bronchitis (3) Prostate cancer (4) PTSD (post-traumatic stress disorder) (5) Cerebrovascular accident (CVA) (6) Bipolar depression Assessment/Plan today he is worse add albuterol syrup still wheezing and coughing no phlegmn yet respiratory treatment q 3 hours sputum still pending IV stroids iv abx chest PT titrate fio2 to sat of 92% antitussives dvt prophylaxis. Subjective ROS Limited/Unobtainable: No Interval Events: still wheezing audibly Constitutional: Reports: no symptoms HEENT: Repors: no symptoms Respiratory: Reports: no symptoms Allergies: Coded Allergies: CASHEW NUT (Verified Allergy, Unknown, 10/24/18) NO KNOWN ALLERGIES (Verified Allergy, Unknown, 03/07/18) [place] Seed (Verified Allergy, Unknown, 10/24/18) Objective Last 24 Hour Vital Signs Date Time Temp Pulse Resp B/P (MAP) Pulse Ox O2 Delivery O2 Flow Rate FiO2 04/16/19 07:37 78 18 96 Nasal Cannula 4.0 36 75 18 94 04/16/19 07:36 95 Nasal Cannula 4.0 36 04/16/19 04:00 98.2 64 18 111/68 (82) 94 04/16/19 03:07 76 18 100 Nasal Cannula 4.0 36 78 18 97 04/16/19 01:09 71 18 100 Nasal Cannula 4.0 36 75 18 96 04/16/19 00:00 98.0 67 22 108/71 (83) 93 04/15/19 22:58 71 18 100 Nasal Cannula 4.0 36 70 18 98 04/15/19 21:00 Nasal Cannula 2.0 04/15/19 20:00 97.3 72 16 112/66 (81) 94 04/15/19 19:49 76 18 98 Nasal Cannula 4.0 36 73 18 94 04/15/19 19:49 94 Nasal Cannula 4.0 36 04/15/19 16:00 96.7 73 19 112/64 (80) 97 04/15/19 15:11 80 18 97 Nasal Cannula 4.0 36 74 18 93 04/15/19 13:12 88 20 99 Nasal Cannula 4.0 36 86 20 97 04/15/19 12:00 96.8 83 18 122/68 (86) 97 04/15/19 11:34 62 04/15/19 10:34 70 18 100 Nasal Cannula 4.0 36 67 18 98 04/15/19 09:16 Nasal Cannula 2.0 Intake and Output 04/15/19 04/16/19 19:00 07:00 Intake Total 280 ml 240 ml Balance 280 ml 240 ml Intake Oral 280 ml 240 ml # Voids 2 2 Objective General Appearance: WD/WN, no acute distress HEENT: normocephalic, atraumatic Respiratory/Chest: chest wall non-tender, lungs clear Breasts: no masses Cardiovascular: normal rate Abdomen: normal bowel sounds, soft, non tender Genitourinary: normal external genitalia Extremities: no cyanosis Current Medications Medications (Trade) Dose Ordered Sig/Jeri Route PRN Reason Start Time Stop Time Status Last Admin Dose Admin Acetaminophen (Tylenol) 650 mg Q6H PRN ORAL Mild Pain/Temp > 100.5 04/15/19 15:36 05/12/19 15:35 Albuterol/ Ipratropium (Albuterol/ Ipratropium) 3 ml Q3HRT HHN 04/15/19 19:00 04/17/19 18:59 04/16/19 07:00 Albuterol/ Ipratropium (Albuterol/ Ipratropium) 3 ml Q4H PRN HHN Shortness of Breath 04/15/19 15:37 04/20/19 15:36 04/16/19 03:07 Atorvastatin Calcium (Lipitor) 20 mg BEDTIME ORAL 04/15/19 21:00 05/11/19 22:29 04/15/19 21:12 Ceftriaxone Sodium 1 gm/ Dextrose 55 ml @ 110 mls/hr Q24H IVPB 04/16/19 06:00 04/20/19 05:59 04/16/19 05:29 Dextrose (Dextrose 50%) 25 ml Q30M PRN IV Hypoglycemia 04/15/19 15:36 05/11/19 15:35 Dextrose (Dextrose 50%) 50 ml Q30M PRN IV Hypoglycemia 04/15/19 15:36 05/11/19 15:35 Divalproex Sodium (Depakote) 500 mg EVERY 12 HOURS ORAL 04/15/19 21:00 05/11/19 20:59 04/15/19 21:12 Escitalopram Oxalate (Lexapro) 10 mg DAILY ORAL 04/16/19 09:00 05/12/19 08:59 Heparin Sodium (Porcine) (Heparin 5000 units/ml) 5,000 units EVERY 8 HOURS SUBQ 04/15/19 22:00 05/11/19 21:59 04/16/19 05:30 Insulin Aspart (NovoLOG) BEFORE MEALS AND HS SUBQ 04/15/19 16:30 05/12/19 06:29 04/15/19 21:15 Methylprednisolone Sodium Succinate (Solu-MEDROL) 80 mg DAILY IVP 04/16/19 09:00 05/11/19 21:59 Primidone (Mysoline) 50 mg QHS ORAL 04/15/19 21:00 05/11/19 20:59 04/15/19 21:13 Michele Umaña MD Apr 16, 2019 08:17
[2019-04-16] MEDS ORDERED: Solu-MEDROL 40mg Inj IVP SCH ×2 (09:00)
[2019-04-16] MEDS ORDERED: Albuterol 2mg Tab ORAL SCH (09:00)
--- NOTE | 2019-04-16 09:41 | NUR ---
NURSE NOTES: Called pharmacy for missing pt's Proventil. Pharmacy said they will come and fill it in the pyxis. RN awaiting.
[2019-04-16] MEDS: Depakote 500mg tab ORAL SCH ×2 (09:46→21:03)
[2019-04-16] MEDS ORDERED: Albuterol Sulfate Syrup 2mg/5ml ORAL SCH (10:15)
--- NOTE | 2019-04-16 10:32 | NUR ---
NURSE NOTES: RN checked with pharmacy about missing albuterol syrup. Yesenia from pharmacy said she will bring it up.
--- NOTE | 2019-04-16 10:39 | Diagnostic Imaging Report ---
EXAM: XR Chest, 1 View CLINICAL HISTORY: DYSPHAGIA TECHNIQUE: Frontal view of the chest. COMPARISON: Chest x-ray, 04/11/19 FINDINGS: Lungs: Hypoventilatory lungs. Bibasilar lung atelectasis. Pleural space: Unremarkable. No pneumothorax. Heart: Unremarkable. No cardiomegaly. Mediastinum: Unremarkable. Bones/joints: Unremarkable. IMPRESSION: No acute findings in the chest.
--- NOTE | 2019-04-16 11:50 | NUR ---
NURSE NOTES: Transferred pt to [facility] 243-1. Report given to MILKA Lemon. Pt is not complaining of pain or apparent distress noted. Belongings and medications reviewed and handed to MILKA Lemon.
--- NOTE | 2019-04-16 11:53 | NUR ---
NURSE NOTES: Received report from Marita Guzman RN. Patient transferred from med-surg unit for SoB in AM. Patient alert and oriented x 4, able to make needs known. Receiving O2 via nasal cannula @ 2L/min, no s/s of respiratory distress noted. Skin intact. No IV present, IV inserted on left hand 22g. Bed locked in lowest position with side rails up x 3, patient refused side rails to be padded for seizure precaution. All needs attended to. Call light within reach. Will continue to monitor.
[2019-04-16 12:00] VITALS: BP 113/65
[2019-04-16] MEDS ORDERED: Albuterol/Ipratropium 3ml neb HHN PRN (12:00)
[2019-04-16] MEDS: Albuterol Sulfate Syrup 2mg/5ml ORAL SCH ×3 (13:32→21:02)
--- NOTE | 2019-04-16 14:34 | Internal Med Progress Note ---
Subjective Date of Service: Apr 16, 2019 Physician Name Ryan Mckenzie Attending Physician Christopher Medina MD Current Medications Medications (Trade) Dose Ordered Sig/Jeri Route PRN Reason Start Time Stop Time Status Last Admin Dose Admin Acetaminophen (Tylenol) 650 mg Q6H PRN ORAL Mild Pain/Temp > 100.5 04/16/19 15:45 05/12/19 15:35 Albuterol/ Ipratropium (Albuterol/ Ipratropium) 3 ml Q3HRT HHN 04/16/19 13:00 04/17/19 18:59 04/16/19 13:15 Albuterol/ Ipratropium (Albuterol/ Ipratropium) 3 ml Q4H PRN HHN Shortness of Breath 04/16/19 12:00 04/20/19 11:59 Atorvastatin Calcium (Lipitor) 20 mg BEDTIME ORAL 04/16/19 21:00 05/11/19 22:29 Ceftriaxone Sodium 1 gm/ Dextrose 55 ml @ 110 mls/hr Q24H IVPB 04/17/19 06:00 04/20/19 05:59 Dextrose (Dextrose 50%) 25 ml Q30M PRN IV Hypoglycemia 04/16/19 12:15 05/11/19 15:35 Dextrose (Dextrose 50%) 50 ml Q30M PRN IV Hypoglycemia 04/16/19 12:15 05/11/19 15:35 Divalproex Sodium (Depakote) 500 mg EVERY 12 HOURS ORAL 04/16/19 21:00 05/11/19 20:59 Escitalopram Oxalate (Lexapro) 10 mg DAILY ORAL 04/17/19 09:00 05/12/19 08:59 Heparin Sodium (Porcine) (Heparin 5000 units/ml) 5,000 units EVERY 8 HOURS SUBQ 04/16/19 14:00 05/11/19 21:59 04/16/19 13:35 Insulin Aspart (NovoLOG) BEFORE MEALS AND HS SUBQ 04/16/19 16:30 05/12/19 06:29 Methylprednisolone Sodium Succinate (Solu-MEDROL) 80 mg DAILY IVP 04/17/19 09:00 05/11/19 21:59 Primidone (Mysoline) 50 mg QHS ORAL 04/16/19 21:00 05/11/19 20:59 Allergies: Coded Allergies: CASHEW NUT (Verified Allergy, Unknown, 10/24/18) [place] Seed (Verified Allergy, Unknown, 10/24/18) ROS Limited/Unobtainable: No Constitutional: Reports: no symptoms HEENT: Reports: no symptoms Cardiovascular: Reports: no symptoms Respiratory: Reports: no symptoms Gastrointestinal/Abdominal: Reports: no symptoms Genitourinary: Reports: no symptoms Neurologic/Psychiatric: Reports: no symptoms Subjective 68 YO M admitted with shortness of breath. Now COPD exacerbation. Cover for Int Med-DR Medina Objective Last Vital Signs Date Time Temp Pulse Resp B/P (MAP) Pulse Ox O2 Delivery O2 Flow Rate FiO2 04/16/19 13:15 78 18 96 Nasal Cannula 3.0 32 75 18 96 04/16/19 12:00 96.6 113/65 (81) Intake and Output 04/15/19 04/16/19 19:00 07:00 Intake Total 280 ml 240 ml Balance 280 ml 240 ml Intake Oral 280 ml 240 ml # Voids 2 2 Objective General Appearance: WD/WN, alert, mild distress EENT: PERRL/EOMI, normal ENT inspection Neck: non-tender, normal alignment, supple, normal inspection Cardiovascular: normal peripheral pulses, normal rate, regular rhythm, no gallop/murmur, no JVD Respiratory/Chest: chest wall non-tender, respiratory distress, crackles/rales , rhonchi - bilaterally, expiratory wheezing Abdomen: normal bowel sounds, non tender, soft, no organomegaly, no mass Extremities: normal range of motion, non-tender Neurologic: manager fiber 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 1. Shortness of breath. 2. Wheezing. 3. Probable chronic obstructive pulmonary disease acute exacerbation. 4. Hypercholesterolemia. 5. Posttraumatic stress disorder. 6. Prostate cancer. 7. Bipolar depression. TREATMENT: 1. Shortness of breath/wheezing/chronic obstructive pulmonary disease exacerbation. A Pulmonary consultation has been obtained with Dr. Michele Umaña. D/C Ceftriaxone. The patient has been started on IV Solu-Medrol. Duoneb q 3hr routine. We will follow recommendations of Pulmonary. 2. Hypercholesterolemia. Continue atorvastatin as above. 3. Posttraumatic stress disorder/bipolar depression. Continue Lexapro and Depakote as above. 4. Prostate cancer. The patient is undergoing chemotherapy at the [facility]. Ryan Mckenzie MD Apr 16, 2019 14:34
[2019-04-16 16:00] VITALS: BP 98/54
--- NOTE | 2019-04-16 19:19 | NUR ---
HAND-OFF: Report given to Patsy Lamb RN. No s/s of respiratory distress noted.
--- NOTE | 2019-04-16 19:20 | NUR ---
NURSE NOTES: received pt from Xochilt JARQUIN., pt is AO x4 and resting on the bed. no SOB noted, with NC pt O2sat is at 98%. pt states no pain at this moment. left Thumb IV site is intact, clean, and patent. bed at the lowest position, alarmed, and locked. call light within reach. will continue to monitor pt with plan of care.
[2019-04-16 20:00] VITALS: BP 101/70
[2019-04-16] MEDS: Atorvastatin 20mg tab ORAL SCH (21:03)
[2019-04-17] VITALS: BP 108/67
[2019-04-17] MEDS: Albuterol/Ipratropium 3ml neb HHN SCH ×6 (00:40→16:42)
--- NOTE | 2019-04-17 02:38 | NUR ---
HAND-OFF: Report given to Srini JARQUIN. pt is sleeping and pt is stable condition. Addendum: 04/17/19 at 0452 by BRANDAN MALONE RN wrong pt
[2019-04-17 04:00] VITALS: BP 98/56
[2019-04-17] MEDS ORDERED: cefTRIAXone 1 GM in D5W 55 ML IVPB SCH (06:00)
[2019-04-17] MEDS: NovoLOG Insulin Flexpen SUBQ SCH ×4 (06:30→21:00)
[2019-04-17] MEDS: Heparin 5000 units/ml inj SUBQ SCH ×3 (06:56→21:27)
[2019-04-17 06:58] LABS: BASOPHILS % (AUTO) 0.9 % (0.0-2.0); EOSINOPHILS % (AUTO) 15.5 % (0.0-3.0); HEMATOCRIT 43.2 % (42.0-52.0); HEMOGLOBIN 15.1 G/DL (14.2-18.0); LYMPHOCYTES % (AUTO) 18.7 % (20.0-45.0); MEAN CORPUSCULAR VOLUME 92 FL (80-99); MONOCYTES % (AUTO) 9.7 % (1.0-10.0); NEUTROPHILS % (AUTO) 55.3 % (45.0-75.0); PLATELET COUNT 117 K/UL (150-450); RED BLOOD COUNT 4.71 M/UL (4.70-6.10); RED CELL DISTRIBUTION WIDTH 11.2 % (11.6-14.8); WHITE BLOOD COUNT 6.5 K/UL (4.8-10.8)
[2019-04-17 07:11] LABS: ANION GAP 9 mmol/L (5-15); BLOOD UREA NITROGEN 31 mg/dL (7-18); CALCIUM 8.7 MG/DL (8.5-10.1); CARBON DIOXIDE 28 MMOL/L (21-32); CHLORIDE 104 MMOL/L (98-107); CREATININE 1.2 MG/DL (0.55-1.30); POTASSIUM 3.9 MMOL/L (3.5-5.1); SODIUM 141 MMOL/L (136-145)
--- NOTE | 2019-04-17 07:30 | NUR ---
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
--- NOTE | 2019-04-17 07:41 | Pulmonology Progress Note ---
Assessment/Plan Problems: (1) COPD exacerbation (2) Acute bronchitis (3) Prostate cancer (4) PTSD (post-traumatic stress disorder) (5) Cerebrovascular accident (CVA) (6) Bipolar depression Assessment/Plan today he is minimally better, large volume phlegmn add albuterol syrup still wheezing and coughing no phlegmn yet respiratory treatment q 3 hours sputum still pending IV stroids iv abx, dc ceftriaxone and add Vancomycin, zosyn, Zithromax pending cultrues chest PT titrate fio2 to sat of 92% antitussives dvt prophylaxis. Subjective ROS Limited/Unobtainable: No Constitutional: Reports: no symptoms HEENT: Repors: no symptoms Respiratory: Reports: no symptoms Allergies: Coded Allergies: CASHEW NUT (Verified Allergy, Unknown, 10/24/18) [place] [address] Seed (Verified Allergy, Unknown, 10/24/18) Objective Last 24 Hour Vital Signs Date Time Temp Pulse Resp B/P (MAP) Pulse Ox O2 Delivery O2 Flow Rate FiO2 04/17/19 07:01 96 Nasal Cannula 3.0 32 04/17/19 07:01 76 18 96 Nasal Cannula 3.0 32 75 18 95 04/17/19 04:00 66 04/17/19 04:00 98.2 78 20 98/56 (70) 96 04/17/19 04:00 Nasal Cannula 2.0 04/17/19 03:44 75 04/17/19 00:56 84 21 97 Nasal Cannula 3.0 32 80 18 98 04/17/19 00:00 Nasal Cannula 2.0 04/17/19 00:00 96.5 87 20 108/67 (81) 98 04/16/19 23:51 85 04/16/19 22:00 80 18 97 Nasal Cannula 3.0 32 78 18 96 04/16/19 20:00 97.0 87 18 101/70 (80) 97 04/16/19 20:00 Nasal Cannula 2.0 04/16/19 19:37 76 18 96 Nasal Cannula 3.0 32 75 18 95 04/16/19 19:37 96 Nasal Cannula 3.0 32 04/16/19 19:27 85 04/16/19 16:32 74 18 98 Nasal Cannula 3.0 32 71 18 97 04/16/19 16:00 79 04/16/19 16:00 96.6 87 20 98/54 (69) 96 04/16/19 16:00 Nasal Cannula 2.0 04/16/19 13:15 78 18 96 Nasal Cannula 3.0 32 75 18 96 04/16/19 12:40 71 18 96 Nasal Cannula 4.0 36 04/16/19 12:00 Nasal Cannula 2.0 04/16/19 12:00 96.6 67 18 113/65 (81) 93 04/16/19 11:53 75 04/16/19 10:12 74 18 78 Nasal Cannula 4.0 36 71 18 96 04/16/19 09:00 Nasal Cannula 2.0 04/16/19 08:00 97.0 72 18 113/73 (86) 98 Intake and Output 04/16/19 04/17/19 19:00 07:00 Intake Total 720 ml Balance 720 ml Intake Oral 720 ml # Voids 1 Objective General Appearance: WD/WN, no acute distress HEENT: normocephalic, atraumatic Respiratory/Chest: chest wall non-tender, loud wheezing Breasts: no masses Cardiovascular: normal rate Abdomen: normal bowel sounds, soft, non tender Genitourinary: normal external genitalia Extremities: no cyanosis Laboratory Tests 04/17/19 04:34: White Blood Count 6.5, Red Blood Count 4.71, Hemoglobin 15.1, Hematocrit 43.2, Mean Corpuscular Volume 92, Mean Corpuscular Hemoglobin 32.1H, Mean Corpuscular Hemoglobin Concent 34.9, Red Cell Distribution Width 11.2L, Platelet Count 117L , Mean Platelet Volume 5.0L, Neutrophils (%) (Auto) 55.3, Lymphocytes (%) (Auto ) 18.7L, Monocytes (%) (Auto) 9.7, Eosinophils (%) (Auto) 15.5H, Basophils (%) ( Auto) 0.9, Sodium Level 141, Potassium Level 3.9, Chloride Level 104, Carbon Dioxide Level 28, Anion Gap 9, Blood Urea Nitrogen 31H, Creatinine 1.2, Estimat Glomerular Filtration Rate 59.9, Glucose Level 92, Calcium Level 8.7 Current Medications Medications (Trade) Dose Ordered Sig/Jeri Route PRN Reason Start Time Stop Time Status Last Admin Dose Admin Acetaminophen (Tylenol) 650 mg Q6H PRN ORAL Mild Pain/Temp > 100.5 04/16/19 15:45 19/20 15:35 Albuterol/ Ipratropium (Albuterol/ Ipratropium) 3 ml Q3HRT HHN 04/16/19 13:00 04/17/19 18:59 04/17/19 07:09 Albuterol/ Ipratropium (Albuterol/ Ipratropium) 3 ml Q4H PRN HHN Shortness of Breath 04/16/19 12:00 04/20/19 11:59 Atorvastatin Calcium (Lipitor) 20 mg BEDTIME ORAL 04/16/19 21:00 05/11/19 22:29 04/16/19 21:03 Ceftriaxone Sodium 1 gm/ Dextrose 55 ml @ 110 mls/hr Q24H IVPB 04/17/19 06:00 04/20/19 05:59 04/17/19 06:55 Dextrose (Dextrose 50%) 25 ml Q30M PRN IV Hypoglycemia 04/16/19 12:15 05/11/19 15:35 Dextrose (Dextrose 50%) 50 ml Q30M PRN IV Hypoglycemia 04/16/19 12:15 05/11/19 15:35 Divalproex Sodium (Depakote) 500 mg EVERY 12 HOURS ORAL 04/16/19 21:00 05/11/19 20:59 04/16/19 21:03 Escitalopram Oxalate (Lexapro) 10 mg DAILY ORAL 04/17/19 09:00 05/12/19 08:59 Heparin Sodium (Porcine) (Heparin 5000 units/ml) 5,000 units EVERY 8 HOURS SUBQ 04/16/19 14:00 05/11/19 21:59 04/17/19 06:56 Insulin Aspart (NovoLOG) BEFORE MEALS AND HS SUBQ 04/16/19 16:30 05/12/19 06:29 04/16/19 21:11 Methylprednisolone Sodium Succinate (Solu-MEDROL) 80 mg DAILY IVP 04/17/19 09:00 05/11/19 21:59 Primidone (Mysoline) 50 mg QHS ORAL 04/16/19 21:00 05/11/19 20:59 04/16/19 21:03 Michele Umaña MD Apr 17, 2019 07:41
--- NOTE | 2019-04-17 07:59 | NUR ---
HAND-OFF: Report given to Jose De Jesus JARQUIN. pt is in stable condition. VSS
[2019-04-17 08:00] VITALS: BP 112/66
[2019-04-17] MEDS: Depakote 500mg tab ORAL SCH ×2 (08:48→21:10)
[2019-04-17] MEDS: Solu-MEDROL 40mg Inj IVP SCH (08:48)
[2019-04-17] MEDS: Albuterol Sulfate Syrup 2mg/5ml ORAL SCH ×4 (09:00→21:09)
[2019-04-17] MEDS: Vancomycin 1gm/D5W 275ml IVPB SCH ×4 (09:38→21:24)
[2019-04-17] MEDS: Azithromycin 500 MG in D5W 275 ML IV SCH (09:38)
[2019-04-17 12:00] VITALS: BP 113/68
--- NOTE | 2019-04-17 12:00 | NUR ---
resting watching tv no distress
[2019-04-17] MEDS: Zosyn 3.375gm q8h **Extended infusion IVPB SCH ×4 (13:43→22:19)
[2019-04-17] MEDS ORDERED: Piperacillin/Tazobactam 3.375 GM in NS 110 ML IVPB SCH (14:00)
--- NOTE | 2019-04-17 14:30 | NUR ---
NURSE NOTES: Received PT and report from HOLLY Byrd, PT A/O x 4; on 3L-NC with moisture; reported that PT is allergic to cashews/sunflower seeds; VS stable upon receiving, able to follow commands, non-combative, asked if PT needed anything, asked for ice water, ice water provided with pen and paper per PT request. Received PT with R-arm ecchymosis, no pain reported by PT when asked if his R-arm hurts. PT has regular diet, no difficulty swallowing or coughing noted when provided ice water; reported PT has history of seizure but refused for siderails to be padded, HOLLY Byrd aware; Hx of falls reported; PT has socks on, bed alarm is on; x3 side rails are raised. Received PT with IV access on the L-finger 22g; patent; flushes well; advised PT not to move it so much. Will continue to monitor PT.
--- NOTE | 2019-04-17 14:33 | Internal Med Progress Note ---
Subjective Date of Service: Apr 17, 2019 Physician Name Ryan Mckenzie Attending Physician Christopher Medina MD Current Medications Medications (Trade) Dose Ordered Sig/Jeri Route PRN Reason Start Time Stop Time Status Last Admin Dose Admin Acetaminophen (Tylenol) 650 mg Q6H PRN ORAL Mild Pain/Temp > 100.5 04/16/19 15:45 05/12/19 15:35 Albuterol/ Ipratropium (Albuterol/ Ipratropium) 3 ml Q3HRT HHN 04/16/19 13:00 04/17/19 18:59 04/17/19 12:48 Albuterol/ Ipratropium (Albuterol/ Ipratropium) 3 ml Q4H PRN HHN Shortness of Breath 04/16/19 12:00 04/20/19 11:59 Atorvastatin Calcium (Lipitor) 20 mg BEDTIME ORAL 04/16/19 21:00 05/11/19 22:29 04/16/19 21:03 Azithromycin 500 mg/Dextrose 275 ml @ 275 mls/hr Q24HRS IV 04/17/19 09:00 04/23/19 09:59 04/17/19 09:38 Dextrose (Dextrose 50%) 25 ml Q30M PRN IV Hypoglycemia 04/16/19 12:15 05/11/19 15:35 Dextrose (Dextrose 50%) 50 ml Q30M PRN IV Hypoglycemia 04/16/19 12:15 05/11/19 15:35 Divalproex Sodium (Depakote) 500 mg EVERY 12 HOURS ORAL 04/16/19 21:00 05/11/19 20:59 04/17/19 08:48 Escitalopram Oxalate (Lexapro) 10 mg DAILY ORAL 04/17/19 09:00 05/12/19 08:59 04/17/19 08:48 Heparin Sodium (Porcine) (Heparin 5000 units/ml) 5,000 units EVERY 8 HOURS SUBQ 04/16/19 14:00 05/11/19 21:59 04/17/19 14:00 Insulin Aspart (NovoLOG) BEFORE MEALS AND HS SUBQ 04/16/19 16:30 05/12/19 06:29 04/17/19 11:38 Methylprednisolone Sodium Succinate (Solu-MEDROL) 80 mg DAILY IVP 04/17/19 09:00 05/11/19 21:59 04/17/19 08:48 Piperacillin Sod/ Tazobactam Sod 3.375 gm/Sodium Chloride 110 ml @ 27.5 mls/hr EVERY 8 HOURS IVPB 04/17/19 14:00 04/22/19 13:59 04/17/19 13:43 Primidone (Mysoline) 50 mg QHS ORAL 04/16/19 21:00 05/11/19 20:59 04/16/19 21:03 Vancomycin HCl (Vanco rx to dose) 1 ea DAILY PRN MISC Per rx protocol 04/17/19 07:45 05/17/19 07:44 Vancomycin HCl 1 gm/Dextrose 275 ml @ 183.708 mls/hr Q12H IVPB 04/17/19 09:00 04/22/19 08:59 04/17/19 09:38 Allergies: Coded Allergies: CASHEW NUT (Verified Allergy, Unknown, 10/24/18) [place] Seed (Verified Allergy, Unknown, 10/24/18) ROS Limited/Unobtainable: No Constitutional: Reports: no symptoms HEENT: Reports: no symptoms Cardiovascular: Reports: no symptoms Respiratory: Reports: shortness of breath, wheezing Gastrointestinal/Abdominal: Reports: no symptoms Genitourinary: Reports: no symptoms Subjective 68 YO M admitted with shortness of breath. Now COPD exacerbation. Cover for Int Med-DR Medina. [facility]O Objective Last Vital Signs Date Time Temp Pulse Resp B/P (MAP) Pulse Ox O2 Delivery O2 Flow Rate FiO2 04/17/19 12:55 78 18 97 Nasal Cannula 3.0 32 78 18 96 04/17/19 12:00 97.7 113/68 (83) Laboratory Tests Test 04/17/19 04:34 White Blood Count 6.5 K/UL (4.8-10.8) Red Blood Count 4.71 M/UL (4.70-6.10) Hemoglobin 15.1 G/DL (14.2-18.0) Hematocrit 43.2 % (42.0-52.0) Mean Corpuscular Volume 92 FL (80-99) Mean Corpuscular Hemoglobin 32.1 PG (27.0-31.0) H Mean Corpuscular Hemoglobin Concent 34.9 G/DL (32.0-36.0) Red Cell Distribution Width 11.2 % (11.6-14.8) L Platelet Count 117 K/UL (150-450) L Mean Platelet Volume 5.0 FL (6.5-10.1) L Neutrophils (%) (Auto) 55.3 % (45.0-75.0) Lymphocytes (%) (Auto) 18.7 % (20.0-45.0) L Monocytes (%) (Auto) 9.7 % (1.0-10.0) Eosinophils (%) (Auto) 15.5 % (0.0-3.0) H Basophils (%) (Auto) 0.9 % (0.0-2.0) Sodium Level 141 MMOL/L (136-145) Potassium Level 3.9 MMOL/L (3.5-5.1) Chloride Level 104 MMOL/L (98-107) Carbon Dioxide Level 28 MMOL/L (21-32) Anion Gap 9 mmol/L (5-15) Blood Urea Nitrogen 31 mg/dL (7-18) H Creatinine 1.2 MG/DL (0.55-1.30) Estimat Glomerular Filtration Rate 59.9 mL/min (>60) Glucose Level 92 MG/DL (74-106) Calcium Level 8.7 MG/DL (8.5-10.1) Intake and Output 04/16/19 04/17/19 19:00 07:00 Intake Total 720 ml 240 ml Balance 720 ml 240 ml Intake Oral 720 ml 240 ml # Voids 1 2 Objective General Appearance: WD/WN, alert, mild distress EENT: PERRL/EOMI, normal ENT inspection Neck: non-tender, normal alignment, supple, normal inspection Cardiovascular: normal peripheral pulses, normal rate, regular rhythm, no gallop/murmur, no JVD Respiratory/Chest: chest wall non-tender, respiratory distress, crackles/rales , rhonchi - bilaterally, expiratory wheezing Abdomen: normal bowel sounds, non tender, soft, no organomegaly, no mass Extremities: normal range of motion, non-tender 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 1. Shortness of breath. 2. Wheezing. 3. Probable chronic obstructive pulmonary disease acute exacerbation. 4. Hypercholesterolemia. 5. Posttraumatic stress disorder. 6. Prostate cancer. 7. Bipolar depression. TREATMENT: 1. Shortness of breath/wheezing/chronic obstructive pulmonary disease exacerbation. A Pulmonary consultation has been obtained with Dr. Michele Umaña. ABX=Ceftriaxone. The patient has been started on IV Solu-Medrol. Duoneb q 3hr routine. We will follow recommendations of Pulmonary. 2. Hypercholesterolemia. Continue atorvastatin as above. 3. Posttraumatic stress disorder/bipolar depression. Continue Lexapro and Depakote as above. 4. Prostate cancer. The patient is undergoing chemotherapy at the [facility]. Ryan Mckenzie MD Apr 17, 2019 14:33
[2019-04-17 16:00] VITALS: BP 123/66
--- NOTE | 2019-04-17 17:15 | NUR ---
NURSE NOTES: PT shows no S/S of respiratory distress during and after breathing treatment, cooperative when asked to do bedside BS check, A/O x 4; able to make needs known, will continue to monitor PT.
--- NOTE | 2019-04-17 17:51 | NUR ---
NURSE NOTES: L-hand IV 22g D/C'd per PT while moving around in bed; HOLLY Byrd made aware; reinserted IV on R-hand 24g, flushes well, patent, no S/S of infiltration noted.
--- NOTE | 2019-04-17 18:16 | NUR ---
NURSE NOTES: PT requested toothbrush and toothpaste, provided per request, dinner also given on time, approximately 80% consumed. No difficulty consuming dinner noted, will continue to monitor PT.
--- NOTE | 2019-04-17 18:57 | NUR ---
HAND-OFF: Report and PT given to Marta Reddy RN.
--- NOTE | 2019-04-17 19:00 | NUR ---
NURSE NOTES: received pt from cm JARQUIN., pt is resting and awake on the bed. AO x4. no SOB noted at this time pt is in 2L of NC and O2sat is at 97%. Right thumb 20G IV site intact, patent, clean. call light within reach. bed at the lowest position, alarmed, and locked. will continue to monitor pt with plan of care.
[2019-04-17 20:00] VITALS: BP 118/74
[2019-04-17] MEDS: Atorvastatin 20mg tab ORAL SCH (21:10)
[2019-04-18] VITALS: BP 107/68
[2019-04-18] MEDS: Albuterol/Ipratropium 3ml neb HHN SCH ×7 (03:00→23:30)
[2019-04-18 04:00] VITALS: BP 112/62
[2019-04-18 05:02] LABS: BASOPHILS % (AUTO) 0.6 % (0.0-2.0); EOSINOPHILS % (AUTO) 2.4 % (0.0-3.0); HEMATOCRIT 39.7 % (42.0-52.0); HEMOGLOBIN 14.2 G/DL (14.2-18.0); LYMPHOCYTES % (AUTO) 13.7 % (20.0-45.0); MEAN CORPUSCULAR VOLUME 91 FL (80-99); MONOCYTES % (AUTO) 9.4 % (1.0-10.0); NEUTROPHILS % (AUTO) 73.9 % (45.0-75.0); PLATELET COUNT 126 K/UL (150-450); RED BLOOD COUNT 4.37 M/UL (4.70-6.10); RED CELL DISTRIBUTION WIDTH 10.8 % (11.6-14.8); WHITE BLOOD COUNT 7.4 K/UL (4.8-10.8)
[2019-04-18] MEDS: Zosyn 3.375gm q8h **Extended infusion IVPB SCH ×6 (05:56→22:50)
[2019-04-18] MEDS: Heparin 5000 units/ml inj SUBQ SCH ×3 (05:58→22:00)
[2019-04-18] MEDS: NovoLOG Insulin Flexpen SUBQ SCH ×4 (05:58→21:00)
[2019-04-18 06:02] LABS: ALANINE AMINOTRANSFERASE 21 U/L (12-78); ALBUMIN 2.9 G/DL (3.4-5.0); ALKALINE PHOSPHATASE 50 U/L (46-116); ANION GAP 9 mmol/L (5-15); ASPARTATE AMINO TRANSFERASE 17 U/L (15-37); BILIRUBIN,TOTAL 0.2 MG/DL (0.2-1.0); BLOOD UREA NITROGEN 22 mg/dL (7-18); CALCIUM 8.5 MG/DL (8.5-10.1); CARBON DIOXIDE 25 MMOL/L (21-32); CHLORIDE 103 MMOL/L (98-107); CREATININE 1.1 MG/DL (0.55-1.30); PHOSPHORUS 4.4 MG/DL (2.5-4.9); SODIUM 137 MMOL/L (136-145)
--- NOTE | 2019-04-18 07:30 | NUR ---
HAND-OFF: Report given to Deyanira JARQUIN. pt is in stable condition
--- NOTE | 2019-04-18 07:32 | NUR ---
NURSE NOTES: Received report from Marta Reddy RN. Observed patient in bed, awake, alert, verbally responsive. On 4L O2 via NC, saturating 91-92%. Right thumb IV intact and patent. Patient denies pain/discomfort at this time. Safety precautions in place, bed locked, alarmed, and in lowest position, side rails up x3, and call light left within reach. Instructed to call for assistance, verbalized understanding. Will continue plan of care and will continue to monitor patient. Addendum: 04/18/19 at 1841 by Deyanira Trent RN patient was on 2L via NC
[2019-04-18 08:00] VITALS: BP 119/63
--- NOTE | 2019-04-18 08:00 | NUR ---
NURSE NOTES: Patient requested for breathing treatment, RT notified and made aware.
--- NOTE | 2019-04-18 08:15 | NUR ---
NURSE NOTES: Patient placed back on O2 2L via NC. Denies sob at this time. Will continue to monitor.
[2019-04-18] MEDS: Azithromycin 500 MG in D5W 275 ML IV SCH (08:19)
[2019-04-18] MEDS: Depakote 500mg tab ORAL SCH ×2 (08:23→21:50)
[2019-04-18] MEDS: Solu-MEDROL 40mg Inj IVP SCH (08:23)
[2019-04-18] MEDS: Albuterol Sulfate Syrup 2mg/5ml ORAL SCH ×4 (09:14→21:00)
[2019-04-18] MEDS: Vancomycin 1gm/D5W 275ml IVPB SCH ×4 (09:30→21:50)
--- NOTE | 2019-04-18 10:56 | Pulmonology Progress Note ---
Assessment/Plan Problems: (1) COPD exacerbation (2) Acute bronchitis (3) Prostate cancer (4) PTSD (post-traumatic stress disorder) (5) Cerebrovascular accident (CVA) (6) Bipolar depression Assessment/Plan today he is minimally better, large volume phlegm add albuterol syrup respiratory treatment q 3 hours still wheezing and coughing sputum still pending IV stroids iv abx, dc ceftriaxone and add Vancomycin, zosyn, Zithromax pending cultrues chest PT titrate fio2 to sat of 92% antitussives dvt prophylaxis. Subjective Interval Events: still wheezing Allergies: Coded Allergies: CASHEW NUT (Verified Allergy, Unknown, 10/24/18) [place] Seed (Verified Allergy, Unknown, 10/24/18) Objective Last 24 Hour Vital Signs Date Time Temp Pulse Resp B/P (MAP) Pulse Ox O2 Delivery O2 Flow Rate FiO2 04/18/19 08:00 Nasal Cannula 2.0 04/18/19 08:00 97.8 72 18 119/63 (81) 96 04/18/19 07:56 95 Nasal Cannula 2.0 28 04/18/19 07:56 75 18 98 Nasal Cannula 2.0 28 71 18 95 04/18/19 07:24 90 04/18/19 04:00 97.8 70 18 112/62 (79) 98 04/18/19 04:00 Nasal Cannula 2.0 04/18/19 03:34 72 04/18/19 00:55 82 18 99 Nasal Cannula 4.0 36 81 18 97 04/18/19 00:00 Nasal Cannula 2.0 04/18/19 00:00 97.7 80 18 107/68 (81) 97 04/17/19 20:00 84 04/17/19 20:00 Nasal Cannula 2.0 04/17/19 20:00 97.0 80 18 118/74 (89) 96 04/17/19 19:21 97 Nasal Cannula 3.0 32 04/17/19 16:42 78 18 98 Nasal Cannula 3.0 32 95 18 95 04/17/19 16:00 82 04/17/19 16:00 97.9 74 19 123/66 (85) 94 04/17/19 16:00 Nasal Cannula 2.0 04/17/19 12:55 78 18 97 Nasal Cannula 3.0 32 78 18 96 04/17/19 12:00 Nasal Cannula 2.0 04/17/19 12:00 72 04/17/19 12:00 97.7 75 20 113/68 (83) 95 Intake and Output 04/17/19 04/18/19 19:00 07:00 Intake Total 660.0 ml 714.16203 ml Output Total 800 ml Balance 660.0 ml -85.65441 ml Intake Oral 300 ml IV Total 660.0 ml 414.13522 ml Output Urine Total 800 ml # Voids 3 Objective General Appearance: WD/WN, no acute distress HEENT: normocephalic, atraumatic Respiratory/Chest: chest wall non-tender, loud wheezing Breasts: no masses Cardiovascular: normal rate Abdomen: normal bowel sounds, soft, non tender Genitourinary: normal external genitalia Extremities: no cyanosis Laboratory Tests 04/18/19 03:40: White Blood Count 7.4, Red Blood Count 4.37L, Hemoglobin 14.2, Hematocrit 39.7L , Mean Corpuscular Volume 91, Mean Corpuscular Hemoglobin 32.5H, Mean Corpuscular Hemoglobin Concent 35.8, Red Cell Distribution Width 10.8L, Platelet Count 126L, Mean Platelet Volume 6.0L, Neutrophils (%) (Auto) 73.9, Lymphocytes (%) (Auto) 13.7L, Monocytes (%) (Auto) 9.4, Eosinophils (%) (Auto) 2.4, Basophils (%) (Auto) 0.6, Erythrocyte Sedimentation Rate 1, Sodium Level 137, Potassium Level 4.0, Chloride Level 103, Carbon Dioxide Level 25, Anion Gap 9, Blood Urea Nitrogen 22H, Creatinine 1.1, Estimat Glomerular Filtration Rate > 60, Glucose Level 118H, Calcium Level 8.5, Phosphorus Level 4.4, Magnesium Level 2.0, Total Bilirubin 0.2, Aspartate Amino Transf (AST/SGOT) 17, Alanine Aminotransferase (ALT/SGPT) 21, Alkaline Phosphatase 50, C-Reactive Protein, Quantitative 1.1H, Total Protein 5.7L, Albumin 2.9L, Globulin 2.8, Albumin/Globulin Ratio 1.0 Current Medications Medications (Trade) Dose Ordered Sig/Jeri Route PRN Reason Start Time Stop Time Status Last Admin Dose Admin Acetaminophen (Tylenol) 650 mg Q6H PRN ORAL Mild Pain/Temp > 100.5 04/16/19 15:45 05/12/19 15:35 Albuterol/ Ipratropium (Albuterol/ Ipratropium) 3 ml Q4HRT HHN 04/18/19 03:00 04/23/19 02:59 04/18/19 07:56 Atorvastatin Calcium (Lipitor) 20 mg BEDTIME ORAL 04/16/19 21:00 05/11/19 22:29 04/17/19 21:10 Azithromycin 500 mg/Dextrose 275 ml @ 275 mls/hr Q24HRS IV 04/17/19 09:00 04/23/19 09:59 04/18/19 08:19 Dextrose (Dextrose 50%) 25 ml Q30M PRN IV Hypoglycemia 04/16/19 12:15 05/11/19 15:35 Dextrose (Dextrose 50%) 50 ml Q30M PRN IV Hypoglycemia 04/16/19 12:15 05/11/19 15:35 Divalproex Sodium (Depakote) 500 mg EVERY 12 HOURS ORAL 04/16/19 21:00 05/11/19 20:59 04/18/19 08:23 Escitalopram Oxalate (Lexapro) 10 mg DAILY ORAL 04/17/19 09:00 05/12/19 08:59 04/18/19 08:23 Heparin Sodium (Porcine) (Heparin 5000 units/ml) 5,000 units EVERY 8 HOURS SUBQ 04/16/19 14:00 05/11/19 21:59 04/17/19 14:00 Insulin Aspart (NovoLOG) BEFORE MEALS AND HS SUBQ 04/16/19 16:30 05/12/19 06:29 04/17/19 16:59 Methylprednisolone Sodium Succinate (Solu-MEDROL) 80 mg DAILY IVP 04/17/19 09:00 05/11/19 21:59 04/18/19 08:23 Piperacillin Sod/ Tazobactam Sod 3.375 gm/Sodium Chloride 110 ml @ 27.5 mls/hr EVERY 8 HOURS IVPB 04/17/19 14:00 04/22/19 13:59 04/18/19 05:56 Primidone (Mysoline) 50 mg QHS ORAL 04/16/19 21:00 05/11/19 20:59 04/17/19 21:09 Vancomycin HCl (Vanco rx to dose) 1 ea DAILY PRN MISC Per rx protocol 04/17/19 07:45 05/17/19 07:44 Vancomycin HCl 1 gm/Dextrose 275 ml @ 183.708 mls/hr Q12H IVPB 04/17/19 09:00 04/22/19 08:59 04/18/19 09:30 Michele Umaña MD Apr 18, 2019 10:56
[2019-04-18 12:00] VITALS: BP 123/71
--- NOTE | 2019-04-18 13:37 | NUR ---
RADIOLOGY DEPT., CHEST X-RAY DONE.-P.DYE
--- NOTE | 2019-04-18 14:00 | NUR ---
NURSE NOTES: Bed linen changed and placed patient in hospital gown. Denies pain/discomfort/sob at this time. Will continue to monitor.
--- NOTE | 2019-04-18 15:57 | NUR ---
CASE MANAGEMENT:REVIEW 04/18/19 SI: COPD EXACERBATION. ACUTE BRONCHITIS 97.8 72 18 119/63 96% ON 2L NC BUN 22 PLT 126 IS: IV ZOSYN Q8HR IV VANCOMYCIN BID IV ZITHROMAX Q24HR IV SOLU-MEDROL QD HEPARIN SQ Q8HR DUONEB HHN Q3H DEPAKOTE PO BID MYSOLINE PO QHS NOVOLOG SQ AC&HS LIPITOR PO QHS : 2W STEP DOWN UNIT, PATIENT FROM [place] DCP: FROM HOME PLAN: CONT RT TREATMENT FOR SOB PATIENT TRANSFERRED TO [facility] FOR WHEEZING AND SOB PER MD TITRATING IV SOLU-MEDROL
[2019-04-18 16:00] VITALS: BP 116/55
--- NOTE | 2019-04-18 16:40 | Diagnostic Imaging Report ---
Indication: Cough Technique: One view of the chest Comparison: 04/16/2019 Findings: There is mild interstitial congestion, not evident previously. The heart size is normal. The pleural spaces are clear. No focal airspace consolidation Impression: New finding of mild interstitial congestion
--- NOTE | 2019-04-18 19:06 | Internal Med Progress Note ---
Subjective Date of Service: Apr 18, 2019 Physician Name Ryan Mckenzie Attending Physician Christopher Medina MD Current Medications Medications (Trade) Dose Ordered Sig/Jeri Route PRN Reason Start Time Stop Time Status Last Admin Dose Admin Acetaminophen (Tylenol) 650 mg Q6H PRN ORAL Mild Pain/Temp > 100.5 04/16/19 15:45 05/12/19 15:35 Albuterol/ Ipratropium (Albuterol/ Ipratropium) 3 ml Q4HRT HHN 04/18/19 03:00 04/23/19 02:59 04/18/19 14:19 Atorvastatin Calcium (Lipitor) 20 mg BEDTIME ORAL 04/16/19 21:00 05/11/19 22:29 04/17/19 21:10 Azithromycin 500 mg/Dextrose 275 ml @ 275 mls/hr Q24HRS IV 04/17/19 09:00 04/23/19 09:59 04/18/19 08:19 Dextrose (Dextrose 50%) 25 ml Q30M PRN IV Hypoglycemia 04/16/19 12:15 05/11/19 15:35 Dextrose (Dextrose 50%) 50 ml Q30M PRN IV Hypoglycemia 04/16/19 12:15 05/11/19 15:35 Divalproex Sodium (Depakote) 500 mg EVERY 12 HOURS ORAL 04/16/19 21:00 05/11/19 20:59 04/18/19 08:23 Escitalopram Oxalate (Lexapro) 10 mg DAILY ORAL 04/17/19 09:00 05/12/19 08:59 04/18/19 08:23 Heparin Sodium (Porcine) (Heparin 5000 units/ml) 5,000 units EVERY 8 HOURS SUBQ 04/16/19 14:00 05/11/19 21:59 04/17/19 14:00 Insulin Aspart (NovoLOG) BEFORE MEALS AND HS SUBQ 04/16/19 16:30 05/12/19 06:29 04/18/19 16:28 Methylprednisolone Sodium Succinate (Solu-MEDROL) 80 mg DAILY IVP 04/17/19 09:00 05/11/19 21:59 04/18/19 08:23 Piperacillin Sod/ Tazobactam Sod 3.375 gm/Sodium Chloride 110 ml @ 27.5 mls/hr EVERY 8 HOURS IVPB 04/17/19 14:00 04/22/19 13:59 04/18/19 13:40 Primidone (Mysoline) 50 mg QHS ORAL 04/16/19 21:00 05/11/19 20:59 04/17/19 21:09 Vancomycin HCl (Vanco rx to dose) 1 ea DAILY PRN MISC Per rx protocol 04/17/19 07:45 05/17/19 07:44 Vancomycin HCl 1 gm/Dextrose 275 ml @ 183.708 mls/hr Q12H IVPB 04/17/19 09:00 04/22/19 08:59 04/18/19 09:30 Allergies: Coded Allergies: CASHEW NUT (Verified Allergy, Unknown, 10/24/18) [place] Seed (Verified Allergy, Unknown, 10/24/18) ROS Limited/Unobtainable: No Constitutional: Reports: no symptoms HEENT: Reports: no symptoms Cardiovascular: Reports: no symptoms Respiratory: Reports: shortness of breath Gastrointestinal/Abdominal: Reports: no symptoms Genitourinary: Reports: no symptoms Neurologic/Psychiatric: Reports: no symptoms Subjective 68 YO M admitted with shortness of breath. Now COPD exacerbation. Cover for Int Med-DR Medina. MONO Objective Last Vital Signs Date Time Temp Pulse Resp B/P (MAP) Pulse Ox O2 Delivery O2 Flow Rate FiO2 04/18/19 16:00 Nasal Cannula 2.0 04/18/19 16:00 97.2 81 18 116/55 (75) 96 04/18/19 14:19 28 Laboratory Tests Test 04/18/19 03:40 White Blood Count 7.4 K/UL (4.8-10.8) Red Blood Count 4.37 M/UL (4.70-6.10) L Hemoglobin 14.2 G/DL (14.2-18.0) Hematocrit 39.7 % (42.0-52.0) L Mean Corpuscular Volume 91 FL (80-99) Mean Corpuscular Hemoglobin 32.5 PG (27.0-31.0) H Mean Corpuscular Hemoglobin Concent 35.8 G/DL (32.0-36.0) Red Cell Distribution Width 10.8 % (11.6-14.8) L Platelet Count 126 K/UL (150-450) L Mean Platelet Volume 6.0 FL (6.5-10.1) L Neutrophils (%) (Auto) 73.9 % (45.0-75.0) Lymphocytes (%) (Auto) 13.7 % (20.0-45.0) L Monocytes (%) (Auto) 9.4 % (1.0-10.0) Eosinophils (%) (Auto) 2.4 % (0.0-3.0) Basophils (%) (Auto) 0.6 % (0.0-2.0) Erythrocyte Sedimentation Rate 1 MM/HR (0-20) Sodium Level 137 MMOL/L (136-145) Potassium Level 4.0 MMOL/L (3.5-5.1) Chloride Level 103 MMOL/L (98-107) Carbon Dioxide Level 25 MMOL/L (21-32) Anion Gap 9 mmol/L (5-15) Blood Urea Nitrogen 22 mg/dL (7-18) H Creatinine 1.1 MG/DL (0.55-1.30) Estimat Glomerular Filtration Rate > 60 mL/min (>60) Glucose Level 118 MG/DL (74-106) H Calcium Level 8.5 MG/DL (8.5-10.1) Phosphorus Level 4.4 MG/DL (2.5-4.9) Magnesium Level 2.0 MG/DL (1.8-2.4) Total Bilirubin 0.2 MG/DL (0.2-1.0) Aspartate Amino Transf (AST/SGOT) 17 U/L (15-37) Alanine Aminotransferase (ALT/SGPT) 21 U/L (12-78) Alkaline Phosphatase 50 U/L (46-116) C-Reactive Protein, Quantitative 1.1 mg/dL (0.00-0.90) H Total Protein 5.7 G/DL (6.4-8.2) L Albumin 2.9 G/DL (3.4-5.0) L Globulin 2.8 g/dL Albumin/Globulin Ratio 1.0 (1.0-2.7) Intake and Output 04/17/19 04/18/19 19:00 07:00 Intake Total 660.0 ml 714.19443 ml Output Total 800 ml Balance 660.0 ml -85.43240 ml Intake Oral 300 ml IV Total 660.0 ml 414.41078 ml Output Urine Total 800 ml # Voids 3 Objective General Appearance: WD/WN, alert, mild distress EENT: PERRL/EOMI, normal ENT inspection Neck: non-tender, normal alignment, supple, normal inspection Cardiovascular: normal peripheral pulses, normal rate, regular rhythm, no gallop/murmur, no JVD Respiratory/Chest: chest wall non-tender, respiratory distress, crackles/rales , rhonchi - bilaterally, expiratory wheezing Abdomen: normal bowel sounds, non tender, soft, no organomegaly, no mass Extremities: normal range of motion, non-tender 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 1. Shortness of breath. 2. Wheezing. 3. Probable chronic obstructive pulmonary disease acute exacerbation. 4. Hypercholesterolemia. 5. Posttraumatic stress disorder. 6. Prostate cancer. 7. Bipolar depression. TREATMENT: 1. Shortness of breath/wheezing/chronic obstructive pulmonary disease exacerbation. A Pulmonary consultation has been obtained with Dr. Michele Umaña. ABX=Ceftriaxone. The patient has been started on IV Solu-Medrol. Duoneb q 3hr routine. We will follow recommendations of Pulmonary. 2. Hypercholesterolemia. Continue atorvastatin as above. 3. Posttraumatic stress disorder/bipolar depression. Continue Lexapro and Depakote as above. 4. Prostate cancer. The patient is undergoing chemotherapy at the [facility]. Ryan Mckenzie MD Apr 18, 2019 19:06
--- NOTE | 2019-04-18 19:10 | NUR ---
HAND-OFF: Report given to MILKA Arnett. Patient in stable condition.
--- NOTE | 2019-04-18 19:10 | NUR ---
NURSE NOTES: Received report from Deyanira Fernández RN. Pt in stable condition, A&Ox4, O2 @ 2 LPM via NC. Sinus rhythm per monitor, pt denies any pain or distress at this time. Bed in lowest position, bed alarm within reach, bed alarm armed. Pt encouraged to use urinal and use call light if assistance is needed, verbalized understanding. Will continue to montor closely.
--- NOTE | 2019-04-18 19:30 | NUR ---
NURSE NOTES: Pt refused seizure protocols, including padded side rails. Charge nurse aware. Will monitor closely.
[2019-04-18 20:00] VITALS: BP 110/70
[2019-04-18] MEDS: Atorvastatin 20mg tab ORAL SCH (21:51)
--- NOTE | 2019-04-18 22:00 | NUR ---
NURSE NOTES: Heparin held r/t low plt count of 126, Hbg 14.2, and low Hct 39.7. Charge nurse Srini Jay RN, aware.
[2019-04-19] VITALS: BP 102/65
[2019-04-19] MEDS: Albuterol/Ipratropium 3ml neb HHN SCH ×6 (03:10→23:48)
[2019-04-19 04:00] VITALS: BP 116/70
[2019-04-19 04:37] LABS: BASOPHILS % (AUTO) 0.5 % (0.0-2.0); EOSINOPHILS % (AUTO) 1.6 % (0.0-3.0); HEMATOCRIT 38.5 % (42.0-52.0); HEMOGLOBIN 13.7 G/DL (14.2-18.0); LYMPHOCYTES % (AUTO) 15.7 % (20.0-45.0); MEAN CORPUSCULAR VOLUME 92 FL (80-99); MONOCYTES % (AUTO) 8.2 % (1.0-10.0); PLATELET COUNT 121 K/UL (150-450); RED BLOOD COUNT 4.21 M/UL (4.70-6.10); RED CELL DISTRIBUTION WIDTH 11.1 % (11.6-14.8); WHITE BLOOD COUNT 7.3 K/UL (4.8-10.8)
[2019-04-19] MEDS: Heparin 5000 units/ml inj SUBQ SCH ×3 (05:00→22:02)
[2019-04-19] MEDS: Zosyn 3.375gm q8h **Extended infusion IVPB SCH ×4 (05:11→13:52)
[2019-04-19 05:18] LABS: ALANINE AMINOTRANSFERASE 23 U/L (12-78); ALBUMIN 2.8 G/DL (3.4-5.0); ALKALINE PHOSPHATASE 45 U/L (46-116); ANION GAP 6 mmol/L (5-15); ASPARTATE AMINO TRANSFERASE 15 U/L (15-37); BILIRUBIN,TOTAL 0.3 MG/DL (0.2-1.0); BLOOD UREA NITROGEN 23 mg/dL (7-18); CALCIUM 8.1 MG/DL (8.5-10.1); CARBON DIOXIDE 26 MMOL/L (21-32); CHLORIDE 107 MMOL/L (98-107); CREATININE 1.1 MG/DL (0.55-1.30); SODIUM 139 MMOL/L (136-145)
[2019-04-19] MEDS: NovoLOG Insulin Flexpen SUBQ SCH ×4 (06:30→21:56)
--- NOTE | 2019-04-19 07:12 | NUR ---
HAND-OFF: Report given to Lorene Fernández RN. Pt in stable condition.
--- NOTE | 2019-04-19 07:13 | NUR ---
NURSE NOTES: Received patient from MILKA Verma. Patient sleeping at this time. Patient reported to be alert and oriented to name, plane, time, and place. Patient does not want to be awakened. Will assess mentation when patient wakes up. Patient on 2L NC at this time with saturation of 100% SpO2. Patient has bathroom privileges. Patient has right thumb 20 gauge peripheral IV that is patent, asymptomatic, and running zosyn at this time. Will continue to monitor. Patient has intact skin with ecchymosis noted on right arm. Bed in low position with bed alarm on and call light in reach. Patient provided with oral care supplies. Addendum: 04/19/19 at 1507 by Lorene Lundy RN Patient has seizure history but patient refuses side rail padding for seizure precaution.
[2019-04-19 08:00] VITALS: BP_SYST 113; BP_SYST 122; BP_DIAS 55; BP_DIAS 73
[2019-04-19] MEDS ORDERED: Vancomycin 1.25gm/NS Premix IVPB SCH (09:00)
[2019-04-19] MEDS: Depakote 500mg tab ORAL SCH ×2 (09:23→21:54)
[2019-04-19] MEDS: Albuterol Sulfate Syrup 2mg/5ml ORAL SCH ×4 (09:23→21:55)
[2019-04-19] MEDS: Azithromycin 500 MG in D5W 275 ML IV SCH (09:24)
[2019-04-19] MEDS: Solu-MEDROL 40mg Inj IVP SCH (09:24)
--- NOTE | 2019-04-19 10:26 | Pulmonology Progress Note ---
Assessment/Plan Problems: (1) COPD exacerbation (2) Acute bronchitis (3) Prostate cancer (4) PTSD (post-traumatic stress disorder) (5) Cerebrovascular accident (CVA) (6) Bipolar depression Assessment/Plan much better today cxr showed interstitial infiltrate, most likely interstitial pneumonia add albuterol syrup respiratory treatment q 3 hours sputum culture showing normal cindy IV stroids iv abx, dc ceftriaxone and add Vancomycin, zosyn, Zithromax pending cultrues chest PT titrate fio2 to sat of 92% antitussives dvt prophylaxis. Subjective ROS Limited/Unobtainable: No Constitutional: Reports: no symptoms HEENT: Repors: no symptoms Allergies: Coded Allergies: CASHEW NUT (Verified Allergy, Unknown, 10/24/18) [place] Seed (Verified Allergy, Unknown, 10/24/18) Objective Last 24 Hour Vital Signs Date Time Temp Pulse Resp B/P (MAP) Pulse Ox O2 Delivery O2 Flow Rate FiO2 04/19/19 09:20 98 Nasal Cannula 3.0 32 04/19/19 08:00 67 04/19/19 08:00 Nasal Cannula 2.0 04/19/19 07:39 62 20 99 Nasal Cannula 4.0 60 18 98 04/19/19 04:00 Nasal Cannula 2.0 04/19/19 04:00 98.0 67 20 116/70 (85) 100 04/19/19 04:00 68 04/19/19 03:31 77 22 98 Nasal Cannula 4.0 04/19/19 03:10 73 20 97 Nasal Cannula 4.0 04/19/19 00:00 96.8 75 20 102/65 (77) 95 04/19/19 00:00 Nasal Cannula 2.0 04/18/19 23:46 75 22 98 Nasal Cannula 4.0 04/18/19 23:30 62 20 95 Nasal Cannula 4.0 04/18/19 20:20 72 20 98 Nasal Cannula 3.0 32 04/18/19 20:10 85 Nasal Cannula 3.0 32 04/18/19 20:10 78 22 85 Room Air 21 04/18/19 20:00 96.8 69 20 110/70 (83) 96 04/18/19 20:00 Nasal Cannula 2.0 04/18/19 20:00 71 04/18/19 16:00 Nasal Cannula 2.0 04/18/19 16:00 97.2 81 18 116/55 (75) 96 04/18/19 15:08 79 04/18/19 14:19 70 18 97 Nasal Cannula 2.0 28 71 18 95 04/18/19 12:35 64 04/18/19 12:00 98.0 70 19 123/71 (88) 96 04/18/19 12:00 Nasal Cannula 2.0 Intake and Output 04/18/19 04/19/19 19:00 07:00 Intake Total 1350.77808 ml 637.5 ml Output Total 2250 ml Balance -899.20789 ml 637.5 ml Intake Oral 600 ml 500 ml IV Total 750.12104 ml 137.5 ml Output Urine Total 2250 ml # Voids 3 1 Objective General Appearance: WD/WN, no acute distress HEENT: normocephalic, atraumatic Respiratory/Chest: chest wall non-tender, loud wheezing Breasts: no masses Cardiovascular: normal rate Abdomen: normal bowel sounds, soft, non tender Genitourinary: normal external genitalia Extremities: no cyanosis Microbiology Date/Time Source Procedure Growth Status 04/18/19 02:10 Sputum Expectorated Gram Stain Pending Resulted 04/18/19 02:10 Sputum Expectorated Sputum Culture - Preliminary NORMAL UPPER RESPIRATORY CINDY AT 24 ... Resulted Laboratory Tests 04/18/19 20:30: Vancomycin Level Trough 11.5 04/19/19 03:15: White Blood Count 7.3, Red Blood Count 4.21L, Hemoglobin 13.7L, Hematocrit 38.5L , Mean Corpuscular Volume 92, Mean Corpuscular Hemoglobin 32.6H, Mean Corpuscular Hemoglobin Concent 35.6, Red Cell Distribution Width 11.1L, Platelet Count 121L, Mean Platelet Volume 6.6, Neutrophils (%) (Auto) 74.0, Lymphocytes (%) (Auto) 15.7L, Monocytes (%) (Auto) 8.2, Eosinophils (%) (Auto) 1.6, Basophils (%) (Auto) 0.5, Sodium Level 139, Potassium Level 4.0, Chloride Level 107, Carbon Dioxide Level 26, Anion Gap 6, Blood Urea Nitrogen 23H, Creatinine 1.1, Estimat Glomerular Filtration Rate > 60, Glucose Level 110H, Calcium Level 8.1L, Total Bilirubin 0.3, Aspartate Amino Transf (AST/SGOT) 15, Alanine Aminotransferase (ALT/SGPT) 23, Alkaline Phosphatase 45L, Pro-B-Type Natriuretic Peptide 80, Total Protein 5.5L, Albumin 2.8L, Globulin 2.7, Albumin/ Globulin Ratio 1.0 Current Medications Medications (Trade) Dose Ordered Sig/Jeri Route PRN Reason Start Time Stop Time Status Last Admin Dose Admin Acetaminophen (Tylenol) 650 mg Q6H PRN ORAL Mild Pain/Temp > 100.5 04/16/19 15:45 05/12/19 15:35 Albuterol/ Ipratropium (Albuterol/ Ipratropium) 3 ml Q4HRT HHN 04/18/19 03:00 04/23/19 02:59 04/19/19 07:29 Atorvastatin Calcium (Lipitor) 20 mg BEDTIME ORAL 04/16/19 21:00 05/11/19 22:29 04/18/19 21:51 Azithromycin 500 mg/Dextrose 275 ml @ 275 mls/hr Q24HRS IV 04/17/19 09:00 04/23/19 09:59 04/19/19 09:24 Dextrose (Dextrose 50%) 25 ml Q30M PRN IV Hypoglycemia 04/16/19 12:15 05/11/19 15:35 Dextrose (Dextrose 50%) 50 ml Q30M PRN IV Hypoglycemia 04/16/19 12:15 05/11/19 15:35 Divalproex Sodium (Depakote) 500 mg EVERY 12 HOURS ORAL 04/16/19 21:00 05/11/19 20:59 04/19/19 09:23 Escitalopram Oxalate (Lexapro) 10 mg DAILY ORAL 04/17/19 09:00 05/12/19 08:59 04/19/19 09:23 Heparin Sodium (Porcine) (Heparin 5000 units/ml) 5,000 units EVERY 8 HOURS SUBQ 04/16/19 14:00 05/11/19 21:59 04/17/19 14:00 Insulin Aspart (NovoLOG) BEFORE MEALS AND HS SUBQ 04/16/19 16:30 05/12/19 06:29 04/18/19 16:28 Methylprednisolone Sodium Succinate (Solu-MEDROL) 80 mg DAILY IVP 04/17/19 09:00 05/11/19 21:59 04/19/19 09:24 Piperacillin Sod/ Tazobactam Sod 3.375 gm/Sodium Chloride 110 ml @ 27.5 mls/hr EVERY 8 HOURS IVPB 04/17/19 14:00 04/22/19 13:59 04/19/19 05:11 Primidone (Mysoline) 50 mg QHS ORAL 04/16/19 21:00 05/11/19 20:59 04/18/19 21:51 Vancomycin HCl (Vanco rx to dose) 1 ea DAILY PRN MISC Per rx protocol 04/17/19 07:45 05/17/19 07:44 Vancomycin/Sodium Chloride 275 ml @ 183.333 mls/hr Q12HR IVPB 04/19/19 09:00 04/24/19 08:59 04/19/19 09:28 Michele Umaña MD Apr 19, 2019 10:26
--- NOTE | 2019-04-19 10:30 | NUR ---
NURSE NOTES: Received order from Dr Umaña to transfer patient to med/surg. Order read back, verified, and placed at this time.
[2019-04-19 12:00] VITALS: BP 108/67
--- NOTE | 2019-04-19 12:30 | NUR ---
NURSE NOTES: Patient denies pain or shortness of breath. Patient sitting up eating lunch. Patient on 2L NC at this time with no sign of acute distress. SpO2 100% at this time. Will continue to monitor.
--- NOTE | 2019-04-19 14:00 | NUR ---
NURSE NOTES: Patient reported that he vomited when he went to the restroom. Patient reported that he did not eat very much from the tray and then had to vomit. Will continue to monitor and downgrade diet if needed. Addendum: 04/19/19 at 1531 by Lorene Lundy RN Disregard this note. Meant for another patient.
--- NOTE | 2019-04-19 15:09 | NUR ---
RD ASSESSMENT & RECOMMENDATIONS SEE CARE ACTIVITY FOR COMPLETE ASSESSMENT DAILY ESTIMATED NEEDS: Needs based on Pulmonary, cardiac, overweight/ 72kg abw 22-25 kcals/kg 2208-7594 total kcals 1-1.5 g protein/kg 72-108 g total protein 25-30 mL/kg 2914-2541 total fluid mLs NUTRITION DIAGNOSIS: Altered nutrition related lab values R/T steroidal use as evidenced by elev POC glu (94-160), pt on Solumedrol, A1C is wnl. CURRENT DIET:CARDIAC, CCHO MED PO DIET RECOMMENDATIONS: Low Na + maintain CCHO MED diet while on Solumedrol ADDITIONAL RECOMMENDATIONS: * Standing wt for accurate CBW * Monitor BGs closely while on Solumedrol
[2019-04-19 16:00] VITALS: BP 93/67
--- NOTE | 2019-04-19 16:00 | NUR ---
NURSE NOTES: Patient denies pain or SOB. Patient sitting up in bed at this time. Vital signs stable. Will continue to monitor. Bed in low position with bed alarm on and call light in reach at this time. Linens on bed replaced at this time. Patient given a new gown and socks.
[2019-04-19] MEDS ORDERED: NS 275ml ONE (16:16)
--- NOTE | 2019-04-19 16:49 | Internal Med Progress Note ---
Subjective Date of Service: Apr 19, 2019 Physician Name Ryan Mckenzie Attending Physician Christopher Medina MD Current Medications Medications (Trade) Dose Ordered Sig/Jeri Route PRN Reason Start Time Stop Time Status Last Admin Dose Admin Acetaminophen (Tylenol) 650 mg Q6H PRN ORAL Mild Pain/Temp > 100.5 04/16/19 15:45 05/12/19 15:35 Albuterol/ Ipratropium (Albuterol/ Ipratropium) 3 ml Q4HRT HHN 04/18/19 03:00 04/23/19 02:59 04/19/19 14:33 Atorvastatin Calcium (Lipitor) 20 mg BEDTIME ORAL 04/16/19 21:00 05/11/19 22:29 04/18/19 21:51 Azithromycin 500 mg/Dextrose 275 ml @ 275 mls/hr Q24HRS IV 04/17/19 09:00 04/23/19 09:59 04/19/19 09:24 Dextrose (Dextrose 50%) 25 ml Q30M PRN IV Hypoglycemia 04/16/19 12:15 05/11/19 15:35 Dextrose (Dextrose 50%) 50 ml Q30M PRN IV Hypoglycemia 04/16/19 12:15 05/11/19 15:35 Divalproex Sodium (Depakote) 500 mg EVERY 12 HOURS ORAL 04/16/19 21:00 05/11/19 20:59 04/19/19 09:23 Escitalopram Oxalate (Lexapro) 10 mg DAILY ORAL 04/17/19 09:00 05/12/19 08:59 04/19/19 09:23 Heparin Sodium (Porcine) (Heparin 5000 units/ml) 5,000 units EVERY 8 HOURS SUBQ 04/16/19 14:00 05/11/19 21:59 04/17/19 14:00 Insulin Aspart (NovoLOG) BEFORE MEALS AND HS SUBQ 04/16/19 16:30 05/12/19 06:29 04/19/19 11:44 Methylprednisolone Sodium Succinate (Solu-MEDROL) 80 mg DAILY IVP 04/17/19 09:00 05/11/19 21:59 04/19/19 09:24 Piperacillin Sod/ Tazobactam Sod 3.375 gm/Sodium Chloride 110 ml @ 27.5 mls/hr EVERY 8 HOURS IVPB 04/17/19 14:00 12/20/19 13:59 04/19/19 13:52 Primidone (Mysoline) 50 mg QHS ORAL 04/16/19 21:00 05/11/19 20:59 04/18/19 21:51 Allergies: Coded Allergies: CASHEW NUT (Verified Allergy, Unknown, 10/24/18) [place] Seed (Verified Allergy, Unknown, 10/24/18) ROS Limited/Unobtainable: No Constitutional: Reports: no symptoms HEENT: Reports: no symptoms Cardiovascular: Reports: no symptoms Respiratory: Reports: shortness of breath Gastrointestinal/Abdominal: Reports: no symptoms Genitourinary: Reports: no symptoms Neurologic/Psychiatric: Reports: no symptoms Subjective 68 YO M admitted with shortness of breath. Now COPD exacerbation. Cover for Int Med-DR Medina. OMNO Objective Last Vital Signs Date Time Temp Pulse Resp B/P (MAP) Pulse Ox O2 Delivery O2 Flow Rate FiO2 04/19/19 14:33 73 18 99 Nasal Cannula 4.0 71 18 98 04/19/19 12:00 97.9 108/67 (81) 04/19/19 09:20 32 Laboratory Tests Test 04/18/19 20:30 04/19/19 03:15 Vancomycin Level Trough 11.5 ug/mL (5.0-12.0) White Blood Count 7.3 K/UL (4.8-10.8) Red Blood Count 4.21 M/UL (4.70-6.10) L Hemoglobin 13.7 G/DL (14.2-18.0) L Hematocrit 38.5 % (42.0-52.0) L Mean Corpuscular Volume 92 FL (80-99) Mean Corpuscular Hemoglobin 32.6 PG (27.0-31.0) H Mean Corpuscular Hemoglobin Concent 35.6 G/DL (32.0-36.0) Red Cell Distribution Width 11.1 % (11.6-14.8) L Platelet Count 121 K/UL (150-450) L Mean Platelet Volume 6.6 FL (6.5-10.1) Neutrophils (%) (Auto) 74.0 % (45.0-75.0) Lymphocytes (%) (Auto) 15.7 % (20.0-45.0) L Monocytes (%) (Auto) 8.2 % (1.0-10.0) Eosinophils (%) (Auto) 1.6 % (0.0-3.0) Basophils (%) (Auto) 0.5 % (0.0-2.0) Sodium Level 139 MMOL/L (136-145) Potassium Level 4.0 MMOL/L (3.5-5.1) Chloride Level 107 MMOL/L (98-107) Carbon Dioxide Level 26 MMOL/L (21-32) Anion Gap 6 mmol/L (5-15) Blood Urea Nitrogen 23 mg/dL (7-18) H Creatinine 1.1 MG/DL (0.55-1.30) Estimat Glomerular Filtration Rate > 60 mL/min (>60) Glucose Level 110 MG/DL (74-106) H Calcium Level 8.1 MG/DL (8.5-10.1) L Total Bilirubin 0.3 MG/DL (0.2-1.0) Aspartate Amino Transf (AST/SGOT) 15 U/L (15-37) Alanine Aminotransferase (ALT/SGPT) 23 U/L (12-78) Alkaline Phosphatase 45 U/L (46-116) L Pro-B-Type Natriuretic Peptide 80 pg/mL (0-125) Total Protein 5.5 G/DL (6.4-8.2) L Albumin 2.8 G/DL (3.4-5.0) L Globulin 2.7 g/dL Albumin/Globulin Ratio 1.0 (1.0-2.7) Microbiology Date/Time Source Procedure Growth Status 04/18/19 02:10 Sputum Expectorated Gram Stain Pending Resulted 04/18/19 02:10 Sputum Expectorated Sputum Culture - Preliminary NORMAL UPPER RESPIRATORY ADA AT 24 ... Resulted Intake and Output 04/18/19 04/19/19 19:00 07:00 Intake Total 1350.97720 ml 658.125 ml Output Total 2250 ml Balance -899.42074 ml 658.125 ml Intake Oral 600 ml 500 ml IV Total 750.03099 ml 158.125 ml Output Urine Total 2250 ml # Voids 3 1 Objective General Appearance: WD/WN, alert, mild distress EENT: PERRL/EOMI, normal ENT inspection Neck: non-tender, normal alignment, supple, normal inspection Cardiovascular: normal peripheral pulses, normal rate, regular rhythm, no gallop/murmur, no JVD Respiratory/Chest: chest wall non-tender, respiratory distress, crackles/rales , rhonchi - bilaterally, expiratory wheezing Abdomen: normal bowel sounds, non tender, soft, no organomegaly, no mass Extremities: normal range of motion, non-tender 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 1. Shortness of breath. 2. Wheezing. 3. Probable chronic obstructive pulmonary disease acute exacerbation. 4. Hypercholesterolemia. 5. Posttraumatic stress disorder. 6. Prostate cancer. 7. Bipolar depression. TREATMENT: 1. Shortness of breath/wheezing/chronic obstructive pulmonary disease exacerbation. A Pulmonary consultation has been obtained with Dr. Michele Umaña. ABX=Zosyn and vanco. The patient has been started on IV Solu-Medrol. Duoneb q 3hr routine. We will follow recommendations of Pulmonary. 2. Hypercholesterolemia. Continue atorvastatin as above. 3. Posttraumatic stress disorder/bipolar depression. Continue Lexapro and Depakote as above. 4. Prostate cancer. The patient is undergoing chemotherapy at the [facility]. Ryan Mckenzie MD Apr 19, 2019 16:49
--- NOTE | 2019-04-19 18:30 | NUR ---
HAND-OFF: Report given to MILKA Lozano. Patient denies pain and acute distress. Vital signs stable. Endorsed to follow up.
--- NOTE | 2019-04-19 19:33 | NUR ---
HAND-OFF: Report given to MILKA Alas.
--- NOTE | 2019-04-19 19:40 | NUR ---
NURSE NOTES: Received report from MILKA Lozano. patient in bed, awake and alert and verbally responsive. Breathing on NC. No respiratory distress noted. Bed in the lowest position and locked. call light within reach. will continue to provide plan of care.
[2019-04-19 21:00] VITALS: BP 115/68
[2019-04-19] MEDS: Atorvastatin 20mg tab ORAL SCH (21:54)
[2019-04-19] MEDS ORDERED: Heparin 5000 units/ml inj SUBQ SCH (22:00)
[2019-04-19] MEDS: Piperacillin/Tazobactam 3.375 GM in NS 110 ML IVPB SCH (22:15)
[2019-04-20] VITALS: BP 112/71
[2019-04-20] MEDS: Albuterol Sulfate Syrup 2mg/5ml ORAL SCH ×6 (02:45→20:56)
--- NOTE | 2019-04-20 03:09 | NUR ---
NURSE NOTES: Scanned medication albuterol wrong time @2100 and 0247 and wasted medication.
[2019-04-20] MEDS: Albuterol/Ipratropium 3ml neb HHN SCH ×6 (03:58→22:56)
[2019-04-20 04:00] VITALS: BP 136/89
[2019-04-20] MEDS: Piperacillin/Tazobactam 3.375 GM in NS 110 ML IVPB SCH ×3 (05:18→21:01)
[2019-04-20] MEDS: Heparin 5000 units/ml inj SUBQ SCH ×3 (05:18→21:00)
[2019-04-20] MEDS: NovoLOG Insulin Flexpen SUBQ SCH ×4 (06:30→20:58)
[2019-04-20 07:10] LABS: BASOPHILS % (AUTO) 0.5 % (0.0-2.0); EOSINOPHILS % (AUTO) 2.5 % (0.0-3.0); HEMATOCRIT 41.2 % (42.0-52.0); HEMOGLOBIN 14.6 G/DL (14.2-18.0); LYMPHOCYTES % (AUTO) 19.7 % (20.0-45.0); MEAN CORPUSCULAR VOLUME 92 FL (80-99); MONOCYTES % (AUTO) 9.9 % (1.0-10.0); NEUTROPHILS % (AUTO) 67.3 % (45.0-75.0); PLATELET COUNT 130 K/UL (150-450); RED BLOOD COUNT 4.48 M/UL (4.70-6.10); RED CELL DISTRIBUTION WIDTH 11.1 % (11.6-14.8); WHITE BLOOD COUNT 6.6 K/UL (4.8-10.8)
[2019-04-20 07:14] LABS: ANION GAP 8 mmol/L (5-15); BLOOD UREA NITROGEN 18 mg/dL (7-18); CALCIUM 8.2 MG/DL (8.5-10.1); CARBON DIOXIDE 25 MMOL/L (21-32); CHLORIDE 106 MMOL/L (98-107); CREATININE 1.1 MG/DL (0.55-1.30); POTASSIUM 3.7 MMOL/L (3.5-5.1); SODIUM 139 MMOL/L (136-145)
--- NOTE | 2019-04-20 07:32 | NUR ---
HAND-OFF: Report given to MILKA Menchaca.
--- NOTE | 2019-04-20 07:53 | NUR ---
NURSE NOTES Patient is awake and alert and oriented.O2 on @L N/C,respirations unlabored,Left AC iv saline lock intact .Patient sitting up in bed,ate breakfast.Call light within reach.
[2019-04-20 08:00] VITALS: BP 113/69
[2019-04-20] MEDS: Depakote 500mg tab ORAL SCH ×2 (08:54→20:56)
[2019-04-20] MEDS: Azithromycin 500 MG in D5W 275 ML IV SCH (08:57)
[2019-04-20] MEDS ORDERED: Solu-MEDROL 40mg Inj IVP SCH (09:00)
[2019-04-20 11:48] VITALS: BP 121/70
--- NOTE | 2019-04-20 13:45 | Pulmonology Progress Note ---
Assessment/Plan Problems: (1) COPD exacerbation (2) Acute bronchitis (3) Prostate cancer (4) PTSD (post-traumatic stress disorder) (5) Cerebrovascular accident (CVA) (6) Bipolar depression Assessment/Plan stilightly better today cxr showed interstitial infiltrate, most likely interstitial pneumonia onalbuterol syrup respiratory treatment q 3 hours sputum culture showing normal cindy taper IV stroids iv abx, on , zosyn, Zithromax pending cultrues chest PT titrate fio2 to sat of 92% antitussives dvt prophylaxis. Subjective ROS Limited/Unobtainable: No Interval Events: slightly better Allergies: Coded Allergies: CASHEW NUT (Verified Allergy, Unknown, 10/24/18) [place] Seed (Verified Allergy, Unknown, 10/24/18) Objective Last 24 Hour Vital Signs Date Time Temp Pulse Resp B/P (MAP) Pulse Ox O2 Delivery O2 Flow Rate FiO2 04/20/19 11:48 97.3 68 20 121/70 (87) 97 04/20/19 11:33 84 22 98 Nasal Cannula 2.0 28 04/20/19 11:23 80 22 98 Nasal Cannula 2.0 28 04/20/19 09:00 Nasal Cannula 2.0 04/20/19 08:00 97.3 70 21 113/69 (84) 98 04/20/19 07:55 83 22 99 Nasal Cannula 2.0 04/20/19 07:45 98 Nasal Cannula 2.0 28 04/20/19 07:37 80 20 98 Nasal Cannula 2.0 28 04/20/19 04:00 97.7 69 18 136/89 (105) 96 04/20/19 03:59 72 18 100 Nasal Cannula 4.0 74 18 97 04/20/19 00:00 97.3 68 20 112/71 (85) 97 04/19/19 23:48 69 18 100 Nasal Cannula 4.0 67 18 98 04/19/19 21:00 Nasal Cannula 2.0 04/19/19 21:00 97.7 72 20 115/68 (84) 97 04/19/19 19:00 98 Nasal Cannula 3.0 32 04/19/19 16:00 72 04/19/19 16:00 97.9 73 23 93/67 (76) 94 04/19/19 16:00 Nasal Cannula 2.0 04/19/19 14:33 73 18 99 Nasal Cannula 4.0 71 18 98 Intake and Output 04/19/19 04/20/19 19:00 07:00 Intake Total 1054.375 ml Output Total 1550 ml 800 ml Balance -495.625 ml -800 ml Intake Oral 360 ml IV Total 694.375 ml Output Urine Total 1550 ml 800 ml Objective General Appearance: WD/WN, no acute distress HEENT: normocephalic, atraumatic Respiratory/Chest: chest wall non-tender, loud wheezing Breasts: no masses Cardiovascular: normal rate Abdomen: normal bowel sounds, soft, non tender Genitourinary: normal external genitalia Extremities: no cyanosis Microbiology Date/Time Source Procedure Growth Status 04/18/19 02:10 Sputum Expectorated Gram Stain - Final Complete 04/18/19 02:10 Sputum Expectorated Sputum Culture - Final NORMAL UPPER RESPIRATORY CINDY PRESENT Complete Laboratory Tests 04/20/19 06:32: White Blood Count 6.6, Red Blood Count 4.48L, Hemoglobin 14.6, Hematocrit 41.2L , Mean Corpuscular Volume 92, Mean Corpuscular Hemoglobin 32.5H, Mean Corpuscular Hemoglobin Concent 35.3, Red Cell Distribution Width 11.1L, Platelet Count 130L, Mean Platelet Volume 5.5L, Neutrophils (%) (Auto) 67.3, Lymphocytes (%) (Auto) 19.7L, Monocytes (%) (Auto) 9.9, Eosinophils (%) (Auto) 2.5, Basophils (%) (Auto) 0.5, Sodium Level 139, Potassium Level 3.7, Chloride Level 106, Carbon Dioxide Level 25, Anion Gap 8, Blood Urea Nitrogen 18, Creatinine 1.1, Estimat Glomerular Filtration Rate > 60, Glucose Level 94, Calcium Level 8.2L Current Medications Medications (Trade) Dose Ordered Sig/Jeri Route PRN Reason Start Time Stop Time Status Last Admin Dose Admin Acetaminophen (Tylenol) 650 mg Q6H PRN ORAL Mild Pain/Temp > 100.5 04/19/19 19:00 05/12/19 18:59 Albuterol/ Ipratropium (Albuterol/ Ipratropium) 3 ml Q4HRT HHN 04/19/19 19:00 04/23/19 02:59 04/20/19 11:22 Atorvastatin Calcium (Lipitor) 20 mg BEDTIME ORAL 04/19/19 21:00 05/11/19 22:29 04/19/19 21:54 Azithromycin 500 mg/Dextrose 275 ml @ 275 mls/hr Q24HRS IV 04/20/19 09:00 04/23/19 09:59 04/20/19 08:57 Dextrose (Dextrose 50%) 25 ml Q30M PRN IV Hypoglycemia 04/19/19 19:00 05/11/19 18:59 Dextrose (Dextrose 50%) 50 ml Q30M PRN IV Hypoglycemia 04/19/19 19:00 05/11/19 18:59 Divalproex Sodium (Depakote) 500 mg EVERY 12 HOURS ORAL 04/19/19 21:00 05/11/19 20:59 04/20/19 08:54 Escitalopram Oxalate (Lexapro) 10 mg DAILY ORAL 04/20/19 09:00 05/12/19 08:59 04/20/19 08:53 Heparin Sodium (Porcine) (Heparin 5000 units/ml) 5,000 units EVERY 8 HOURS SUBQ 04/19/19 22:00 05/11/19 21:59 04/20/19 05:18 Insulin Aspart (NovoLOG) BEFORE MEALS AND HS SUBQ 04/19/19 21:00 05/12/19 06:29 04/20/19 12:02 Methylprednisolone Sodium Succinate (Solu-MEDROL) 80 mg DAILY IVP 04/20/19 09:00 05/11/19 21:59 04/20/19 08:55 Piperacillin Sod/ Tazobactam Sod 3.375 gm/Sodium Chloride 110 ml @ 27.5 mls/hr EVERY 8 HOURS IVPB 04/19/19 22:00 04/22/19 13:59 04/20/19 05:18 Primidone (Mysoline) 50 mg QHS ORAL 04/19/19 21:00 05/11/19 20:59 04/19/19 21:54 Michele Umaña MD Apr 20, 2019 13:45
--- NOTE | 2019-04-20 15:49 | NUR ---
CASE MANAGEMENT:REVIEW 04/20/19 SI: COPD EXACERBATION. ACUTE BRONCHITIS 97.3 70 21 113/69 98 % ON 2L NC ca+ 8.2 IS: IV ZOSYN Q8HR IV ZITHROMAX Q24HR X4 BAGS IV SOLU-MEDROL QD HEPARIN SQ Q8HR DUONEB HHN Q3H DEPAKOTE PO BID MYSOLINE PO QHS NOVOLOG SQ AC&HS LIPITOR PO QHS : 4E MED SURG DCP: FROM HOME PLAN: CONT RT TREATMENT FOR SOB PATIENT TRANSFERRED TO [facility] FOR WHEEZING AND SOB PER MD TITRATING IV SOLU-MEDROL
[2019-04-20 16:02] VITALS: BP 106/60
--- NOTE | 2019-04-20 18:29 | Internal Med Progress Note ---
Subjective Date of Service: Apr 20, 2019 Physician Name Ryan Mckenzie Attending Physician Christopher Medina MD Current Medications Medications (Trade) Dose Ordered Sig/Jeri Route PRN Reason Start Time Stop Time Status Last Admin Dose Admin Acetaminophen (Tylenol) 650 mg Q6H PRN ORAL Mild Pain/Temp > 100.5 04/19/19 19:00 05/12/19 18:59 Albuterol/ Ipratropium (Albuterol/ Ipratropium) 3 ml Q4HRT HHN 04/19/19 19:00 04/23/19 02:59 04/20/19 15:28 Atorvastatin Calcium (Lipitor) 20 mg BEDTIME ORAL 04/19/19 21:00 05/11/19 22:29 04/19/19 21:54 Azithromycin 500 mg/Dextrose 275 ml @ 275 mls/hr Q24HRS IV 04/20/19 09:00 04/23/19 09:59 04/20/19 08:57 Dextrose (Dextrose 50%) 25 ml Q30M PRN IV Hypoglycemia 04/19/19 19:00 05/11/19 18:59 Dextrose (Dextrose 50%) 50 ml Q30M PRN IV Hypoglycemia 04/19/19 19:00 05/11/19 18:59 Divalproex Sodium (Depakote) 500 mg EVERY 12 HOURS ORAL 04/19/19 21:00 05/11/19 20:59 04/20/19 08:54 Escitalopram Oxalate (Lexapro) 10 mg DAILY ORAL 04/20/19 09:00 05/12/19 08:59 04/20/19 08:53 Heparin Sodium (Porcine) (Heparin 5000 units/ml) 5,000 units EVERY 8 HOURS SUBQ 04/19/19 22:00 05/11/19 21:59 04/20/19 14:13 Insulin Aspart (NovoLOG) BEFORE MEALS AND HS SUBQ 04/19/19 21:00 05/12/19 06:29 04/20/19 16:56 Methylprednisolone Sodium Succinate (Solu-MEDROL) 40 mg DAILY IVP 04/21/19 09:00 05/11/19 21:59 Piperacillin Sod/ Tazobactam Sod 3.375 gm/Sodium Chloride 110 ml @ 27.5 mls/hr EVERY 8 HOURS IVPB 04/19/19 22:00 04/22/19 13:59 12/18/19 14:08 Primidone (Mysoline) 50 mg QHS ORAL 04/19/19 21:00 05/11/19 20:59 04/19/19 21:54 Allergies: Coded Allergies: CASHEW NUT (Verified Allergy, Unknown, 10/24/18) [place] Seed (Verified Allergy, Unknown, 10/24/18) ROS Limited/Unobtainable: No Constitutional: Reports: no symptoms HEENT: Reports: no symptoms Cardiovascular: Reports: no symptoms Respiratory: Reports: shortness of breath, wheezing Gastrointestinal/Abdominal: Reports: no symptoms Genitourinary: Reports: no symptoms Neurologic/Psychiatric: Reports: no symptoms Subjective 68 YO M admitted with shortness of breath. Now COPD exacerbation. Cover for Int Med-DR Medina. [facility] Objective Last Vital Signs Date Time Temp Pulse Resp B/P (MAP) Pulse Ox O2 Delivery O2 Flow Rate FiO2 04/20/19 16:02 98.2 78 21 106/60 (75) 97 04/20/19 15:39 Nasal Cannula 2.0 28 Laboratory Tests Test 04/20/19 06:32 White Blood Count 6.6 K/UL (4.8-10.8) Red Blood Count 4.48 M/UL (4.70-6.10) L Hemoglobin 14.6 G/DL (14.2-18.0) Hematocrit 41.2 % (42.0-52.0) L Mean Corpuscular Volume 92 FL (80-99) Mean Corpuscular Hemoglobin 32.5 PG (27.0-31.0) H Mean Corpuscular Hemoglobin Concent 35.3 G/DL (32.0-36.0) Red Cell Distribution Width 11.1 % (11.6-14.8) L Platelet Count 130 K/UL (150-450) L Mean Platelet Volume 5.5 FL (6.5-10.1) L Neutrophils (%) (Auto) 67.3 % (45.0-75.0) Lymphocytes (%) (Auto) 19.7 % (20.0-45.0) L Monocytes (%) (Auto) 9.9 % (1.0-10.0) Eosinophils (%) (Auto) 2.5 % (0.0-3.0) Basophils (%) (Auto) 0.5 % (0.0-2.0) Sodium Level 139 MMOL/L (136-145) Potassium Level 3.7 MMOL/L (3.5-5.1) Chloride Level 106 MMOL/L (98-107) Carbon Dioxide Level 25 MMOL/L (21-32) Anion Gap 8 mmol/L (5-15) Blood Urea Nitrogen 18 mg/dL (7-18) Creatinine 1.1 MG/DL (0.55-1.30) Estimat Glomerular Filtration Rate > 60 mL/min (>60) Glucose Level 94 MG/DL (74-106) Calcium Level 8.2 MG/DL (8.5-10.1) L Microbiology Date/Time Source Procedure Growth Status 04/18/19 02:10 Sputum Expectorated Gram Stain - Final Complete 04/18/19 02:10 Sputum Expectorated Sputum Culture - Final NORMAL UPPER RESPIRATORY ADA PRESENT Complete Intake and Output 04/19/19 04/20/19 19:00 07:00 Intake Total 1054.375 ml Output Total 1550 ml 800 ml Balance -495.625 ml -800 ml Intake Oral 360 ml IV Total 694.375 ml Output Urine Total 1550 ml 800 ml Objective General Appearance: WD/WN, alert, mild distress EENT: PERRL/EOMI, normal ENT inspection Neck: non-tender, normal alignment, supple, normal inspection Cardiovascular: normal peripheral pulses, normal rate, regular rhythm, no gallop/murmur, no JVD Respiratory/Chest: chest wall non-tender, respiratory distress, crackles/rales , rhonchi - bilaterally, expiratory wheezing Abdomen: normal bowel sounds, non tender, soft, no organomegaly, no mass Extremities: normal range of motion, non-tender 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 1. Shortness of breath. 2. Wheezing. 3. Probable chronic obstructive pulmonary disease acute exacerbation. 4. Hypercholesterolemia. 5. Posttraumatic stress disorder. 6. Prostate cancer. 7. Bipolar depression. TREATMENT: 1. Shortness of breath/wheezing/chronic obstructive pulmonary disease exacerbation. A Pulmonary consultation has been obtained with Dr. Michele Umaña. ABX=Joy and gypsy. The patient has been started on IV Solu-Medrol. Duoneb q 3hr routine. We will follow recommendations of Pulmonary. 2. Hypercholesterolemia. Continue atorvastatin as above. 3. Posttraumatic stress disorder/bipolar depression. Continue Lexapro and Depakote as above. 4. Prostate cancer. The patient is undergoing chemotherapy at the [facility]. Ryan Mckenzie MD Apr 20, 2019 18:29
--- NOTE | 2019-04-20 18:30 | NUR ---
NURSE NOTES: Patient resting,respirations unlabored.Call light within reach.
--- NOTE | 2019-04-20 19:24 | NUR ---
HAND-OFF: Report given to Natalie JARQUIN.
--- NOTE | 2019-04-20 19:29 | NUR ---
NURSE NOTES: Received report from MILKA Menchaca. patient in bed, awake and alert and verbally responsive. Breathing on NC. No respiratory distress noted. IV patent and asymptomatic. Bed in the lowest position and locked. call light within reach. will continue to provide plan of care.
[2019-04-20 20:00] VITALS: BP 111/62
[2019-04-20] MEDS: Atorvastatin 20mg tab ORAL SCH (20:57)
[2019-04-21] VITALS: BP 132/68
[2019-04-21] MEDS: Albuterol/Ipratropium 3ml neb HHN SCH ×6 (03:36→23:32)
[2019-04-21 04:00] VITALS: BP 111/68
[2019-04-21] MEDS: Piperacillin/Tazobactam 3.375 GM in NS 110 ML IVPB SCH (05:47)
[2019-04-21] MEDS: Heparin 5000 units/ml inj SUBQ SCH ×3 (05:49→21:10)
[2019-04-21 06:22] LABS: EOSINOPHILS % (AUTO) 2.2 % (0.0-3.0); HEMATOCRIT 41.2 % (42.0-52.0); HEMOGLOBIN 14.2 G/DL (14.2-18.0); LYMPHOCYTES % (AUTO) 20.2 % (20.0-45.0); MEAN CORPUSCULAR VOLUME 92 FL (80-99); MONOCYTES % (AUTO) 9.9 % (1.0-10.0); NEUTROPHILS % (AUTO) 66.6 % (45.0-75.0); PLATELET COUNT 125 K/UL (150-450); RED BLOOD COUNT 4.47 M/UL (4.70-6.10); RED CELL DISTRIBUTION WIDTH 11.1 % (11.6-14.8); WHITE BLOOD COUNT 6.5 K/UL (4.8-10.8)
[2019-04-21] MEDS: NovoLOG Insulin Flexpen SUBQ SCH ×4 (06:30→20:49)
[2019-04-21 06:44] LABS: ANION GAP 9 mmol/L (5-15); BLOOD UREA NITROGEN 17 mg/dL (7-18); CALCIUM 8.2 MG/DL (8.5-10.1); CARBON DIOXIDE 27 MMOL/L (21-32); CHLORIDE 105 MMOL/L (98-107); POTASSIUM 3.7 MMOL/L (3.5-5.1); SODIUM 141 MMOL/L (136-145)
--- NOTE | 2019-04-21 07:20 | NUR ---
HAND-OFF: Report given to MILKA Menchaca.
--- NOTE | 2019-04-21 07:58 | NUR ---
NURSE NOTES: Patient alert and oriented,respirations unlabored.02 on at 2L,N/C.breakfast at bedside.Call light within reach.
[2019-04-21 08:00] VITALS: BP 106/70
[2019-04-21] MEDS: Solu-MEDROL 40mg Inj IVP SCH (09:27)
[2019-04-21] MEDS: Albuterol Sulfate Syrup 2mg/5ml ORAL SCH ×4 (09:27→20:45)
[2019-04-21] MEDS: Depakote 500mg tab ORAL SCH ×2 (09:27→20:45)
[2019-04-21] MEDS: Azithromycin 500 MG in D5W 275 ML IV SCH (09:29)
[2019-04-21 12:00] VITALS: BP 107/74
--- NOTE | 2019-04-21 12:10 | Pulmonology Progress Note ---
Assessment/Plan Problems: (1) COPD exacerbation (2) Acute bronchitis (3) Prostate cancer (4) PTSD (post-traumatic stress disorder) (5) Cerebrovascular accident (CVA) (6) Bipolar depression Assessment/Plan stilightly better today cxr showed interstitial infiltrate, most likely interstitial pneumonia on albuterol syrup respiratory treatment q 3 hours sputum culture showing normal cindy taper IV stroids chest PT titrate fio2 to sat of 92% antitussives dvt prophylaxis. Subjective Interval Events: still sob, Allergies: Coded Allergies: CASHEW NUT (Verified Allergy, Unknown, 10/24/18) [place] Seed (Verified Allergy, Unknown, 10/24/18) Objective Last 24 Hour Vital Signs Date Time Temp Pulse Resp B/P (MAP) Pulse Ox O2 Delivery O2 Flow Rate FiO2 04/21/19 11:42 72 20 99 Nasal Cannula 2.0 28 74 22 96 04/21/19 09:53 Nasal Cannula 2.0 04/21/19 09:43 98 Nasal Cannula 2.0 28 04/21/19 08:00 97.4 57 20 106/70 (82) 04/21/19 04:00 97.3 65 20 111/68 (82) 97 04/21/19 03:36 61 18 99 Nasal Cannula 2.0 28 62 18 98 04/21/19 00:00 97.2 78 21 132/68 (89) 97 04/20/19 22:57 74 18 98 Nasal Cannula 2.0 28 72 18 97 04/20/19 21:00 Nasal Cannula 2.0 04/20/19 20:00 97.3 72 19 111/62 (78) 97 04/20/19 19:14 99 Nasal Cannula 2.0 28 04/20/19 19:03 72 18 99 Nasal Cannula 2.0 28 74 18 97 04/20/19 16:02 98.2 78 21 106/60 (75) 97 04/20/19 15:39 Nasal Cannula 2.0 28 04/20/19 15:29 80 21 97 Nasal Cannula 2.0 28 Intake and Output 04/20/19 04/21/19 19:00 07:00 Intake Total 960 ml Output Total 2000 ml 900 ml Balance -1040 ml -900 ml Intake Oral 960 ml Output Urine Total 2000 ml 900 ml # Voids 6 Objective General Appearance: WD/WN, no acute distress HEENT: normocephalic, atraumatic Respiratory/Chest: chest wall non-tender, loud wheezing Breasts: no masses Cardiovascular: normal rate Abdomen: normal bowel sounds, soft, non tender Genitourinary: normal external genitalia Extremities: no cyanosis Laboratory Tests 04/21/19 05:35: White Blood Count 6.5, Red Blood Count 4.47L, Hemoglobin 14.2, Hematocrit 41.2L , Mean Corpuscular Volume 92, Mean Corpuscular Hemoglobin 31.8H, Mean Corpuscular Hemoglobin Concent 34.5, Red Cell Distribution Width 11.1L, Platelet Count 125L, Mean Platelet Volume 5.8L, Neutrophils (%) (Auto) 66.6, Lymphocytes (%) (Auto) 20.2, Monocytes (%) (Auto) 9.9, Eosinophils (%) (Auto) 2.2, Basophils (%) (Auto) 1.0, Sodium Level 141, Potassium Level 3.7, Chloride Level 105, Carbon Dioxide Level 27, Anion Gap 9, Blood Urea Nitrogen 17, Creatinine 1.0, Estimat Glomerular Filtration Rate > 60, Glucose Level 88, Calcium Level 8.2L Current Medications Medications (Trade) Dose Ordered Sig/Jeri Route PRN Reason Start Time Stop Time Status Last Admin Dose Admin Acetaminophen (Tylenol) 650 mg Q6H PRN ORAL Mild Pain/Temp > 100.5 04/19/19 19:00 05/12/19 18:59 Albuterol/ Ipratropium (Albuterol/ Ipratropium) 3 ml Q4HRT HHN 04/19/19 19:00 04/23/19 02:59 04/21/19 11:35 Atorvastatin Calcium (Lipitor) 20 mg BEDTIME ORAL 04/19/19 21:00 05/11/19 22:29 04/20/19 20:57 Azithromycin 500 mg/Dextrose 275 ml @ 275 mls/hr Q24HRS IV 04/20/19 09:00 04/23/19 09:59 04/21/19 09:29 Dextrose (Dextrose 50%) 25 ml Q30M PRN IV Hypoglycemia 04/19/19 19:00 05/11/19 18:59 Dextrose (Dextrose 50%) 50 ml Q30M PRN IV Hypoglycemia 04/19/19 19:00 05/11/19 18:59 Divalproex Sodium (Depakote) 500 mg EVERY 12 HOURS ORAL 04/19/19 21:00 05/11/19 20:59 04/21/19 09:27 Escitalopram Oxalate (Lexapro) 10 mg DAILY ORAL 04/20/19 09:00 05/12/19 08:59 04/21/19 09:27 Heparin Sodium (Porcine) (Heparin 5000 units/ml) 5,000 units EVERY 8 HOURS SUBQ 04/19/19 22:00 05/11/19 21:59 04/21/19 05:49 Insulin Aspart (NovoLOG) BEFORE MEALS AND HS SUBQ 04/19/19 21:00 05/12/19 06:29 04/20/19 20:58 Methylprednisolone Sodium Succinate (Solu-MEDROL) 40 mg DAILY IVP 04/21/19 09:00 05/11/19 21:59 04/21/19 09:27 Primidone (Mysoline) 50 mg QHS ORAL 04/19/19 21:00 05/11/19 20:59 04/20/19 20:57 Michele Umaña MD Apr 21, 2019 12:10
[2019-04-21 16:00] VITALS: BP 104/64
--- NOTE | 2019-04-21 18:10 | Internal Med Progress Note ---
Subjective Date of Service: Apr 21, 2019 Physician Name Ryan Mckenzie Attending Physician Christopher Medina MD Current Medications Medications (Trade) Dose Ordered Sig/Jeri Route PRN Reason Start Time Stop Time Status Last Admin Dose Admin Acetaminophen (Tylenol) 650 mg Q6H PRN ORAL Mild Pain/Temp > 100.5 04/19/19 19:00 05/12/19 18:59 Albuterol/ Ipratropium (Albuterol/ Ipratropium) 3 ml Q4HRT HHN 04/19/19 19:00 04/23/19 02:59 04/21/19 11:35 Atorvastatin Calcium (Lipitor) 20 mg BEDTIME ORAL 04/19/19 21:00 05/11/19 22:29 04/20/19 20:57 Azithromycin (Zithromax) 500 mg DAILY ORAL 04/22/19 09:00 04/23/19 23:59 Dextrose (Dextrose 50%) 25 ml Q30M PRN IV Hypoglycemia 04/19/19 19:00 05/11/19 18:59 Dextrose (Dextrose 50%) 50 ml Q30M PRN IV Hypoglycemia 04/19/19 19:00 05/11/19 18:59 Divalproex Sodium (Depakote) 500 mg EVERY 12 HOURS ORAL 04/19/19 21:00 05/11/19 20:59 04/21/19 09:27 Escitalopram Oxalate (Lexapro) 10 mg DAILY ORAL 04/20/19 09:00 05/12/19 08:59 04/21/19 09:27 Heparin Sodium (Porcine) (Heparin 5000 units/ml) 5,000 units EVERY 8 HOURS SUBQ 04/19/19 22:00 05/11/19 21:59 04/21/19 13:44 Insulin Aspart (NovoLOG) BEFORE MEALS AND HS SUBQ 04/19/19 21:00 05/12/19 06:29 04/21/19 17:20 Methylprednisolone Sodium Succinate (Solu-MEDROL) 40 mg DAILY IVP 04/21/19 09:00 05/11/19 21:59 04/21/19 09:27 Primidone (Mysoline) 50 mg QHS ORAL 04/19/19 21:00 05/11/19 20:59 04/20/19 20:57 Allergies: Coded Allergies: CASHEW NUT (Verified Allergy, Unknown, 10/24/18) [place] Seed (Verified Allergy, Unknown, 10/24/18) ROS Limited/Unobtainable: No Constitutional: Reports: no symptoms HEENT: Reports: no symptoms Cardiovascular: Reports: no symptoms Respiratory: Reports: shortness of breath, wheezing Gastrointestinal/Abdominal: Reports: no symptoms Genitourinary: Reports: no symptoms Neurologic/Psychiatric: Reports: no symptoms Subjective 68 YO M admitted with shortness of breath. Now COPD exacerbation. Cover for Int Med-DR Medina. [facility] Objective Last Vital Signs Date Time Temp Pulse Resp B/P (MAP) Pulse Ox O2 Delivery O2 Flow Rate FiO2 04/21/19 16:00 97.2 71 20 104/64 (77) 04/21/19 11:42 99 Nasal Cannula 2.0 28 Laboratory Tests Test 04/21/19 05:35 White Blood Count 6.5 K/UL (4.8-10.8) Red Blood Count 4.47 M/UL (4.70-6.10) L Hemoglobin 14.2 G/DL (14.2-18.0) Hematocrit 41.2 % (42.0-52.0) L Mean Corpuscular Volume 92 FL (80-99) Mean Corpuscular Hemoglobin 31.8 PG (27.0-31.0) H Mean Corpuscular Hemoglobin Concent 34.5 G/DL (32.0-36.0) Red Cell Distribution Width 11.1 % (11.6-14.8) L Platelet Count 125 K/UL (150-450) L Mean Platelet Volume 5.8 FL (6.5-10.1) L Neutrophils (%) (Auto) 66.6 % (45.0-75.0) Lymphocytes (%) (Auto) 20.2 % (20.0-45.0) Monocytes (%) (Auto) 9.9 % (1.0-10.0) Eosinophils (%) (Auto) 2.2 % (0.0-3.0) Basophils (%) (Auto) 1.0 % (0.0-2.0) Sodium Level 141 MMOL/L (136-145) Potassium Level 3.7 MMOL/L (3.5-5.1) Chloride Level 105 MMOL/L (98-107) Carbon Dioxide Level 27 MMOL/L (21-32) Anion Gap 9 mmol/L (5-15) Blood Urea Nitrogen 17 mg/dL (7-18) Creatinine 1.0 MG/DL (0.55-1.30) Estimat Glomerular Filtration Rate > 60 mL/min (>60) Glucose Level 88 MG/DL (74-106) Calcium Level 8.2 MG/DL (8.5-10.1) L Intake and Output 04/20/19 04/21/19 19:00 07:00 Intake Total 960 ml Output Total 2000 ml 900 ml Balance -1040 ml -900 ml Intake Oral 960 ml Output Urine Total 2000 ml 900 ml # Voids 6 Objective General Appearance: WD/WN, alert, mild distress EENT: PERRL/EOMI, normal ENT inspection Neck: non-tender, normal alignment, supple, normal inspection Cardiovascular: normal peripheral pulses, normal rate, regular rhythm, no gallop/murmur, no JVD Respiratory/Chest: chest wall non-tender, respiratory distress, crackles/rales , rhonchi - bilaterally, expiratory wheezing Abdomen: normal bowel sounds, non tender, soft, no organomegaly, no mass Extremities: normal range of motion, non-tender 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 1. Shortness of breath. 2. Wheezing. 3. Probable chronic obstructive pulmonary disease acute exacerbation. 4. Hypercholesterolemia. 5. Posttraumatic stress disorder. 6. Prostate cancer. 7. Bipolar depression. TREATMENT: 1. Shortness of breath/wheezing/chronic obstructive pulmonary disease exacerbation. A Pulmonary consultation has been obtained with Dr. Michele Umaña. ABX=Zosyn and vanco. The patient has been started on IV Solu-Medrol. Duoneb q 3hr routine. We will follow recommendations of Pulmonary. 2. Hypercholesterolemia. Continue atorvastatin as above. 3. Posttraumatic stress disorder/bipolar depression. Continue Lexapro and Depakote as above. 4. Prostate cancer. The patient is undergoing chemotherapy at the [facility]. Ryan Mckenzie MD Apr 21, 2019 18:10
--- NOTE | 2019-04-21 18:30 | NUR ---
NURSE NOTES Patient resting,no complaints at his time,respiration unlabored.Call light within reach .
--- NOTE | 2019-04-21 19:25 | NUR ---
HAND-OFF: Report given to CHRISTIANO JARQUIN.
--- NOTE | 2019-04-21 19:37 | NUR ---
NURSE NOTES: Patient received in bed, awake and alert. No acute distress noted. Call light in reach. Will continue plan of care.
--- NOTE | 2019-04-21 19:49 | NUR ---
NURSE NOTES: Patient asking for medication to help him sleep. Paged Dr. Mckenzie for orders. Awaiting call back.
[2019-04-21 20:00] VITALS: BP 108/53
[2019-04-21] MEDS: Atorvastatin 20mg tab ORAL SCH (20:45)
--- NOTE | 2019-04-21 21:00 | NUR ---
NURSE NOTES: Brought patient's restoril with the scheduled medications. Patient stated he wants to take restoril after 10pm. Medication returned to pyxis. Held heparin due to generalized ecchymosis on right upper arm.
--- NOTE | 2019-04-21 23:01 | NUR ---
NURSE NOTES: Patient asleep, no distress.
[2019-04-22] VITALS: BP 133/75
[2019-04-22] MEDS: Albuterol/Ipratropium 3ml neb HHN SCH ×5 (03:37→15:18)
[2019-04-22 05:00] VITALS: BP 118/69
--- NOTE | 2019-04-22 05:38 | NUR ---
RESPIRATORY NOTE: Gave 3:00 scheduled breathing tx late because pt refused at that time and began to have audible wheezes at 5:30. RN Xyrece notified.
[2019-04-22] MEDS: Heparin 5000 units/ml inj SUBQ SCH (05:39)
[2019-04-22] MEDS: NovoLOG Insulin Flexpen SUBQ SCH ×3 (06:27→16:30)
--- NOTE | 2019-04-22 07:21 | NUR ---
HAND-OFF: Report given to Javier JARQUIN.
--- NOTE | 2019-04-22 07:22 | NUR ---
NURSE NOTES: Report received from Jonathan JARQUIN. Patient awake and alert x 4 sitting in semi fowlers position in bed. Currently receiving breathing treatment. Will check back in with patient after breathing treatment is completed. Does not appear to be in respiratory distress at this time. 22 marga IV present in left forearm and patent. Bedside table and call light in reach. Bed padded, in lowest position, locked and alarmed. Will continue to follow plan of care.
[2019-04-22 07:30] LABS: BASOPHILS % (AUTO) 1.1 % (0.0-2.0); HEMATOCRIT 42.1 % (42.0-52.0); HEMOGLOBIN 14.8 G/DL (14.2-18.0); LYMPHOCYTES % (AUTO) 21.7 % (20.0-45.0); MEAN CORPUSCULAR VOLUME 92 FL (80-99); MONOCYTES % (AUTO) 10.2 % (1.0-10.0); PLATELET COUNT 123 K/UL (150-450); RED BLOOD COUNT 4.55 M/UL (4.70-6.10); WHITE BLOOD COUNT 6.5 K/UL (4.8-10.8)
[2019-04-22 07:47] LABS: ALANINE AMINOTRANSFERASE 28 U/L (12-78); ALBUMIN/GLOBULIN RATIO 1.2 (1.0-2.7); ALKALINE PHOSPHATASE 48 U/L (46-116); ANION GAP 7 mmol/L (5-15); ASPARTATE AMINO TRANSFERASE 12 U/L (15-37); BILIRUBIN,TOTAL 0.3 MG/DL (0.2-1.0); BLOOD UREA NITROGEN 18 mg/dL (7-18); CALCIUM 8.5 MG/DL (8.5-10.1); CARBON DIOXIDE 27 MMOL/L (21-32); CHLORIDE 106 MMOL/L (98-107); CREATININE 0.9 MG/DL (0.55-1.30); PHOSPHORUS 3.9 MG/DL (2.5-4.9); POTASSIUM 3.6 MMOL/L (3.5-5.1); SODIUM 140 MMOL/L (136-145)
[2019-04-22 08:00] VITALS: BP 111/68
[2019-04-22] MEDS: Depakote 500mg tab ORAL SCH (08:19)
[2019-04-22] MEDS: Solu-MEDROL 40mg Inj IVP SCH (08:19)
--- NOTE | 2019-04-22 08:29 | NUR ---
NURSE NOTES: Patient received breathing treatment at aprox 0730. Upon morning medication administration patient found to have wheezing during auscultation bilaterally through out the lungs. The patient denies SOB and CP. Patient oxygen saturation of 94 percent on 2 liters of oxygen. Will continue to monitor and follow plan of care.
--- NOTE | 2019-04-22 08:32 | Pulmonology Progress Note ---
Assessment/Plan Assessment/Plan ASSESSMENT COPD exacerbation Acute bronchitis Probable interstitial pneumonia Prostate cancer History of CVA Bipolar depression PTSD PLAN OF CARE MS floor O2 titrate to keep pulse ox above 92 HHN ATC and PRN CPT add Mucomyst HHN IV steroids, increased to bid add Theophylline add Mucinex empiric abx scx negative antitussive prn CXR with evidence of interstitial infiltrate, probable interstitial pneumonia DVT prophylaxis home meds resumed supportive care case discussed and evaluated by supervising physician Subjective Allergies: Coded Allergies: CASHEW NUT (Verified Allergy, Unknown, 10/24/18) [place] Seed (Verified Allergy, Unknown, 10/24/18) Subjective afebrile, no leukocytosis still with extensive wheezing unable to cough up phlegm no chest pain Objective Last 24 Hour Vital Signs Date Time Temp Pulse Resp B/P (MAP) Pulse Ox O2 Delivery O2 Flow Rate FiO2 04/22/19 07:31 71 18 100 Nasal Cannula 2.0 28 70 18 96 04/22/19 07:21 96 Nasal Cannula 2.0 28 04/22/19 05:38 72 20 100 Nasal Cannula 2.0 28 67 20 98 04/22/19 05:00 97.8 60 20 118/69 (85) 98 04/22/19 00:00 98.0 72 19 133/75 (94) 98 04/21/19 23:32 Nasal Cannula 2.0 28 04/21/19 21:00 Nasal Cannula 2.0 04/21/19 20:00 98.0 71 20 108/53 (71) 98 04/21/19 19:58 89 20 100 Nasal Cannula 2.0 28 86 20 97 04/21/19 19:58 97 Nasal Cannula 2.0 28 04/21/19 16:00 97.2 71 20 104/64 (77) 04/21/19 12:00 97.5 74 20 107/74 (85) 04/21/19 11:42 74 20 99 Nasal Cannula 2.0 28 04/21/19 11:42 72 20 99 Nasal Cannula 2.0 28 74 22 96 04/21/19 09:53 Nasal Cannula 2.0 04/21/19 09:43 98 Nasal Cannula 2.0 28 Intake and Output 04/21/19 04/22/19 18:59 06:59 Intake Total 960 ml Output Total 900 ml Balance 960 ml -900 ml Intake Oral 960 ml Output Urine Total 900 ml # Voids 3 # Bowel Movements 1 General Appearance: no acute distress HEENT: normocephalic, atraumatic, anicteric, mucous membranes moist Respiratory/Chest: no accessory muscle use, expiratory wheezing - diffused anterior and posterior Cardiovascular: normal peripheral pulses, normal rate, no JVD Abdomen: soft, non tender, non distended Extremities: no edema, pedal pulses normal Neurologic/Psychiatric: alert, oriented x 3, responsive Musculoskeletal: normal muscle bulk Laboratory Tests 04/22/19 06:45: White Blood Count 6.5, Red Blood Count 4.55L, Hemoglobin 14.8, Hematocrit 42.1, Mean Corpuscular Volume 92, Mean Corpuscular Hemoglobin 32.5H, Mean Corpuscular Hemoglobin Concent 35.1, Red Cell Distribution Width 11.0L, Platelet Count 123L , Mean Platelet Volume 6.6, Neutrophils (%) (Auto) 65.0, Lymphocytes (%) (Auto) 21.7, Monocytes (%) (Auto) 10.2H, Eosinophils (%) (Auto) 2.0, Basophils (%) ( Auto) 1.1, Erythrocyte Sedimentation Rate [Pending], Sodium Level 140, Potassium Level 3.6, Chloride Level 106, Carbon Dioxide Level 27, Anion Gap 7, Blood Urea Nitrogen 18, Creatinine 0.9, Estimat Glomerular Filtration Rate > 60 , Glucose Level 91, Calcium Level 8.5, Phosphorus Level 3.9, Magnesium Level 2.0 , Total Bilirubin 0.3, Aspartate Amino Transf (AST/SGOT) 12L, Alanine Aminotransferase (ALT/SGPT) 28, Alkaline Phosphatase 48, C-Reactive Protein, Quantitative < 0.4, Total Protein 5.6L, Albumin 3.0L, Globulin 2.6, Albumin/ Globulin Ratio 1.2 Current Medications Medications (Trade) Dose Ordered Sig/Jeri Route PRN Reason Start Time Stop Time Status Last Admin Dose Admin Acetaminophen (Tylenol) 650 mg Q6H PRN ORAL Mild Pain/Temp > 100.5 04/19/19 19:00 05/12/19 18:59 Albuterol/ Ipratropium (Albuterol/ Ipratropium) 3 ml Q4HRT HHN 04/19/19 19:00 04/23/19 02:59 04/22/19 07:21 Atorvastatin Calcium (Lipitor) 20 mg BEDTIME ORAL 04/19/19 21:00 05/11/19 22:29 04/21/19 20:45 Azithromycin (Zithromax) 500 mg DAILY ORAL 04/22/19 09:00 04/23/19 23:59 04/22/19 08:19 Dextrose (Dextrose 50%) 25 ml Q30M PRN IV Hypoglycemia 04/19/19 19:00 05/11/19 18:59 Dextrose (Dextrose 50%) 50 ml Q30M PRN IV Hypoglycemia 04/19/19 19:00 05/11/19 18:59 Divalproex Sodium (Depakote) 500 mg EVERY 12 HOURS ORAL 04/19/19 21:00 05/11/19 20:59 04/22/19 08:19 Escitalopram Oxalate (Lexapro) 10 mg DAILY ORAL 04/20/19 09:00 05/12/19 08:59 04/22/19 08:19 Heparin Sodium (Porcine) (Heparin 5000 units/ml) 5,000 units EVERY 8 HOURS SUBQ 04/19/19 22:00 05/11/19 21:59 04/21/19 13:44 Insulin Aspart (NovoLOG) BEFORE MEALS AND HS SUBQ 04/19/19 21:00 05/12/19 06:29 04/21/19 20:49 Methylprednisolone Sodium Succinate (Solu-MEDROL) 40 mg DAILY IVP 04/21/19 09:00 05/11/19 21:59 04/22/19 08:19 Primidone (Mysoline) 50 mg QHS ORAL 04/19/19 21:00 05/11/19 20:59 04/21/19 20:45 Temazepam (Restoril) 15 mg HSPRN PRN ORAL Insomnia 04/21/19 20:00 04/28/19 19:59 04/22/19 02:39 Chelsie Chowdhury NP Apr 22, 2019 08:32
[2019-04-22] MEDS ORDERED: Azithromycin 250mg tab ORAL SCH (09:00)
[2019-04-22] MEDS ORDERED: Theophylline ER 100mg ORAL SCH (10:15)
[2019-04-22] MEDS ORDERED: guaiFENesin ER 600mg tab ORAL SCH (10:30)
[2019-04-22] MEDS: Albuterol Sulfate Syrup 2mg/5ml ORAL SCH ×2 (10:36→13:03)
--- NOTE | 2019-04-22 11:40 | NUR ---
NURSE NOTES: Patient blood glucose level of 119 at 1130. Per sliding scale, patient is to be given 1 unit of Novalog. Patient requested not to take insulin as he would not normally at home. Educated patient that we follow a sliding and check patient's blood glucose levels at timed intervals to help ensure proper and safe care. Explained the to patient that solumedrol may be effecting his blood sugars as well. Educated patient on potential effects that could occur if he does not take insulin. Patient was able to verbalize back that he understood the risks that he was taking by not taking his insulin. Insulin not administered to the patient. Will continue to monitor blood glucose levels and follow plan of care.
[2019-04-22 12:00] VITALS: BP 132/67
--- NOTE | 2019-04-22 13:20 | NUR ---
NURSE NOTES: Spoke with Doctor Mckenzie via telephone. Doctor discontinued heparin due to low platelet count and ecchymosis of the arm. Patient is also able to ambulate. Doctor ordered for patient to wear SCDs while in bed. Updated and educated patient on new order. Patient understood the reason for stopping heparin and the benefits of the SCDs. Patient will cooperate and participate in this new plan. Will continue to follow care plan.
[2019-04-22 16:00] VITALS: BP 101/68
[2019-04-22] MEDS ORDERED: THEOPHYLLINE A100 MG ORAL (17:05)
--- NOTE | 2019-04-22 17:05 | Internal Med Progress Note ---
Subjective Physician Name Christopher Medina Attending Physician Christopher Medina MD Current Medications Medications (Trade) Dose Ordered Sig/Jeri Route PRN Reason Start Time Stop Time Status Last Admin Dose Admin Acetaminophen (Tylenol) 650 mg Q6H PRN ORAL Mild Pain/Temp > 100.5 04/19/19 19:00 05/12/19 18:59 Acetylcysteine (Mucomyst) 100 mg Q8HR@0300,1100,1900 [facility] 04/22/19 11:00 05/22/19 10:59 04/22/19 11:05 Albuterol/ Ipratropium (Albuterol/ Ipratropium) 3 ml Q4HRT [facility] 04/19/19 19:00 04/23/19 02:59 04/22/19 15:18 Atorvastatin Calcium (Lipitor) 20 mg BEDTIME ORAL 04/19/19 21:00 05/11/19 22:29 04/21/19 20:45 Azithromycin (Zithromax) 500 mg DAILY ORAL 04/22/19 09:00 04/23/19 23:59 04/22/19 08:19 Dextrose (Dextrose 50%) 25 ml Q30M PRN IV Hypoglycemia 04/19/19 19:00 05/11/19 18:59 Dextrose (Dextrose 50%) 50 ml Q30M PRN IV Hypoglycemia 04/19/19 19:00 05/11/19 18:59 Divalproex Sodium (Depakote) 500 mg EVERY 12 HOURS ORAL 04/19/19 21:00 05/11/19 20:59 04/22/19 08:19 Escitalopram Oxalate (Lexapro) 10 mg DAILY ORAL 04/20/19 09:00 05/12/19 08:59 04/22/19 08:19 Guaifenesin (Mucinex ER) 600 mg TWICE A DAY ORAL 04/22/19 10:30 05/22/19 10:29 04/22/19 10:36 Insulin Aspart (NovoLOG) BEFORE MEALS AND HS SUBQ 04/19/19 21:00 05/12/19 06:29 04/21/19 20:49 Methylprednisolone Sodium Succinate (Solu-MEDROL) 40 mg BID IVP 04/22/19 18:00 05/11/19 21:59 Primidone (Mysoline) 50 mg QHS ORAL 04/19/19 21:00 05/11/19 20:59 04/21/19 20:45 Temazepam (Restoril) 15 mg HSPRN PRN ORAL Insomnia 04/21/19 20:00 04/28/19 19:59 04/22/19 02:39 Theophylline (Esteban-Dur) 100 mg DAILY ORAL 04/22/19 10:15 05/22/19 10:14 04/22/19 10:36 Allergies: Coded Allergies: CASHEW NUT (Verified Allergy, Unknown, 10/24/18) [place] Seed (Verified Allergy, Unknown, 10/24/18) Subjective awake, alert, responsive, less SOB, No CP. Objective Last Vital Signs Date Time Temp Pulse Resp B/P (MAP) Pulse Ox O2 Delivery O2 Flow Rate FiO2 04/22/19 16:00 97.9 78 20 101/68 (79) 95 04/22/19 15:28 Room Air 21 04/22/19 11:20 2.0 Laboratory Tests Test 04/22/19 06:45 White Blood Count 6.5 K/UL (4.8-10.8) Red Blood Count 4.55 M/UL (4.70-6.10) L Hemoglobin 14.8 G/DL (14.2-18.0) Hematocrit 42.1 % (42.0-52.0) Mean Corpuscular Volume 92 FL (80-99) Mean Corpuscular Hemoglobin 32.5 PG (27.0-31.0) H Mean Corpuscular Hemoglobin Concent 35.1 G/DL (32.0-36.0) Red Cell Distribution Width 11.0 % (11.6-14.8) L Platelet Count 123 K/UL (150-450) L Mean Platelet Volume 6.6 FL (6.5-10.1) Neutrophils (%) (Auto) 65.0 % (45.0-75.0) Lymphocytes (%) (Auto) 21.7 % (20.0-45.0) Monocytes (%) (Auto) 10.2 % (1.0-10.0) H Eosinophils (%) (Auto) 2.0 % (0.0-3.0) Basophils (%) (Auto) 1.1 % (0.0-2.0) Erythrocyte Sedimentation Rate 2 MM/HR (0-20) Sodium Level 140 MMOL/L (136-145) Potassium Level 3.6 MMOL/L (3.5-5.1) Chloride Level 106 MMOL/L (98-107) Carbon Dioxide Level 27 MMOL/L (21-32) Anion Gap 7 mmol/L (5-15) Blood Urea Nitrogen 18 mg/dL (7-18) Creatinine 0.9 MG/DL (0.55-1.30) Estimat Glomerular Filtration Rate > 60 mL/min (>60) Glucose Level 91 MG/DL (74-106) Calcium Level 8.5 MG/DL (8.5-10.1) Phosphorus Level 3.9 MG/DL (2.5-4.9) Magnesium Level 2.0 MG/DL (1.8-2.4) Total Bilirubin 0.3 MG/DL (0.2-1.0) Aspartate Amino Transf (AST/SGOT) 12 U/L (15-37) L Alanine Aminotransferase (ALT/SGPT) 28 U/L (12-78) Alkaline Phosphatase 48 U/L (46-116) C-Reactive Protein, Quantitative < 0.4 mg/dL (0.00-0.90) Total Protein 5.6 G/DL (6.4-8.2) L Albumin 3.0 G/DL (3.4-5.0) L Globulin 2.6 g/dL Albumin/Globulin Ratio 1.2 (1.0-2.7) Intake and Output 04/21/19 04/22/19 19:00 07:00 Intake Total 960 ml Output Total 900 ml Balance 960 ml -900 ml Intake Oral 960 ml Output Urine Total 900 ml # Voids 3 # Bowel Movements 1 Objective General: No acute distress, awake and alert HEENT: NCAT, sclera anicteric, PERRL, EOMI. Neck: Supple, no significant jugular venous distention, Lungs: Good inspiratory effort, clear to auscultation bilaterally, + expiratory Wheeze, No Rales. Heart: Regular rate and rhythm, normal S1/S2, no murmur. Abdomen: soft, nontender, nondistended. Normoactive bowel sounds, Obesity. / Rectal: Refused and deferred. Extremities: No Cyanosis , clubbing or edema. Neuro: A&O x 3, Able to move all extremities Skin: warm, no rashes or lesions Psych: Normal mood and affect Assessment/Plan Assessment/Plan ASSESSMENT: This is a 68-year-old male. 1. Acute Bronchitis 2. Acute on chronic obstructive pulmonary disease acute exacerbation. 3. Morbid Obesity. 4. Hypercholesterolemia. 5. Posttraumatic stress disorder. 6. Prostate cancer. 7. Bipolar depression. TREATMENT: 1. Shortness of breath/wheezing/chronic obstructive pulmonary disease exacerbation. A Pulmonary consultation has been obtained with Dr. Michele Umaña. Duoneb q 3hr routine. We will follow recommendations of Pulmonary. 2. Hypercholesterolemia. Continue atorvastatin as above. 3. Posttraumatic stress disorder/bipolar depression. Continue Lexapro and Depakote as above. 4. Prostate cancer. The patient is undergoing chemotherapy at the [facility]. DC home today. Follow-up in office in 1 week. Christopher Medina MD Apr 22, 2019 17:05
[2019-04-22] MEDS ORDERED: Solu-MEDROL 40mg Inj IVP SCH (18:00)
--- NOTE | 2019-04-22 18:40 | NUR ---
NURSE NOTES: Patient is discharged. IV removed and site covered. Personal belongings inventoried and sent with patient. Patient needs met and patient kept comfortable at all times. Patient departed in cab.
--- NOTE | 2019-04-23 18:37 | Discharge Summary ---
Discharge Summary Discharge Summary _ DATE OF ADMISSION: 04/11/2019 DATE OF DISCHARGE: 04/22/2019 DISCHARGED BY: Dr. Christopher Medina CONSULTANTS: Dr. Michele Umaña BRIEF HOSPITAL COURSE: Patient is a 68-year-old male, who presented with chief complaint of shortness of breath and wheezing. The patient was admitted to [facility] in October 2018 with similar symptoms. Patient complained of one-week shortness of breath and wheezing. He tried using the nebulizer at home without any relief. Patient is also on a steroid inhaler and albuterol inhaler. He presented to ED for evaluation of shortness of breath and wheezing. Evaluation at the ED showed normal WBC. Hemoglobin and hematocrit were stable. Electrolytes were normal. Chest x-ray did not show any acute process. Lactic acid was elevated to 2.4. He was given IV bolus. He was started on IV antibiotic. Repeat lactic acid went up to 4.1. Patient was then admitted for evaluation of shortness of breath/COPD exacerbation. He was given nebulizer treatment. He was started empirically on Zosyn and vancomycin. He was started on IV Solu-Medrol. He was placed on chest physiotherapy. He was given antitussives. He was continued on a atorvastatin for hypercholesterolemia. He was given Lexapro and Depakote for bipolar depression. Patient has prostate cancer and is undergoing chemotherapy at the [facility]. Patient continued to have cough. He had slow improvement of symptoms. IV steroid was increased to twice daily. Mucomyst was added. He was given theophylline and Mucinex. Surveillance chest x-ray was done. Evidence of interstitial infiltrate. He was continued on antibiotics. Sputum culture was negative. He was eventually cleared for discharge home. FINAL DIAGNOSES: Acute bronchitis Acute on chronic obstructive pulmonary disease in acute exacerbation Probable interstitial pneumonia Morbid obesity Hypercholesterolemia Posttraumatic stress disorder Prostate cancer Bipolar depression Old CVA DISPOSITION: Patient was discharged home. DISCHARGE MEDICATIONS: Refer to Discharge Medication List. DISCHARGE INSTRUCTIONS: Follow-up in a week. I have been assigned to complete a discharge summary on this account, I was not involved with the patient's management.--ROGER Boswell Jacqueline Robles NP Apr 23, 2019 18:37
== END 2019-04-22 18:49 | disposition home or self-care (01) | DRG 202 ==
LOC: EMR 13:00 → 3E 13:01 → EDBEDREQ 14:47 → 3E 18:38 → 2E 04-12 10:23 → 4E 04-15 15:50 → 2W 04-16 11:35 → 4E 04-19 18:40
DX: J20.9 Acute bronchitis, unspecified (principal); J44.1 Chronic obstructive pulmonary disease with (acute) exacerbation; J44.0 Chronic obstructive pulmonary disease with (acute) lower respiratory infection; J84.9 Interstitial pulmonary disease, unspecified; F43.10 Post-traumatic stress disorder, unspecified; C61 Malignant neoplasm of prostate; F31.9 Bipolar disorder, unspecified; F32.9 Major depressive disorder, single episode, unspecified; E78.00 Pure hypercholesterolemia, unspecified; E66.01 Morbid (severe) obesity due to excess calories; Z68.30 Body mass index [BMI] 30.0-30.9, adult; Z86.73 Personal history of transient ischemic attack (TIA), and cerebral infarction without residual deficits
CPT/HCPCS: 36415; 71045; 80048; 80053; 80184; 80202; 82550; 82962; 83036; 83605; 83735; 83880; 84100; 84484; 85007; 85025; 85610; 85651; 85730; 86140; 86710; 87070; 87205; 93005; 94640; 94664; 96361; 96365; 96368; 96375; 99285; J1815; J7030; J7620